=== PATIENT | female | born 1960 ===

== ENCOUNTER 2016-12-25 11:40 | Inpatient (IN) | payer SELFPAY ==
[2016-12-25 11:41] VITALS: BMI 31.1
[2016-12-25] MEDS ORDERED: Sodium Chloride 0.9% 1,000 ML IV STA (13:58)
--- NOTE | 2016-12-25 14:29 | ED PDOC ---
Hyperglycemia/Hypoglycemia Time Seen by Provider: 12/25/16 13:43 Chief Complaint (Nursing): Abdominal Pain Chief Complaint (Provider): Hyperglycemia History Per: Patient History/Exam Limitations: no limitations Onset/Duration Of Symptoms: Days (x2) Current Symptoms Are (Timing): Still Present Severity: Moderate Current Diabetic Medications: Oral Medication Associated Infectious Symptoms: Nausea, Vomiting (non-bloody). denies: Other ( no abdominal pain, chest pain, shortness of breath, headache or vision changes) : The patient does not have any of the infectious symptoms listed except for those marked. Treatment Prior To Provider Evaluation: None Additional Complaint(s): Betty Ramirez is a 56 year old female, with a past medical history inclusive of HTN and type II diabetes, who presents to the ED on 12/25/16 for the evaluation of moderate hyperglycemia that she has experienced x2 days. Patient reports that her blood glucose levels have been consistently within the 300's and that she has also experienced some nausea and episodes of non-bloody vomiting. Denies headache, vision changes, chest pain, shortness of breath or abdominal pain. Symptoms have persisted despite compliance with her medications , prompting ED visit. PMD: [facility] Past Medical History Reviewed: Historical Data, Nursing Documentation, Vital Signs Vital Signs: Last Vital Signs Temp 97.9 F 12/25/16 11:48 Pulse 66 12/25/16 11:48 Resp 17 12/25/16 11:48 BP 137/84 12/25/16 11:48 Pulse Ox 100 12/25/16 11:48 - Medical History PMH: Anemia, Diabetes (type II), Gastritis, GERD, Hepatitis (C with liver cirrhosis), Hiatal Hernia, HTN, Pneumonia Denies: Anxiety, Bipolar Disorder, Depression, HIV, Paranoia, Post Traumatic Stress Disorder, Chronic Kidney Disease, Schizophrenia - Surgical History Surgical History: Appendectomy, Hernia Repair Other surgeries: colonoscopy, tubal ligation - Family History Family History: States: Unknown Family Hx - Social History Ex-Smoker (has not smoked in the last 12 months): Yes Alcohol: None Drugs: Denies - Immunization History Hx Influenza Vaccination: No Hx Pneumococcal Vaccination: No - Home Medications Home Medications: Ambulatory Orders Medication Instructions Recorded Lansoprazole [Prevacid] 15 mg PO DAILY 07/16/16 Ferrous Sulfate [Feosol] 325 mg PO DAILY 12/05/16 Insulin Detemir [Levemir] 15 unit SC HS 12/05/16 Propranolol [Inderal] 10 mg PO Q8H 12/05/16 Insulin Lispro [Humalog (Insulin 9 unit SQ ACTID #10 cartridge 12/08/16 Lispro)] - Allergies Allergies/Adverse Reactions: Allergies Allergy/AdvReac Type Severity Reaction Status Date / Time No Known Allergies Allergy Verified 12/25/16 11:48 Review of Systems ROS Statement: Except As Marked, All Systems Reviewed And Found Negative Constitutional: Positive for: Other (hyperglycemia (300's)) Eyes: Negative for: Vision Change Cardiovascular: Negative for: Chest Pain Respiratory: Negative for: Shortness of Breath Gastrointestinal: Positive for: Nausea, Vomiting (non-bloody). Negative for: Abdominal Pain Neurological: Negative for: Headache Physical Exam - Reviewed Nursing Documentation Reviewed: Yes Vital Signs Reviewed: Yes - Physical Exam Appears: Positive for: Non-toxic, No Acute Distress Head Exam: Positive for: ATRAUMATIC, NORMOCEPHALIC Skin: Positive for: Warm, Dry Eye Exam: Positive for: Normal appearance, EOMI, PERRL ENT: Positive for: Normal ENT Inspection. Negative for: Pharyngeal Erythema, Tonsillar Exudate, Tonsillar Swelling Cardiovascular/Chest: Positive for: Regular Rate, Rhythm. Negative for: Edema, Murmur Respiratory: Positive for: Normal Breath Sounds. Negative for: Respiratory Distress Gastrointestinal/Abdominal: Positive for: Normal Exam, Soft. Negative for: Tenderness Back: Negative for: L CVA Tenderness, R CVA Tenderness Extremity: Positive for: Normal ROM. 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 Negative for: Motor/Sensory Deficits, Facial Droop - ECG ECG: Positive for: Interpreted By Me, Viewed By Me ECG Rhythm: Positive for: Normal QRS, Normal ST Segment, Sinus Rhythm O2 Sat by Pulse Oximetry: 100 (RA) Pulse Ox Interpretation: Normal - Progress ED Course And Treament: 1633: Stable. Dr. Pacheco to take over care. Fu with labs. Medical Decision Making Medical Decision Makin:43 Initial Impression: hyperglycemia Initial Plan: * EKG * Labs * Troponin I * Udip * IV NS 1000ml at 1000mls/hr * Zofran 4mg IV * Reevaluation Scribe Attestation: Documented by Aneta Rivera, acting as a scribe for Felix Blood MD. Provider Scribe Attestation: All medical record entries made by the Scribe were at my direction and personally dictated by me. I have reviewed the chart and agree that the record accurately reflects my personal performance of the history, physical exam, medical decision making, and the department course for this patient. I have also personally directed, reviewed, and agree with the discharge instructions and disposition. Disposition - Clinical Impression Clinical Impression: Acute hyperglycemia - Disposition Disposition: Transfer of Care Disposition Time: 16:48 Condition: STABLE Patient Signed Over To: Brien Pacheco
[2016-12-25 16:49] LABS: BASO # 0.1 K/uL (0.0-0.2); BASO % 1.1 % (0.0-2.0); EOS # 0.1 K/uL (0.0-0.7); EOS % 2.1 % (0.0-4.0); HEMATOCRIT 28.3 % (34.0-47.0); LYMPH # 1.9 K/uL (1.0-4.3); LYMPH % 31.8 % (20.0-40.0); MEAN CELL VOLUME 90.4 fl (81.0-99.0); MEAN CORPUSCULAR HEMOGLOBIN 30.3 pg (27.0-31.0); MEAN CORPUSCULAR HGB CONC 33.5 g/dL (33.0-37.0); MEAN PLATELET VOLUME 9.7 fl (7.2-11.7); MONO # 0.4 K/uL (0.0-0.8); MONO % 7.4 % (0.0-10.0); NEUT # 3.5 K/uL (1.8-7.0); NEUT % 57.6 % (50.0-75.0); RED CELL DISTRIBUTION WIDTH 16.6 % (11.5-14.5)
[2016-12-25 17:08] LABS: ALB/GLOB RATIO 0.7 (1.0-2.1); ALKALINE PHOSPHATASE 168 U/L (38-126); ALT/SGPT 45 U/L (9-52); AST/SGOT 51 U/L (14-36); BILIRUBIN,TOTAL 2.1 mg/dl (0.2-1.3); BLOOD UREA NITROGEN 59 mg/dl (7-17); CALCIUM 9.6 mg/dL (8.4-10.2); CARBON DIOXIDE 21 mmol/L (22-30); CHLORIDE 100 mmol/L (98-107); GFR AFRICAN-AMERICAN 25; GLUCOSE,RANDOM 230 mg/dL (65-105); POTASSIUM 5.1 MMOL/L (3.6-5.0); SODIUM 135 mmol/l (132-148); TOTAL PROTEIN 7.8 G/DL (6.3-8.2)
--- NOTE | 2016-12-25 18:11 | ED PDOC ---
- Laboratory Results Result Diagrams: 12/25/16 16:40 12/25/16 16:40 - ECG O2 Sat by Pulse Oximetry: 100 (RA) Disposition - Clinical Impression Clinical Impression: Acute hyperglycemia, [id number] renal failure - POA Present On Arrival: None - Disposition Disposition: Admitted as In-Patient Disposition Time: 18:11 Condition: FAIR
[2016-12-25] MEDS ORDERED: Dextrose 50% SYRINGE Inj (50 ml) IV PRN (20:01)
[2016-12-25] MEDS ORDERED: Glucagon Recombinant 1 mg Inj IM PRN (20:01)
--- NOTE | 2016-12-25 20:16 | CP.PCM.HP ---
History of Present Illness - History of Present Illness History of Present Illness: 56 yo F w/ PMHx of IDDDMII, HTN, Liver Cirrhosis, Anemia, CKD presented to ED today due to BS noted to be 400s. Patient had episode of vomiting last night, x1 , non-bloody, non-bilious. Mild nausea reported this AM. Patient usually does not check her BS, though bought machine last night and checked it this AM. Patient states she feels well otherwise. Denies chest pain, abdominal pain, headache, chills, fever, numbness, tingling, back pain, recent illness, or changes in urinary/bowel habits. Diet has been as usual. Taking medication as prescribed though was prescribed another medications that she states was too expensive though she is unsure what it was for. PMHx: DM 2 on Insulin, HTN, Liver Cirrhosis, Anemia, CKD PSHx: Abdominal Hernia Repair ALL: NKDA, NO known food allergies Medications: Glimepiride 4 mg PO 1x/day, Spironolactone 100 mg PO 1x/day, Furosemide 40 mg PO 1x/day, Propranolol 10 mg PO Q8H, Levemir 15 units SQ QHS, Social Hx: Lives with [id number], NO tobacco, NO alcohol, NO illicit drugs Family Hx: Mom ( at 72 of unspecified pulmonary disease), Dad ( at 88 of heart disease), 3 sons (1 with HTN) ED Course: Vitals stable, unremarkable Labs: notable for BUN/Cr: 59/2.4, elevated Alk phos/AST. POC 376, Serum Glu 230 EKG unremarkable Zofran 4mg x1, IV bolus 1L Present on Admission - Present on Admission Any Indicators Present on Admission: Yes History of Uncontrolled Diabetes: Yes Past Patient History - Tetanus Immunizations Tetanus Immunization: Unknown - Past Medical History & Family History Past Medical History?: Yes - Past Social History Alcohol: None Drugs: Denies - CARDIAC Hx Hypertension: Yes - PULMONARY Hx Pneumonia: Yes - NEUROLOGICAL Hx Neurological Disorder: No - HEENT Hx HEENT Problems: No - RENAL Hx Chronic Kidney Disease: No - ENDOCRINE/METABOLIC Hx Diabetes Mellitus Type 2: Yes - HEMATOLOGICAL/ONCOLOGICAL Hx Anemia: Yes Hx Human Immunodeficiency Virus (HIV): No - INTEGUMENTARY Hx Dermatological Problems: No - MUSCULOSKELETAL/RHEUMATOLOGICAL Hx Musculoskeletal Disorders: Yes Hx Falls: No - GASTROINTESTINAL Hx Gastritis: Yes - GENITOURINARY/GYNECOLOGICAL Hx Genitourinary Disorders: No - PSYCHIATRIC Hx Anxiety: No Hx Bipolar Disorder: No Hx Depression: No Hx Paranoia: No Hx Post Traumatic Stress Disorder: No Hx Schizophrenia: No - SURGICAL HISTORY Hx Appendectomy: Yes - ANESTHESIA Hx Anesthesia: Yes Hx Anesthesia Reactions: No Hx Malignant Hyperthermia: No Meds Allergies/Adverse Reactions: Allergies Allergy/AdvReac Type Severity Reaction Status Date / Time No Known Allergies Allergy Verified 12/25/16 11:48 Physical Exam - Constitutional Appears: Well, Non-toxic, No Acute Distress - Head Exam Head Exam: ATRAUMATIC, NORMAL INSPECTION, NORMOCEPHALIC - Eye Exam Eye Exam: EOMI, Normal appearance - ENT Exam ENT Exam: Normal Exam - Neck Exam Neck exam: Positive for: Normal Inspection - Respiratory Exam Respiratory Exam: Clear to Auscultation Bilateral, NORMAL BREATHING PATTERN. absent: Decreased Breath Sounds, Rales, Rhonchi, Wheezes - Cardiovascular Exam Cardiovascular Exam: REGULAR RHYTHM, RRR, +S1, +S2 - GI/Abdominal Exam GI & Abdominal Exam: Normal Bowel Sounds, Soft. absent: Tenderness - Extremities Exam Extremities exam: Positive for: normal inspection. Negative for: calf tenderness, pedal edema - Back Exam Back exam: NORMAL INSPECTION - Neurological Exam Neurological exam: Alert, Oriented x3 - Psychiatric Exam Psychiatric exam: Normal Affect, Normal Mood - Skin Skin Exam: Dry, Intact, Normal Color, Warm Results - Vital Signs Recent Vital Signs: Last Vital Signs Temp 97.9 F 12/25/16 11:48 Pulse 66 12/25/16 11:48 Resp 17 12/25/16 11:48 BP 137/84 12/25/16 11:48 Pulse Ox 100 12/25/16 18:11 - Labs Result Diagrams: 12/25/16 16:40 12/25/16 16:40 Assessment & Plan (1) Acute hyperglycemia Status: Acute (2) Acute on chronic renal failure Status: Acute (3) Chronic hepatitis C with cirrhosis Status: Chronic (4) HTN (hypertension) Status: Chronic (5) DVT prophylaxis Status: Acute - Assessment and Plan (Free Text) Assessment: 56 yo F w/ PMHx of IDDDMII, HTN, Liver Cirrhosis, Anemia, CKD with hyperglycemia and acute on chronic kidney failure. Plan: (1) Acute hyperglycemia -Blood sugar 230 on Serum -Previous review of chart noted Levemir 20 u Sc HS (while admitted though discharge summary stated return to 15U HS), Humalog 9 u sc ACTID -Patient currently taking Levemir 15U HS and no Humalog -Will monitor BS and increase to previous dosing if indicated. -Hypoglycemia protocol -Insulin sliding scale (2) Acute on chronic renal failure Stage III -Likely multifactorial between medication/dehydration -Does not follow up with Nephrology as outpatient -Will hydrate patient at this time and hold lasix -Follow up labs in AM and adjust accordingly (3) Chronic hepatitis C with cirrhosis -Being managed by Dr Izquierdo as outpatient, Stable from cirrhotic perspective w/ o abdominal pain and no gross ascites. -GI consulted earlier this month appreciated: c/w Propranolol 10mg Q8H, continue to hold diuretics with renal insufficiency , continue protonix. consider transfusion '(at time with anemia)' -c/w propranolol -Patient states taking spironolactone, though previous admission states not to continue, will hold at this time (4) HTN (hypertension) -Controlled at this time -no diuretics or lisinopril for now until follow up with GI -c/w propranolol 10 mg Q8h -Monitor BP (5) DVT prophylaxis -SCDs (CrCl 32 at this time, can consider Lovenox in subsequent days)
[2016-12-25] MEDS: Sodium Chloride 0.9% 1,000 ML IV SCH (20:59)
[2016-12-25] MEDS ORDERED: INSULIN DETEMIR 15 UNIT SC SCH (22:00)
[2016-12-25] MEDS ORDERED: Insulin Detemir 100 Units/ml Inj SC SCH (22:00)
[2016-12-25] MEDS: Insulin Regular 100 units/ml SC SCH (22:11)
--- NOTE | 2016-12-26 07:13 | CARD ---
APPROVED REPORT EKG Measurement Heart [id number] <Conclusion> Normal sinus rhythm Normal ECG
[2016-12-26 07:52] LABS: ALB/GLOB RATIO 0.7 (1.0-2.1); BILIRUBIN,TOTAL 1.8 mg/dl (0.2-1.3); CALCIUM 9.1 mg/dL (8.4-10.2); POTASSIUM 5.3 MMOL/L (3.6-5.0); TOTAL PROTEIN 7.7 G/DL (6.3-8.2)
[2016-12-26 08:46] LABS: HEMATOCRIT 28.8 % (34.0-47.0); MEAN CELL VOLUME 90.4 fl (81.0-99.0); MEAN CORPUSCULAR HEMOGLOBIN 30.5 pg (27.0-31.0); MEAN CORPUSCULAR HGB CONC 33.7 g/dL (33.0-37.0); RED CELL DISTRIBUTION WIDTH 16.9 % (11.5-14.5); WHITE BLOOD COUNT 7.1 K/uL (4.8-10.8)
[2016-12-26] MEDS ORDERED: GlipiZIDE 10 mg SR Tab PO SCH (09:00)
[2016-12-26] MEDS ORDERED: Patient's Own Med (Glimepiride [Amaryl] 4 MG) PO SCH (09:00)
[2016-12-26] MEDS ORDERED: Enoxaparin 30 mg Syringe SC SCH (09:00)
--- NOTE | 2016-12-26 11:00 | CP.PCM.PN ---
Subjective - Date & Time of Evaluation Date of Evaluation: 12/26/16 Time of Evaluation: 07:30 - Subjective Subjective: 56 YO F seen resting comfortably in a isolated room in the ER becuase of previous diagnosis of MRSA. She claims she is feeling well, denies any V/D. She states the nausea has resolved. She explained that she was not following the insulin regimen at home, because she could not afford the medication. Objective - Vital Signs/Intake and Output Vital Signs (last 24 hours): Temp Pulse Resp BP Pulse Ox 98.1 F 65 19 93/64 L 99 12/26/16 00:19 12/26/16 09:40 12/26/16 09:40 12/26/16 09:40 12/26/16 09:40 - Medications Medications: Current Medications Dextrose (Dextrose 50% Inj) 0 ml IV STAT PRN; Protocol PRN Reason: Hyglycemia Protocol Dextrose (Glutose 15) 0 gm PO ONCE PRN; Protocol PRN Reason: Hypoglycemia Protocol Furosemide (Lasix) 40 mg PO DAILY [facility] Glipizide (Glucotrol Xl) 10 mg PO DAILY [facility] Last Admin: 12/26/16 10:12 Dose: 10 mg Glucagon (Glucagen Diagnostic Kit) 0 mg IM STAT PRN; Protocol PRN Reason: Hypoglycemia Protocol Home Med (Glimepiride [Amaryl]) 4 mg PO DAILY [facility] Home Med (Insulin Detemir [Levemir]) 15 unit SC HS [facility] Sodium Chloride (Sodium Chloride 0.9%) 1,000 mls @ 120 mls/hr IV .Q8H20M [facility] Last Admin: 12/25/16 20:59 Dose: 120 mls/hr Insulin Detemir (Levemir) 15 units SC HS [facility] Last Admin: 12/25/16 22:12 Dose: 15 units Insulin Human Regular (Humulin R) 0 units SC ACHS [facility] PRN Reason: Protocol Last Admin: 12/25/16 22:11 Dose: 4 units Ondansetron HCl (Zofran Inj) 4 mg IVP Q6 PRN PRN Reason: Nausea/Vomiting Propranolol HCl (Inderal) 10 mg PO Q8H [facility] Last Admin: 12/26/16 04:58 Dose: Not Given Spironolactone (Aldactone) 100 mg PO DAILY [facility] - Labs Labs: 12/26/16 06:00 12/26/16 07:16 - Constitutional Appears: No Acute Distress - Head Exam Head Exam: NORMAL INSPECTION - Eye Exam Eye Exam: Normal appearance - Respiratory Exam Respiratory Exam: Clear to Ausculation Bilateral, NORMAL BREATHING PATTERN. absent: Rhonchi, Wheezes - Cardiovascular Exam Cardiovascular Exam: REGULAR RHYTHM, +S1, +S2 - GI/Abdominal Exam GI & Abdominal Exam: Soft, Normal Bowel Sounds. absent: Tenderness - Extremities Exam Extremities Exam: absent: Calf Tenderness - Neurological Exam Neurological Exam: Alert, Awake, CN II-XII Intact, Oriented x3 Assessment and Plan - Assessment and Plan (Free Text) Assessment: 56 yo F w/ PMHx of IDDDMII, HTN, Liver Cirrhosis, Anemia, CKD with hyperglycemia and acute on chronic kidney failure. Plan: (1) Insulin dependent Type 2 DM -Blood sugar @ 11:30 was 328 -Will monitor BS and increase to previous dosing if indicated. -Hypoglycemia protocol -NPH 25 units ACHS -Insulin sliding scale (2) Acute on chronic renal failure Stage III - BUN/Creatinine: 61/2.6 -Likely multifactorial between medication/dehydration -Does not follow up with Nephrology as outpatient -Will hydrate patient at this time and hold lasix -Follow up labs in AM and adjust accordingly (3) Chronic hepatitis C with cirrhosis -Being managed by Dr Izquierdo as outpatient, Stable from cirrhotic perspective w/ o abdominal pain and no gross ascites. -GI consulted earlier this month appreciated: c/w Propranolol 10mg Q8H, continue to hold diuretics with renal insufficiency , continue protonix. consider transfusion '(at time with anemia)' -c/w propranolol - Hold spironolactone (4) HTN (hypertension) -Controlled at this time -c/w propranolol 10 mg Q8h -Monitor BP (5) DVT prophylaxis -SCDs (CrCl 32 at this time, can consider Lovenox in subsequent days)
[2016-12-26] MEDS: Insulin Regular 100 units/ml SC SCH ×3 (11:46→22:04)
[2016-12-26] MEDS: Sodium Chloride 0.9% 1,000 ML IV SCH ×2 (16:30→22:14)
[2016-12-26 19:42] LABS: ALB/GLOB RATIO 0.7 (1.0-2.1); BILIRUBIN,TOTAL 1.6 mg/dl (0.2-1.3); CALCIUM 9.1 mg/dL (8.4-10.2); TOTAL PROTEIN 7.8 G/DL (6.3-8.2)
[2016-12-26 19:46] LABS: POTASSIUM 5.6 MMOL/L (3.6-5.0)
[2016-12-26] MEDS ORDERED: Sod Polystyrene Sulf 15 gm/60 ml Oral Susp PO ONE (21:37)
[2016-12-26] MEDS: Insulin NPH Human 100 Units/ml Inj SC SCH (22:09)
[2016-12-27] MEDS: Sodium Chloride 0.9% 1,000 ML IV SCH ×3 (03:35→22:20)
[2016-12-27] MEDS: Insulin Regular 100 units/ml SC SCH ×4 (06:42→22:15)
[2016-12-27 07:10] LABS: ALB/GLOB RATIO 0.7 (1.0-2.1); BILIRUBIN,TOTAL 1.7 mg/dl (0.2-1.3); CALCIUM 8.8 mg/dL (8.4-10.2); POTASSIUM 4.8 MMOL/L (3.6-5.0); TOTAL PROTEIN 8.3 G/DL (6.3-8.2)
--- NOTE | 2016-12-27 08:12 | CP.PCM.PN ---
<Bryanna Parrish - Last Filed: 12/27/16 13:26> Subjective - Date & Time of Evaluation Date of Evaluation: 12/27/16 Time of Evaluation: 07:20 - Subjective Subjective: Patient was seen at bedside she states she is feeling much better. Denies any Nausea, vomiting, Diarrhea, dizziness. Has been tolerating PO intake slept well overnight. Objective - Vital Signs/Intake and Output Vital Signs (last 24 hours): Temp Pulse Resp BP Pulse Ox 98.6 F 74 20 116/68 100 12/26/16 22:03 12/27/16 04:48 12/26/16 22:03 12/27/16 04:48 12/26/16 22:03 - Medications Medications: Current Medications Dextrose (Dextrose 50% Inj) 0 ml IV STAT PRN; Protocol PRN Reason: Hyglycemia Protocol Dextrose (Glutose 15) 0 gm PO ONCE PRN; Protocol PRN Reason: Hypoglycemia Protocol Furosemide (Lasix) 40 mg PO DAILY [facility] Glucagon (Glucagen Diagnostic Kit) 0 mg IM STAT PRN; Protocol PRN Reason: Hypoglycemia Protocol Sodium Chloride (Sodium Chloride 0.9%) 1,000 mls @ 100 mls/hr IV .Q10H [facility] Last Admin: 12/26/16 22:14 Dose: 100 mls/hr Insulin Human NPH (Humulin N) 25 units SC [facility] Last Admin: 12/26/16 22:09 Dose: 25 u Insulin Human Regular (Humulin R) 0 units SC ACHS [facility] PRN Reason: Protocol Last Admin: 12/27/16 06:42 Dose: 4 units Ondansetron HCl (Zofran Inj) 4 mg IVP Q6 PRN PRN Reason: Nausea/Vomiting Propranolol HCl (Inderal) 10 mg PO Q8H [facility] Last Admin: 12/27/16 04:48 Dose: 10 mg - Labs Labs: 12/26/16 06:00 12/27/16 05:30 - Constitutional Appears: No Acute Distress - Head Exam Head Exam: ATRAUMATIC, NORMAL INSPECTION, NORMOCEPHALIC - Eye Exam Eye Exam: Normal appearance - Respiratory Exam Respiratory Exam: Clear to Ausculation Bilateral, NORMAL BREATHING PATTERN - Cardiovascular Exam Cardiovascular Exam: REGULAR RHYTHM, +S1, +S2 - GI/Abdominal Exam GI & Abdominal Exam: Soft, Normal Bowel Sounds. absent: Tenderness - Extremities Exam Extremities Exam: absent: Pedal Edema - Neurological Exam Neurological Exam: Alert, Awake, Normal Gait, Oriented x3 Assessment and Plan - Assessment and Plan (Free Text) Assessment: Assessment: 56 yo F w/ PMHx of IDDDMII, HTN, Liver Cirrhosis, Anemia, CKD with hyperglycemia and acute on chronic kidney failure. Plan: (1) Insulin dependent Type 2 DM -Blood sugar @ 8:00 was 271 - PT required 15 addition units in last 24 hours -NPH dose is being increased from NPH 25 units ACHS to 30 units -Will monitor BS -Hypoglycemia protocol -Insulin sliding scale (2) Acute on chronic renal failure Stage IV - BUN/Creatinine: 56/2.6 GFR:20 -Likely multifactorial between medication/dehydration -Does not follow up with Nephrology as outpatient -Will hydrate patient at this time and hold lasix - Currently on normal saline at 100mls/hr - nephrology consulted (3) Chronic hepatitis C with cirrhosis -Being managed by Dr Izquierdo as outpatient, Stable from cirrhotic perspective w/ o abdominal pain and no gross ascites. -GI consulted earlier this month appreciated: c/w Propranolol 10mg Q8H, continue to hold diuretics with renal insufficiency , continue protonix. consider transfusion '(at time with anemia)' -c/w propranolol - Hold spironolactone (4) HTN (hypertension) -Controlled at this time -c/w propranolol 10 mg Q8h -Monitor BP (5) DVT prophylaxis - (Hold) Lovenox for now untill creatinine clearance improves - Creatinine clearance currently 31 - SCD <Dyana Ibarra - Last Filed: 12/27/16 14:02> Subjective - Date & Time of Evaluation Date of Evaluation: 12/27/16 Objective - Vital Signs/Intake and Output Vital Signs (last 24 hours): Temp Pulse Resp BP Pulse Ox 98.5 F 62 20 99/65 L 100 12/27/16 08:16 12/27/16 11:48 12/27/16 08:16 12/27/16 11:48 12/27/16 08:16 - Medications Medications: Current Medications Dextrose (Dextrose 50% Inj) 0 ml IV STAT PRN; Protocol PRN Reason: Hyglycemia Protocol Dextrose (Glutose 15) 0 gm PO ONCE PRN; Protocol PRN Reason: Hypoglycemia Protocol Furosemide (Lasix) 40 mg PO DAILY [facility] Glucagon (Glucagen Diagnostic Kit) 0 mg IM STAT PRN; Protocol PRN Reason: Hypoglycemia Protocol Sodium Chloride (Sodium Chloride 0.9%) 1,000 mls @ 100 mls/hr IV .Q10H [facility] Last Admin: 12/26/16 22:14 Dose: 100 mls/hr Insulin Human NPH (Humulin N) 30 units SC [facility] Insulin Human Regular (Humulin R) 0 units SC ACHS [facility] PRN Reason: Protocol Last Admin: 12/27/16 11:43 Dose: 4 units Ondansetron HCl (Zofran Inj) 4 mg IVP Q6 PRN PRN Reason: Nausea/Vomiting Propranolol HCl (Inderal) 10 mg PO Q8H [facility] Last Admin: 12/27/16 11:47 Dose: Not Given - Labs Labs: 12/26/16 06:00 12/27/16 05:30 - Skin Additional comments: Attestation Attending note Patient seen and examined. Case discussed with resident. Awaiting computer networking instructor follow up today. Agree with plan.
[2016-12-27] MEDS ORDERED: Insulin NPH Human 100 Units/ml Inj SC SCH (09:00)
[2016-12-27] MEDS: Insulin NPH Human 100 Units/ml Inj SC SCH ×2 (09:06→22:15)
[2016-12-27] MEDS ORDERED: Enoxaparin 30 mg Syringe SC SCH (09:30)
--- NOTE | 2016-12-27 13:31 | CP.PCM.CON ---
History of Present Illness - History of Present Illness History of Present Illness: 56 yo F w/ w/ pmh of CKD iii/iv , dm - poorly controlled, htn, anemia that presented to ER w/ high blood sugars. She states that she takes her insulin at home she not sure why her levels became so elevated but it sounds like in general her sugars are poorly controlled. Its not clear if she has retinopathy or not. She deneis any current n/v. She also has hepc - was admitted for gib previously. Her sugars are now improving this hospitalization. SHe was not clear what meds she takes at home but states she denies nsaid use. ros: a full detailed ROS is negative except as in my hpi PMHx: CKD III/IV, DM on insulin,HTN, hep c Cirrhosis, Anemia PSHx: Abdominal Hernia Repair ALL: NKDA Social Hx: denies active smoke, eoth ivdu fmahx: denies ckd/esrd Past Patient History - Tetanus Immunizations Tetanus Immunization: Unknown - Past Medical History & Family History Past Medical History?: Yes - Past Social History Smoking Status: Never Smoked - CARDIAC Hx Hypertension: Yes - PULMONARY Hx Pneumonia: Yes - NEUROLOGICAL Hx Neurological Disorder: No - HEENT Hx HEENT Problems: No - RENAL Hx Chronic Kidney Disease: Yes Hx Dialysis: No - ENDOCRINE/METABOLIC Hx Diabetes Mellitus Type 2: Yes - HEMATOLOGICAL/ONCOLOGICAL Hx Anemia: Yes Hx Cirrhosis: Yes Hx Human Immunodeficiency Virus (HIV): No - INTEGUMENTARY Hx Dermatological Problems: No - MUSCULOSKELETAL/RHEUMATOLOGICAL Hx Musculoskeletal Disorders: Yes Hx Falls: No - GASTROINTESTINAL Hx Gastritis: Yes Other/Comment: Abdominal hernia repair 03/2016 - GENITOURINARY/GYNECOLOGICAL Hx Genitourinary Disorders: No - PSYCHIATRIC Hx Anxiety: No Hx Bipolar Disorder: No Hx Depression: No Hx Paranoia: No Hx Post Traumatic Stress Disorder: No Hx Schizophrenia: No - SURGICAL HISTORY Hx Appendectomy: Yes - ANESTHESIA Hx Anesthesia: Yes Hx Anesthesia Reactions: No Hx Malignant Hyperthermia: No Meds Allergies/Adverse Reactions: Allergies Allergy/AdvReac Type Severity Reaction Status Date / Time No Known Allergies Allergy Verified 12/25/16 11:48 - Medications Medications: Current Medications Dextrose (Dextrose 50% Inj) 0 ml IV STAT PRN; Protocol PRN Reason: Hyglycemia Protocol Dextrose (Glutose 15) 0 gm PO ONCE PRN; Protocol PRN Reason: Hypoglycemia Protocol Furosemide (Lasix) 40 mg PO DAILY [facility] Glucagon (Glucagen Diagnostic Kit) 0 mg IM STAT PRN; Protocol PRN Reason: Hypoglycemia Protocol Sodium Chloride (Sodium Chloride 0.9%) 1,000 mls @ 100 mls/hr IV .Q10H [facility] Last Admin: 12/26/16 22:14 Dose: 100 mls/hr Insulin Human NPH (Humulin N) 30 units SC [facility] Insulin Human Regular (Humulin R) 0 units SC ACHS [facility] PRN Reason: Protocol Last Admin: 12/27/16 11:43 Dose: 4 units Ondansetron HCl (Zofran Inj) 4 mg IVP Q6 PRN PRN Reason: Nausea/Vomiting Propranolol HCl (Inderal) 10 mg PO Q8H [facility] Last Admin: 12/27/16 11:47 Dose: Not Given Physical Exam - Constitutional Appears: Non-toxic - Head Exam Head Exam: ATRAUMATIC - Eye Exam Eye Exam: Normal appearance - ENT Exam ENT Exam: Normal Exam - Neck Exam Neck exam: Positive for: Normal Inspection - Respiratory Exam Respiratory Exam: NORMAL BREATHING PATTERN - Cardiovascular Exam Cardiovascular Exam: +S1, +S2 - GI/Abdominal Exam GI & Abdominal Exam: Normal Bowel Sounds - Extremities Exam Additional comments: trace edema - Neurological Exam Neurological exam: Alert, Oriented x3 - Psychiatric Exam Psychiatric exam: Normal Affect - Skin Skin Exam: Normal Color Results - Vital Signs Recent Vital Signs: Last Vital Signs Temp 98.5 F 12/27/16 08:16 Pulse 62 12/27/16 11:48 Resp 20 12/27/16 08:16 BP 99/65 L 12/27/16 11:48 Pulse Ox 100 12/27/16 08:16 - Labs Result Diagrams: 12/26/16 06:00 12/27/16 05:30 Labs: Laboratory Results - last 24 hr 12/26/16 12/26/16 12/26/16 06:00 17:47 19:00 Sodium 138 Potassium 5.6 H Chloride 104 Carbon Dioxide 21 L Anion Gap 19 BUN 59 H Creatinine 2.7 H Est GFR ( Amer) 22 Est GFR (Non-Af Amer) 18 POC Glucose (mg/dL) 204 H Random Glucose 258 H Hemoglobin A1c 11.6 H Calcium 9.1 Total Bilirubin 1.6 H AST 83 H D ALT 49 Alkaline Phosphatase 166 H Total Protein 7.8 Albumin 3.2 L Globulin 4.6 H Albumin/Globulin Ratio 0.7 L 12/26/16 12/27/16 12/27/16 21:52 03:02 05:30 Sodium 142 Potassium 4.8 Chloride 107 Carbon Dioxide 21 L Anion Gap 19 BUN 56 H Creatinine 2.5 H Est GFR ( Amer) 24 Est GFR (Non-Af Amer) 20 POC Glucose (mg/dL) 316 H 368 H Random Glucose 247 H Hemoglobin A1c Calcium 8.8 Total Bilirubin 1.7 H AST 71 H ALT 49 Alkaline Phosphatase 188 H Total Protein 8.3 H Albumin 3.3 L Globulin 4.9 H Albumin/Globulin Ratio 0.7 L 12/27/16 12/27/16 06:34 10:58 Sodium Potassium Chloride Carbon Dioxide Anion Gap BUN Creatinine Est GFR ( Amer) Est GFR (Non-Af Amer) POC Glucose (mg/dL) 271 H 253 H Random Glucose Hemoglobin A1c Calcium Total Bilirubin AST ALT Alkaline Phosphatase Total Protein Albumin Globulin Albumin/Globulin Ratio Assessment & Plan - Assessment and Plan (Free Text) Assessment: ARF/ CKD IV / Hep C/ Anemia / dm plan: Etiology of CKD not clear - suspect underlying element of diabetic nephropathy given long duration and poorly controlled however at least by dipstick on prior ua she had neg protein. Recc recheck UA and Urine Protein and Urine Cr. Also suggest Renal us. Its also possible she may have type II hrs give her relatively low bp's and perhaps chronic hypoperfusion. Re: anemia - check iron profile and ferritin, would like to iron replete before considering ROLY therapy. check ipth to screen for secondary hyperparathyroid DM will defer to primary team. THank you for this interesting consult
[2016-12-27] MEDS: Pantoprazole 20 mg EC Tab PO SCH (15:25)
[2016-12-27] MEDS ORDERED: Alum-Mag Hydrox-Simethicone Susp (30 mL) PO ONE (18:28)
[2016-12-28] MEDS: Insulin Regular 100 units/ml SC SCH ×4 (06:48→22:31)
[2016-12-28] MEDS: Insulin NPH Human 100 Units/ml Inj SC SCH ×2 (10:26→23:48)
[2016-12-28] MEDS: Pantoprazole 20 mg EC Tab PO SCH (10:27)
--- NOTE | 2016-12-28 11:55 | CP.PCM.PN ---
<Art Gutierrez - Last Filed: 12/28/16 12:57> Subjective - Date & Time of Evaluation Date of Evaluation: 12/28/16 Time of Evaluation: 08:00 - Subjective Subjective: Patient was seen at bedside she states she is feeling much better. Denies any Nausea, vomiting, Diarrhea, dizziness. Has been tolerating PO intake slept well overnight. Objective - Vital Signs/Intake and Output Vital Signs (last 24 hours): Temp Pulse Resp BP Pulse Ox 97.7 F 74 20 120/70 94 L 12/28/16 08:37 12/28/16 08:37 12/28/16 08:37 12/28/16 08:37 12/28/16 08:37 - Medications Medications: Current Medications Dextrose (Dextrose 50% Inj) 0 ml IV STAT PRN; Protocol PRN Reason: Hyglycemia Protocol Dextrose (Glutose 15) 0 gm PO ONCE PRN; Protocol PRN Reason: Hypoglycemia Protocol Furosemide (Lasix) 40 mg PO DAILY [facility] Glucagon (Glucagen Diagnostic Kit) 0 mg IM STAT PRN; Protocol PRN Reason: Hypoglycemia Protocol Sodium Chloride (Sodium Chloride 0.9%) 1,000 mls @ 100 mls/hr IV .Q10H [facility] Last Admin: 12/27/16 22:20 Dose: 100 mls/hr Insulin Human NPH (Humulin N) 30 units SC [facility] Last Admin: 12/28/16 10:26 Dose: 30 u Insulin Human Regular (Humulin R) 0 units SC ACHS [facility] PRN Reason: Protocol Last Admin: 12/28/16 06:48 Dose: Not Given Ondansetron HCl (Zofran Inj) 4 mg IVP Q6 PRN PRN Reason: Nausea/Vomiting Pantoprazole Sodium (Protonix Ec Tab) 20 mg PO DAILY [facility] Last Admin: 12/28/16 10:27 Dose: 20 mg Propranolol HCl (Inderal) 10 mg PO Q8H [facility] Last Admin: 12/28/16 04:48 Dose: 10 mg - Labs Labs: 12/26/16 06:00 12/27/16 05:30 - Head Exam Additional comments: ATRAUMATIC, NORMAL INSPECTION, NORMOCEPHALIC - Eye Exam Eye Exam: Normal appearance - Respiratory Exam Respiratory Exam: Clear to Ausculation Bilateral, NORMAL BREATHING PATTERN - Cardiovascular Exam Cardiovascular Exam: REGULAR RHYTHM, +S1, +S2 - GI/Abdominal Exam GI & Abdominal Exam: Soft, Normal Bowel Sounds. absent: Tenderness - Extremities Exam Extremities Exam: Pedal Edema - Neurological Exam Neurological Exam: Alert, Awake, Normal Gait, Oriented x3 Assessment and Plan - Assessment and Plan (Free Text) Assessment: 56 yo F w/ PMHx of IDDDM II, HTN, Liver Cirrhosis, Anemia, CKD with hyperglycemia and acute on chronic kidney failure. Plan: (1) IDDM -uncontrolled - Accucheck ACHS -NPH 30 units s/c BID -Will monitor BS -Hypoglycemia protocol -Insulin sliding scale (2) Acute on chronic renal failure Stage IV - stable -BUN/Creatinine: 56/2.5 GFR:20 -Does not follow up with Nephrology as outpatient -Will hydrate patient at this time and hold lasix - Currently on normal saline at 100mls/hr - nephrology consulted Dr Segovia . -Renal US reveals atrophic Rt kidney & cortical echogenecity - f/u urine Cr, PTH, - f/u Renal Scan (3) Chronic hepatitis C with cirrhosis -Being managed by Dr Izquierdo as outpatient, Stable from cirrhotic perspective w/ o abdominal pain and no gross ascites. -GI consulted earlier this month appreciated: -c/w propranolol - Hold spironolactone (4) HTN (hypertension) -Controlled at this time -c/w propranolol 10 mg Q8h -Monitor BP (5) DVT prophylaxis - SCD for now <Dyana Ibarra - Last Filed: 12/29/16 08:57> Objective - Vital Signs/Intake and Output Vital Signs (last 24 hours): Temp Pulse Resp BP Pulse Ox 98.8 F 62 18 117/78 100 12/29/16 07:59 12/29/16 07:59 12/29/16 07:59 12/29/16 07:59 12/29/16 07:59 - Medications Medications: Current Medications Dextrose (Dextrose 50% Inj) 0 ml IV STAT PRN; Protocol PRN Reason: Hyglycemia Protocol Last Admin: 12/29/16 05:17 Dose: 50 ml Dextrose (Glutose 15) 0 gm PO ONCE PRN; Protocol PRN Reason: Hypoglycemia Protocol Furosemide (Lasix) 40 mg PO DAILY [facility] Glucagon (Glucagen Diagnostic Kit) 0 mg IM STAT PRN; Protocol PRN Reason: Hypoglycemia Protocol Sodium Chloride (Sodium Chloride 0.9%) 1,000 mls @ 100 mls/hr IV .Q10H [facility] Last Admin: 12/28/16 23:53 Dose: 100 mls/hr Insulin Human NPH (Humulin N) 30 units SC [facility]HS [facility] Last Admin: 12/28/16 23:48 Dose: 30 u Insulin Human Regular (Humulin R) 0 units SC ACHS [facility] PRN Reason: Protocol Last Admin: 12/28/16 22:31 Dose: Not Given Ondansetron HCl (Zofran Inj) 4 mg IVP Q6 PRN PRN Reason: Nausea/Vomiting Pantoprazole Sodium (Protonix Ec Tab) 20 mg PO DAILY [facility] Last Admin: 12/28/16 10:27 Dose: 20 mg Propranolol HCl (Inderal) 10 mg PO Q8H [facility] Last Admin: 12/29/16 04:24 Dose: 10 mg - Labs Labs: 12/29/16 06:00 12/29/16 06:00 - Skin Additional comments: ATTESTATION NOTE ATTENDING NOTE PATIENT SEEN AND EXAMINED. CASE DISCUSSED WITH RESIDENT. AGREE WITH PLAN.
--- NOTE | 2016-12-28 12:10 | US ---
PROCEDURE: Ultrasound of the Kidneys HISTORY: CKD COMPARISON: CT from 05/01/2016. MRI from 09/11/2016. TECHNIQUE: Sonogram of the kidneys. FINDINGS: RIGHT KIDNEY: Measures: 6.1 x 2.3 x 3.3 cm. Small in size. No hydronephrosis. LEFT KIDNEY: Measures: 10.1 x 4.7 x 4.8 cm. Increased cortical echogenicity. No stone, solid mass lesion or hydronephrosis visualized. OTHER FINDINGS: Multiple gallstones in a collapsed appearing gallbladder. This was seen in the prior MRI from 09/11/2016. IMPRESSION: Atrophic right kidney. Increased cortical echogenicity of the left kidney. Correlation with renal parenchymal disease recommended. Multiple gallstones in a collapsed appearing gallbladder. This is partially imaged. Dedicated ultrasound can be obtained if clinically indicated.
--- NOTE | 2016-12-28 12:39 | CP.PCM.PN ---
Subjective - Date & Time of Evaluation Date of Evaluation: 12/28/16 Time of Evaluation: 11:45 - Subjective Subjective: No new complaints Appears comfortable Objective - Vital Signs/Intake and Output Vital Signs (last 24 hours): Temp Pulse Resp BP Pulse Ox 97.7 F 74 20 120/70 94 L 12/28/16 08:37 12/28/16 08:37 12/28/16 08:37 12/28/16 08:37 12/28/16 08:37 - Medications Medications: Current Medications Dextrose (Dextrose 50% Inj) 0 ml IV STAT PRN; Protocol PRN Reason: Hyglycemia Protocol Dextrose (Glutose 15) 0 gm PO ONCE PRN; Protocol PRN Reason: Hypoglycemia Protocol Furosemide (Lasix) 40 mg PO DAILY [facility] Glucagon (Glucagen Diagnostic Kit) 0 mg IM STAT PRN; Protocol PRN Reason: Hypoglycemia Protocol Sodium Chloride (Sodium Chloride 0.9%) 1,000 mls @ 100 mls/hr IV .Q10H [facility] Last Admin: 12/27/16 22:20 Dose: 100 mls/hr Insulin Human NPH (Humulin N) 30 units SC [facility] Last Admin: 12/28/16 10:26 Dose: 30 u Insulin Human Regular (Humulin R) 0 units SC ACHS [facility] PRN Reason: Protocol Last Admin: 12/28/16 06:48 Dose: Not Given Ondansetron HCl (Zofran Inj) 4 mg IVP Q6 PRN PRN Reason: Nausea/Vomiting Pantoprazole Sodium (Protonix Ec Tab) 20 mg PO DAILY [facility] Last Admin: 12/28/16 10:27 Dose: 20 mg Propranolol HCl (Inderal) 10 mg PO Q8H [facility] Last Admin: 12/28/16 04:48 Dose: 10 mg - Labs Labs: 12/26/16 06:00 12/27/16 05:30 - Respiratory Exam Additional comments: Lungs clear - Cardiovascular Exam Cardiovascular Exam: REGULAR RHYTHM - Extremities Exam Additional comments: No edema Assessment and Plan - Assessment and Plan (Free Text) Assessment: CKD renal functin is stable Renal US reveals atrophic Rt kidney & cortical echogenecity Abdominal pain [id number] Plan: Renal scan to assess function of kidneys BP controlled Monitor renal function
[2016-12-28 17:57] VITALS: O2SAT 100
[2016-12-28] MEDS ORDERED: Alum-Mag Hydrox-Simethicone Susp (30 mL) PO ONE (22:20)
[2016-12-28] MEDS: Sodium Chloride 0.9% 1,000 ML IV SCH (23:53)
[2016-12-29] MEDS ORDERED: Alum-Mag Hydrox-Simethicone Susp (30 mL) PO ONE (05:02)
[2016-12-29 08:04] LABS: HEMATOCRIT 30.4 % (34.0-47.0); MEAN CELL VOLUME 92.2 fl (81.0-99.0); MEAN CORPUSCULAR HEMOGLOBIN 30.7 pg (27.0-31.0); MEAN CORPUSCULAR HGB CONC 33.3 g/dL (33.0-37.0); RED CELL DISTRIBUTION WIDTH 17.2 % (11.5-14.5); WHITE BLOOD COUNT 5.5 K/uL (4.8-10.8)
[2016-12-29 08:15] LABS: ALB/GLOB RATIO 0.7 (1.0-2.1); BILIRUBIN,TOTAL 1.7 mg/dl (0.2-1.3); CALCIUM 9.2 mg/dL (8.4-10.2); POTASSIUM 4.6 MMOL/L (3.6-5.0); TOTAL PROTEIN 7.9 G/DL (6.3-8.2)
--- NOTE | 2016-12-29 08:55 | CP.PCM.PN ---
<DeanaandaArt - Last Filed: 12/29/16 11:00> Subjective - Date & Time of Evaluation Date of Evaluation: 12/29/16 Time of Evaluation: 08:51 - Subjective Subjective: [facility] had one episode of low blood sugar around 4: 00 am felling weak, diaphoretic and Blood sugar was 47 mg/dl. patient drank orange juice and crackles and conditions improved but she felt epigastric pain, she took mallox and pain resolved.This morning reported felling better, Vj=192 mg/dl , she denied badominal pain ,chest pain , palpitations, urinary or sleeping problems. Objective - Vital Signs/Intake and Output Vital Signs (last 24 hours): Temp Pulse Resp BP Pulse Ox 98.8 F 62 18 117/78 100 12/29/16 07:59 12/29/16 07:59 12/29/16 07:59 12/29/16 07:59 12/29/16 07:59 - Medications Medications: Current Medications Dextrose (Dextrose 50% Inj) 0 ml IV STAT PRN; Protocol PRN Reason: Hyglycemia Protocol Last Admin: 12/29/16 05:17 Dose: 50 ml Dextrose (Glutose 15) 0 gm PO ONCE PRN; Protocol PRN Reason: Hypoglycemia Protocol Furosemide (Lasix) 40 mg PO DAILY [facility] Glucagon (Glucagen Diagnostic Kit) 0 mg IM STAT PRN; Protocol PRN Reason: Hypoglycemia Protocol Sodium Chloride (Sodium Chloride 0.9%) 1,000 mls @ 100 mls/hr IV .Q10H [facility] Last Admin: 12/28/16 23:53 Dose: 100 mls/hr Insulin Human NPH (Humulin N) 30 units SC [facility] Last Admin: 12/28/16 23:48 Dose: 30 u Insulin Human Regular (Humulin R) 0 units SC ACHS [facility] PRN Reason: Protocol Last Admin: 12/28/16 22:31 Dose: Not Given Ondansetron HCl (Zofran Inj) 4 mg IVP Q6 PRN PRN Reason: Nausea/Vomiting Pantoprazole Sodium (Protonix Ec Tab) 20 mg PO DAILY [facility] Last Admin: 12/28/16 10:27 Dose: 20 mg Propranolol HCl (Inderal) 10 mg PO Q8H [facility] Last Admin: 12/29/16 04:24 Dose: 10 mg - Labs Labs: 12/29/16 06:00 12/29/16 06:00 - Constitutional Appears: No Acute Distress - Head Exam Head Exam: NORMAL INSPECTION - Eye Exam Eye Exam: Normal appearance - ENT Exam ENT Exam: Mucous Membranes Moist - Neck Exam Neck Exam: Full ROM - Respiratory Exam Respiratory Exam: Clear to Ausculation Bilateral - Cardiovascular Exam Cardiovascular Exam: REGULAR RHYTHM, RRR, +S1, +S2 - GI/Abdominal Exam GI & Abdominal Exam: Soft, Normal Bowel Sounds. absent: Tenderness - Extremities Exam Extremities Exam: Full ROM, Normal Capillary Refill - Neurological Exam Neurological Exam: Alert, Oriented x3 - Psychiatric Exam Psychiatric exam: Normal Affect, Normal Mood - Skin Skin Exam: Normal Color Assessment and Plan - Assessment and Plan (Free Text) Assessment: 56 yo F w/ PMHx of IDDDM II, HTN, Liver Cirrhosis, Anemia, CKD with hyperglycemia and acute on chronic kidney failure. Plan: (1) IDDM -uncontrolled - Accucheck ACHS - decreased NPH 30 to 20 units s/c BID -Will monitor BS -Hypoglycemia protocols -Insulin sliding scale (2) Acute on chronic renal failure Stage IV -improving -BUN/Creatinine: 40/1.7 -Does not follow up with Nephrology as outpatient -Will hydrate patient at this time and hold lasix - Currently on normal saline at 100mls/hr - nephrology consulted Dr Segovia . -Renal US reveals atrophic Rt kidney & cortical echogenecity -urine Cr=61 -Urine NA =85 -FEna 1.6 % intrisic -PTH pending -f/u Renal Scan (3) Chronic hepatitis C with cirrhosis -Being managed by Dr Izquierdo as outpatient, Stable from cirrhotic perspective w/ o abdominal pain and no gross ascites. -GI consulted earlier this month appreciated: -c/w propranolol - Hold spironolactone (4) HTN (hypertension) -Controlled at this time -c/w propranolol 10 mg Q8h -Monitor BP (5) DVT prophylaxis - SCD for now <Dyana Ibarra - Last Filed: 12/30/16 08:23> Objective - Vital Signs/Intake and Output Vital Signs (last 24 hours): Temp Pulse Resp BP Pulse Ox 98.2 F 58 L 16 120/71 100 12/30/16 08:15 12/30/16 08:15 12/30/16 08:15 12/30/16 08:15 12/30/16 08:15 - Medications Medications: Current Medications Dextrose (Dextrose 50% Inj) 0 ml IV STAT PRN; Protocol PRN Reason: Hyglycemia Protocol Last Admin: 12/29/16 05:17 Dose: 50 ml Dextrose (Glutose 15) 0 gm PO ONCE PRN; Protocol PRN Reason: Hypoglycemia Protocol Furosemide (Lasix) 40 mg PO DAILY [facility] Glucagon (Glucagen Diagnostic Kit) 0 mg IM STAT PRN; Protocol PRN Reason: Hypoglycemia Protocol Sodium Chloride (Sodium Chloride 0.9%) 1,000 mls @ 100 mls/hr IV .Q10H [facility] Last Admin: 12/30/16 06:37 Dose: Not Given Insulin Human NPH (Humulin N) 20 units SC [facility] Last Admin: 12/29/16 21:27 Dose: 20 units Insulin Human Regular (Humulin R) 0 units SC ACHS [facility] PRN Reason: Protocol Last Admin: 12/30/16 06:37 Dose: 2 units Ondansetron HCl (Zofran Inj) 4 mg IVP Q6 PRN PRN Reason: Nausea/Vomiting Pantoprazole Sodium (Protonix Ec Tab) 20 mg PO DAILY [facility] Last Admin: 12/29/16 09:23 Dose: 20 mg Propranolol HCl (Inderal) 10 mg PO Q8H [facility] Last Admin: 12/30/16 03:12 Dose: Not Given - Labs Labs: 12/29/16 06:00 12/30/16 06:58 - Skin Additional comments: Attestation statement Attending note Patient seen and examined. Case discussed with resident. Episode of hypoglycemia last night. Insulin adjusted. For renal scan as per Log Brander. Agree with plan.
[2016-12-29] MEDS: Insulin NPH Human 100 Units/ml Inj SC SCH ×2 (09:17→21:27)
[2016-12-29] MEDS: Insulin Regular 100 units/ml SC SCH ×5 (09:22→21:26)
[2016-12-29] MEDS: Pantoprazole 20 mg EC Tab PO SCH (09:23)
[2016-12-29] MEDS: Sodium Chloride 0.9% 1,000 ML IV SCH ×3 (11:41→21:31)
--- NOTE | 2016-12-29 16:02 | CP.PCM.PN ---
Subjective - Date & Time of Evaluation Date of Evaluation: 12/29/16 Time of Evaluation: 04:00 - Subjective Subjective: No compl/ Objective - Vital Signs/Intake and Output Vital Signs (last 24 hours): Temp Pulse Resp BP Pulse Ox 98.8 F 75 18 134/80 100 12/29/16 07:59 12/29/16 12:52 12/29/16 07:59 12/29/16 12:52 12/29/16 07:59 - Medications Medications: Current Medications Dextrose (Dextrose 50% Inj) 0 ml IV STAT PRN; Protocol PRN Reason: Hyglycemia Protocol Last Admin: 12/29/16 05:17 Dose: 50 ml Dextrose (Glutose 15) 0 gm PO ONCE PRN; Protocol PRN Reason: Hypoglycemia Protocol Furosemide (Lasix) 40 mg PO DAILY [facility] Glucagon (Glucagen Diagnostic Kit) 0 mg IM STAT PRN; Protocol PRN Reason: Hypoglycemia Protocol Sodium Chloride (Sodium Chloride 0.9%) 1,000 mls @ 100 mls/hr IV .Q10H [facility] Last Admin: 12/29/16 11:41 Dose: Not Given Insulin Human NPH (Humulin N) 20 units SC [facility] Insulin Human Regular (Humulin R) 0 units SC ACHS [facility] PRN Reason: Protocol Last Admin: 12/29/16 12:50 Dose: 4 units Ondansetron HCl (Zofran Inj) 4 mg IVP Q6 PRN PRN Reason: Nausea/Vomiting Pantoprazole Sodium (Protonix Ec Tab) 20 mg PO DAILY [facility] Last Admin: 12/29/16 09:23 Dose: 20 mg Propranolol HCl (Inderal) 10 mg PO Q8H [facility] [place] Last Admin: 12/29/16 12:52 Dose: 10 mg - Labs Labs: 12/29/16 06:00 12/29/16 06:00 - Respiratory Exam Additional comments: Lungs clear - Cardiovascular Exam Cardiovascular Exam: REGULAR RHYTHM - Extremities Exam Additional comments: No edema Assessment and Plan - Assessment and Plan (Free Text) Assessment: Acute of CRF. Creat is improving Atropjic Rt kidney Uncontrolled DM Plan: Renal scan is pending Monitor renal function
[2016-12-30] MEDS: Sodium Chloride 0.9% 1,000 ML IV SCH ×2 (06:37→12:00)
[2016-12-30] MEDS: Insulin Regular 100 units/ml SC SCH ×4 (06:37→21:34)
[2016-12-30 07:30] LABS: CALCIUM 8.9 mg/dL (8.4-10.2)
--- NOTE | 2016-12-30 07:40 | CP.PCM.PN ---
Subjective - Date & Time of Evaluation Date of Evaluation: 12/30/16 Time of Evaluation: 07:37 - Subjective Subjective: The patient is a 56 y/o woman w/ PMHx of IDDDMII, HTN, Liver Cirrhosis, Anemia, CKD presented to ED on 12/25/2016 due to BS noted to be 400s. The patient is found to have acute on chronic kidney disease. The patient was seen this morning. There are no acute events overnight. The patient is laying comfortably in bed with no complaints. The patient denies headaches, dizziness, chest pain, dyspnea, abdominal pain, nausea, vomiting, diarrhea, dysuria, and fevers. The patient is ambulating and tolerating PO. The patient is to have a renal scan today. Objective - Vital Signs/Intake and Output Vital Signs (last 24 hours): Temp Pulse Resp BP Pulse Ox 98.2 F 66 18 106/54 L 100 12/29/16 23:08 12/30/16 03:12 12/29/16 23:08 12/30/16 03:12 12/29/16 23:08 - Medications Medications: Current Medications Dextrose (Dextrose 50% Inj) 0 ml IV STAT PRN; Protocol PRN Reason: Hyglycemia Protocol Last Admin: 12/29/16 05:17 Dose: 50 ml Dextrose (Glutose 15) 0 gm PO ONCE PRN; Protocol PRN Reason: Hypoglycemia Protocol Furosemide (Lasix) 40 mg PO DAILY [facility] Glucagon (Glucagen Diagnostic Kit) 0 mg IM STAT PRN; Protocol PRN Reason: Hypoglycemia Protocol Sodium Chloride (Sodium Chloride 0.9%) 1,000 mls @ 100 mls/hr IV .Q10H [facility] Last Admin: 12/30/16 06:37 Dose: Not Given Insulin Human NPH (Humulin N) 20 units SC AMHS [facility] Last Admin: 12/29/16 21:27 Dose: 20 units Insulin Human Regular (Humulin R) 0 units SC ACHS [facility] PRN Reason: Protocol Last Admin: 12/30/16 06:37 Dose: 2 units Ondansetron HCl (Zofran Inj) 4 mg IVP Q6 PRN PRN Reason: Nausea/Vomiting Pantoprazole Sodium (Protonix Ec Tab) 20 mg PO DAILY [facility] Last Admin: 12/29/16 09:23 Dose: 20 mg Propranolol HCl (Inderal) 10 mg PO Q8H [facility] Last Admin: 12/30/16 03:12 Dose: Not Given - Labs Labs: 12/29/16 06:00 12/30/16 06:58 - Constitutional Appears: No Acute Distress - Head Exam Head Exam: ATRAUMATIC, NORMOCEPHALIC - Eye Exam Eye Exam: EOMI Pupil Exam: PERRL - ENT Exam ENT Exam: Mucous Membranes Moist - Neck Exam Neck Exam: Full ROM. absent: Tenderness - Respiratory Exam Respiratory Exam: Clear to Ausculation Bilateral, NORMAL BREATHING PATTERN. absent: Accessory Muscle Use, Decreased Breath Sounds, Rales, Rhonchi, Wheezes, Respiratory Distress, Stridor - Cardiovascular Exam Cardiovascular Exam: REGULAR RHYTHM. absent: Tachycardia - GI/Abdominal Exam GI & Abdominal Exam: Soft, Normal Bowel Sounds. absent: Distended, Guarding, Rigid, Tenderness, Mass - Extremities Exam Extremities Exam: Normal Inspection. absent: Calf Tenderness, Pedal Edema - Neurological Exam Neurological Exam: Alert, Awake, Oriented x3 - Psychiatric Exam Psychiatric exam: Normal Affect, Normal Mood - Skin Skin Exam: Dry, Intact, Normal Color, Warm Assessment and Plan - Assessment and Plan (Free Text) Assessment: The patient is a 56 y/o woman w/ PMHx of IDDDM II, HTN, Liver Cirrhosis, Anemia , CKD with hyperglycemia and acute on chronic kidney failure Plan: (1) IDDM - uncontrolled - Accucheck ACHS - decreased NPH 30 to 20 units s/c BID - Will monitor BS - Hypoglycemia protocols - Insulin sliding scale (2) Acute on chronic renal failure Stage IV - improving - BUN/Creatinine: 40/1.7 - Does not follow up with Nephrology as outpatient - Will hydrate patient at this time and hold lasix - Currently on normal saline at 100mls/hr - nephrology consulted Dr Segovia . - Renal US reveals atrophic Rt kidney & cortical echogenecity - urine Cr=61 - Urine NA =85 - FEna 1.6 % intrisic - PTH pending - f/u Renal Scan (3) Epigastric pain - lipase level 661 - repeat lipase 574 - patient denies epigastric pain today (4) Chronic hepatitis C with cirrhosis - Being managed by Dr Izuqierdo as outpatient, Stable from cirrhotic perspective w/ o abdominal pain and no gross ascites. - GI consulted earlier this month appreciated: - c/w propranolol - Hold spironolactone (5) HTN (hypertension) - Controlled at this time - c/w propranolol 10 mg Q8h - Monitor BP (6) DVT prophylaxis - SCD for now
[2016-12-30] MEDS: Insulin NPH Human 100 Units/ml Inj SC SCH ×2 (09:15→21:35)
[2016-12-30] MEDS: Pantoprazole 20 mg EC Tab PO SCH (09:16)
--- NOTE | 2016-12-30 15:51 | NM ---
PROCEDURE: Renal scan, flow study HISTORY: atrophic Rt kidney, CKD COMPARISON: 12/28/2016 renal ultrasound. Summary of findings on the comparison examination: Atrophic right kidney. Increased cortical echogenicity of left kidney. TECHNIQUE: 11.3 mCi technetium 99 M Mag 3 administered intravenously. FINDINGS: Right Kidney: Flow component: Unremarkable flow to the right kidney Time to peak: 4.2 minutes Peak to T1/2 Peak: 15 minutes Left Kidney: Flow component: Unremarkable flow to the left kidney Time to peak: 3.2 minutes Peak to T1/2 Peak: 12 minutes Split Renal Function: Right kidney 30.7 % Left kidney 69.3 % IMPRESSION: Atrophic right kidney, diminished renal function right kidney as described above.
--- NOTE | 2016-12-30 17:20 | CP.PCM.PN ---
Subjective - Date & Time of Evaluation Date of Evaluation: 12/30/16 Time of Evaluation: 04:35 - Subjective Subjective: No acute distress No complaints reported Objective - Vital Signs/Intake and Output Vital Signs (last 24 hours): Temp Pulse Resp BP Pulse Ox 98.3 F 58 L 18 111/70 100 12/30/16 16:53 12/30/16 16:53 12/30/16 16:53 12/30/16 16:53 12/30/16 16:53 - Medications Medications: Current Medications Dextrose (Dextrose 50% Inj) 0 ml IV STAT PRN; Protocol PRN Reason: Hyglycemia Protocol Last Admin: 12/29/16 05:17 Dose: 50 ml Dextrose (Glutose 15) 0 gm PO ONCE PRN; Protocol PRN Reason: Hypoglycemia Protocol Furosemide (Lasix) 40 mg PO DAILY [facility] Glucagon (Glucagen Diagnostic Kit) 0 mg IM STAT PRN; Protocol PRN Reason: Hypoglycemia Protocol Sodium Chloride (Sodium Chloride 0.9%) 1,000 mls @ 75 mls/hr IV .[id number] [facility] Last Admin: 12/30/16 12:00 Dose: 75 mls/hr Insulin Human NPH (Humulin N) 20 units SC AMHS [facility] Last Admin: 12/30/16 09:15 Dose: 20 units Insulin Human Regular (Humulin R) 0 units SC ACHS [facility] PRN Reason: Protocol Last Admin: 12/30/16 12:23 Dose: 2 units Ondansetron HCl (Zofran Inj) 4 mg IVP Q6 PRN PRN Reason: Nausea/Vomiting Pantoprazole Sodium (Protonix Ec Tab) 20 mg PO DAILY [facility] Last Admin: 12/30/16 09:16 Dose: 20 mg Propranolol HCl (Inderal) 10 mg PO Q8H [facility] Last Admin: 12/30/16 12:25 Dose: 10 mg - Labs Labs: 12/29/16 06:00 12/30/16 06:58 - Respiratory Exam Additional comments: Lungs clear - Cardiovascular Exam Cardiovascular Exam: REGULAR RHYTHM - Extremities Exam Additional comments: No edema Assessment and Plan - Assessment and Plan (Free Text) Assessment: Acute on CRF. Creatinine is stable Atrophic Rt kidney with diminished function DM HTN Plan: Urine microalbumin Avoid potentially nephrotoxic meds
[2016-12-30 20:35] VITALS: TEMP 98.2
[2016-12-31] MEDS: Sodium Chloride 0.9% 1,000 ML IV SCH (01:00)
[2016-12-31] MEDS: Insulin Regular 100 units/ml SC SCH (07:05)
[2016-12-31] MEDS: Pantoprazole 20 mg EC Tab PO SCH (08:15)
[2016-12-31] MEDS: Insulin NPH Human 100 Units/ml Inj SC SCH (08:16)
[2016-12-31 08:24] VITALS: BP 111/75; PULSE 105; RESP 20
--- NOTE | 2016-12-31 08:25 | CP.PCM.DIS ---
Provider - Provider Date of Admission: 12/25/16 18:08 Attending physician: Michelle Torres MD Consults: Nephrology: Dr. Segovia and Dr. Gómez Time Spent in preparation of Discharge (in minutes): 30 Diagnosis - Discharge Diagnosis (1) Acute on chronic renal failure Status: Acute (2) Acute hyperglycemia Status: Acute Hospital Course - Lab Results Lab Results: Micro Results 12/27/16 08:00 Naris MRSA Culture (Admit) - Final MRSA NOT DETECTED Most Recent Lab Values WBC 5.5 K/uL (4.8-10.8) 12/29/16 06:00 RBC 3.30 Mil/uL (3.80-5.20) L 12/29/16 06:00 Hgb 10.1 g/dL (12.0-16.0) L 12/29/16 06:00 Hct 30.4 % (34.0-47.0) L 12/29/16 06:00 MCV 92.2 fl (81.0-99.0) 12/29/16 06:00 MCH 30.7 pg (27.0-31.0) 12/29/16 06:00 MCHC 33.3 g/dL (33.0-37.0) 12/29/16 06:00 RDW 17.2 % (11.5-14.5) H 12/29/16 06:00 Plt Count 133 K/uL (130-400) 12/29/16 06:00 MPV 9.7 fl (7.2-11.7) 12/25/16 16:40 Neut % (Auto) 57.6 % (50.0-75.0) 12/25/16 16:40 Lymph % (Auto) 31.8 % (20.0-40.0) 12/25/16 16:40 Mills % (Auto) 7.4 % (0.0-10.0) 12/25/16 16:40 Eos % (Auto) 2.1 % (0.0-4.0) 12/25/16 16:40 Baso % (Auto) 1.1 % (0.0-2.0) 12/25/16 16:40 Neut # 3.5 K/uL (1.8-7.0) 12/25/16 16:40 Lymph # 1.9 K/uL (1.0-4.3) 12/25/16 16:40 Mills # 0.4 K/uL (0.0-0.8) 12/25/16 16:40 Eos # 0.1 K/uL (0.0-0.7) 12/25/16 16:40 Baso # 0.1 K/uL (0.0-0.2) 12/25/16 16:40 Sodium 145 mmol/l (132-148) 12/30/16 06:58 Potassium 5.0 MMOL/L (3.6-5.0) 12/30/16 06:58 Chloride 114 mmol/L (98-107) H 12/30/16 06:58 Carbon Dioxide 19 mmol/L (22-30) L 12/30/16 06:58 Anion Gap 17 (10-20) 12/30/16 06:58 BUN 40 mg/dl (7-17) H 12/30/16 06:58 Creatinine 1.7 mg/dL (0.7-1.2) H 12/30/16 06:58 Est GFR ( Amer) 37 12/30/16 06:58 Est GFR (Non-Af Amer) 31 12/30/16 06:58 POC Glucose (mg/dL) 212 mg/dL (65-110) H 12/31/16 06:51 Random Glucose 143 mg/dL (65-105) H 12/30/16 06:58 Hemoglobin A1c 11.6 % (4.2-6.5) H 12/26/16 06:00 Calcium 8.9 mg/dL (8.4-10.2) 12/30/16 06:58 Total Bilirubin 1.7 mg/dl (0.2-1.3) H 12/29/16 06:00 AST 75 U/L (14-36) H 12/29/16 06:00 ALT 51 U/L (9-52) 12/29/16 06:00 Alkaline Phosphatase 172 U/L (38-126) H 12/29/16 06:00 Troponin I < 0.0120 ng/mL (0.00-0.120) 12/25/16 16:40 Total Protein 7.9 G/DL (6.3-8.2) 12/29/16 06:00 Albumin 3.2 g/dL (3.5-5.0) L 12/29/16 06:00 Globulin 4.7 gm/dL (2.2-3.9) H 12/29/16 06:00 Albumin/Globulin Ratio 0.7 (1.0-2.1) L 12/29/16 06:00 Lipase 575 U/L (23-300) H 12/30/16 09:37 PTH Intact Whole Molec 177 pg/mL (14-64) H 12/27/16 21:43 Ur Random Creatinine 61.0 mg/dL 12/28/16 10:00 - Hospital Course Hospital Course: The patient is a 56 y/o woman w/ PMHx of IDDDM II, HTN, Liver Cirrhosis, Anemia , CKD with hyperglycemia and acute on chronic kidney failure. The patient's blood glucose has been controlled with NPH initially at 30 units now decreased to 20 units, and sliding scale. The patient was seen by nephrology for acute on chronic kidney disease with Cr at 2.7 but currently down to 1.7. The patient had a renal scan that showed atrophic right kidney with reduced right kidney function of 30% compared to left kidney of 69%. The patient had a complete of epigastric pain and lipase was ordered which was elevated at 616. Repeat showed decrease to 575 and patient no longer complained of epigastric pain. The patient's BP is controlled with home medications. The patient's Hep C is monitored outpatient by Dr. Izquierdo. The patient is ambulating, voiding, afebrile, and tolerating PO. The patient has been seen, examined, and deemed medically fit with no contraindication for discharge home. The patient is to follow up on 01/[address] Izquierdo, [facility] on 01/[address] Carpenter, and [facility] on 01/[address] Sumner. Nephrology recommends follow up with them in 2-3 weeks. Patient is to avoid nephrotoxic medications and control blood sugars. The patient will be restarted on home medications propanolol 10 mg Q8h, glimepiride 4 mg PO daily , novolin 70/30. Patient given script for repeat blood work as outpatient. - Date & Time of H&P Date of H&P: 12/25/16 Time of H&P: 20:16 Discharge Exam - Head Exam Head Exam: ATRAUMATIC, NORMOCEPHALIC - Eye Exam Eye Exam: EOMI Pupil Exam: PERRL - ENT Exam ENT Exam: Mucous Membranes Moist - Respiratory Exam Respiratory Exam: Clear to PA & Lateral, NORMAL BREATHING PATTERN. absent: Accessory Muscle Use, Chest Wall Tenderness, Decreased Breath Sounds, Prolonged Expiratory Phase, Rales, Rhonchi, Wheezes, Respiratory Distress, Stridor - Cardiovascular Exam Cardiovascular Exam: REGULAR RHYTHM. absent: Tachycardia - GI/Abdominal Exam GI & Abdominal Exam: Normal Bowel Sounds, Soft. absent: Distended, Mass, Tenderness - Extremities Exam Extremities exam: full ROM, pedal pulses present - Neurological Exam Neurological exam: Alert, Normal Gait, Oriented x3 - Skin Skin Exam: Dry, Intact, Warm Discharge Plan - Follow Up Plan Condition: FAIR Disposition: HOME/ ROUTINE Instructions: Chronic Kidney Disease (GEN), How To Wash Your Hands (GEN)
== END 2016-12-31 14:56 | disposition home or self-care (01) | DRG 316 ==
LOC: H.ER 11:40 → H.ERHOLD 18:08 → H.MEDSURG1 12-26 16:30
PROVIDERS: ADMIT Family Medicine Geriatric Medicine; ATTEND Family Medicine Geriatric Medicine
DX: N17.9 Acute kidney failure, unspecified (principal); E11.21 Type 2 diabetes mellitus with diabetic nephropathy; K74.69 Other cirrhosis of liver; E11.22 Type 2 diabetes mellitus with diabetic chronic kidney disease; E11.649 Type 2 diabetes mellitus with hypoglycemia without coma; B18.2 Chronic viral hepatitis C; E86.0 Dehydration; E11.65 Type 2 diabetes mellitus with hyperglycemia; I12.9 Hypertensive chronic kidney disease with stage 1 through stage 4 chronic kidney disease, or unspecified chronic kidney disease; N18.4 Chronic kidney disease, stage 4 (severe); D63.1 Anemia in chronic kidney disease; K21.9 Gastro-esophageal reflux disease without esophagitis; K29.70 Gastritis, unspecified, without bleeding; Z79.4 Long term (current) use of insulin; Z87.891 Personal history of nicotine dependence; Z87.01 Personal history of pneumonia (recurrent); Z86.14 Personal history of Methicillin resistant Staphylococcus aureus infection

== ENCOUNTER 2017-02-25 09:19 | Day surgery (SDC) | payer SELFPAY ==
[2017-02-25] MEDS ORDERED: Lactated Ringer's 500 ML IV ONE (10:29)
[2017-02-25 10:50] VITALS: O2SAT 100
[2017-02-25] MEDS ORDERED: Propofol 10 mg/ml Inj (20 ML) ONE (10:54)
[2017-02-25 11:40] VITALS: TEMP 96.9
[2017-02-25 12:07] VITALS: BP 110/70; PULSE 86; RESP 15
== END 2017-02-25 12:19 | disposition home or self-care (01) ==
LOC: H.ENDO 09:19
PROVIDERS: ATTEND Internal Medicine Gastroenterology
DX: Z12.11 Encounter for screening for malignant neoplasm of colon (principal); E78.5 Hyperlipidemia, unspecified; E11.9 Type 2 diabetes mellitus without complications; I10 Essential (primary) hypertension; K74.69 Other cirrhosis of liver; B19.20 Unspecified viral hepatitis C without hepatic coma; K21.9 Gastro-esophageal reflux disease without esophagitis; K74.60 Unspecified cirrhosis of liver; K31.89 Other diseases of stomach and duodenum; K76.6 Portal hypertension; K25.4 Chronic or unspecified gastric ulcer with hemorrhage

== ENCOUNTER 2017-06-24 10:12 | Emergency (ER) | payer SELFPAY ==
[2017-06-24 10:35] VITALS: BMI 29.9
[2017-06-24] MEDS ORDERED: Sodium Chloride 0.9% 1,000 ML IV STA (11:07)
--- NOTE | 2017-06-24 11:44 | ED PDOC ---
HPI: General Adult Time Seen by Provider: 06/24/17 10:39 Chief Complaint (Nursing): Dizziness/Lightheaded Chief Complaint (Provider): high blood sugar History Per: Patient History/Exam Limitations: no limitations Onset/Duration Of Symptoms: Mins (prior to arrival) Current Symptoms Are (Timing): Still Present Additional Complaint(s): Betty Ramirez is a 57 year old female with previous medical history of hypertension, diabetes, anemia and liver cirrhosis, who presents to the emergency department, referred by hydrator operator, for an evaluation of high blood sugar upon re-evaluation status post endoscopy procedure today. Denied any further medical complaints, besides hunger from not eating. Dr. Melissa Izquierdo recommend patient to go to ED for further work-up. PMD: none provided Past Medical History Reviewed: Historical Data, Nursing Documentation, Vital Signs Vital Signs: Last Vital Signs Temp 98 F 06/24/17 10:34 Pulse 76 06/24/17 10:34 Resp 20 06/24/17 10:34 BP 138/77 06/24/17 10:34 Pulse Ox 98 06/24/17 12:57 - Medical History PMH: Anemia, Diabetes (type II), Gastritis, GERD, Hepatitis (C with liver cirrhosis), Hiatal Hernia, HTN, Pneumonia Denies: Anxiety, Bipolar Disorder, Depression, HIV, Paranoia, Post Traumatic Stress Disorder, Chronic Kidney Disease, Schizophrenia - Surgical History Surgical History: Appendectomy, Hernia Repair - Family History Family History: States: Unknown Family Hx - Social History Current smoker - smoking cessation education provided: No Ex-Smoker (has not smoked in the last 12 months): No Alcohol: None Drugs: Denies - Immunization History Hx Influenza Vaccination: No Hx Pneumococcal Vaccination: No - Home Medications Home Medications: Ambulatory Orders Medication Instructions Recorded Insulin Human (NPH)/Regular 18 units SC BRKDIN #1 vial 12/31/16 [Novolin 70/30 (70/30 units/ml) 10 ml] Propranolol [Inderal] 10 mg PO Q8H #60 tab 12/31/16 Spironolactone [Aldactone] 100 mg PO DAILY 02/25/17 Furosemide [Lasix] 40 mg PO DAILY 06/24/17 Omeprazole Magnesium [Prilosec Otc] 20 mg PO DAILY 06/24/17 - Allergies Allergies/Adverse Reactions: Allergies Allergy/AdvReac Type Severity Reaction Status Date / Time No Known Allergies Allergy Verified 06/24/17 10:36 Review of Systems ROS Statement: Except As Marked, All Systems Reviewed And Found Negative Gastrointestinal: Positive for: Other (hungry) Physical Exam - Reviewed Nursing Documentation Reviewed: Yes Vital Signs Reviewed: Yes - Physical Exam Appears: Positive for: Well, Non-toxic, No Acute Distress Head Exam: Positive for: ATRAUMATIC, NORMAL INSPECTION, NORMOCEPHALIC Skin: Positive for: Normal Color Eye Exam: Positive for: Normal appearance, EOMI, PERRL. Negative for: Nystagmus ENT: Positive for: Normal ENT Inspection Neck: Positive for: Normal, Painless ROM, Supple. Negative for: Decreased ROM Cardiovascular/Chest: Positive for: Regular Rate, Rhythm. Negative for: Chest Non Tender Respiratory: Positive for: Normal Breath Sounds, Accessory Muscle Use. Negative for: Decreased Breath Sounds, Crackles, Rales, Rhonchi, Wheezing, Respiratory Distress Gastrointestinal/Abdominal: Positive for: Normal Exam, Bowel Sounds, Soft. Negative for: Tenderness Back: Positive for: Normal Inspection. Negative for: L CVA Tenderness, R CVA Tenderness Extremity: Positive for: Normal ROM. Negative for: Tenderness, Pedal Edema, Deformity Neurologic/Psych: Positive for: Alert, Oriented - Laboratory Results Result Diagrams: 06/24/17 11:25 06/24/17 11:25 - ECG O2 Sat by Pulse Oximetry: 98 (RA) Pulse Ox Interpretation: Normal Medical Decision Making Medical Decision Making: Initial Impression: Hyperglycemia R/O diabetic ketoacidosis; hyperosmolar state Initial Plan: * CMP * Urine dipstick * CBC * NS 1,000ml IV per 1,000mls/hr Scribe Attestation: Documented by Kia Garg, acting as a scribe for Terrence Diaz MD. Provider Scribe Attestation: All medical record entries made by the Scribe were at my direction and personally dictated by me. I have reviewed the chart and agree that the record accurately reflects my personal performance of the history, physical exam, medical decision making, and the department course for this patient. I have also personally directed, reviewed, and agree with the discharge instructions and disposition. Disposition - Clinical Impression Clinical Impression: Hyperglycemia, CRF (chronic renal failure) - Patient ED Disposition Is Patient to be Admitted: No Doctor Will See Patient In The: Office Counseled Patient/Family Regarding: Studies Performed, Diagnosis, Need For Followup - Disposition Referrals: [facility] [Outside] Disposition: Routine/Home Disposition Time: 15:07 Condition: GOOD Additional Instructions: Follow up with your PCP in 2 days. Follow up your air intelligence specialist within 1 week. Return for worsening. Instructions: Diabetic Hyperglycemia (ED), Chronic Kidney Disease (ED) Forms: [employer] ([place])
[2017-06-24 12:24] LABS: BASO % 0.8 % (0.0-2.0); EOS # 0.1 K/uL (0.0-0.7); EOS % 2.1 % (0.0-4.0); HEMATOCRIT 23.7 % (34.0-47.0); LYMPH # 0.7 K/uL (1.0-4.3); LYMPH % 21.2 % (20.0-40.0); MEAN CELL VOLUME 88.8 fl (81.0-99.0); MEAN CORPUSCULAR HEMOGLOBIN 29.8 pg (27.0-31.0); MEAN CORPUSCULAR HGB CONC 33.5 g/dL (33.0-37.0); MEAN PLATELET VOLUME 9.2 fl (7.2-11.7); MONO # 0.3 K/uL (0.0-0.8); MONO % 8.9 % (0.0-10.0); NEUT # 2.1 K/uL (1.8-7.0); NRBC % 0.1 % (0.0-0.0); RED CELL DISTRIBUTION WIDTH 15.5 % (11.5-14.5); WHITE BLOOD COUNT 3.2 K/uL (4.8-10.8)
[2017-06-24 13:07] LABS: BILIRUBIN,TOTAL 1.4 mg/dl (0.2-1.3); CALCIUM 9.4 mg/dL (8.4-10.2); POTASSIUM 4.5 MMOL/L (3.6-5.0); TOTAL PROTEIN 7.4 G/DL (6.3-8.2)
[2017-06-24] MEDS ORDERED: Insulin Regular 100 units/ml IV STA (13:13)
[2017-06-24] MEDS ORDERED: Insulin Regular 100 units/ml ONE (13:33)
[2017-06-24 13:48] LABS: ABG ALLEN TEST YES; ARTERIAL BLOOD GAS HCO3 20.9 mmol/L (21-28); ARTERIAL BLOOD GAS O2 CAPACITY 9.7 mL/dL (16-24); ARTERIAL BLOOD GAS O2 CONTENT 9.8 ML/dL (15-23); ARTERIAL BLOOD GAS PH 7.45 (7.35-7.45); ARTERIAL BLOOD GAS PO2 146 mm/Hg (80-100); ARTERIAL BLOOD HGB O2 SAT 96.4 % (95.0-98.0); METHEMOGLOBIN 1.5 % (0.0-3.0)
[2017-06-24 15:28] VITALS: BP 140/84; PULSE 71; RESP 18; TEMP 97.8; O2SAT 100
== END 2017-06-24 15:24 | disposition home or self-care (01) ==
LOC: H.ER 10:12
DX: E11.65 Type 2 diabetes mellitus with hyperglycemia (principal); I12.9 Hypertensive chronic kidney disease with stage 1 through stage 4 chronic kidney disease, or unspecified chronic kidney disease; D64.9 Anemia, unspecified; K21.9 Gastro-esophageal reflux disease without esophagitis; K74.60 Unspecified cirrhosis of liver; Z79.4 Long term (current) use of insulin
CPT/HCPCS: 80053; 81025; 82803; 82948; 85025; 96361; 96374; 99285; J7040

== ENCOUNTER 2017-09-04 12:32 | Inpatient (IN) | payer SELFPAY ==
[2017-09-04 12:34] VITALS: BMI 29.9
--- NOTE | 2017-09-04 13:04 | ED PDOC ---
Hyperglycemia/Hypoglycemia Time Seen by Provider: 09/04/17 13:02 Chief Complaint (Nursing): High Blood Sugar Chief Complaint (Provider): High Blood Sugar, Retaining Fluid History Per: Family History/Exam Limitations: no limitations Onset/Duration Of Symptoms: Days Current Symptoms Are (Timing): Still Present Current Diabetic Medications: Insulin : The patient does not have any of the infectious symptoms listed except for those marked. Treatment Prior To Provider Evaluation: Accucheck (484) Additional Complaint(s): Betty is a 57 year old female with a past medical history of diabetes, liver failure, hypercholesterolemia, and ascites, who was referred to ED by PMD for retaining fluid in her abdomen, and hyperglycemia. Patient was at a follow up appointment today with PMD. Blood sugar was 484. Family states taking her medications at home as prescribed. Family also notes patient has been itching throughout her body. No one else at home with itching or rash. Denies any chest pain, shortness of breath, dizziness, numbness, tingling, leg pain or swelling. Patient also complains of abdominal pain, which has been ongoing. Of note patient had a hernia repair recently and ulcer. PMD: Dr. Lit Pinedo MD GI: Dr. Izquierdo Past Medical History Reviewed: Historical Data, Nursing Documentation, Vital Signs Vital Signs: Last Vital Signs Temp 97.6 F 09/04/17 12:37 Pulse 67 09/04/17 12:37 Resp 16 09/04/17 12:37 BP 147/108 H 09/04/17 12:37 Pulse Ox 100 09/04/17 12:37 - Medical History PMH: Anemia, Diabetes (type II), Gastritis, GERD, Hepatitis (C with liver cirrhosis), Hiatal Hernia, HTN, Pneumonia Denies: Anxiety, Bipolar Disorder, Depression, HIV, Paranoia, Post Traumatic Stress Disorder, Chronic Kidney Disease, Schizophrenia Other PMH: Liver failure, Ascites, Kidney disease - Surgical History Surgical History: Appendectomy, Hernia Repair - Family History Family History: States: Unknown Family Hx - Immunization History Hx Influenza Vaccination: No Hx Pneumococcal Vaccination: No - Home Medications Home Medications: Ambulatory Orders Medication Instructions Recorded Insulin Human (NPH)/Regular 18 units SC BRKDIN #1 vial 12/31/16 [Novolin 70/30 (70/30 units/ml) 10 ml] Propranolol [Inderal] 10 mg PO Q8H #60 tab 12/31/16 Spironolactone [Aldactone] 100 mg PO DAILY 02/25/17 Furosemide [Lasix] 40 mg PO DAILY 06/24/17 Lansoprazole [Prevacid 24Hr] 15 mg PO DAILY 09/04/17 - Allergies Allergies/Adverse Reactions: Allergies Allergy/AdvReac Type Severity Reaction Status Date / Time No Known Allergies Allergy Verified 06/24/17 10:36 Review of Systems ROS Statement: Except As Marked, All Systems Reviewed And Found Negative Constitutional: Negative for: Fever Cardiovascular: Negative for: Chest Pain Respiratory: Negative for: Shortness of Breath Gastrointestinal: Positive for: Abdominal Pain, Other (Retaining fluid). Negative for: Nausea, Vomiting, Diarrhea Musculoskeletal: Negative for: Leg Pain (and edema) Neurological: Negative for: Weakness, Numbness (and tingling), Dizziness Physical Exam - Reviewed Nursing Documentation Reviewed: Yes Vital Signs Reviewed: Yes - Physical Exam Appears: Positive for: Non-toxic, No Acute Distress Head Exam: Positive for: ATRAUMATIC, NORMOCEPHALIC Skin: Positive for: Normal Color, Warm, Dry. Negative for: Rash Eye Exam: Positive for: EOMI, Normal appearance, PERRL Neck: Positive for: Normal, Painless ROM, Supple Cardiovascular/Chest: Positive for: Regular Rate, Rhythm. Negative for: Murmur Respiratory: Positive for: Normal Breath Sounds. Negative for: Respiratory Distress Gastrointestinal/Abdominal: Positive for: Soft, Asicites (Ascites). Negative for: Tenderness, Distended Back: Positive for: Normal Inspection. Negative for: Vertebral Tenderness Extremity: Positive for: Normal ROM, Capillary Refill (<2 sec). Negative for: Tenderness, Pedal Edema, Deformity Neurologic/Psych: Positive for: Alert, Oriented - Laboratory Results Result Diagrams: 09/04/17 13:30 09/04/17 13:30 Interpretation Of Abn Labs: 5.9 k; bun/cr elevated but improved from old; elevated blood sugar - ECG ECG: Positive for: Interpreted By Me, Viewed By Me ECG Rhythm: Positive for: Normal QRS, Normal ST Segment, Sinus Rhythm O2 Sat by Pulse Oximetry: 100 (RA) Pulse Ox Interpretation: Normal - Radiology X-Ray: Interpreted by Me, Viewed By Me X-Ray Interpretation: No Acute Disease - Progress ED Course And Treament: 1415: Stable. Spoke with [facility] resident. Will admit tele obs. No pain. Comfortable. AAOx3. Medical Decision Making Medical Decision Making: Time: 13:09 Initial Plan: * VBG * CMP * Lipase * Troponin I * CBC w/ differential * PTT * Prothrombin time * Urine dip * EKG * Chest X-Ray * NS IV 500 ml at 250 mls/hr * Reevaluation Scribe Attestation: Documented by Cathie Gomez, acting as a scribe for Felix Blood MD Provider Scribe Attestation: All medical record entries made by the Scribe were at my direction and personally dictated by me. I have reviewed the chart and agree that the record accurately reflects my personal performance of the history, physical exam, medical decision making, and the department course for this patient. I have also personally directed, reviewed, and agree with the discharge instructions and disposition. Disposition - Clinical Impression Clinical Impression: Hyperglycemia, Hyperkalemia - Patient ED Disposition Is Patient to be Admitted: Yes Counseled Patient/Family Regarding: Studies Performed, Diagnosis - Disposition Disposition Time: 14:17 Condition: FAIR - Pt Status Changed To: Hospital Disposition Of: Observation - POA Present On Arrival: Poor Glycemic Control
[2017-09-04] MEDS ORDERED: Sodium Chloride 0.9% 500 ML IV STA (13:10)
[2017-09-04 13:41] LABS: BASO % 0.8 % (0.0-2.0); EOS # 0.2 K/uL (0.0-0.7); EOS % 3.5 % (0.0-4.0); LYMPH # 0.7 K/uL (1.0-4.3); MEAN CELL VOLUME 91.3 fl (81.0-99.0); MEAN CORPUSCULAR HEMOGLOBIN 29.3 pg (27.0-31.0); MEAN CORPUSCULAR HGB CONC 32.1 g/dL (33.0-37.0); MEAN PLATELET VOLUME 9.2 fl (7.2-11.7); MONO # 0.3 K/uL (0.0-0.8); MONO % 5.8 % (0.0-10.0); NEUT # 4.1 K/uL (1.8-7.0); NEUT % 76.9 % (50.0-75.0); NRBC % 0.3 % (0.0-0.0); RED CELL DISTRIBUTION WIDTH 17.8 % (11.5-14.5); WHITE BLOOD COUNT 5.3 K/uL (4.8-10.8)
[2017-09-04 13:49] LABS: VENOUS BLOOD GAS PCO2 42 mmHg (40-60); VENOUS BLOOD PH 7.24 (7.32-7.43)
[2017-09-04 14:04] LABS: ALB/GLOB RATIO 0.7 (1.0-2.1); ALKALINE PHOSPHATASE 246 U/L (38-126); ALT/SGPT 53 U/L (9-52); AST/SGOT 34 U/L (14-36); BILIRUBIN,TOTAL 2.2 mg/dl (0.2-1.3); BLOOD UREA NITROGEN 35 mg/dl (7-17); CARBON DIOXIDE 16 mmol/L (22-30); CHLORIDE 110 mmol/L (98-107); GFR AFRICAN-AMERICAN 47; GLUCOSE,RANDOM 483 mg/dL (65-105); LIPASE 446 U/L (23-300); POTASSIUM 5.9 MMOL/L (3.6-5.0); SODIUM 135 mmol/l (132-148); TOTAL PROTEIN 7.8 G/DL (6.3-8.2)
[2017-09-04] MEDS ORDERED: Insulin Regular 100 units/ml IV STA (14:11)
[2017-09-04] MEDS ORDERED: Albuterol-Ipratrop 3 mg / 0.5 (3 ml) UD IH STA (14:12)
[2017-09-04] MEDS ORDERED: Sod Polystyrene Sulf 15 gm/60 ml Susp PO STA (14:12)
--- NOTE | 2017-09-04 14:18 | RAD ---
HISTORY: dyspnea COMPARISON: 06/29/2016 FINDINGS: LUNGS: No active pulmonary disease. PLEURA: Abnormal contour right hemidiaphragm may reflect a diaphragmatic hernia or eventration. This is unchanged compared to multiple prior examinations. CARDIOVASCULAR: Normal. OSSEOUS STRUCTURES: No significant abnormalities. VISUALIZED UPPER ABDOMEN: Normal. OTHER FINDINGS: None. IMPRESSION: No active disease.
[2017-09-04] MEDS ORDERED: Sodium Chloride 0.9% 1,000 ML IV SCH (14:30)
[2017-09-04 15:35] LABS: RBC URINE 1 /hpf (0-3); URINE BILIRUBIN NEGATIVE (NEGATIVE); URINE BLOOD NEGATIVE (NEGATIVE); URINE COLOR YELLOW (YELLOW); URINE GLUCOSE (UA) >=500 mg/dL (Normal); URINE KETONE NEGATIVE (NEGATIVE); URINE LEUKOCYTE ESTERASE NEG Leu/uL (Negative); URINE PROTEIN NEGATIVE (NEGATIVE); URINE UROBILINOGEN 0.2-1.0 mg/dL (0.2-1.0); WBC URINE < 1 /hpf (0-5)
[2017-09-04] MEDS ORDERED: Albuterol-Ipratrop 3 mg / 0.5 (3 ml) UD ONE (15:35)
[2017-09-04] MEDS ORDERED: Sod Polystyrene Sulf 15 gm/60 ml Susp ONE (15:35)
[2017-09-04] MEDS ORDERED: Insulin Regular 100 units/ml ONE ×2 (15:37→16:05)
--- NOTE | 2017-09-04 15:48 | CP.PCM.HP ---
History of Present Illness - History of Present Illness History of Present Illness: CC: Hyperglycemia HPI: Pt is a 57 y/o female with a PMHx significant for Hepatic Liver Cirrhosis, Hepatitis C, CKD, HTN, DMII, and Anemia sent from her clinic visit by her PMD for hyperglycemia of 484 and increased abdominal swelling. Pt denies nausea, vomiting, confusion, weakness, CP, SOB or lethargy. She reports having a hernia for the past few months that occasionally causes her mild pain, but currently denies any abdominal pain. Pt initially stated that she had been adherent with her diabetes medication but on further questioning stated she had not been taking it consistently and did not take any this morning. She also states she has not been able to monitor her blood glucose levels for the past few months because she ran out of lancets. She also reports having nasal congestions and a mild cough 4 days ago without a fever that has resolved since then. Denies any recent infections/illness. She also denies any abdominal swelling or discomfort and states that her abdominal swelling is at baseline. Reports itching that has been chronic. PMD: Dr. Pinedo PMHX: HTN, Diabetes Mellitus II, GERD, Hepatitis C, Hernia, Liver Cirrhosis Past Surgical Hx: Appendectomy, Tubal Ligation, Ventral Hernia Repair (2016), 2 therapeutic paracentesis in 2016, Blood transfusion in 2016, Gatric ulcer (12/13) Recent Hospitalizations: Hyperglycemia 2016 Medications: Ferrous Sulfate 325mg once daily Proponolol 10mg PO q8 Spironolactone 100mg PO daily Novolin (70/30) 18 units BID Allergies: NKDA Family Hx: Brother- dialysis, CAD Social Hx: Denies smoking, alcohol, or IVDU ED Course: NS IV Bolus at 250cc/hr 5units of Insulin IV EKG NSR Cxray: + diaphragmatic hernia c/w last Cxray Troponin negative x1 UA- glucosoria >500, ketones negative CBC CMP Present on Admission - Present on Admission Any Indicators Present on Admission: No History of DVT/PE: No History of Uncontrolled Diabetes: Yes Urinary Catheter: No Decubitus Ulcer Present: No Review of Systems - Constitutional Constitutional: absent: Chills, Fever, Weakness - EENT Eyes: absent: Blurred Vision - Cardiovascular Cardiovascular: absent: Chest Pain, Diaphoresis, Dyspnea, Edema, Lightheadedness , Palpitations, Syncope - Respiratory Respiratory: absent: Cough, Dyspnea, Wheezing, Chest Congestion - Gastrointestinal Gastrointestinal: absent: Abdominal Pain, Change in Bowel Habits, Coffee Ground Emesis, Constipation, Hematemesis, Hematochezia, Melena - Genitourinary Genitourinary: absent: Difficulty Urinating, Dysuria, Urinary Incontinence, Urinary Frequency, Freq UTI, Bladder Distension - Integumentary Additional comments: Itching, Dry Skin - Neurological Neurological: absent: Confusion, Syncope - Psychiatric Psychiatric: absent: Anxiety - Hematologic/Lymphatic Hematologic: absent: Easy Bruising Past Patient History - Tetanus Immunizations Tetanus Immunization: Unknown - Past Medical History & Family History Past Medical History?: Yes - Past Social History Smoking Status: Never Smoked Alcohol: None Drugs: Denies Home Situation {Lives}: With Family - CARDIAC Hx Hypertension: Yes - PULMONARY Hx Pneumonia: Yes - NEUROLOGICAL Hx Neurological Disorder: No - HEENT Hx HEENT Problems: No - RENAL Hx Chronic Kidney Disease: No - ENDOCRINE/METABOLIC Hx Endocrine Disorders: Yes Hx Diabetes Mellitus Type 2: Yes - HEMATOLOGICAL/ONCOLOGICAL Hx Anemia: Yes Hx Human Immunodeficiency Virus (HIV): No - INTEGUMENTARY Hx Dermatological Problems: No - MUSCULOSKELETAL/RHEUMATOLOGICAL Hx Musculoskeletal Disorders: No - GASTROINTESTINAL Hx Gastritis: Yes - GENITOURINARY/GYNECOLOGICAL Hx Genitourinary Disorders: No - PSYCHIATRIC Hx Anxiety: No Hx Bipolar Disorder: No Hx Depression: No Hx Post Traumatic Stress Disorder: No Hx Schizophrenia: No Hx Substance Use: No - SURGICAL HISTORY Hx Appendectomy: Yes - ANESTHESIA Hx Anesthesia: Yes Hx Anesthesia Reactions: No Hx Malignant Hyperthermia: No Meds Allergies/Adverse Reactions: Allergies Allergy/AdvReac Type Severity Reaction Status Date / Time No Known Allergies Allergy Verified 06/24/17 10:36 Physical Exam - Constitutional Appears: Well, Non-toxic, No Acute Distress - Head Exam Head Exam: ATRAUMATIC, NORMAL INSPECTION - Eye Exam Eye Exam: Scleral icterus - ENT Exam ENT Exam: Mucous Membranes Moist - Respiratory Exam Respiratory Exam: Clear to Auscultation Bilateral. absent: Rales, Wheezes - Cardiovascular Exam Cardiovascular Exam: REGULAR RHYTHM, +S1, +S2. absent: Systolic Murmur - GI/Abdominal Exam GI & Abdominal Exam: Distended, Hernia (Reproduciple, non tender, no erythema ) . absent: Firm, Guarding Additional comments: Obese abdomen, fluid wave presents - Neurological Exam Neurological exam: Alert, Oriented x3 - Skin Skin Exam: Normal Color Additional comments: Stria over abdomen, dry skin, mild jaundice Results - Vital Signs Recent Vital Signs: Last Vital Signs Temp 97.6 F 09/04/17 12:37 Pulse 67 09/04/17 12:37 Resp 16 09/04/17 12:37 BP 147/108 H 09/04/17 12:37 Pulse Ox 100 09/04/17 14:17 - Labs Result Diagrams: 09/05/17 04:30 09/05/17 05:00 Labs: Laboratory Results - last 24 hr 09/04/17 09/04/17 09/04/17 13:30 13:30 13:30 WBC 5.3 D RBC 2.74 L Hgb 8.0 L Hct 25.0 L MCV 91.3 D MCH 29.3 MCHC 32.1 L RDW 17.8 H Plt Count 109 L MPV 9.2 Neut % (Auto) 76.9 H Lymph % (Auto) 13.0 L [place] % (Auto) 5.8 Eos % (Auto) 3.5 Baso % (Auto) 0.8 Neut # 4.1 Lymph # 0.7 L [place] # 0.3 Eos # 0.2 Baso # 0.0 PT 13.6 H INR 1.2 APTT 31.0 pO2 VBG pH VBG pCO2 VBG HCO3 VBG Total CO2 VBG O2 Sat (Calc) VBG Base Excess VBG Potassium Glucose Lactate FiO2 Crit Value Called To Crit Value Called By Crit Value Read Back Blood Gas Notified Time Sodium 135 Potassium 5.9 H Chloride 110 H Carbon Dioxide 16 L Anion Gap 15 BUN 35 H Creatinine 1.4 H Est GFR ( Amer) 47 Est GFR (Non-Af Amer) 39 Random Glucose 483 H* Calcium 9.0 Total Bilirubin 2.2 H AST 34 ALT 53 H D Alkaline Phosphatase 246 H D Troponin I < 0.0120 Total Protein 7.8 Albumin 3.3 L Globulin 4.5 H Albumin/Globulin Ratio 0.7 L Lipase 446 H Venous Blood Potassium Urine Color Urine Clarity Urine pH Ur Specific [place] Urine Protein Urine Glucose (UA) Urine Ketones Urine Blood Urine Nitrate Urine Bilirubin Urine Urobilinogen Ur Leukocyte Esterase Urine RBC (Auto) Urine Microscopic WBC Ur Squamous Epith Cells 09/04/17 09/04/17 13:40 15:25 WBC RBC Hgb Hct MCV MCH MCHC RDW Plt Count MPV Neut % (Auto) Lymph % (Auto) [place] % (Auto) Eos % (Auto) Baso % (Auto) Neut # Lymph # [place] # Eos # Baso # PT INR APTT pO2 11 L VBG pH 7.24 L VBG pCO2 42 VBG HCO3 15.5 VBG Total CO2 19.3 L VBG O2 Sat (Calc) 23.0 L VBG Base Excess -9.0 L VBG Potassium 5.9 H Glucose 511 H* Lactate 1.8 FiO2 21.0 Crit Value Called To Javier navarro Crit Value Called By 23 Crit Value Read Back Y Blood Gas Notified Time 1346 Sodium 129.0 L Potassium Chloride 108.0 H Carbon Dioxide Anion Gap BUN Creatinine Est GFR ( Amer) Est GFR (Non-Af Amer) Random Glucose Calcium Total Bilirubin AST ALT Alkaline Phosphatase Troponin I Total Protein Albumin Globulin Albumin/Globulin Ratio Lipase Venous Blood Potassium 5.9 H Urine Color Yellow Urine Clarity Clear Urine pH 6.0 Ur Specific [place] 1.014 Urine Protein Negative Urine Glucose (UA) >=500 Urine Ketones Negative Urine Blood Negative Urine Nitrate Negative Urine Bilirubin Negative Urine Urobilinogen 0.2-1.0 Ur Leukocyte Esterase Neg Urine RBC (Auto) 1 Urine Microscopic WBC < 1 Ur Squamous Epith Cells < 1 Assessment & Plan - Assessment and Plan (Free Text) Assessment: Pt is a 57 y/o female with a PMHx significant for Hepatic Liver Cirrhosis, Hepatitis C, CKD, HTN, DMII, and Anemia sent from the clinic by her PMD for hyperglycemia and worsening ascites. #DKA 2/2 DM in the setting of medication non-adherence -Glucose 511 -Urinalysis + glucose, negative ketones -VBG, pH: 7.24, Anion Gap 15 -CBC nrml, EKG NSR, Troponin neg x1 -IV hydration NS @250cc/hr. Will change to D51/2NS when glucose is <200 -Insulin 5 units IV q4 -C/W home insulin regimen: Lispro 18units BID -Accucheck q4 #Hyperkalemia, K 5.9 -Likely secondary to CKD and Hyperglycemia -Asymptomatic -will treat hyperglycemia and f/u BMP #Anemia -Chronic anemia, baseline 8-9 -Asymptomatic- no palpatations, lightheadedness -Hx of transfusion in 2015 -C/W Ferrous Sulfate 325mg PO #CKD -Euvolemic -Cr 1.4 (at baseline) -avoid all nephrotoxic meds #Ascites -Mild swelling, pt states it is at baseline, no indication for paracentesis at this time, no concern for SBP -C/w Spironolactone 100mg PO daily and Lasix 40mg PO daily #Cirrhosis -AST 34, ALT 53, ALP 246 -INR 13.6 -Seen by Dr. Izquierdo OP, poor follow up -MELDS 9 -C/W Proponolol for Varices ppx #HTN -Normotensive -C/w home meds #GERD -C/W Pantaprazole 20mg daily #DVT ppx -Heparin SQ
[2017-09-04] MEDS ORDERED: Insulin Regular 100 units/ml SC ONE (16:00)
[2017-09-04] MEDS: Insulin Lispro Mix 75/25 100 units/ml (HumaLog) 10ml SC SCH (17:26)
[2017-09-04 19:17] LABS: CALCIUM 9.6 mg/dL (8.4-10.2)
[2017-09-04] MEDS: Sodium Chloride 0.9% 1,000 ML IV SCH (20:19)
[2017-09-05] MEDS: Sodium Chloride 0.9% 1,000 ML IV SCH ×2 (04:37→08:42)
[2017-09-05 05:21] LABS: BASO % 0.4 % (0.0-2.0); EOS # 0.2 K/uL (0.0-0.7); EOS % 4.9 % (0.0-4.0); HEMATOCRIT 20.5 % (34.0-47.0); LYMPH # 0.9 K/uL (1.0-4.3); LYMPH % 22.9 % (20.0-40.0); MEAN CELL VOLUME 89.4 fl (81.0-99.0); MEAN CORPUSCULAR HEMOGLOBIN 28.3 pg (27.0-31.0); MEAN CORPUSCULAR HGB CONC 31.7 g/dL (33.0-37.0); MEAN PLATELET VOLUME 8.9 fl (7.2-11.7); MONO # 0.3 K/uL (0.0-0.8); MONO % 8.5 % (0.0-10.0); NEUT # 2.6 K/uL (1.8-7.0); NEUT % 63.3 % (50.0-75.0); NRBC % 0.1 % (0.0-0.0); RED CELL DISTRIBUTION WIDTH 17.2 % (11.5-14.5)
[2017-09-05 06:27] LABS: POTASSIUM 5.4 MMOL/L (3.6-5.0)
[2017-09-05 06:28] LABS: ALB/GLOB RATIO 0.6 (1.0-2.1); CALCIUM 8.3 mg/dL (8.4-10.2); TOTAL PROTEIN 6.4 G/DL (6.3-8.2)
[2017-09-05] MEDS: Insulin Lispro Mix 75/25 100 units/ml (HumaLog) 10ml SC SCH ×2 (08:41→17:14)
[2017-09-05] MEDS: Pantoprazole 20 mg EC Tab PO SCH (08:42)
--- NOTE | 2017-09-05 08:53 | CARD ---
APPROVED REPORT EKG Measurement Heart [id number] <Conclusion> Normal sinus rhythm Normal ECG
[2017-09-05] MEDS ORDERED: Calamine/Zinc Oxide LOTION TOP PRN (09:30)
[2017-09-05] MEDS ORDERED: Sod Polystyrene Sulf 15 gm/60 ml Susp PO ONE (09:34)
[2017-09-05 09:37] LABS: IRON < 10 ug/dL (37-170)
[2017-09-05 09:37] LABS: VENOUS BLOOD GAS BASE EXCESS -5.7 mmol/L (0.0-2.0); VENOUS BLOOD GAS PCO2 34 mmHg (40-60); VENOUS BLOOD PH 7.36 (7.32-7.43)
[2017-09-05] MEDS: Insulin Regular 100 units/ml SC SCH ×3 (11:25→22:38)
--- NOTE | 2017-09-05 11:27 | CP.PCM.CON ---
History of Present Illness - History of Present Illness History of Present Illness: 57 year old female with HTN, DM, hep c cirrhosis, presenting to the hospital from her PMDs office for elevated blood sugar, found to be pancytopenic with a hgb of 6.5. The patient denies abnormal bleeding and bruising. She has been more fatigued progressively and notes to dyspnea with stairs. She is currently receiving PRBC transfusion and reports to feeling better. Past medical history: HTN, DM, Hep C, liver cirrhosis, pancytopenia Past surgical history: Appendectomy, ventral hernia repair Family history: Denies hematologic and oncologic problems Social history: Denies tobacco, alcohol, and illicit drug use. Allergies: NKA Review of systems: All remaining review of systems including HEENT, cardiovascular, respiratory, gastrointestinal, genitourinary, musculoskeletal, dermatologic, neurologic, and psychiatric are negative unless mentioned in the HPI. Past Patient History - Tetanus Immunizations Tetanus Immunization: Unknown - Past Medical History & Family History Past Medical History?: Yes - Past Social History Smoking Status: Never Smoked Alcohol: None Drugs: Denies Home Situation {Lives}: With Family - CARDIAC Hx Hypertension: Yes - PULMONARY Hx Pneumonia: Yes - NEUROLOGICAL Hx Neurological Disorder: No - HEENT Hx HEENT Problems: No - RENAL Hx Chronic Kidney Disease: No - ENDOCRINE/METABOLIC Hx Endocrine Disorders: Yes Hx Diabetes Mellitus Type 2: Yes - HEMATOLOGICAL/ONCOLOGICAL Hx Anemia: Yes Hx Human Immunodeficiency Virus (HIV): No - INTEGUMENTARY Hx Dermatological Problems: No - MUSCULOSKELETAL/RHEUMATOLOGICAL Hx Musculoskeletal Disorders: No - GASTROINTESTINAL Hx Gastritis: Yes - GENITOURINARY/GYNECOLOGICAL Hx Genitourinary Disorders: No - PSYCHIATRIC Hx Anxiety: No Hx Bipolar Disorder: No Hx Depression: No Hx Post Traumatic Stress Disorder: No Hx Schizophrenia: No Hx Substance Use: No - SURGICAL HISTORY Hx Appendectomy: Yes - ANESTHESIA Hx Anesthesia: Yes Hx Anesthesia Reactions: No Hx Malignant Hyperthermia: No Meds Allergies/Adverse Reactions: Allergies Allergy/AdvReac Type Severity Reaction Status Date / Time No Known Allergies Allergy Verified 06/24/17 10:36 - Medications Medications: Current Medications Calamine (Calamine Lotion) 1 applic TOP BID PRN PRN Reason: Itching / Pruritus Furosemide (Lasix) 40 mg PO DAILY JOCELIN Last Admin: 09/05/17 08:42 Dose: 40 mg Insulin Human Regular (Humulin R) 0 units SC ACHS JOCELIN PRN Reason: Protocol Last Admin: 09/05/17 11:25 Dose: 4 unit Insulin Lispro Protam/Lispro Human (Humalog Mix 75/25) 18 units SC BRKDIN [facility] Last Admin: 09/05/17 08:41 Dose: 18 units Pantoprazole Sodium (Protonix Ec Tab) 20 mg PO DAILY [facility] Last Admin: 09/05/17 08:42 Dose: 20 mg Propranolol HCl (Inderal) 10 mg PO Q8H [facility] Last Admin: 09/05/17 08:41 Dose: 10 mg Physical Exam - Head Exam Head Exam: ATRAUMATIC - Eye Exam Eye Exam: Normal appearance - ENT Exam ENT Exam: Mucous Membranes Dry - Respiratory Exam Respiratory Exam: NORMAL BREATHING PATTERN - Cardiovascular Exam Cardiovascular Exam: +S1, +S2 - GI/Abdominal Exam GI & Abdominal Exam: Normal Bowel Sounds - Extremities Exam Extremities exam: Positive for: normal inspection - Neurological Exam Neurological exam: Oriented x3 - Psychiatric Exam Psychiatric exam: Normal Affect, Normal Mood - Skin Skin Exam: Warm Results - Vital Signs Recent Vital Signs: Last Vital Signs Temp 98.1 F 09/05/17 08:00 Pulse 64 09/05/17 08:41 Resp 18 09/05/17 08:00 BP 114/64 09/05/17 08:42 Pulse Ox 100 09/05/17 08:00 - Labs Result Diagrams: 09/05/17 04:30 09/05/17 05:00 Labs: Laboratory Results - last 24 hr 09/04/17 09/04/17 09/04/17 12:51 13:30 13:30 WBC 5.3 D RBC 2.74 L Hgb 8.0 L Hct 25.0 L MCV 91.3 D MCH 29.3 MCHC 32.1 L RDW 17.8 H Plt Count 109 L MPV 9.2 Neut % (Auto) 76.9 H Lymph % (Auto) 13.0 L [place] % (Auto) 5.8 Eos % (Auto) 3.5 Baso % (Auto) 0.8 Neut # 4.1 Lymph # 0.7 L [place] # 0.3 Eos # 0.2 Baso # 0.0 PT INR APTT pO2 VBG pH VBG pCO2 VBG HCO3 VBG Total CO2 VBG O2 Sat (Calc) VBG Base Excess VBG Potassium Glucose Lactate FiO2 Blood Gas Comments Crit Value Called To Crit Value Called By Crit Value Read Back Blood Gas Notified Time Sodium 135 Potassium 5.9 H Chloride 110 H Carbon Dioxide 16 L Anion Gap 15 BUN 35 H Creatinine 1.4 H Est GFR ( Amer) 47 Est GFR (Non-Af Amer) 39 POC Glucose (mg/dL) 484 H* Random Glucose 483 H* Serum Osmolality Calcium 9.0 Iron TIBC % Saturation Ferritin Total Bilirubin 2.2 H AST 34 ALT 53 H D Alkaline Phosphatase 246 H D Troponin I < 0.0120 Total Protein 7.8 Albumin 3.3 L Globulin 4.5 H Albumin/Globulin Ratio 0.7 L Lipase 446 H Vitamin B12 Venous Blood Potassium Urine Color Urine Clarity Urine pH Ur Specific [place] Urine Protein Urine Glucose (UA) Urine Ketones Urine Blood Urine Nitrate Urine Bilirubin Urine Urobilinogen Ur Leukocyte Esterase Urine RBC (Auto) Urine Microscopic WBC Ur Squamous Epith Cells Blood Type Antibody Screen Crossmatch BBK History Checked 09/04/17 09/04/17 09/04/17 13:30 13:40 15:13 WBC RBC Hgb Hct MCV MCH MCHC RDW Plt Count MPV Neut % (Auto) Lymph % (Auto) [place] % (Auto) Eos % (Auto) Baso % (Auto) Neut # Lymph # [place] # Eos # Baso # PT 13.6 H INR 1.2 APTT 31.0 pO2 11 L VBG pH 7.24 L VBG pCO2 42 VBG HCO3 15.5 VBG Total CO2 19.3 L VBG O2 Sat (Calc) 23.0 L VBG Base Excess -9.0 L VBG Potassium 5.9 H Glucose 511 H* Lactate 1.8 FiO2 21.0 Blood Gas Comments Crit Value Called To Javier navarro Crit Value Called By 23 Crit Value Read Back Y Blood Gas Notified Time 1346 Sodium 129.0 L Potassium Chloride 108.0 H Carbon Dioxide Anion Gap BUN Creatinine Est GFR ( Amer) Est GFR (Non-Af Amer) POC Glucose (mg/dL) 457 H* Random Glucose Serum Osmolality Calcium Iron TIBC % Saturation Ferritin Total Bilirubin AST ALT Alkaline Phosphatase Troponin I Total Protein Albumin Globulin Albumin/Globulin Ratio Lipase Vitamin B12 Venous Blood Potassium 5.9 H Urine Color Urine Clarity Urine pH Ur Specific [place] Urine Protein Urine Glucose (UA) Urine Ketones Urine Blood Urine Nitrate Urine Bilirubin Urine Urobilinogen Ur Leukocyte Esterase Urine RBC (Auto) Urine Microscopic WBC Ur Squamous Epith Cells Blood Type Antibody Screen Crossmatch BBK History Checked 09/04/17 09/04/17 09/04/17 15:25 16:21 16:56 WBC RBC Hgb Hct MCV MCH MCHC RDW Plt Count MPV Neut % (Auto) Lymph % (Auto) [place] % (Auto) Eos % (Auto) Baso % (Auto) Neut # Lymph # [place] # Eos # Baso # PT INR APTT pO2 VBG pH VBG pCO2 VBG HCO3 VBG Total CO2 VBG O2 Sat (Calc) VBG Base Excess VBG Potassium Glucose Lactate FiO2 Blood Gas Comments Crit Value Called To Crit Value Called By Crit Value Read Back Blood Gas Notified Time Sodium Potassium Chloride Carbon Dioxide Anion Gap BUN Creatinine Est GFR ( Amer) Est GFR (Non-Af Amer) POC Glucose (mg/dL) 389 H 394 H Random Glucose Serum Osmolality Calcium Iron TIBC % Saturation Ferritin Total Bilirubin AST ALT Alkaline Phosphatase Troponin I Total Protein Albumin Globulin Albumin/Globulin Ratio Lipase Vitamin B12 Venous Blood Potassium Urine Color Yellow Urine Clarity Clear Urine pH 6.0 Ur Specific [place] 1.014 Urine Protein Negative Urine Glucose (UA) >=500 Urine Ketones Negative Urine Blood Negative Urine Nitrate Negative Urine Bilirubin Negative Urine Urobilinogen 0.2-1.0 Ur Leukocyte Esterase Neg Urine RBC (Auto) 1 Urine Microscopic WBC < 1 Ur Squamous Epith Cells < 1 Blood Type Antibody Screen Crossmatch BBK History Checked 09/04/17 09/04/17 09/04/17 18:43 18:43 21:12 WBC RBC Hgb Hct MCV MCH MCHC RDW Plt Count MPV Neut % (Auto) Lymph % (Auto) [place] % (Auto) Eos % (Auto) Baso % (Auto) Neut # Lymph # [place] # Eos # Baso # PT INR APTT pO2 VBG pH VBG pCO2 VBG HCO3 VBG Total CO2 VBG O2 Sat (Calc) VBG Base Excess VBG Potassium Glucose Lactate FiO2 Blood Gas Comments Crit Value Called To Crit Value Called By Crit Value Read Back Blood Gas Notified Time Sodium 141 Potassium 5.0 Chloride 112 H Carbon Dioxide 18 L Anion Gap 16 BUN 35 H Creatinine 1.5 H Est GFR ( Amer) 43 Est GFR (Non-Af Amer) 36 POC Glucose (mg/dL) 266 H Random Glucose 301 H Serum Osmolality 317 H Calcium 9.6 Iron TIBC % Saturation Ferritin Total Bilirubin AST ALT Alkaline Phosphatase Troponin I Total Protein Albumin Globulin Albumin/Globulin Ratio Lipase Vitamin B12 Venous Blood Potassium Urine Color Urine Clarity Urine pH Ur Specific [place] Urine Protein Urine Glucose (UA) Urine Ketones Urine Blood Urine Nitrate Urine Bilirubin Urine Urobilinogen Ur Leukocyte Esterase Urine RBC (Auto) Urine Microscopic WBC Ur Squamous Epith Cells Blood Type Antibody Screen Crossmatch BBK History Checked 09/05/17 09/05/17 09/05/17 02:33 04:30 05:00 WBC 4.0 L RBC 2.30 L Hgb 6.5 L* Hct 20.5 L MCV 89.4 MCH 28.3 MCHC 31.7 L RDW 17.2 H Plt Count 88 L D MPV 8.9 Neut % (Auto) 63.3 Lymph % (Auto) 22.9 [place] % (Auto) 8.5 Eos % (Auto) 4.9 H Baso % (Auto) 0.4 Neut # 2.6 Lymph # 0.9 L [place] # 0.3 Eos # 0.2 Baso # 0.0 PT INR APTT pO2 VBG pH VBG pCO2 VBG HCO3 VBG Total CO2 VBG O2 Sat (Calc) VBG Base Excess VBG Potassium Glucose Lactate FiO2 Blood Gas Comments Crit Value Called To Crit Value Called By Crit Value Read Back Blood Gas Notified Time Sodium 141 Potassium 5.4 H Chloride 116 H Carbon Dioxide 19 L Anion Gap 11 BUN 34 H Creatinine 1.5 H Est GFR ( Amer) 43 Est GFR (Non-Af Amer) 36 POC Glucose (mg/dL) 286 H Random Glucose 268 H Serum Osmolality Calcium 8.3 L Iron TIBC % Saturation Ferritin 9.2 L Total Bilirubin 1.0 AST 37 H ALT 45 Alkaline Phosphatase 187 H D Troponin I Total Protein 6.4 Albumin 2.4 L D Globulin 4.0 H Albumin/Globulin Ratio 0.6 L Lipase Vitamin B12 904 Venous Blood Potassium Urine Color Urine Clarity Urine pH Ur Specific [place] Urine Protein Urine Glucose (UA) Urine Ketones Urine Blood Urine Nitrate Urine Bilirubin Urine Urobilinogen Ur Leukocyte Esterase Urine RBC (Auto) Urine Microscopic WBC Ur Squamous Epith Cells Blood Type Antibody Screen Crossmatch BBK History Checked 09/05/17 09/05/17 09/05/17 05:36 06:50 08:35 WBC RBC Hgb Hct MCV MCH MCHC RDW Plt Count MPV Neut % (Auto) Lymph % (Auto) [place] % (Auto) Eos % (Auto) Baso % (Auto) Neut # Lymph # [place] # Eos # Baso # PT INR APTT pO2 VBG pH VBG pCO2 VBG HCO3 VBG Total CO2 VBG O2 Sat (Calc) VBG Base Excess VBG Potassium Glucose Lactate FiO2 Blood Gas Comments Crit Value Called To Crit Value Called By Crit Value Read Back Blood Gas Notified Time Sodium Potassium Chloride Carbon Dioxide Anion Gap BUN Creatinine Est GFR ( Amer) Est GFR (Non-Af Amer) POC Glucose (mg/dL) 345 H Random Glucose Serum Osmolality Calcium Iron < 10 L TIBC 349 % Saturation 3 L Ferritin Total Bilirubin AST ALT Alkaline Phosphatase Troponin I Total Protein Albumin Globulin Albumin/Globulin Ratio Lipase Vitamin B12 Venous Blood Potassium Urine Color Urine Clarity Urine pH Ur Specific [place] Urine Protein Urine Glucose (UA) Urine Ketones Urine Blood Urine Nitrate Urine Bilirubin Urine Urobilinogen Ur Leukocyte Esterase Urine RBC (Auto) Urine Microscopic WBC Ur Squamous Epith Cells Blood Type B POSITIVE Antibody Screen Negative Crossmatch See Detail BBK History Checked Patient has bt 09/05/17 09:33 WBC RBC Hgb Hct MCV MCH MCHC RDW Plt Count MPV Neut % (Auto) Lymph % (Auto) [place] % (Auto) Eos % (Auto) Baso % (Auto) Neut # Lymph # [place] # Eos # Baso # PT INR APTT pO2 34 VBG pH 7.36 VBG pCO2 34 L VBG HCO3 20.2 VBG Total CO2 VBG O2 Sat (Calc) 74.1 H VBG Base Excess -5.7 L VBG Potassium Glucose Lactate FiO2 Blood Gas Comments 15 Crit Value Called To Staci espinoza Crit Value Called By Crit Value Read Back Y Blood Gas Notified Time 935 Sodium Potassium Chloride Carbon Dioxide Anion Gap BUN Creatinine Est GFR ( Amer) Est GFR (Non-Af Amer) POC Glucose (mg/dL) Random Glucose Serum Osmolality Calcium Iron TIBC % Saturation Ferritin Total Bilirubin AST ALT Alkaline Phosphatase Troponin I Total Protein Albumin Globulin Albumin/Globulin Ratio Lipase Vitamin B12 Venous Blood Potassium Urine Color Urine Clarity Urine pH Ur Specific [place] Urine Protein Urine Glucose (UA) Urine Ketones Urine Blood Urine Nitrate Urine Bilirubin Urine Urobilinogen Ur Leukocyte Esterase Urine RBC (Auto) Urine Microscopic WBC Ur Squamous Epith Cells Blood Type Antibody Screen Crossmatch BBK History Checked Assessment & Plan (1) Pancytopenia Assessment and Plan: multifactorial iron deficiency (low ferritin); agree with transfusion support, will start IV iron liver cirrhosis with splenic sequestration, thrombopoietin dysregulation hepatitis C Thank you for this interesting consult. Status: Acute
--- NOTE | 2017-09-05 14:25 | CP.PCM.PN ---
Subjective - Date & Time of Evaluation Date of Evaluation: 09/05/17 Time of Evaluation: 08:00 - Subjective Subjective: No acute events overnight. Patient seen and evaluated at the bedside. No complaints. Denies CP, SOB, n/v, abdominal pain/discomfort, regular BM. Objective - Vital Signs/Intake and Output Vital Signs (last 24 hours): Temp Pulse Resp BP Pulse Ox 97.8 F 62 20 138/72 100 09/05/17 13:32 09/05/17 13:32 09/05/17 13:32 09/05/17 13:32 09/05/17 13:32 - Medications Medications: Current Medications Calamine (Calamine Lotion) 1 applic TOP BID PRN PRN Reason: Itching / Pruritus Furosemide (Lasix) 40 mg PO DAILY [facility] Last Admin: 09/05/17 08:42 Dose: 40 mg Iron Sucrose 200 mg/ Sodium (Chloride) 110 mls @ 110 mls/hr IVPB DAILY [facility] Stop: 09/10/17 11:31 Insulin Human Regular (Humulin R) 0 units SC ACHS [facility] PRN Reason: Protocol Last Admin: 09/05/17 11:25 Dose: 4 unit Insulin Lispro Protam/Lispro Human (Humalog Mix 75/25) 20 units SC BRKDIN [facility] Pantoprazole Sodium (Protonix Ec Tab) 20 mg PO DAILY [facility] Last Admin: 09/05/17 08:42 Dose: 20 mg Propranolol HCl (Inderal) 10 mg PO Q8H [facility] Last Admin: 09/05/17 08:41 Dose: 10 mg Spironolactone (Aldactone) 50 mg PO DAILY [facility] - Labs Labs: 09/05/17 04:30 09/05/17 05:00 PT 13.6 Seconds (9.8-13.1) H 09/04/17 13:30 INR 1.2 (0.9-1.2) 09/04/17 13:30 APTT 31.0 Seconds (25.6-37.1) 09/04/17 13:30 - Constitutional Appears: Well, Non-toxic - Head Exam Head Exam: ATRAUMATIC, NORMAL INSPECTION - ENT Exam ENT Exam: Mucous Membranes Moist - Respiratory Exam Respiratory Exam: Clear to Ausculation Bilateral. absent: Rales, Wheezes - Cardiovascular Exam Cardiovascular Exam: REGULAR RHYTHM, +S1, +S2. absent: Murmur - GI/Abdominal Exam GI & Abdominal Exam: Distended, Soft, Normal Bowel Sounds. absent: Guarding, Rigid, Tenderness Additional comments: Obese abdomen, fluid shift, ascites - Extremities Exam Extremities Exam: Normal Inspection. absent: Calf Tenderness, Pedal Edema - Neurological Exam Neurological Exam: Alert, Awake, Oriented x3 - Psychiatric Exam Psychiatric exam: Normal Affect Assessment and Plan - Assessment and Plan (Free Text) Assessment: Assessment: Pt is a 57 y/o female with a PMHx significant for Hepatic Liver Cirrhosis, Hepatitis C, CKD, HTN, DMII, and Anemia sent from the clinic by her PMD for hyperglycemia and worsening ascites, no presenting with Pancytopenia. #Pancytopenia -WBC 4.0 today. Hg 6.5 (8 on admission), Platelets 88 -Transfused 2 units of PRBC this morning. -Ferritin 9.2 -Hematology/Oncology consult appreciated- Pancytopenia likely multifactorial. Anemia likely 2/2 to Liver Cirrhosis with Splenic Sequestration. IV Iron Sucrose started 200mg -C/w Ferrous Sulfate 325mg PO -F/U CBC at 5pm today. F/U Folate, B12, Reticulocyte count -Anticoagulant ppx therapy D/C'd #Hyperglycemia -Uncomplicated DKA, now resolved, Acid/Base status normalized: latest VBG pH- 7.36, HCO3 20.2, Anion Gap 11 -Still hyperglycemic in 300's. Lispro adjusted to 20units BID -Urinalysis + glucose, negative ketones -EKG NSR, Troponin neg x1 -IV fluids D/C'd as patient is tolerating PO -Hg A1C 11.7 -C/W home insulin regimen -Accucheck q4 -F/U VBG 5pm #Hyperkalemia, K 5.4 -Improving -Likely secondary to CKD and low insulin -Will treat hyperglycemia and f/u BMP -Kayexelate given x3 since admission -Potassium sparing diuretic dosage reduced -F/U VBG Liver Cirrhosis, complicated with Ascitis -AST 34, ALT 53, ALP 246, INR 13.6, Albumin 2.4. Child B Classification -Mild to moderate ascites, pt states it is at baseline, no indication for paracentesis at this time, no concern for SBP -Abdominal CT ordered to evaluate ascites. Will consider GI consult pending results. -C/w Spironolactone 50mg PO daily and Lasix 40mg PO daily -C/W Proponolol for Varices ppx -F/U AFP for HCC screening #Generalized Pruritis -Pt has moderate excoriation lesions -Likely 2/2 to liver disease -Calamine lotion ordered -Seen by wound care nurse #CKD -Euvolemic -Cr 1.5 (at baseline) -avoid all nephrotoxic meds #HTN -Normotensive -C/w home meds #GERD -C/W Pantaprazole 20mg daily #DVT ppx -SCD's Stable Full Code
[2017-09-05] MEDS ORDERED: Insulin Regular 100 units/ml SC ONE (16:00)
[2017-09-05] MEDS ORDERED: Insulin Lispro (humaLOG) 100 Units/ml Inj SC ONE (17:39)
[2017-09-05 21:06] LABS: BASO % 0.2 % (0.0-2.0); EOS # 0.1 K/uL (0.0-0.7); EOS % 1.4 % (0.0-4.0); LYMPH # 0.4 K/uL (1.0-4.3); LYMPH % 7.1 % (20.0-40.0); MEAN CELL VOLUME 90.1 fl (81.0-99.0); MEAN CORPUSCULAR HEMOGLOBIN 29.3 pg (27.0-31.0); MEAN CORPUSCULAR HGB CONC 32.5 g/dL (33.0-37.0); MEAN PLATELET VOLUME 8.8 fl (7.2-11.7); MONO # 0.5 K/uL (0.0-0.8); MONO % 8.2 % (0.0-10.0); NEUT # 5.3 K/uL (1.8-7.0); NEUT % 83.1 % (50.0-75.0); PLATELET COUNT 93 K/uL (130-400); RED CELL DISTRIBUTION WIDTH 16.9 % (11.5-14.5); WHITE BLOOD COUNT 6.3 K/uL (4.8-10.8)
[2017-09-05 21:15] LABS: POTASSIUM 4.4 MMOL/L (3.6-5.0)
[2017-09-05 21:53] LABS: ALB/GLOB RATIO 0.7 (1.0-2.1); BILIRUBIN,TOTAL 6.3 mg/dl (0.2-1.3); CALCIUM 8.4 mg/dL (8.4-10.2); EOSINOPHIL 1 % (0-7); NEUTROPHIL 60 % (42-75); TOTAL CELLS COUNTED 100; TOTAL PROTEIN 7.1 G/DL (6.3-8.2)
[2017-09-06] MEDS ORDERED: Insulin Regular 100 units/ml SC ONE (02:27)
[2017-09-06] MEDS: Insulin Regular 100 units/ml SC SCH ×4 (06:57→21:27)
[2017-09-06 07:38] LABS: HEMATOCRIT 24.5 % (34.0-47.0); MEAN CELL VOLUME 89.8 fl (81.0-99.0); MEAN CORPUSCULAR HEMOGLOBIN 29.7 pg (27.0-31.0); RED CELL DISTRIBUTION WIDTH 17.5 % (11.5-14.5); WHITE BLOOD COUNT 5.7 K/uL (4.8-10.8)
[2017-09-06 07:53] LABS: BILIRUBIN,TOTAL 3.6 mg/dl (0.2-1.3); CALCIUM 8.2 mg/dL (8.4-10.2); POTASSIUM 3.9 MMOL/L (3.6-5.0); TOTAL PROTEIN 6.4 G/DL (6.3-8.2)
[2017-09-06 07:55] LABS: ALB/GLOB RATIO 0.6 (1.0-2.1)
[2017-09-06] MEDS: Sodium Chloride 0.9% 1,000 ML IV SCH ×2 (08:17→08:19)
[2017-09-06] MEDS: Insulin Lispro Mix 75/25 100 units/ml (HumaLog) 10ml SC SCH ×2 (08:24→09:36)
[2017-09-06] MEDS: Pantoprazole 20 mg EC Tab PO SCH (09:35)
--- NOTE | 2017-09-06 11:15 | CP.PCM.PN ---
Subjective - Date & Time of Evaluation Date of Evaluation: 09/06/17 Time of Evaluation: 09:13 - Subjective Subjective: Patient seen and examined at bedside. No acute events overnight. Patient received IV iron and 2 pRBCs for anemia. No complaints. Denies CP, SOB, n/v, abdominal pain/discomfort, regular BM. Tolerating PO well. For abd u/s today. sugars have been uncontrolled, on coverage protocol. Objective - Vital Signs/Intake and Output Vital Signs (last 24 hours): Temp Pulse Resp BP Pulse Ox 97.8 F 82 20 105/70 99 09/06/17 08:22 09/06/17 09:34 09/06/17 08:22 09/06/17 09:35 09/06/17 08:22 - Medications Medications: Current Medications Calamine (Calamine Lotion) 1 applic TOP BID PRN PRN Reason: Itching / Pruritus Furosemide (Lasix) 40 mg PO DAILY [facility] Last Admin: 09/06/17 09:35 Dose: 40 mg Iron Sucrose 200 mg/ Sodium (Chloride) 110 mls @ 110 mls/hr IVPB DAILY [facility] Stop: 09/10/17 11:31 Last Admin: 09/05/17 15:44 Dose: 110 mls/hr Insulin Human Regular (Humulin R) 0 units SC ACHS [facility] PRN Reason: Protocol Last Admin: 09/06/17 06:57 Dose: 4 unit Insulin Lispro Protam/Lispro Human (Humalog Mix 75/25) 20 units SC BRKDIN [facility] Last Admin: 09/06/17 09:36 Dose: 20 units Pantoprazole Sodium (Protonix Ec Tab) 20 mg PO DAILY [facility] Last Admin: 09/06/17 09:35 Dose: 20 mg Propranolol HCl (Inderal) 10 mg PO Q8H [facility] Last Admin: 09/06/17 09:34 Dose: 10 mg Sennosides (Senokot Tab) 8.6 mg PO BID [facility] Last Admin: 09/06/17 09:34 Dose: 8.6 mg Spironolactone (Aldactone) 50 mg PO DAILY [facility] Last Admin: 09/06/17 09:35 Dose: 50 mg - Labs Labs: 09/06/17 05:30 09/06/17 05:30 PT 13.6 Seconds (9.8-13.1) H 09/04/17 13:30 INR 1.2 (0.9-1.2) 09/04/17 13:30 APTT 31.0 Seconds (25.6-37.1) 09/04/17 13:30 - Constitutional Appears: Well, Non-toxic, No Acute Distress - Head Exam Head Exam: ATRAUMATIC, NORMAL INSPECTION, NORMOCEPHALIC - Eye Exam Eye Exam: Normal appearance - Neck Exam Neck Exam: Normal Inspection - Respiratory Exam Respiratory Exam: Clear to Ausculation Bilateral, NORMAL BREATHING PATTERN - Cardiovascular Exam Cardiovascular Exam: REGULAR RHYTHM, +S1, +S2. absent: Murmur - GI/Abdominal Exam GI & Abdominal Exam: Soft, Normal Bowel Sounds. absent: Tenderness Additional comments: ascites - Extremities Exam Extremities Exam: Normal Inspection - Neurological Exam Neurological Exam: Alert, Awake - Psychiatric Exam Psychiatric exam: Normal Affect, Normal Mood - Skin Skin Exam: Dry, Normal Color, Rash (excoriations widespread), Warm Assessment and Plan - Assessment and Plan (Free Text) Assessment: 57 y/o female with a PMHx significant for Hepatic Liver Cirrhosis, Hepatitis C, CKD, HTN, DMII, and Anemia sent from the clinic by her PMD for hyperglycemia and worsening ascites, now presenting with Pancytopenia. 1) Pancytopenia -Transfused 2 units of PRBC due to hgb 6.5, hgb 8.1 now -Ferritin 9.2 -Hematology/Oncology consult appreciated- Pancytopenia likely multifactorial. Anemia likely 2/2 to Liver Cirrhosis with Splenic Sequestration. IV Iron Sucrose started 200mg -retic count elevated at 3.4 -b12, folate normal -GI consult requested -FOBT pending -follow up labs in am 2) Hyperglycemia -Uncomplicated DKA, now resolved, Acid/Base status normalized: latest VBG pH- 7.36, HCO3 20.2, Anion Gap 11 -Still hyperglycemic in 300's. -Urinalysis + glucose, negative ketones -EKG NSR, Troponin neg x1 -IV fluids restarted due to hyperglycemia -will increase 75/25 to 22U BID -Hgb A1C 11.7 -Accucheck q4 3) Hyperkalemia, K 3.9 -Improved -Will treat hyperglycemia and f/u BMP -Kayexelate given x3 since admission -Potassium sparing diuretic dosage reduced -F/U labs in AM 4) Liver Cirrhosis, complicated with Ascites -AST 34, ALT 53, ALP 246, INR 13.6, Albumin 2.4. Child B Classification -Mild to moderate ascites, pt states it is at baseline, no indication for paracentesis at this time, no concern for SBP -Abdominal US ordered to evaluate ascites. Will consider GI consult pending results. -C/w Spironolactone 50mg PO daily and Lasix 40mg PO daily -C/W Proponolol for Varices ppx -GI consult requested -F/U AFP for HCC screening 5) Generalized Pruritis, hyperbilirubinemia -Pt has moderate excoriation lesions -Bili 3.6, continue to monitor -Calamine lotion at this time -Seen by wound care nurse -GI consult requested 6)CKD -Cr 1.5 (at baseline) -avoid all nephrotoxic meds 7)HTN -Normotensive -C/w home meds 8)GERD -C/W Pantaprazole 20mg daily 9)DVT ppx -scds due to thrombocytopenia Status Full Code
[2017-09-06] MEDS ORDERED: Enoxaparin 40 mg Syringe SC SCH (11:30)
[2017-09-06 12:01] LABS: RBC URINE 2 /hpf (0-3); URINE BILIRUBIN NEGATIVE (NEGATIVE); URINE BLOOD NEGATIVE (NEGATIVE); URINE COLOR YELLOW (YELLOW); URINE GLUCOSE (UA) >=500 mg/dL (Normal); URINE KETONE NEGATIVE (NEGATIVE); URINE LEUKOCYTE ESTERASE NEG Leu/uL (Negative); URINE PROTEIN NEGATIVE (NEGATIVE); URINE UROBILINOGEN 0.2-1.0 mg/dL (0.2-1.0); WBC URINE < 1 /hpf (0-5)
--- NOTE | 2017-09-06 13:47 | US ---
PROCEDURE: HISTORY: Ascites COMPARISON: TECHNIQUE: FINDINGS: Trace ascites noted in the right upper quadrant. No evidence of ascites elsewhere in the abdominal cavity. IMPRESSION: As above.
[2017-09-06] MEDS ORDERED: Insulin Lispro Mix 75/25 100 units/ml (HumaLog) 10ml SC SCH (17:00)
[2017-09-07] MEDS: Insulin Regular 100 units/ml SC SCH ×4 (06:36→22:07)
[2017-09-07] MEDS ORDERED: Insulin Lispro Mix 75/25 100 units/ml (HumaLog) 10ml SC SCH ×2 (07:33→09:45)
[2017-09-07 08:03] LABS: HEMATOCRIT 27.9 % (34.0-47.0); MEAN CELL VOLUME 89.4 fl (81.0-99.0); MEAN CORPUSCULAR HEMOGLOBIN 29.6 pg (27.0-31.0); MEAN CORPUSCULAR HGB CONC 33.1 g/dL (33.0-37.0); RED CELL DISTRIBUTION WIDTH 17.4 % (11.5-14.5); WHITE BLOOD COUNT 5.1 K/uL (4.8-10.8)
[2017-09-07 08:05] LABS: ALB/GLOB RATIO 0.7 (1.0-2.1); CALCIUM 8.6 mg/dL (8.4-10.2); POTASSIUM 4.1 MMOL/L (3.6-5.0); TOTAL PROTEIN 7.1 G/DL (6.3-8.2)
--- NOTE | 2017-09-07 09:42 | CP.PCM.PN ---
Subjective - Date & Time of Evaluation Date of Evaluation: 09/07/17 Time of Evaluation: 08:20 - Subjective Subjective: Patient seen and examined at the bedside. No complaints. Denies CP, SOB, abdominal pain, dysuria, n/v/d, lightheadedness. Objective - Vital Signs/Intake and Output Vital Signs (last 24 hours): Temp Pulse Resp BP Pulse Ox 98.4 F 80 18 98/63 L 95 09/07/17 08:20 09/07/17 08:20 09/07/17 08:20 09/07/17 08:20 09/07/17 08:20 - Medications Medications: Current Medications Calamine (Calamine Lotion) 1 applic TOP BID PRN PRN Reason: Itching / Pruritus Last Admin: 09/06/17 16:38 Dose: 1 applic Furosemide (Lasix) 40 mg PO DAILY [facility] Last Admin: 09/06/17 09:35 Dose: 40 mg Iron Sucrose 200 mg/ Sodium (Chloride) 110 mls @ 110 mls/hr IVPB DAILY [facility] Stop: 09/10/17 11:31 Last Admin: 09/06/17 12:35 Dose: 110 mls/hr Insulin Human Regular (Humulin R) 0 units SC ACHS [facility] PRN Reason: Protocol Last Admin: 09/07/17 06:36 Dose: 3 unit Insulin Lispro Protam/Lispro Human (Humalog Mix 75/25) 23 units SC BRKDIN [facility] Pantoprazole Sodium (Protonix Ec Tab) 20 mg PO DAILY [facility] Last Admin: 09/06/17 09:35 Dose: 20 mg Propranolol HCl (Inderal) 10 mg PO Q8H [facility] Last Admin: 09/07/17 00:12 Dose: 10 mg Sennosides (Senokot Tab) 8.6 mg PO BID [facility] Last Admin: 09/06/17 16:43 Dose: 8.6 mg Spironolactone (Aldactone) 50 mg PO DAILY [facility] Last Admin: 09/06/17 09:35 Dose: 50 mg - Labs Labs: 09/07/17 06:30 09/07/17 06:30 PT 13.6 Seconds (9.8-13.1) H 09/04/17 13:30 INR 1.2 (0.9-1.2) 09/04/17 13:30 APTT 31.0 Seconds (25.6-37.1) 09/04/17 13:30 - Constitutional Appears: Well, Non-toxic, No Acute Distress - ENT Exam ENT Exam: Mucous Membranes Moist - Respiratory Exam Respiratory Exam: Clear to Ausculation Bilateral. absent: Rales, Wheezes - Cardiovascular Exam Cardiovascular Exam: REGULAR RHYTHM, +S1, +S2. absent: Murmur - GI/Abdominal Exam GI & Abdominal Exam: Soft, Normal Bowel Sounds. absent: Tenderness Additional comments: mild ascitis; fluid shift; obese abdomen - Extremities Exam Extremities Exam: absent: Pedal Edema - Neurological Exam Neurological Exam: Alert, Awake, Oriented x3 - Psychiatric Exam Psychiatric exam: Normal Mood - Skin Skin Exam: Dry Assessment and Plan - Assessment and Plan (Free Text) Assessment: 57 y/o female with a PMHx significant for Hepatic Liver Cirrhosis, Hepatitis C, CKD, HTN, DMII, and Anemia sent from the clinic by her PMD for hyperglycemia and worsening ascites, now presenting with Pancytopenia. Possible D/C today if pt blood sugars are controlled. 1) Anemia -Transfused 2 units of PRBC due to hgb 6.5, hgb 9.2 now -Ferritin 9.2 -Hematology/Oncology consult appreciated- Anemia likely 2/2 to Liver Cirrhosis with Splenic Sequestration. -C/W IV Iron Sucrose started 200mg; Will continue with PO Iron on D/C for total 5 days -retic count elevated at 3.4 -b12, folate normal -FOBT pending 2) Hyperglycemia -Uncomplicated DKA, now resolved, Acid/Base status normalized: latest VBG pH- 7.36, HCO3 20.2, Anion Gap 11 -Still hyperglycemic in high 200's overnight received 3 units for coverage. 400 this morning. -will increase 75/25 Lispro to 50units BID. -Urinalysis + glucose, negative ketones -Hgb A1C 11.7 -Accucheck q4 3) Asymptomatic UTI -Pt's UCx came back positive today for Gram Negative Rods >100; Will give pt RX for Bactrim DS for 3 days on D/C and f/u sensitivities -Urinalysis nrml 4) Liver Cirrhosis, complicated with Ascites -AST 34, ALT 53, ALP 246, INR 13.6, Albumin 2.4. Child B Classification -Mild to moderate ascites, pt states it is at baseline, no indication for paracentesis at this time, no concern for SBP -Abdominal US ordered to evaluate ascites. Will consider GI consult pending results. -C/w Spironolactone 50mg daily while In Patient; on D/C patient will resume 50mg BID (100mg total) and reassess potassium levels. RX given. -Lasix 40mg PO daily -C/W Proponolol for Varices ppx -GI consult requested- recommended for pt to have Abdominal MRI for surveillance. Will likely do this as an outpatient. -F/U AFP for HCC screening 3) Hyperkalemia, K 4.1 -Resolved -Pt advised and given script to check potassium in 1 week; resume Spironolactone at home dose 5) Generalized Pruritis, hyperbilirubinemia -Pt has moderate excoriation lesions. Itching has improved as per patient today. -Bili 3.6, continue to monitor -C/w Calamine lotion -Seen by wound care nurse 6)CKD -Cr 1.7 (at baseline) -avoid all nephrotoxic meds 7)HTN -Normotensive -C/w home meds 8)GERD -C/W Pantaprazole 20mg daily 9)DVT ppx -scds due to thrombocytopenia Status Full Code
[2017-09-07] MEDS: Pantoprazole 20 mg EC Tab PO SCH (09:52)
[2017-09-07 15:53] VITALS: O2SAT 100
--- NOTE | 2017-09-07 16:36 | CP.PCM.PN ---
Subjective - Date & Time of Evaluation Date of Evaluation: 09/06/17 Time of Evaluation: 16:00 - Subjective Subjective: Feeling better s/p PRBC transfusion Objective - Vital Signs/Intake and Output Vital Signs (last 24 hours): Temp Pulse Resp BP Pulse Ox 98.8 F 64 16 116/70 100 09/07/17 15:53 09/07/17 15:53 09/07/17 15:53 09/07/17 15:53 09/07/17 15:53 - Medications Medications: Current Medications Calamine (Calamine Lotion) 1 applic TOP BID PRN PRN Reason: Itching / Pruritus Last Admin: 09/06/17 16:38 Dose: 1 applic Furosemide (Lasix) 40 mg PO DAILY [facility] Last Admin: 09/07/17 09:52 Dose: Not Given Iron Sucrose 200 mg/ Sodium (Chloride) 110 mls @ 110 mls/hr IVPB DAILY [facility] Stop: 09/10/17 11:31 Last Admin: 09/07/17 10:00 Dose: 110 mls/hr Insulin Human Regular (Humulin R) 0 units SC ACHS [facility] PRN Reason: Protocol Last Admin: 09/07/17 12:29 Dose: 6 unit Insulin Lispro Protam/Lispro Human (Humalog Mix 75/25) 25 units SC BRKDIN [facility] Pantoprazole Sodium (Protonix Ec Tab) 20 mg PO DAILY [facility] Last Admin: 09/07/17 09:52 Dose: 20 mg Propranolol HCl (Inderal) 10 mg PO Q8H [facility] Last Admin: 09/07/17 08:00 Dose: Not Given Sennosides (Senokot Tab) 8.6 mg PO BID [facility] Last Admin: 09/07/17 09:53 Dose: 8.6 mg Spironolactone (Aldactone) 50 mg PO DAILY [facility] Last Admin: 09/07/17 09:51 Dose: Not Given - Labs Labs: 09/07/17 06:30 09/07/17 06:30 PT 13.6 Seconds (9.8-13.1) H 09/04/17 13:30 INR 1.2 (0.9-1.2) 09/04/17 13:30 APTT 31.0 Seconds (25.6-37.1) 09/04/17 13:30 - Head Exam Head Exam: ATRAUMATIC - Eye Exam Eye Exam: Normal appearance - ENT Exam ENT Exam: Mucous Membranes Dry - Respiratory Exam Respiratory Exam: NORMAL BREATHING PATTERN - Cardiovascular Exam Cardiovascular Exam: +S1, +S2 - GI/Abdominal Exam GI & Abdominal Exam: Normal Bowel Sounds Assessment and Plan (1) Pancytopenia Assessment & Plan: liver disease, splenic sequestration iron deficiency s/p PRBC transfusion on IV iron Status: Acute
[2017-09-07] MEDS: Insulin Lispro Mix 75/25 100 units/ml (HumaLog) 10ml SC SCH (17:12)
[2017-09-07 23:48] VITALS: RESP 18
[2017-09-08] MEDS: Insulin Lispro Mix 75/25 100 units/ml (HumaLog) 10ml SC SCH (10:06)
[2017-09-08] MEDS: Pantoprazole 20 mg EC Tab PO SCH (10:07)
[2017-09-08] MEDS: Insulin Regular 100 units/ml SC SCH (11:52)
[2017-09-08 12:19] VITALS: BP 107/67; PULSE 65; TEMP 98.5
--- NOTE | 2017-09-08 14:26 | CP.PCM.DIS ---
Provider - Provider Date of Admission: 09/05/17 14:04 Attending physician: Michelle Torres MD Time Spent in preparation of Discharge (in minutes): 30 Hospital Course - Lab Results Lab Results: Micro Results 09/06/17 11:33 Urine,Clean Catch Urine Culture - Final Klebsiella Pneumoniae Ssp Pneu Most Recent Lab Values WBC 5.1 K/uL (4.8-10.8) 09/07/17 06:30 RBC 3.12 Mil/uL (3.80-5.20) L 09/07/17 06:30 Hgb 9.2 g/dL (12.0-16.0) L 09/07/17 06:30 Hct 27.9 % (34.0-47.0) L 09/07/17 06:30 MCV 89.4 fl (81.0-99.0) 09/07/17 06:30 MCH 29.6 pg (27.0-31.0) 09/07/17 06:30 MCHC 33.1 g/dL (33.0-37.0) 09/07/17 06:30 RDW 17.4 % (11.5-14.5) H 09/07/17 06:30 Plt Count 102 K/uL (130-400) L 09/07/17 06:30 MPV 8.8 fl (7.2-11.7) 09/05/17 20:55 Neut % (Auto) 83.1 % (50.0-75.0) H 09/05/17 20:55 Lymph % (Auto) 7.1 % (20.0-40.0) L 09/05/17 20:55 Heard % (Auto) 8.2 % (0.0-10.0) 09/05/17 20:55 Eos % (Auto) 1.4 % (0.0-4.0) 09/05/17 20:55 Baso % (Auto) 0.2 % (0.0-2.0) 09/05/17 20:55 Neut # 5.3 K/uL (1.8-7.0) 09/05/17 20:55 Lymph # 0.4 K/uL (1.0-4.3) L 09/05/17 20:55 Heard # 0.5 K/uL (0.0-0.8) 09/05/17 20:55 Eos # 0.1 K/uL (0.0-0.7) 09/05/17 20:55 Baso # 0.0 K/uL (0.0-0.2) 09/05/17 20:55 Neutrophils % (Manual) 60 % (42-75) 09/05/17 20:55 Lymphocytes % (Manual) 34 % (20-50) 09/05/17 20:55 Monocytes % (Manual) 5 % (0-10) 09/05/17 20:55 Eosinophils % (Manual) 1 % (0-7) 09/05/17 20:55 Platelet Estimate Slightly decreased (NORMAL) L 09/05/17 20:55 Anisocytosis (manual) Moderate 09/05/17 20:55 Macrocytosis (manual) Slight 09/05/17 20:55 Ovalocytes Slight 09/05/17 20:55 Retic Count 3.2 % (0.5-1.5) H D 09/05/17 20:55 PT 13.6 Seconds (9.8-13.1) H 09/04/17 13:30 INR 1.2 (0.9-1.2) 09/04/17 13:30 APTT 31.0 Seconds (25.6-37.1) 09/04/17 13:30 pO2 34 mm/Hg (30-55) 09/05/17 09:33 VBG pH 7.36 (7.32-7.43) 09/05/17 09:33 VBG pCO2 34 mmHg (40-60) L 09/05/17 09:33 VBG HCO3 20.2 mmol/L 09/05/17 09:33 VBG Total CO2 19.3 mmol/L (22-28) L 09/04/17 13:40 VBG O2 Sat (Calc) 74.1 % (40-65) H 09/05/17 09:33 VBG Base Excess -5.7 mmol/L (0.0-2.0) L 09/05/17 09:33 VBG Potassium 5.9 mmol/L (3.6-5.2) H 09/04/17 13:40 Sodium 129.0 mmol/L (132-148) L 09/04/17 13:40 Chloride 108.0 mmol/L (98-107) H 09/04/17 13:40 Glucose 511 mg/dL (65-105) H* 09/04/17 13:40 Lactate 1.8 mmol/L (0.7-2.1) 09/04/17 13:40 FiO2 21.0 % 09/04/17 13:40 Blood Gas Comments 15 09/05/17 09:33 Crit Value Called To Staci espinoza 09/05/17 09:33 Crit Value Called By 23 09/04/17 13:40 Crit Value Read Back Y 09/05/17 09:33 Blood Gas Notified Time 935 09/05/17 09:33 Sodium 137 mmol/l (132-148) 09/07/17 06:30 Potassium 4.1 MMOL/L (3.6-5.0) 09/07/17 06:30 Chloride 108 mmol/L (98-107) H 09/07/17 06:30 Carbon Dioxide 19 mmol/L (22-30) L 09/07/17 06:30 Anion Gap 14 (10-20) 09/07/17 06:30 BUN 36 mg/dl (7-17) H 09/07/17 06:30 Creatinine 1.7 mg/dl (0.7-1.2) H 09/07/17 06:30 Est GFR ( Amer) 37 09/07/17 06:30 Est GFR (Non-Af Amer) 31 09/07/17 06:30 POC Glucose (mg/dL) 363 mg/dL (65-110) H 09/08/17 11:13 Random Glucose 298 mg/dL (65-105) H 09/07/17 06:30 Hemoglobin A1c 11.7 % (4.2-6.5) H 09/05/17 04:30 Serum Osmolality 317 mosm/kg (272-300) H 09/04/17 18:43 Calcium 8.6 mg/dL (8.4-10.2) 09/07/17 06:30 Iron < 10 ug/dL (37-170) L 09/05/17 08:35 TIBC 349 ug/dL (250-450) 09/05/17 08:35 % Saturation 3 % (20-55) L 09/05/17 08:35 Ferritin 9.2 ng/Ml (11.1-264.0) L 09/05/17 05:00 Total Bilirubin 2.0 mg/dl (0.2-1.3) H 09/07/17 06:30 AST 92 U/L (14-36) H D 09/07/17 06:30 ALT 65 U/L (9-52) H D 09/07/17 06:30 Alkaline Phosphatase 190 U/L (38-126) H 09/07/17 06:30 Troponin I < 0.0120 ng/mL (0.00-0.120) 09/04/17 13:30 Total Protein 7.1 G/DL (6.3-8.2) 09/07/17 06:30 Total Protein (PEP) 6.0 g/dL (6.1-8.1) L 09/05/17 11:07 Albumin 2.9 g/dL (3.5-5.0) L D 09/07/17 06:30 Globulin 4.2 gm/dL (2.2-3.9) H 09/07/17 06:30 Albumin/Globulin Ratio 0.7 (1.0-2.1) L 09/07/17 06:30 Lipase 446 U/L (23-300) H 09/04/17 13:30 Alpha Fetoprotein 5.1 IU/mL (0.0-7.22) 09/05/17 20:55 Vitamin B12 904 pg/mL (239-931) 09/05/17 05:00 Folate 10.0 ng/mL 09/05/17 05:00 Venous Blood Potassium 5.9 mmol/L (3.6-5.2) H 09/04/17 13:40 Urine Color Yellow (YELLOW) 09/06/17 11:33 Urine Clarity Clear (Clear) 09/06/17 11:33 Urine pH 6.0 (5.0-8.0) 09/06/17 11:33 Ur Specific [place] 1.014 (1.003-1.030) 09/06/17 11:33 Urine Protein Negative mg/dL (NEGATIVE) 09/06/17 11:33 Urine Glucose (UA) >=500 mg/dL (Normal) 09/06/17 11:33 Urine Ketones Negative mg/dL (NEGATIVE) 09/06/17 11:33 Urine Blood Negative (NEGATIVE) 09/06/17 11:33 Urine Nitrate Negative (NEGATIVE) 09/06/17 11:33 Urine Bilirubin Negative (NEGATIVE) 09/06/17 11:33 Urine Urobilinogen 0.2-1.0 mg/dL (0.2-1.0) 09/06/17 11:33 Ur Leukocyte Esterase Neg Nell/uL (Negative) 09/06/17 11:33 Urine RBC (Auto) 2 /hpf (0-3) 09/06/17 11:33 Urine Microscopic WBC < 1 /hpf (0-5) 09/06/17 11:33 Ur Squamous Epith Cells < 1 /hpf (0-5) 09/06/17 11:33 Stool Occult Blood Negative (NEGATIVE) 09/06/17 19:30 HIV 1&2 Ag/Ab, 4th Gen Nonreactive (Nonreactive) 09/05/17 11:07 Blood Type B POSITIVE 09/05/17 06:50 Antibody Screen Negative 09/05/17 06:50 Crossmatch See Detail 09/05/17 06:50 BBK History Checked Patient has bt 09/05/17 06:50 - Hospital Course Hospital Course: Admission Date: 09/06 Discharge Diagnosis: Hyperglycemia Hospital Course: 57 y/o female with a PMHx significant for Hepatic Liver Cirrhosis, Hepatitis C, CKD, HTN, DMII, and Anemia sent from the clinic to [facility] for management of hyperglycemia and found to be in mild DKA, Anemic, and Hyperkalemic. Patient was treated with IV fluids and Insulin and was transfused 1 unit of PRBC. Her acid base status resolved and her hyperglycemia slowly improved after we increased her SQ insulin dosages. Pt was also noted to have an asymptomatic UTI , UCx were positive for Klebsiella. Pt was stable for D/c on day 3 of hospital admission and was discharged on Iron, ABx, and increased Insulin dosage. Discharge medications: Insulin Lispro Protam/Lispro Human (Humalog Mix 75/25) 25 units SC BRKDIN [facility] Lansoprazole 15mg PO daily Propranolol HCl (Inderal) 10 mg PO Q8H [facility] Ferrous Sulfate 325mg BID Ciprofloxin 250 mg PO BID Condition upon Discharge: Fair Activity: Ambulating without assistance Discharge Instructions: 09/18/2017 @ 11:[address] Hunt for follow up. Take medications as prescribed. Obtain Urine Culture and BMP prior to follow up appointment. Continue to check blood sugars at home four times a day. Return to ED if new/worsening symptoms Discharge Exam - Head Exam Head Exam: ATRAUMATIC - ENT Exam ENT Exam: Mucous Membranes Moist - Respiratory Exam Respiratory Exam: Clear to PA & Lateral, NORMAL BREATHING PATTERN. absent: Rales, Wheezes, Stridor - Cardiovascular Exam Cardiovascular Exam: REGULAR RHYTHM, +S1, +S2. absent: Systolic Murmur - GI/Abdominal Exam GI & Abdominal Exam: Distended, Normal Bowel Sounds. absent: Firm, Guarding Additional comments: Moderate Ascitis, fluid shift, obese abdomen - Neurological Exam Neurological exam: Alert, Oriented x3 Discharge Plan - Discharge Medications Prescriptions: Ciprofloxacin [Cipro] 250 mg PO BID 5 Days #10 tab Ferrous Sulfate 325 mg PO BID 30 Days #30 tablet Insulin Human (NPH)/Regular [Novolin 70/30 (70/30 units/ml) 10 ml] 25 units SC BID 30 Days #1 vial - Follow Up Plan Condition: FAIR Disposition: HOME/ ROUTINE Additional Instructions: 09/18/2017 @ 11:[address] Hunt for follow up. Take medications as prescribed. Obtain Urine Culture and BMP prior to follow up appointment. Continue to check blood sugars at home four times a day. Return to ED if new/worsening symptoms
[2017-09-08 18:50] LABS: BETA 1 GLOBULIN 0.5 g/dL (0.4-0.6); BETA 2 GLOBULIN 0.4 g/dL (0.2-0.5); GAMMA GLOBULIN 1.9 g/dL (0.8-1.7)
--- NOTE | 2017-09-09 23:39 | CON ---
DATE: 09/07/2017 REFERRING PHYSICIAN: Michelle Torres MD REASON FOR CONSULTATION: Anemia. HISTORY OF PRESENT ILLNESS: This is a pleasant 57-year-old female with a history of cirrhosis, hep C, CKD, hypertension, anemia, shortness of breath, hyperglycemia and anasarca. GI was called for anemia. Patient has no evidence of bleeding, no hematemesis or hematochezia, no melena, no black stools. Currently lying in bed comfortably, in no apparent distress. PAST MEDICAL HISTORY: As above. PAST SURGICAL HISTORY: Appendectomy, tubal ligation, rectal hernia repair. MEDICATIONS: Include iron, propanolol, and Novolin. ALLERGIES: NONE. REVIEW OF SYSTEMS: All other systems have been reviewed and negative apart from the HPI. PHYSICAL EXAMINATION: VITAL SIGNS: During the hospital are grossly unremarkable. GENERAL: Middle-aged female lying in bed comfortably, in no apparent distress. HEENT: Head normocephalic, atraumatic. Eyes: Pupils are equally reactive to light bilaterally. No conjunctival pallor or icterus. NECK: Supple. Normal range of motion. No lymphadenopathy appreciated. LUNGS: Coarse breath sounds bilaterally. HEART: S1, S2, regular rate and rhythm. No murmurs appreciated. ABDOMEN: Soft, nontender. Bowel sounds present. No rebound, no guarding. RECTAL: Deferred. EXTREMITIES: Pulses present bilaterally. SKIN: Warm, dry and intact. NEUROLOGIC: A and O x3. LABORATORY DATA: Reviewed. WBC is 5.3, hemoglobin 8.1, hematocrit 34.5, platelet count 183. ASSESSMENT AND PLAN: This is a 57-year-old female with a history of cirrhosis and anemia, transfuse as needed, iron supplementation. Patient has an outside Hepatology where she will follow up with. From a gastrointestinal standpoint, can be discharged home safely. Thank you for the consult. Mannie Holcomb MD/ PhD cc: Michelle Torres MD
== END 2017-09-08 15:03 | disposition home or self-care (01) | DRG 294 ==
LOC: H.ER 12:32 → H.ERHOLD 14:17 → H.TEL 16:35 → OBSVTOIN 09-05 14:04
PROVIDERS: ADMIT Family Medicine Geriatric Medicine; ATTEND Family Medicine Geriatric Medicine
PROC: 30233N1 Transfusion of Nonautologous Red Blood Cells into Peripheral Vein, Percutaneous Approach (ICD-10-PCS; principal; 2017-09-05)
DX: E11.10 Type 2 diabetes mellitus with ketoacidosis without coma (principal); D61.818 Other pancytopenia; R18.8 Other ascites; E87.5 Hyperkalemia; K74.60 Unspecified cirrhosis of liver; N18.9 Chronic kidney disease, unspecified; N39.0 Urinary tract infection, site not specified; B19.20 Unspecified viral hepatitis C without hepatic coma; B96.1 Klebsiella pneumoniae [K. pneumoniae] as the cause of diseases classified elsewhere; E11.22 Type 2 diabetes mellitus with diabetic chronic kidney disease; I12.9 Hypertensive chronic kidney disease with stage 1 through stage 4 chronic kidney disease, or unspecified chronic kidney disease; Z91.14 Patient's other noncompliance with medication regimen; L29.9 Pruritus, unspecified; K21.9 Gastro-esophageal reflux disease without esophagitis; E61.1 Iron deficiency; E78.00 Pure hypercholesterolemia, unspecified; K29.70 Gastritis, unspecified, without bleeding; E80.6 Other disorders of bilirubin metabolism

== ENCOUNTER 2017-11-25 10:25 | Day surgery (SDC) | payer SELFPAY ==
[2017-11-25] MEDS ORDERED: Lactated Ringer's 1,000 ML IV ONE ×2 (11:47)
[2017-11-25 12:21] VITALS: TEMP 97; O2SAT 100
[2017-11-25] MEDS ORDERED: Propofol 10 mg/ml Inj (20 ML) ONE (14:52)
[2017-11-25] MEDS ORDERED: Lidocaine PF 2% (5 ml) Inj (For Cardiac Arrhy) IV ONE (14:53)
[2017-11-25 16:01] VITALS: BP 138/76; PULSE 52; RESP 15
== END 2017-11-25 16:18 | disposition home or self-care (01) ==
LOC: H.ENDO 10:25
PROVIDERS: ATTEND Internal Medicine Gastroenterology
DX: Z12.11 Encounter for screening for malignant neoplasm of colon (principal); K74.69 Other cirrhosis of liver; K31.7 Polyp of stomach and duodenum
CPT/HCPCS: 43251; 82948; 88305; J2001; J2704; J7120

== ENCOUNTER 2018-06-23 14:23 | Observation (INO) | payer OTHER ==
[~2018-06-23 14:23] MED LIST: Insulin Regular 100 units/ml ONE
[2018-06-23 15:50] LABS: BASO % 0.2 % (0.0-2.0); EOS # 0.1 K/uL (0.0-0.7); EOS % 2.9 % (0.0-4.0); HEMOGLOBIN 10.3 g/dL (12.0-16.0); LYMPH # 0.5 K/uL (1.0-4.3); LYMPH % 17.1 % (20.0-40.0); MEAN CELL VOLUME 96.5 fl (81.0-99.0); MEAN CORPUSCULAR HEMOGLOBIN 32.1 pg (27.0-31.0); MEAN CORPUSCULAR HGB CONC 33.2 g/dL (33.0-37.0); MEAN PLATELET VOLUME 9.3 fl (7.2-11.7); MONO # 0.2 K/uL (0.0-0.8); MONO % 8.8 % (0.0-10.0); NRBC % 0.1 % (0.0-0.0); RBC 3.22 Mil/uL (3.80-5.20); WHITE BLOOD COUNT 2.8 K/uL (4.8-10.8)
--- NOTE | 2018-06-23 16:35 | ED PDOC ---
HPI: General Adult Time Seen by Provider: 06/23/18 14:30 Chief Complaint (Provider): AMS History Per: Patient, Family History/Exam Limitations: clinical condition Onset/Duration Of Symptoms: Days (4), Gradual Current Symptoms Are (Timing): Intermittent Episodes Recently: Treated By A Physician Additional Complaint(s): 58yo female hx cirrhosis, hep C, ascites, presents w family states for last several days she's had difficulty speaking with generalized weakness and d ifficulty ambulating. Denies falls, fever, vomiting or melena. Minimal abdominal pain. NIHSS Stroke Scale - Date/Time Evaluation Performed Date Performed: 06/23/18 Time Performed: 14:30 When Was NIHSS Performed: Baseline - How Severe is the Stroke Level of Consciousness: 0=Alert LOC to Questions: 1=One correct LOC to commands: 1=Obeys one correctly Best Gaze: 0=Normal Visual: 0=No visual loss Facial: 0=Normal Motor Arm - Left: 0=No drift Motor Arm - Right: 0=No drift Motor Leg - Left: 0=No drift Motor Leg - Right: 0=No drift Limb Ataxia: 0=Absent Sensory: 0=Normal Best Language: 0=No aphasia Dysarthia: 0=Normal articulation Extinction & Inattention (Neglect): 0=Normal, no object Score: 2 Severity Of Stroke: 1-4 = Minor Stroke Past Medical History Reviewed: Historical Data, Nursing Documentation, Vital Signs Vital Signs: Last Vital Signs Temp 98.9 F 06/23/18 16:37 Pulse 90 06/23/18 16:37 Resp 19 06/23/18 16:37 BP 195/112 H 06/23/18 16:37 Pulse Ox 98 06/23/18 16:37 - Medical History PMH: Anemia, Diabetes (type II), Gastritis, GERD, Hepatitis (C with liver cirrhosis), Hiatal Hernia, HTN, Hypercholesterolemia, Pneumonia Denies: Anxiety, Bipolar Disorder, Depression, Paranoia, Post Traumatic Str ess Disorder, Chronic Kidney Disease, Schizophrenia - Surgical History Surgical History: Appendectomy, Hernia Repair - Family History Family History: States: Unknown Family Hx - Immunization History Hx Influenza Vaccination: No Hx Pneumococcal Vaccination: No - Home Medications Home Medications: Ambulatory Orders Medication Instructions Recorded Propranolol [Inderal] 10 mg PO Q8H #60 tab 12/31/16 Insulin Human (NPH)/Regular 25 units SC BID 30 Days #1 vial 09/07/17 [Novolin 70/30 (70/30 units/ml) 10 ml] Furosemide [Lasix] 40 mg PO DAILY 06/23/18 Spironolactone [Aldactone] 100 mg PO DAILY 06/23/18 - Allergies Allergies/Adverse Reactions: Allergies Allergy/AdvReac Type Severity Reaction Status Date / Time No Known Allergies Allergy Verified 11/25/17 11:45 Review of Systems Review Of Systems: ROS cannot be obtained secondary to pt's inabilty to answer questions. (confusion) Constitutional: Negative for: Fever Cardiovascular: Negative for: Chest Pain Respiratory: Negative for: Shortness of Breath Gastrointestinal: Negative for: Abdominal Pain Genitourinary Female: Negative for: Dysuria Physical Exam - Reviewed Nursing Documentation Reviewed: Yes Vital Signs Reviewed: Yes - Physical Exam Appears: Positive for: Non-toxic (speech slow but fluent w mild dysarthria) Head Exam: Positive for: ATRAUMATIC, NORMAL INSPECTION, NORMOCEPHALIC Skin: Positive for: Normal Color, Warm, DRY Eye Exam: Positive for: EOMI, Normal appearance, PERRL ENT: Positive for: Normal ENT Inspection Neck: Positive for: Normal, Painless ROM Cardiovascular/Chest: Positive for: Regular Rate, Rhythm Respiratory: Positive for: CNT, Normal Breath Sounds Gastrointestinal/Abdominal: Positive for: Soft, Distended, Asicites. Negative for: Tenderness Back: Positive for: Normal Inspection Extremity: Positive for: Normal ROM Neurologic/Psych: Positive for: Alert, Mood/Affect (flat), Gait (unable to test). Negative for: Oriented, Facial Droop - Laboratory Results Result Diagrams: 06/23/18 14:30 - ECG ECG: Positive for: Interpreted By Al ECG Rhythm: Positive for: Sinus Rhythm, Nonspecific Changes Rate: 76 O2 Sat by Pulse Oximetry: 98 Pulse Ox Interpretation: Normal - Radiology X-Ray: Read By Radiologist X-Ray Interpretation: No Acute Disease Medical Decision Making Medical Decision Making: initial ordered placed on [employer] downtime forms workup for AMS with reported speech difficulties reported meds reviewed, - propranolol and furosemide, insulin only per family CT brain performed labs reviewed ammonia 70 pancytopenia chem-gluc 350 K+ 5.5 [employer] Operator 1.4 BUN 37 Alk Phos 177 insulin initiated for hyperglycemia admit obs Dr Willams covering clinic given clinical presentation and history of speech difficulties. Hold ASA given thrombocytopenia Not TPA candidate given symptoms ongoing >3 days. Awaiting UA time admission Accession No. : Patient Name / ID : ELVIS SEVERINO / [id number] Exam Date : 06/23/2018 14:43:51 ( Approved ) Study Comment : Sex / Age : F / 58Y Creator : Heath Corey MD Dictator : Heath Corey MD Web Worker : Commission Broker : Heath Corey MD Approver2 : Report Date : 06/23/2018 15:18:23 My Comment : Date of service: 06/23/2018 PROCEDURE: CHEST RADIOGRAPH, 1 VIEW HISTORY: Weakness COMPARISON: None available. FINDINGS: LUNGS: Clear. PLEURA: No pneumothorax or pleural fluid seen. CARDIOVASCULAR: Cardiomediastinal silhouette prominent OSSEOUS STRUCTURES: Degenerative changes. VISUALIZED UPPER ABDOMEN: Normal. OTHER FINDINGS: None. IMPRESSION: No active disease. Accession No. : [id number] Patient Name / ID : ELVIS SEVERINO / [id number] Exam Date : 06/23/2018 14:35:37 ( Approved ) Study Comment : Sex / Age : F / 1Y Creator : Marialuisa Castillo MD Dictator : Marialuisa Castillo MD Web Worker : Commission Broker : Marialuisa Castillo MD Approver2 : Report Date : 06/23/2018 15:07:57 My Comment : Date of service: 06/23/2018 PROCEDURE: CT HEAD WITHOUT CONTRAST. HISTORY: COMPARISON: None available. TECHNIQUE: Axial computed tomography images were obtained through the head/brain without intravenous contrast. Radiation dose: Total exam DLP = 883.62 mGy-cm. This CT exam was performed using one or more of the following dose reduction techniques: Automated exposure control, adjustment of the mA and/or kV according to patient size, and/or use of iterative reconstruction technique. FINDINGS: HEMORRHAGE: No intracranial hemorrhage. BRAIN: Berger-white matter differentiation is preserved. There is no mass, mass effect or abnormal extra-axial fluid collection. There is no territorial infarction. The midline sagittal structures are normal. VENTRICLES: There is mild age-related global parenchymal volume loss and proportionate enlargement of the ventricles and cortical sulci. CALVARIUM: The skull base and calvarium are normal. PARANASAL SINUSES: Predominantly clear. MASTOID AIR CELLS: Unre predominantly clear. OTHER FINDINGS: None. IMPRESSION: No acute intracranial abnormality. Disposition - Clinical Impression Clinical Impression: Cirrhosis of liver with ascites, Altered mental status, Hyperglycemia, Hyperkalemia - Patient ED Disposition Is Patient to be Admitted: Yes Counseled Patient/Family Regarding: Studies Performed, Diagnosis, Need For Followup (d/w family) - Disposition Disposition Time: 16:50 - Pt Status Changed To: Hospital Disposition Of: Observation - POA Present On Arrival: Poor Glycemic Control
[2018-06-23 17:16] LABS: BLOOD UREA NITROGEN 37 mg/dl (7-17); GFR NON-AFRICAN AMERICAN 38
[2018-06-23 17:18] LABS: ALBUMIN 2.9 g/dL (3.5-5.0); CALCIUM 8.6 mg/dL (8.4-10.2)
[2018-06-23 17:20] LABS: ALB/GLOB RATIO 0.7 (1.0-2.1); ALT/SGPT 46 U/L (9-52); AST/SGOT 60 U/L (14-36)
[2018-06-23] MEDS ORDERED: Sod Polystyrene Sulf 15 gm/60 ml Susp PO ONE (17:54)
--- NOTE | 2018-06-23 18:09 | CP.PCM.HP ---
<Jay Julien - Last Filed: 06/23/18 17:55> History of Present Illness - History of Present Illness History of Present Illness: CC: Altered Mental Status and weakness HPI: 58 y/o woman w/ pmh of Hepatic Liver Cirrhosis, Hepatitis C, CKD, HTN, IDDMII, and Anemia presents to ED w/ AMS and weakness. Patient's son is accompanying patient and provides additional history. As per son, patient woke up this morning confused and having difficulty ambulating. Patient reports adherence to medication. Patient took regular medication today. Patient denies headaches, chest pain, SOB, abdominal pain, nausea, vomiting, diarrhea, dysuria, or fever. Patient's son reports improvement in patient's mentation. 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) Fam: Brother on dialysis, CAD SOC: Denies smoking, alcohol, or illegal drug use ROS: 12 points assessed and negative unless otherwise reported in HPI Present on Admission - Present on Admission Any Indicators Present on Admission: Yes History of DVT/PE: No History of Uncontrolled Diabetes: Yes Urinary Catheter: No Decubitus Ulcer Present: No Review of Systems - Review of Systems All systems: reviewed and no additional remarkable complaints except - Constitutional Constitutional: absent: Chills, Fever - EENT Eyes: absent: Change in Vision - Cardiovascular Cardiovascular: absent: Chest Pain - Respiratory Respiratory: absent: Dyspnea - Gastrointestinal Gastrointestinal: absent: Abdominal Pain, Diarrhea, Nausea, Vomiting - Genitourinary Genitourinary: absent: Dysuria - Musculoskeletal Musculoskeletal: absent: Joint Swelling, Numbness, Tingling - Integumentary Integumentary: absent: Rash - Neurological Neurological: As Per HPI, Confusion, Weakness Past Patient History - Tetanus Immunizations Tetanus Immunization: Unknown - Past Medical History & Family History Past Medical History?: Yes - Past Social History Smoking Status: Former Smoker - CARDIAC Hx Hypercholesterolemia: Yes Hx Hypertension: Yes - PULMONARY Hx Pneumonia: Yes - NEUROLOGICAL Hx Neurological Disorder: No - HEENT Hx HEENT Problems: No - RENAL Hx Chronic Kidney Disease: No - ENDOCRINE/METABOLIC Hx Endocrine Disorders: Yes Hx Diabetes Mellitus Type 2: Yes - HEMATOLOGICAL/ONCOLOGICAL Hx Anemia: Yes - INTEGUMENTARY Hx Dermatological Problems: No - MUSCULOSKELETAL/RHEUMATOLOGICAL Hx Musculoskeletal Disorders: No - GASTROINTESTINAL Hx Gastritis: Yes - GENITOURINARY/GYNECOLOGICAL Hx Genitourinary Disorders: No - PSYCHIATRIC Hx Anxiety: No Hx Bipolar Disorder: No Hx Depression: No Hx Paranoia: No Hx Post Traumatic Stress Disorder: No Hx Schizophrenia: No - SURGICAL HISTORY Hx Appendectomy: Yes - ANESTHESIA Hx Anesthesia: Yes Hx Anesthesia Reactions: No Hx Malignant Hyperthermia: No Meds Allergies/Adverse Reactions: Allergies Allergy/AdvReac Type Severity Reaction Status Date / Time No Known Allergies Allergy Verified 11/25/17 11:45 Physical Exam - Constitutional Appears: Non-toxic, No Acute Distress - Head Exam Head Exam: ATRAUMATIC, NORMAL INSPECTION, NORMOCEPHALIC - Eye Exam Eye Exam: Normal appearance - ENT Exam ENT Exam: Mucous Membranes Moist - Neck Exam Neck exam: Positive for: Full Rom. Negative for: Tenderness - Respiratory Exam Respiratory Exam: Clear to Auscultation Bilateral. absent: Accessory Muscle Use, Decreased Breath Sounds, Rales, Rhonchi, Wheezes, Respiratory Distress - GI/Abdominal Exam GI & Abdominal Exam: Distended, Hernia, Normal Bowel Sounds, Soft, Tenderness. absent: Rebound - Extremities Exam Extremities exam: Positive for: pedal edema (bilateral non-pitting edema). Negative for: calf tenderness - Neurological Exam Neurological exam: Alert, Oriented x3 - Skin Skin Exam: Dry, Intact, Normal Color, Warm Additional comments: Stria over abdomen, dry skin, no jaundice Results - Vital Signs Recent Vital Signs: Last Vital Signs Temp 81 F L 06/23/18 16:44 Pulse 76 06/23/18 16:51 Resp 19 06/23/18 16:44 BP 160/90 H 06/23/18 16:44 Pulse Ox 98 06/23/18 16:51 - Labs Result Diagrams: 06/23/18 14:30 06/23/18 14:30 Labs: Laboratory Results - last 24 hr 06/23/18 06/23/18 06/23/18 14:30 14:30 14:30 WBC 2.8 L RBC 3.22 L Hgb 10.3 L Hct 31.1 L MCV 96.5 MCH 32.1 H MCHC 33.2 RDW 15.0 H Plt Count 77 L MPV 9.3 Neut % (Auto) 71.0 Lymph % (Auto) 17.1 L Clark % (Auto) 8.8 Eos % (Auto) 2.9 Baso % (Auto) 0.2 Neut # (Auto) 2.0 Lymph # (Auto) 0.5 L Clark # (Auto) 0.2 Eos # (Auto) 0.1 Baso # (Auto) 0.0 Sodium 140 Potassium 5.5 H Chloride 116 H Carbon Dioxide 23 Anion Gap 7 L BUN 37 H Creatinine 1.4 H Est GFR ( Amer) 47 Est GFR (Non-Af Amer) 38 Random Glucose 350 H Calcium 8.6 Total Bilirubin 1.7 H AST 60 H ALT 46 Alkaline Phosphatase 177 H Ammonia 70 H D Total Protein 7.1 Albumin 2.9 L Globulin 4.2 H Albumin/Globulin Ratio 0.7 L Alcohol, Quantitative < 10 Assessment & Plan (1) Altered mental status Status: Acute (2) Cirrhosis Status: Chronic (3) Hx of chronic kidney disease Status: Chronic (4) Uncontrolled type 2 diabetes mellitus with hyperglycemia Status: Chronic (5) HTN (hypertension) Status: Chronic (6) Anemia Status: Chronic - Assessment and Plan (Free Text) Assessment: 58 y/o woman w/ pmh of Hepatic Liver Cirrhosis, Hepatitis C, CKD, HTN, IDDMII, and Anemia presents to ED w/ AMS and weakness. Plan: AMS - most likely due to hepatic encephalopathy - vitals signs stable - CBC: 2.8>10.3/31.1<77 - CMP: 140/5.5, 116/23, 37/1.4, glucose 350, AST 60, ALT 46, alk phos 177 - Ammonia: 70 - alcohol: <10 - kayexalate 30 mg PO once - lactulose 20 gm PO TID - f/u CBC, BMP - admit to Tele - monitor for acute changes Cirrhosis - chronic - has referral for [facility] - MELD score 15 - c/w aldactone 100 mg PO daily, lasix 40 mg PO daily CKD stage III - GFR 41 - stable IDDM2 - uncontrolled - insulin correction scale - hypoglycemic protocol - monitor for acute changes HTN - BP elevated - c/w lasix, propranolol Anemia - stable - monitor for acute changes Prophylactic measures - DVT: SCDs, low platelets 77 <Krishan Willams D - Last Filed: 06/23/18 18:36> Results - Vital Signs Recent Vital Signs: Last Vital Signs Temp 81 F L 06/23/18 16:44 Pulse 76 06/23/18 16:51 Resp 19 06/23/18 16:44 BP 160/90 H 06/23/18 16:44 Pulse Ox 98 06/23/18 16:51 - Labs Result Diagrams: 06/23/18 14:30 06/23/18 14:30 Labs: Laboratory Results - last 24 hr 06/23/18 06/23/18 06/23/18 14:30 14:30 14:30 WBC 2.8 L RBC 3.22 L Hgb 10.3 L Hct 31.1 L MCV 96.5 MCH 32.1 H MCHC 33.2 RDW 15.0 H Plt Count 77 L MPV 9.3 Neut % (Auto) 71.0 Lymph % (Auto) 17.1 L Clark % (Auto) 8.8 Eos % (Auto) 2.9 Baso % (Auto) 0.2 Neut # (Auto) 2.0 Lymph # (Auto) 0.5 L Clark # (Auto) 0.2 Eos # (Auto) 0.1 Baso # (Auto) 0.0 Sodium 140 Potassium 5.5 H Chloride 116 H Carbon Dioxide 23 Anion Gap 7 L BUN 37 H Creatinine 1.4 H Est GFR ( Amer) 47 Est GFR (Non-Af Amer) 38 Random Glucose 350 H Calcium 8.6 Total Bilirubin 1.7 H AST 60 H ALT 46 Alkaline Phosphatase 177 H Ammonia 70 H D Total Protein 7.1 Albumin 2.9 L Globulin 4.2 H Albumin/Globulin Ratio 0.7 L Alcohol, Quantitative < 10 Attending/Attestation - Attestation I have personally seen and examined this patient.: Yes I have fully participated in the care of the patient.: Yes I have reviewed all pertinent clinical information: Yes
[2018-06-23] MEDS ORDERED: Dextrose 50% SYRINGE Inj (50 ml) IV PRN (18:18)
[2018-06-23] MEDS ORDERED: Glucagon Recombinant 1 mg Inj IM PRN (18:18)
[2018-06-23] MEDS ORDERED: Sod Polystyrene Sulf 15 gm/60 ml Susp ONE (18:43)
[2018-06-24 05:52] LABS: BASO % 0.6 % (0.0-2.0); EOS # 0.1 K/uL (0.0-0.7); EOS % 3.2 % (0.0-4.0); HEMOGLOBIN 9.1 g/dL (12.0-16.0); LYMPH # 0.7 K/uL (1.0-4.3); LYMPH % 24.3 % (20.0-40.0); MEAN CELL VOLUME 95.6 fl (81.0-99.0); MEAN CORPUSCULAR HEMOGLOBIN 32.7 pg (27.0-31.0); MEAN CORPUSCULAR HGB CONC 34.2 g/dL (33.0-37.0); MEAN PLATELET VOLUME 9.8 fl (7.2-11.7); MONO # 0.3 K/uL (0.0-0.8); MONO % 10.4 % (0.0-10.0); NEUT # 1.8 K/uL (1.8-7.0); NEUT % 61.5 % (50.0-75.0); RBC 2.78 Mil/uL (3.80-5.20); RED CELL DISTRIBUTION WIDTH 14.7 % (11.5-14.5); WHITE BLOOD COUNT 2.9 K/uL (4.8-10.8)
[2018-06-24 05:54] LABS: CALCIUM 8.4 mg/dL (8.4-10.2)
[2018-06-24] MEDS: Insulin Lispro (humaLOG) 100 Units/ml Inj SC SCH ×3 (05:56→11:54)
[2018-06-24] MEDS ORDERED: Influenza Vaccine (5 YR UP)/PF 60 MCG/0.5 ML SYR IM ONE (06:30)
[2018-06-24 08:20] VITALS: PULSE 69; O2SAT 100
[2018-06-24] MEDS ORDERED: Pantoprazole 20 mg EC Tab PO SCH (09:00)
--- NOTE | 2018-06-24 09:42 | RAD ---
Date of service: 06/23/2018 PROCEDURE: CHEST RADIOGRAPH, 1 VIEW HISTORY: Weakness COMPARISON: None available. FINDINGS: LUNGS: Clear. PLEURA: No pneumothorax or pleural fluid seen. CARDIOVASCULAR: Cardiomediastinal silhouette prominent OSSEOUS STRUCTURES: Degenerative changes. VISUALIZED UPPER ABDOMEN: Normal. OTHER FINDINGS: None. IMPRESSION: No active disease.
--- NOTE | 2018-06-24 09:42 | CT ---
Date of service: 06/23/2018 PROCEDURE: CT HEAD WITHOUT CONTRAST. HISTORY: COMPARISON: None available. TECHNIQUE: Axial computed tomography images were obtained through the head/brain without intravenous contrast. Radiation dose: Total exam DLP = 883.62 mGy-cm. This CT exam was performed using one or more of the following dose reduction techniques: Automated exposure control, adjustment of the mA and/or kV according to patient size, and/or use of iterative reconstruction technique. FINDINGS: HEMORRHAGE: No intracranial hemorrhage. BRAIN: Berger-white matter differentiation is preserved. There is no mass, mass effect or abnormal extra-axial fluid collection. There is no territorial infarction. The midline sagittal structures are normal. VENTRICLES: There is mild age-related global parenchymal volume loss and proportionate enlargement of the ventricles and cortical sulci. CALVARIUM: The skull base and calvarium are normal. PARANASAL SINUSES: Predominantly clear. MASTOID AIR CELLS: Unre predominantly clear. OTHER FINDINGS: None. IMPRESSION: No acute intracranial abnormality.
[2018-06-24 10:08] LABS: VENOUS BLOOD GAS BASE EXCESS -2.5 mmol/L (0.0-2.0); VENOUS BLOOD GAS PCO2 33 mmHg (40-60); VENOUS BLOOD GAS PO2 51 mm/Hg (30-55); VENOUS BLOOD PH 7.42 (7.32-7.43)
[2018-06-24 12:11] VITALS: BP 156/90; RESP 15; TEMP 98.3
--- NOTE | 2018-06-24 13:55 | CP.PCM.DIS ---
Addendum entered and electronically signed by Tasha Singleton MD 06/24/18 18:13: Patient was seen and examined . All chart and clinical data reviewed . Care resumed . Case was discussed with resident . Agree with assessment and discharge plan. Patient admitted with Metabolic encephalopathy secondary to elevated ammonia levels . Treated with lactulose At present hemodynamically stable, afebrile, AAOx3 All test results explained to patient and her son. All questions answered . Patient to be discharged home on PO lactulose Original Note: Provider - Provider Date of Admission: 06/23/18 16:42 Attending physician: Krishan Willams MD Primary care physician: [facility] Time Spent in preparation of Discharge (in minutes): 30 Diagnosis - Discharge Diagnosis (1) Altered mental status Status: Acute (2) CKD (chronic kidney disease) stage 3, GFR 30-59 ml/min Status: Acute (3) Chronic hepatitis C with cirrhosis Status: Chronic (4) Anemia Status: Chronic (5) DM type 2 (diabetes mellitus, type 2) Status: Acute (6) HTN (hypertension) Status: Chronic Hospital Course - Lab Results Lab Results: Most Recent Lab Values WBC 2.9 K/uL (4.8-10.8) L 06/24/18 04:20 RBC 2.78 Mil/uL (3.80-5.20) L 06/24/18 04:20 Hgb 9.1 g/dL (12.0-16.0) L 06/24/18 04:20 Hct 26.6 % (34.0-47.0) L 06/24/18 04:20 MCV 95.6 fl (81.0-99.0) 06/24/18 04:20 MCH 32.7 pg (27.0-31.0) H 06/24/18 04:20 MCHC 34.2 g/dL (33.0-37.0) 06/24/18 04:20 RDW 14.7 % (11.5-14.5) H 06/24/18 04:20 Plt Count 71 K/uL (130-400) L 06/24/18 04:20 MPV 9.8 fl (7.2-11.7) 06/24/18 04:20 Neut % (Auto) 61.5 % (50.0-75.0) 06/24/18 04:20 Lymph % (Auto) 24.3 % (20.0-40.0) 06/24/18 04:20 [place] % (Auto) 10.4 % (0.0-10.0) H 06/24/18 04:20 Eos % (Auto) 3.2 % (0.0-4.0) 06/24/18 04:20 Baso % (Auto) 0.6 % (0.0-2.0) 06/24/18 04:20 Neut # (Auto) 1.8 K/uL (1.8-7.0) 06/24/18 04:20 Lymph # (Auto) 0.7 K/uL (1.0-4.3) L 06/24/18 04:20 [place] # (Auto) 0.3 K/uL (0.0-0.8) 06/24/18 04:20 Eos # (Auto) 0.1 K/uL (0.0-0.7) 06/24/18 04:20 Baso # (Auto) 0.0 K/uL (0.0-0.2) 06/24/18 04:20 pO2 51 mm/Hg (30-55) 06/23/18 14:00 ABG Carboxyhemoglobin 2.6 % (0.5-1.5) H 06/23/18 14:00 POC ABG HHb (Measured) 7.8 % (0.0-5.0) H 06/23/18 14:00 ABG Methemoglobin 2.0 % (0.0-3.0) 06/23/18 14:00 VBG pH 7.42 (7.32-7.43) 06/23/18 14:00 VBG pCO2 33 mmHg (40-60) L 06/23/18 14:00 VBG HCO3 22.8 mmol/L 06/23/18 14:00 VBG O2 Sat (Calc) 91.8 % (40-65) H 06/23/18 14:00 VBG Base Excess -2.5 mmol/L (0.0-2.0) L 06/23/18 14:00 VBG Hgb O2 Saturation 87.6 % (95.0-98.0) L 06/23/18 14:00 Hemoglobin 10.3 g/dL (11.7-17.4) L 06/23/18 14:00 Sodium 143 mmol/l (132-148) 06/24/18 04:20 Potassium 4.7 MMOL/L (3.6-5.0) 06/24/18 04:20 Chloride 116 mmol/L (98-107) H 06/24/18 04:20 Carbon Dioxide 22 mmol/L (22-30) 06/24/18 04:20 Anion Gap 10 (10-20) 06/24/18 04:20 BUN 33 mg/dl (7-17) H 06/24/18 04:20 Creatinine 1.3 mg/dl (0.7-1.2) H 06/24/18 04:20 Est GFR ( Amer) 51 06/24/18 04:20 Est GFR (Non-Af Amer) 42 06/24/18 04:20 POC Glucose (mg/dL) 303 mg/dL (65-110) H 06/24/18 11:44 Random Glucose 195 mg/dL (65-105) H 06/24/18 04:20 Calcium 8.4 mg/dL (8.4-10.2) 06/24/18 04:20 Total Bilirubin 1.7 mg/dl (0.2-1.3) H 06/23/18 14:30 AST 60 U/L (14-36) H 06/23/18 14:30 ALT 46 U/L (9-52) 06/23/18 14:30 Alkaline Phosphatase 177 U/L (38-126) H 06/23/18 14:30 Ammonia 55 umo/L (11-51) H 06/24/18 07:30 Total Protein 7.1 G/DL (6.3-8.2) 06/23/18 14:30 Albumin 2.9 g/dL (3.5-5.0) L 06/23/18 14:30 Globulin 4.2 gm/dL (2.2-3.9) H 06/23/18 14:30 Albumin/Globulin Ratio 0.7 (1.0-2.1) L 06/23/18 14:30 Alcohol, Quantitative < 10 mg/dl (0-10) 06/23/18 14:30 - Hospital Course Hospital Course: 58 y/o woman w/ pmh of Hepatic Liver Cirrhosis, Hepatitis C, CKD, HTN, IDDMII, and Anemia presents to ED w/ AMS and weakness. Patient's son is accompanying patient and provides additional history. As per son, patient woke up this morning confused and having difficulty ambulating. Patient reports adherence to medication. Patient took regular medication today. Patient denies headaches, chest pain, SOB, abdominal pain, nausea, vomiting, diarrhea, dysuria, or fever. Patient's son reports improvement in patient's mentation. PMD: RIC Allergies: NKDA PMH: Hepatic Liver Cirrhosis, Hepatitis C, CKD, HTN, IDDMII, and Anemia Meds: lasix 40 mg PO daily, Proponolol 10mg PO Q8h, Spironolactone 100mg PO daily, Novolin (70/30) 25 units SC BID PSH: Appendectomy, Tubal Ligation, Ventral Hernia Repair (2015), 2 therapeutic paracentesis in 2016, Blood transfusion in 2016, Gatric ulcer (12/13) Fam: Brother on dialysis, CAD SOC: Denies smoking, alcohol, or illegal drug use ED Course: vitals: 98.9 F, 81 beats/min, 160/90 mm Hg, rep 19, O2 98% room air - CBC: 2.8>10.3/31.1<77 - CMP: 140/5.5, 116/23, 37/1.4, glucose 350, AST 60, ALT 46, alk phos 177 - Ammonia: 70 ; alcohol: <10 - ECG: Sinus Rhythm, Nonspecific Changes; Rate: 76 - Chest X-Ray Interpretation: No Acute Disease - CT head without contrast: no acute intracranial abnormality. - Medications given: kayexalate 30 mg PO once Floor course: Patient was admitted to telemetry given AMS and speech difficulties. Aspirin was held due to thrombocytopenia. AMS was resolved by the time patient came to the floor. Vitally and clinically patient showed improvement after receiving lactulose 20Gm TID. Repeat Ammonia level 06/24 demonstrated ammonia trended down from 70 to 55 with treatment. Patients mental status improved significantly. She was no longer altered and was alert and oriented x3. Patient discharge with direction to continue lactulose treatment. Patient will follow up with her GI specialist in [facility]. Discharge Exam - Head Exam Head Exam: ATRAUMATIC, NORMAL INSPECTION, NORMOCEPHALIC - ENT Exam ENT Exam: Mucous Membranes Moist - Neck Exam Neck exam: Normal Inspection - Respiratory Exam Respiratory Exam: Clear to PA & Lateral, NORMAL BREATHING PATTERN. absent: Decreased Breath Sounds, Rales, Rhonchi, Wheezes, Stridor - Cardiovascular Exam Cardiovascular Exam: REGULAR RHYTHM, RRR, +S1, +S2. absent: Diastolic murmur, Gallop, JVD, Rubs, +S4, Systolic Murmur - GI/Abdominal Exam GI & Abdominal Exam: Distended, Normal Bowel Sounds. absent: Firm, Guarding, Rebound, Rigid, Soft, Tenderness - Extremities Exam Extremities exam: pedal pulses present (+2 dorsalis pedis pulses present bilaterally. ) - Neurological Exam Neurological exam: Alert, Oriented x3 Additional comments: strength 5/5 bilateral extremities. - Psychiatric Exam Psychiatric exam: Normal Affect - Skin Skin Exam: Dry, Intact, Normal Color, Warm Discharge Plan - Discharge Medications Prescriptions: Lactulose [Enulose] 20 gm PO TID #200 ml Lactulose [Enulose] 20 gm PO TID #200 ml - Follow Up Plan Condition: GOOD Disposition: HOME/ ROUTINE Patient education suggested?: Yes Instructions: Altered Mental Status (DC), Hepatic Encephalopathy (DC) Additional Instructions: follow up with dr borden on 07/03/18 at 10:20am Referrals: [facility] [Outside]
[2018-06-24] MEDS ORDERED: Insulin Lispro Mix 75/25 100 units/ml (HumaLog) 10ml SC SCH (16:30)
== END 2018-06-24 13:35 | disposition home or self-care (01) ==
LOC: H.ER 14:23 → H.ERHOLD 16:42 → H.TEL 20:52
DX: G93.41 Metabolic encephalopathy (principal); E72.20 Disorder of urea cycle metabolism, unspecified; K74.60 Unspecified cirrhosis of liver; B18.2 Chronic viral hepatitis C; E11.65 Type 2 diabetes mellitus with hyperglycemia; Z79.4 Long term (current) use of insulin; K29.70 Gastritis, unspecified, without bleeding; K21.9 Gastro-esophageal reflux disease without esophagitis; I12.9 Hypertensive chronic kidney disease with stage 1 through stage 4 chronic kidney disease, or unspecified chronic kidney disease; E11.22 Type 2 diabetes mellitus with diabetic chronic kidney disease; N18.3 Chronic kidney disease, stage 3 (moderate); Z87.891 Personal history of nicotine dependence; E87.5 Hyperkalemia; D69.6 Thrombocytopenia, unspecified; E78.00 Pure hypercholesterolemia, unspecified; R18.8 Other ascites
CPT/HCPCS: 36415; 70450; 71045; 80048; 80053; 80320; 82140; 82803; 82948; 85025; 99285; G0378

== ENCOUNTER 2018-09-02 16:07 | Inpatient (IN) | payer MEDICAID, OTHER ==
[2018-09-02] MEDS ORDERED: Iohexol 240 (50 ml) PO ONE (18:10)
[2018-09-02] MEDS ORDERED: Morphine 4 MG/ML VIAL IVP STA (18:11)
[2018-09-02] MEDS ORDERED: Iohexol 240 (50 ml) ONE (18:27)
[2018-09-02 18:35] LABS: BASO % 0.8 % (0.0-2.0); EOS % 1.3 % (0.0-4.0); HEMOGLOBIN 8.9 g/dL (12.0-16.0); LYMPH # 0.4 K/uL (1.0-4.3); LYMPH % 12.1 % (20.0-40.0); MEAN CELL VOLUME 98.5 fl (81.0-99.0); MEAN CORPUSCULAR HEMOGLOBIN 32.4 pg (27.0-31.0); MEAN CORPUSCULAR HGB CONC 32.9 g/dL (33.0-37.0); MEAN PLATELET VOLUME 9.2 fl (7.2-11.7); MONO # 0.2 K/uL (0.0-0.8); MONO % 6.3 % (0.0-10.0); NEUT # 2.8 K/uL (1.8-7.0); NEUT % 79.5 % (50.0-75.0); RBC 2.75 Mil/uL (3.80-5.20); RED CELL DISTRIBUTION WIDTH 15.5 % (11.5-14.5); WHITE BLOOD COUNT 3.6 K/uL (4.8-10.8)
[2018-09-02 19:15] LABS: SQUAMOUS EPITHIAL < 1 /hpf (0-5); URINE BACTERIA RARE (<OCC); URINE BILIRUBIN NEGATIVE (NEGATIVE); URINE BLOOD SMALL (NEGATIVE); URINE CLARITY CLEAR (Clear); URINE COLOR STRAW (YELLOW); URINE GLUCOSE (UA) >=500 mg/dL (NEGATIVE); URINE LEUKOCYTE ESTERASE NEG Leu/uL (Negative); URINE PROTEIN NEGATIVE (NEGATIVE); URINE UROBILINOGEN 0.2-1.0 mg/dL (0.2-1.0)
[2018-09-02 19:26] LABS: ALB/GLOB RATIO 0.7 (1.0-2.1); ALBUMIN 2.8 g/dL (3.5-5.0); CALCIUM 8.3 mg/dL (8.4-10.2)
[2018-09-02] MEDS ORDERED: Sodium Chloride 0.9% 1,000 ML IV STA (19:34)
[2018-09-02] MEDS ORDERED: Insulin Regular 100 units/ml IV STA (19:38)
[2018-09-02] MEDS ORDERED: Insulin Regular 100 units/ml SC STA (19:38)
--- NOTE | 2018-09-02 20:00 | ED PDOC ---
HPI: Abdomen Time Seen by Provider: 09/02/18 17:18 Chief Complaint (Nursing): Abdominal Pain Chief Complaint (Provider): Diffuse abdominal pain History Per: Patient History/Exam Limitations: no limitations Onset/Duration Of Symptoms: Days Outside of [place] travel?: No Current Symptoms Are (Timing): Still Present Additional Complaint(s): 58 yo female with history of HTN, DM and cirrhoisis due to hepatitis C from blood transfusion presents for evaluation of abdominal pain. Pt denies N/V/D. Pt and her son state she is retaining fluid. PT reports diffuse pain. Past Medical History Reviewed: Historical Data, Nursing Documentation, Vital Signs Vital Signs: Last Vital Signs Temp 98.1 F 09/02/18 16:25 Pulse 78 09/02/18 16:25 Resp 16 09/02/18 16:25 BP 152/77 H 09/02/18 16:25 Pulse Ox 100 09/02/18 16:25 - Medical History PMH: Anemia, Diabetes (type II), Gastritis, GERD, Hepatitis (C with liver cirrhosis), Hiatal Hernia, HTN, Hypercholesterolemia, Pneumonia Denies: Anxiety, Bipolar Disorder, Depression, HIV, Paranoia, Post Traumatic Stress Disorder, Chronic Kidney Disease, Schizophrenia - Surgical History Surgical History: Appendectomy, Hernia Repair - Family History Family History: States: Unknown Family Hx - Immunization History Hx Influenza Vaccination: No Hx Pneumococcal Vaccination: No - Home Medications Home Medications: Ambulatory Orders Medication Instructions Recorded Propranolol [Inderal] 10 mg PO Q8H #60 tab 12/31/16 Insulin Human (NPH)/Regular 25 units SC BID 30 Days #1 vial 09/07/17 [Novolin 70/30 (70/30 units/ml) 10 ml] Furosemide [Lasix] 40 mg PO DAILY 06/23/18 Spironolactone [Aldactone] 100 mg PO DAILY 06/23/18 Lactulose [Enulose] 20 gm PO TID #200 ml 06/24/18 Lactulose [Enulose] 20 gm PO TID #200 ml 06/24/18 - Allergies Allergies/Adverse Reactions: Allergies Allergy/AdvReac Type Severity Reaction Status Date / Time No Known Allergies Allergy Verified 11/25/17 11:45 Review of Systems ROS Statement: Except As Marked, All Systems Reviewed And Found Negative Constitutional: Negative for: Fever, Chills Cardiovascular: Negative for: Chest Pain, Palpitations Gastrointestinal: Positive for: Abdominal Pain. Negative for: Nausea, Vomiting, Diarrhea, Constipation Genitourinary Female: Negative for: Dysuria, Frequency, Vaginal Discharge Physical Exam - Reviewed Nursing Documentation Reviewed: Yes Vital Signs Reviewed: Yes - Physical Exam Appears: Positive for: Well, Non-toxic, No Acute Distress Head Exam: Positive for: ATRAUMATIC, NORMAL INSPECTION, NORMOCEPHALIC Skin: Positive for: Normal Color, Warm, DRY Eye Exam: Positive for: Normal appearance ENT: Positive for: Normal ENT Inspection Neck: Positive for: Normal, Painless ROM Cardiovascular/Chest: Positive for: Regular Rate, Rhythm Respiratory: Positive for: Normal Breath Sounds. Negative for: Accessory Muscle Use, Respiratory Distress Gastrointestinal/Abdominal: Positive for: Normal Exam, Soft, Mass (Central mass ). Negative for: Tenderness Back: Positive for: Normal Inspection Extremity: Positive for: Normal ROM Neurologic/Psych: Positive for: Alert, Oriented - Laboratory Results Result Diagrams: 09/02/18 18:28 09/02/18 18:28 - ECG O2 Sat by Pulse Oximetry: 100 Pulse Ox Interpretation: Normal Medical Decision Making Medical Decision Making: Glucose 453 - Insulin IV and SC ordered. Endorsed pending CT abdomen. Disposition - Clinical Impression Clinical Impression: Abdominal pain in female - Patient ED Disposition Is Patient to be Admitted: Transfer of Care - Disposition Disposition: Transfer of Care Disposition Time: 20:03 Condition: GOOD
[2018-09-02] MEDS ORDERED: Insulin Regular 100 units/ml ONE (20:07)
[2018-09-02] MEDS ORDERED: Iohexol 240 (50 ml) PO STA (20:24)
--- NOTE | 2018-09-02 20:25 | ED PDOC ---
- Laboratory Results Result Diagrams: 09/04/18 05:50 09/04/18 05:50 - ECG O2 Sat by Pulse Oximetry: 100 - Progress ED Course And Treament: d/w Dr. Johns hospitalist for admission. Medical Decision Making Medical Decision Makin:28 CT Abd COMMENTS: The liver is shrunken and markedly lobulated consistent with advanced cirrhosis. There is no intra or extrahepatic biliary ductal dilatation. The spleen is enlarged measuring 16 cm in length. Several calcified gallstones are present. The pancreas is of normal contour and attenuation characteristics. There is no evidence of adrenal mass. The right kidney is severely atrophic. The left kidney is mildly atrophic. Both kidneys are otherwise unremarkable. There is no evidence for appendicitis. There is no bowel wall thickening. No evidence for small or large bowel obstruction. There is no evidence of abdominal lymphadenopathy. There is no evidence of intrinsic or extrinsic bladder mass. There is no pelvic lymphadenopathy. Diffuse abdominal and pelvic ascites present. There is diffuse mesenteric infiltration and anasarca is noted. There is a large umbilical hernia present containing fluid. There is a second ventral abdominal hernia present also containing fluid above the umbilical hernia. Small hiatal hernia is seen. Recanalized periumbilical vein is seen. The uterus and ovaries are atrophic. Images of the lung bases show no evidence of pleural or parenchymal mass. There are no pleural effusions. The bony structures are free of lytic or blastic lesions. IMPRESSION: 1. Advanced liver cirrhosis. Recanalized periumbilical vein. 2. Splenomegaly. 3. Several calcified gallstones. 4. The right kidney is severely atrophic. 5. Diffuse abdominal and pelvic ascites. 6. Diffuse mesenteric infiltration and anasarca. 7. Large umbilical hernia present containing fluid. There is a second ventral abdominal hernia present also containing fluid above the umbilical hernia. Disposition - Clinical Impression Clinical Impression: Acute hyperglycemia, Cirrhosis of liver with ascites - POA Present On Arrival: Poor Glycemic Control - Disposition Disposition: Admitted as In-Patient Disposition Time: 21:00 Condition: GOOD
--- NOTE | 2018-09-03 00:41 | CP.PCM.HP ---
History of Present Illness - History of Present Illness History of Present Illness: CC: Abdominal pain HPI: 58 year old female with PMHx of Hepatic Liver Cirrhosis, Hepatitis C, CKD, HTN, IDDMII, and Anemia presents to [facility] ED accompanied by her son with complaints of abdominal pain and abdominal fullness since yesterday. Patient reports diffuse abdominal pain, rates 10/10 at times. Reports she had several loose BM yesterday. Denies any nausea, vomiting, dysuria, bloody stool, fever, chills. CT A/P showed diffuse abdominal and pelvic ascites. Diffuse mesenteric infiltration and anasarca. Of note, patient has an appointment at [facility] with spindle plumber in 10/2018. Last visit with Dr. Izquierdo was in 12/2017. PMD: [facility] ( last visit in 02/2018) PMHx: Hepatic Liver Cirrhosis, Hepatitis C, CKD, HTN, IDDMII, and Anemia Meds: lasix 40 mg PO daily, Proponolol 10mg PO Q8h, Spironolactone 100mg PO daily, Novolin (70/30) 25 units SC BID PSH: Appendectomy, Tubal Ligation, Ventral Hernia Repair (2016), 2 therapeutic paracentesis in 2016, Blood transfusion in 2016, Familyhx: Brother--dialysis, CAD Socialhx: Denies smoking, alcohol or illicit drug uses Allergies: NKDA Present on Admission - Present on Admission Any Indicators Present on Admission: Yes History of Uncontrolled Diabetes: Yes Review of Systems - Review of Systems Review of Systems: All 12 systems reviewed and negative except as mentioned in HPI Past Patient History - Tetanus Immunizations Tetanus Immunization: Unknown - Past Medical History & Family History Past Medical History?: Yes - Past Social History Smoking Status: Never Smoked - CARDIAC Hx Hypercholesterolemia: Yes Hx Hypertension: Yes - PULMONARY Hx Pneumonia: Yes - NEUROLOGICAL Hx Neurological Disorder: No - HEENT Hx HEENT Problems: No - RENAL Hx Chronic Kidney Disease: No - ENDOCRINE/METABOLIC Hx Endocrine Disorders: Yes Hx Diabetes Mellitus Type 2: Yes - HEMATOLOGICAL/ONCOLOGICAL Hx Anemia: Yes Hx Human Immunodeficiency Virus (HIV): No - INTEGUMENTARY Hx Dermatological Problems: No - MUSCULOSKELETAL/RHEUMATOLOGICAL Hx Musculoskeletal Disorders: No Hx Falls: No - GASTROINTESTINAL Hx Gastritis: Yes - GENITOURINARY/GYNECOLOGICAL Hx Genitourinary Disorders: No - PSYCHIATRIC Hx Anxiety: No Hx Bipolar Disorder: No Hx Depression: No Hx Paranoia: No Hx Post Traumatic Stress Disorder: No Hx Schizophrenia: No - SURGICAL HISTORY Hx Appendectomy: Yes - ANESTHESIA Hx Anesthesia: Yes Hx Anesthesia Reactions: No Hx Malignant Hyperthermia: No Meds Allergies/Adverse Reactions: Allergies Allergy/AdvReac Type Severity Reaction Status Date / Time No Known Allergies Allergy Verified 11/25/17 11:45 Physical Exam - Constitutional Appears: Non-toxic, No Acute Distress - Head Exam Head Exam: ATRAUMATIC, NORMOCEPHALIC - Eye Exam Eye Exam: EOMI, Normal appearance, PERRL. absent: Scleral icterus - ENT Exam ENT Exam: Mucous Membranes Moist, Normal Oropharynx - Neck Exam Neck exam: Positive for: Full Rom, Normal Inspection - Respiratory Exam Respiratory Exam: Clear to Auscultation Bilateral, NORMAL BREATHING PATTERN. absent: Rhonchi, Wheezes - Cardiovascular Exam Cardiovascular Exam: REGULAR RHYTHM, RRR, +S1, +S2 - GI/Abdominal Exam GI & Abdominal Exam: Distended, Hernia, Normal Bowel Sounds, Soft. absent: Guarding, Rebound, Rigid - Extremities Exam Extremities exam: Positive for: pedal edema (b/l non-pitting edema 1+). Ne gative for: calf tenderness - Neurological Exam Neurological exam: Alert, Oriented x3 - Psychiatric Exam Psychiatric exam: Normal Affect, Normal Mood - Skin Skin Exam: Normal Color, Warm Results - Vital Signs Recent Vital Signs: Last Vital Signs Temp 98.1 F 09/02/18 16:25 Pulse 78 09/02/18 16:25 Resp 16 09/02/18 16:25 BP 152/77 H 09/02/18 16:25 Pulse Ox 100 09/02/18 23:10 - Labs Result Diagrams: 09/02/18 18:28 09/02/18 18:28 Labs: Laboratory Results - last 24 hr 09/02/18 09/02/18 09/02/18 17:59 18:28 18:28 WBC 3.6 L RBC 2.75 L Hgb 8.9 L Hct 27.1 L MCV 98.5 D MCH 32.4 H MCHC 32.9 L RDW 15.5 H Plt Count 75 L MPV 9.2 Neut % (Auto) 79.5 H Lymph % (Auto) 12.1 L [place] % (Auto) 6.3 Eos % (Auto) 1.3 Baso % (Auto) 0.8 Neut # (Auto) 2.8 Lymph # (Auto) 0.4 L [place] # (Auto) 0.2 Eos # (Auto) 0.0 Baso # (Auto) 0.0 Sodium 138 Potassium 5.0 Chloride 111 H Carbon Dioxide 18 L Anion Gap 14 BUN 26 H Creatinine 1.3 H Est GFR ( Amer) 51 Est GFR (Non-Af Amer) 42 POC Glucose (mg/dL) 376 H Random Glucose 453 H* D Calcium 8.3 L Total Bilirubin 2.5 H AST 64 H ALT 57 H D Alkaline Phosphatase 208 H Total Protein 6.8 Albumin 2.8 L Globulin 4.0 H Albumin/Globulin Ratio 0.7 L Lipase 237 Urine Color Urine Clarity Urine pH Ur Specific [place] Urine Protein Urine Glucose (UA) Urine Ketones Urine Blood Urine Nitrate Urine Bilirubin Urine Urobilinogen Ur Leukocyte Esterase Urine RBC (Auto) Ur Squamous Epith Cells Urine Bacteria 09/02/18 18:41 WBC RBC Hgb Hct MCV MCH MCHC RDW Plt Count MPV Neut % (Auto) Lymph % (Auto) [place] % (Auto) Eos % (Auto) Baso % (Auto) Neut # (Auto) Lymph # (Auto) [place] # (Auto) Eos # (Auto) Baso # (Auto) Sodium Potassium Chloride Carbon Dioxide Anion Gap BUN Creatinine Est GFR ( Amer) Est GFR (Non-Af Amer) POC Glucose (mg/dL) Random Glucose Calcium Total Bilirubin AST ALT Alkaline Phosphatase Total Protein Albumin Globulin Albumin/Globulin Ratio Lipase Urine Color Straw Urine Clarity Clear Urine pH 6.0 Ur Specific [place] 1.006 Urine Protein Negative Urine Glucose (UA) >=500 Urine Ketones Negative Urine Blood Small Urine Nitrate Negative Urine Bilirubin Negative Urine Urobilinogen 0.2-1.0 Ur Leukocyte Esterase Neg Urine RBC (Auto) 1 Ur Squamous Epith Cells < 1 Urine Bacteria Rare - Imaging and Cardiology CT scan - abdomen Additional comment: CT Abd COMMENTS: The liver is shrunken and markedly lobulated consistent with advanced cirrhosis. There is no intra or extrahepatic biliary ductal dilatation. The spleen is enlarged measuring 16 cm in length. Several calcified gallstones are present. The pancreas is of normal contour and attenuation characteristics. There is no evidence of adrenal mass. The right kidney is severely atrophic. The left kidney is mildly atrophic. Both kidneys are otherwise unremarkable. There is no evidence for appendicitis. There is no bowel wall thickening. No evidence for small or large bowel obstruction. There is no evidence of abdominal lymphadenopathy. There is no evidence of intrinsic or extrinsic bladder mass. There is no pelvic lymphadenopathy. Diffuse abdominal and pelvic ascites present. There is diffuse mesenteric infiltration and anasarca is noted. There is a large umbilical hernia present containing fluid. There is a second ventral abdominal hernia present also containing fluid above the umbilical hernia. Small hiatal hernia is seen. Recanalized periumbilical vein is seen. The uterus and ovaries are atrophic. Images of the lung bases show no evidence of pleural or parenchymal mass. There are no pleural effusions. The bony structures are free of lytic or blastic lesions. IMPRESSION: 1. Advanced liver cirrhosis. Recanalized periumbilical vein. 2. Splenomegaly. 3. Several calcified gallstones. 4. The right kidney is severely atrophic. 5. Diffuse abdominal and pelvic ascites. 6. Diffuse mesenteric infiltration and anasarca. 7. Large umbilical hernia present containing fluid. There is a second ventral abdominal hernia present also containing fluid above the umbilical hernia. Assessment & Plan - Assessment and Plan (Free Text) Assessment: 58 year old female with PMHx of Hepatic Liver Cirrhosis, Hepatitis C, CKD, HTN, IDDMII, and Anemia presents to [facility] ED accompanied by her son with complaints of abdominal pain and abdominal fullness since yesterday. CT A/P showed diffuse abdominal and pelvic ascites. Diffuse mesenteric infiltration and anasarca. Patient is admitted for abdominal pain and ascites. Plan: Abdominal pain with ascites -Afebrile, stable vitals -WBC 3.6 -CT A/P shows diffuse abdominal and pelvic ascites. Diffuse mesenteric i nfiltration and anasarca. -IR consult for paracentesis -NPO except meds -f/u AM labs IDDM2 with hyperglycemia -Uncontrolled, BS 453 in ER -s/p 16 units of insulin in ER -UA is negative for ketone -Resume home meds - Insulin correction scale - Hypoglycemic protocol - Monitor for acute changes Cirrhosis - chronic - has appointment at [facility] in 10/2017 - MELD score 15 - c/w aldactone 100 mg PO daily, lasix 40 mg PO daily CKD stage III - GFR 42 - stable HTN - BP elevated - c/w lasix, propranolol Anemia -H&H 8.9/27.1 -stable -monitor for acute changes Prophylactic measures - DVT: SCDs, low platelets 75 Code Status -Full code Patient seen, examined and plan d/w with Dr. Andreas Gracia, pgy-2
[2018-09-03] MEDS ORDERED: Dextrose 50% SYRINGE Inj (50 ml) IV PRN (01:27)
[2018-09-03] MEDS ORDERED: Glucagon Recombinant 1 mg Inj IM PRN (01:27)
[2018-09-03] MEDS ORDERED: Influenza Vaccine (5 YR UP)/PF 60 MCG/0.5 ML SYR IM ONE (06:00)
[2018-09-03] MEDS ORDERED: Pneumococcal 23-Valent Vaccine IM ONE (06:00)
[2018-09-03 06:13] LABS: INR 1.4
[2018-09-03 06:14] LABS: BASO % 0.3 % (0.0-2.0); EOS # 0.1 K/uL (0.0-0.7); HEMOGLOBIN 7.7 g/dL (12.0-16.0); LYMPH # 0.8 K/uL (1.0-4.3); LYMPH % 25.1 % (20.0-40.0); MEAN CELL VOLUME 98.1 fl (81.0-99.0); MEAN CORPUSCULAR HEMOGLOBIN 33.2 pg (27.0-31.0); MEAN CORPUSCULAR HGB CONC 33.8 g/dL (33.0-37.0); MONO # 0.3 K/uL (0.0-0.8); MONO % 9.6 % (0.0-10.0); NEUT # 2.1 K/uL (1.8-7.0); NRBC % 0.2 % (0.0-0.0); RBC 2.33 Mil/uL (3.80-5.20); WHITE BLOOD COUNT 3.4 K/uL (4.8-10.8)
[2018-09-03 06:16] LABS: PARTIAL THROMBOPLASTIN TIME 35.5 Seconds (25.6-37.1)
[2018-09-03 06:46] LABS: ALB/GLOB RATIO 0.6 (1.0-2.1); ALBUMIN 2.2 g/dL (3.5-5.0); CALCIUM 7.9 mg/dL (8.4-10.2)
[2018-09-03] MEDS ORDERED: LANSOPRAZOLE 15 MG PO SCH (09:00)
[2018-09-03] MEDS ORDERED: Insulin NPH Human 100 Units/ml Inj SC ONE (09:00)
[2018-09-03] MEDS: Pantoprazole 20 mg EC Tab PO SCH (10:06)
[2018-09-03] MEDS: Insulin Regular 100 units/ml SC SCH ×5 (10:10→23:11)
--- NOTE | 2018-09-03 10:57 | CT ---
Date of service: 09/02/2018 PROCEDURE: CT Abdomen and Pelvis with contrast HISTORY: abdominal mass COMPARISON: 05/01/2016. CT abdomen and pelvis. 12/13/2017 abdominal ultrasound TECHNIQUE: Oral contrast only. Radiation dose: Total exam DLP = 778.84 mGy-cm. This CT exam was performed using one or more of the following dose reduction techniques: Automated exposure control, adjustment of the mA and/or kV according to patient size, and/or use of iterative reconstruction technique. FINDINGS: LOWER THORAX: No active pulmonary disease. No pleural effusion noted. LIVER: Cirrhotic appearing liver, similar findings identified previously. GALLBLADDER AND BILE DUCTS: Cholelithiasis without CT evidence of acute cholecystitis. PANCREAS: Unremarkable. No gross lesion or ductal dilatation. SPLEEN: Splenomegaly. Orthogonal measurements on sagittal images 10.6 x 17.6 cm. On the prior CT scan 9.2 x 15.8 cm. ADRENALS: Unremarkable. No mass. KIDNEYS AND URETERS: Right kidney: Atrophic. Left kidney: Unremarkable. No hydronephrosis. No solid mass. VASCULATURE: Unremarkable. No aortic aneurysm. No atherosclerotic calcification or mural plaque present. BOWEL: Manifestations of gastritis and enteritis without mechanical obstruction. APPENDIX: Normal appendix. PERITONEUM: Intra-abdominal ascites, fluid in the pelvis and in the periumbilical hernia. The overall volume is diminished compared to the prior study. No free air. LYMPH NODES: Unremarkable. No enlarged lymph nodes. BLADDER: Unremarkable. REPRODUCTIVE: Unremarkable. BONES: No acute fracture. OTHER FINDINGS: Venous varicosities consistent with portal hypertension. IMPRESSION: 1. Evidence of cirrhosis and hypertension described in greater detail above. This includes a cirrhotic liver and splenomegaly. 2. Moderate volume ascites less than that seen previously. 3. Evidence of gastroenteritis without mechanical obstruction. 4. Cholelithiasis without CT evidence of acute cholecystitis. 5. Stable atrophic right kidney. Concordant results (preliminary interpretation) provided by [employer] Procedure Completed: 20:57. Preliminary Report: Dictated and Authenticated: 22:28. Final Interpretation: 10:53. September 03, 2018
--- NOTE | 2018-09-03 12:59 | CP.PCM.PN ---
Subjective - Date & Time of Evaluation Date of Evaluation: 09/03/18 Time of Evaluation: 12:57 - Subjective Subjective: 58 yo female with PMHx of Hepatic Liver Cirrhosis, Hepatitis C, CKD, HTN, IDDMII, and Anemia seen at bedside accompanied by her son with complaints of abdominal pain and abdominal fullness x2 days. Patient reports diffuse abdominal pain, states its getting better. Reports she had several loose BM two days ago. Denies any nausea, vomiting, dysuria, bloody stool, fever, chills. CT A/P showed diffuse abdominal and pelvic ascites. Objective - Vital Signs/Intake and Output Vital Signs (last 24 hours): Temp Pulse Resp BP Pulse Ox 98.2 F 62 20 144/82 100 09/03/18 08:32 09/03/18 10:06 09/03/18 08:32 09/03/18 10:07 09/03/18 08:32 - Medications Medications: Current Medications Dextrose (Dextrose 50% Inj) 0 ml IV STAT PRN; Protocol PRN Reason: Hypoglycemia Protocol Dextrose (Glutose 15) 0 gm PO ONCE PRN; Protocol PRN Reason: Hypoglycemia Protocol Furosemide (Lasix) 40 mg PO DAILY [facility] Last Admin: 09/03/18 10:07 Dose: 40 mg Glucagon (Glucagen Diagnostic Kit) 0 mg IM STAT PRN; Protocol PRN Reason: Hypoglycemia Protocol Insulin Human NPH (Humulin N) 25 units SC BID [facility] Insulin Human Regular (Humulin R) 0 units SC ACHS [facility]; Protocol Last Admin: 09/03/18 10:10 Dose: Not Given Pantoprazole Sodium (Protonix Ec Tab) 20 mg PO DAILY [facility] Last Admin: 09/03/18 10:06 Dose: 20 mg Propranolol HCl (Inderal) 10 mg PO Q8 [facility] Last Admin: 09/03/18 10:06 Dose: 10 mg Spironolactone (Aldactone) 100 mg PO DAILY [facility] Last Admin: 09/03/18 10:08 Dose: 100 mg - Labs Labs: 09/03/18 05:30 09/03/18 05:30 PT 16.0 Seconds (9.8-13.1) H 09/03/18 05:30 INR 1.4 09/03/18 05:30 APTT 35.5 Seconds (25.6-37.1) 09/03/18 05:30 - Constitutional Appears: Non-toxic, No Acute Distress - Head Exam Head Exam: ATRAUMATIC, NORMOCEPHALIC - Eye Exam Eye Exam: EOMI, Normal appearance, PERRL. absent: Scleral icterus - ENT Exam ENT Exam: Mucous Membranes Moist, Normal Oropharynx - Neck Exam Neck Exam: Full ROM, Normal Inspection - Respiratory Exam Respiratory Exam: Clear to Ausculation Bilateral, NORMAL BREATHING PATTERN. absent: Rhonchi, Wheezes - Cardiovascular Exam Cardiovascular Exam: REGULAR RHYTHM, +S1, +S2 - GI/Abdominal Exam GI & Abdominal Exam: Distended, Hernia, Normal Bowel Sounds - Extremities Exam Extremities Exam: Pedal Edema. absent: Calf Tenderness - Neurological Exam Neurological Exam: Alert, Oriented x3 Assessment and Plan - Assessment and Plan (Free Text) Assessment: 58 year old female with PMHx of Hepatic Liver Cirrhosis, Hepatitis C, CKD, HTN, IDDMII, and Anemia presents to [facility] ED accompanied by her son with complaints of abdominal pain and abdominal fullness since yesterday. CT A/P showed diffuse abdominal and pelvic ascites. Diffuse mesenteric infiltration and anasarca. P atient is admitted for abdominal pain and ascites. Pt will be going for paracentesis today(09/03) Plan: Abdominal pain with ascites -Afebrile, stable vitals -WBC 3.4 -CT A/P shows diffuse abdominal and pelvic ascites. Diffuse mesenteric infiltration and anasarca. -IR- Paracentesis today 09/03; Cell count, LDH, culture ordered. IDDM2 with hyperglycemia -Uncontrolled, BS 453 in ER, 163 today -UA is negative for ketone -Resume home meds - Insulin correction scale - Hypoglycemic protocol - Monitor for acute changes Cirrhosis - chronic - has appointment at [facility] in 10/2017 - MELD score 15 - c/w aldactone 100 mg PO daily, lasix 40 mg PO daily - S/p 1 gm of IV ceftriaxone CKD stage III - GFR 42 - stable HTN - BP elevated - c/w lasix, propranolol Anemia -H&H 8.9(09/02) 7.7/22.9 (09/03) -stable -monitor for acute changes Prophylactic measures - DVT: SCDs, low platelets 69 Code Status -Full code Patient seen, examined and plan d/w with Dr. Paz
[2018-09-03] MEDS: Insulin NPH Human 100 Units/ml Inj SC SCH (17:47)
[2018-09-04 06:17] LABS: BASO % 0.4 % (0.0-2.0); EOS # 0.1 K/uL (0.0-0.7); EOS % 3.2 % (0.0-4.0); HEMOGLOBIN 8.2 g/dL (12.0-16.0); LYMPH # 0.9 K/uL (1.0-4.3); LYMPH % 24.4 % (20.0-40.0); MEAN CELL VOLUME 95.7 fl (81.0-99.0); MEAN CORPUSCULAR HEMOGLOBIN 32.3 pg (27.0-31.0); MEAN CORPUSCULAR HGB CONC 33.8 g/dL (33.0-37.0); MEAN PLATELET VOLUME 8.9 fl (7.2-11.7); MONO # 0.4 K/uL (0.0-0.8); MONO % 10.7 % (0.0-10.0); NEUT # 2.1 K/uL (1.8-7.0); NEUT % 61.3 % (50.0-75.0); NRBC % 0.1 % (0.0-0.0); RBC 2.55 Mil/uL (3.80-5.20); RED CELL DISTRIBUTION WIDTH 14.9 % (11.5-14.5); WHITE BLOOD COUNT 3.5 K/uL (4.8-10.8)
--- NOTE | 2018-09-04 06:46 | CP.PCM.PN ---
Subjective - Date & Time of Evaluation Date of Evaluation: 09/04/18 Time of Evaluation: 06:42 - Subjective Subjective: 58 yo female with PMHx of Hepatic Liver Cirrhosis, Hepatitis C, CKD, HTN, IDDMII, and Anemia seen at bedside accompanied by her son with complaints of abdominal pain and abdominal fullness x3 days. Patient reports diffuse abdominal pain, states its getting better. Reports she had several loose BM three days ago. Denies any nausea, vomiting, dysuria, bloody stool, fever, chills. CT A/P showed diffuse abdominal and pelvic ascites. Objective - Vital Signs/Intake and Output Vital Signs (last 24 hours): Temp Pulse Resp BP Pulse Ox 98.3 F 66 18 152/79 H 100 09/04/18 00:15 09/04/18 00:24 09/04/18 00:15 09/04/18 00:24 09/04/18 00:15 - Medications Medications: Current Medications Dextrose (Dextrose 50% Inj) 0 ml IV STAT PRN; Protocol PRN Reason: Hypoglycemia Protocol Dextrose (Glutose 15) 0 gm PO ONCE PRN; Protocol PRN Reason: Hypoglycemia Protocol Furosemide (Lasix) 40 mg PO DAILY [facility] Last Admin: 09/03/18 10:07 Dose: 40 mg Glucagon (Glucagen Diagnostic Kit) 0 mg IM STAT PRN; Protocol PRN Reason: Hypoglycemia Protocol Insulin Human NPH (Humulin N) 25 units SC BID [facility] Last Admin: 09/03/18 17:47 Dose: Not Given Insulin Human Regular (Humulin R) 0 units SC ACHS [facility]; Protocol Last Admin: 09/03/18 23:11 Dose: Not Given Pantoprazole Sodium (Protonix Ec Tab) 20 mg PO DAILY [facility] Last Admin: 09/03/18 10:06 Dose: 20 mg Propranolol HCl (Inderal) 10 mg PO Q8 [facility] Last Admin: 09/04/18 00:24 Dose: 10 mg Spironolactone (Aldactone) 100 mg PO DAILY [facility] Last Admin: 09/03/18 10:08 Dose: 100 mg - Labs Labs: 09/04/18 05:50 09/03/18 05:30 PT 16.0 Seconds (9.8-13.1) H 09/03/18 05:30 INR 1.4 09/03/18 05:30 APTT 35.5 Seconds (25.6-37.1) 09/03/18 05:30 - Constitutional Appears: Non-toxic, No Acute Distress - Head Exam Head Exam: ATRAUMATIC, NORMOCEPHALIC - Eye Exam Eye Exam: EOMI, Normal appearance, PERRL. absent: Scleral icterus - ENT Exam ENT Exam: Mucous Membranes Moist - Neck Exam Neck Exam: Full ROM, Normal Inspection - Cardiovascular Exam Cardiovascular Exam: REGULAR RHYTHM, +S1, +S2 - GI/Abdominal Exam GI & Abdominal Exam: Distended, Hernia, Normal Bowel Sounds - Neurological Exam Neurological Exam: Alert, Oriented x3 Assessment and Plan - Assessment and Plan (Free Text) Assessment: 58 year old female with PMHx of Hepatic Liver Cirrhosis, Hepatitis C, CKD, HTN, IDDMII, and Anemia presents to [facility] ED accompanied by her son with complaints of abdominal pain and abdominal fullness since yesterday. CT A/P showed diffuse abdominal and pelvic ascites. Diffuse mesenteric infiltration and anasarca. Patient is admitted for abdominal pain and ascites. Pt will be going for paracentesis today(09/03) Plan: Abdominal pain with ascites -Afebrile, stable vitals -WBC 3.5 -CT A/P shows diffuse abdominal and pelvic ascites. Diffuse mesenteric infiltration and anasarca. -IR- Paracentesis today 09/04; Cell count, LDH, culture ordered. IDDM2 with hyperglycemia -Uncontrolled, BS 453 in ER, 163 today -UA is negative for ketone -Resume home meds - Insulin correction scale - Hypoglycemic protocol - Monitor for acute changes Cirrhosis - chronic - has appointment at [facility] in 10/2017 - MELD score 15 - c/w aldactone 100 mg PO daily, lasix 40 mg PO daily - S/p 1 gm of IV ceftriaxone CKD stage III - GFR 42 - stable HTN - BP elevated - c/w lasix(40 mg BID), propranolol. Upon discharge patient will continue with lasix 40 mg QD Anemia -H&H 8.2 -stable -monitor for acute changes Prophylactic measures - DVT: SCDs, low platelets 71 Code Status -Full code
[2018-09-04 07:20] LABS: ALB/GLOB RATIO 0.6 (1.0-2.1); ALBUMIN 2.3 g/dL (3.5-5.0); CALCIUM 7.8 mg/dL (8.4-10.2)
[2018-09-04] MEDS: Pantoprazole 20 mg EC Tab PO SCH (08:23)
[2018-09-04] MEDS: Insulin Regular 100 units/ml SC SCH ×3 (08:25→16:43)
[2018-09-04 10:01] VITALS: BMI 32.3
[2018-09-04] MEDS: Insulin NPH Human 100 Units/ml Inj SC SCH ×2 (10:57→16:32)
[2018-09-04] MEDS ORDERED: Lidocaine 1% Inj (20ml) ONE (11:48)
--- NOTE | 2018-09-04 12:09 | PCM.SURG1 ---
Surgeon's Initial Post Op Note - Surgeon's Notes Surgeon: Matt Hernandez MD Social Service Worker: NONE Type of Anesthesia: Local Pre-Operative Diagnosis: Ascites, cirrhosis Operative Findings: US showed small amount of ascites Post-Operative Diagnosis: Ascites, cirrhosis Operation Performed: US guided paracentesis Specimen/Specimens Removed: 1.4 liters of straw colored fluid Estimated Blood Loss: EBL {In ML}: 0 Blood Products Given: N/A Drains Used: No Drains Post-Op Condition: Fair Date of Surgery/Procedure: 09/04/18 Time of Surgery/Procedure: 12:05
[2018-09-04 12:14] LABS: BODY FLUID TYPE PERITONEAL/ASCITES
--- NOTE | 2018-09-04 12:15 | US ---
Date of Procedure: 09/04/2018 PROCEDURE: Ultrasound-guided paracentesis, CPT 95207 Medications: 7 cc 1% Lidocaine HISTORY: Ascites, cirrhosis TECHNIQUE: Following informed consent , the patient was placed supine on the stretcher and the site was marked. A limited abdominal ultrasound was performed that showed a small amount of intra-abdominal fluid. Procedural time out was called and the Pt's abdomen was marked and prepped and draped in the usual sterile fashion. Ultrasound-guided large volume paracentesis performed. A total of 1.4 Liters of straw colored fluid was removed without complication. Fluid specimen was sent for culture, sensitivity, cytology and chemistries. IMPRESSION: Ultrasound-guided paracentesis.
[2018-09-04 13:21] LABS: BF GROSS APPEARANCE CLOUDY (CLEAR)
[2018-09-04 13:36] LABS: TOTAL PROTEIN,BODY FLUID < 2.0 g/dL (NONE ESTABLISHED)
[2018-09-04 15:29] LABS: BODY FLUID MONO/MACROPHAGE 23 % (0-0); BODY FLUID TOTAL COUNT 100 (0-0)
[2018-09-04 16:55] VITALS: BP 129/87; PULSE 65; RESP 16; TEMP 98.2; O2SAT 100
== END 2018-09-04 19:09 | disposition home or self-care (01) ==
LOC: H.ER 16:07 → H.ERHOLD 23:35 → H.MEDSURG1 09-03 01:55
PROVIDERS: ADMIT Internal Medicine; ATTEND Internal Medicine
PROC: 0W9G3ZZ Drainage of Peritoneal Cavity, Percutaneous Approach (ICD-10-PCS; principal; 2018-09-03)
DX: K74.69 Other cirrhosis of liver (principal); R18.8 Other ascites; B18.2 Chronic viral hepatitis C; E11.65 Type 2 diabetes mellitus with hyperglycemia; I12.9 Hypertensive chronic kidney disease with stage 1 through stage 4 chronic kidney disease, or unspecified chronic kidney disease; N18.3 Chronic kidney disease, stage 3 (moderate); E11.22 Type 2 diabetes mellitus with diabetic chronic kidney disease; K43.9 Ventral hernia without obstruction or gangrene; K42.9 Umbilical hernia without obstruction or gangrene; R16.1 Splenomegaly, not elsewhere classified; D64.9 Anemia, unspecified; K21.9 Gastro-esophageal reflux disease without esophagitis; E78.00 Pure hypercholesterolemia, unspecified; Z79.4 Long term (current) use of insulin; Z87.01 Personal history of pneumonia (recurrent)

== ENCOUNTER 2018-11-12 19:35 | Observation (INO) | payer MEDICAID, SELFPAY ==
[2018-11-12 19:36] VITALS: BMI 32.3
[2018-11-13 00:38] LABS: BASO % 0.8 % (0.0-2.0); EOS # 0.1 K/uL (0.0-0.7); EOS % 2.5 % (0.0-4.0); HEMOGLOBIN 8.9 g/dL (12.0-16.0); LYMPH % 17.2 % (20.0-40.0); MEAN CELL VOLUME 98.2 fl (81.0-99.0); MEAN CORPUSCULAR HEMOGLOBIN 32.6 pg (27.0-31.0); MEAN CORPUSCULAR HGB CONC 33.2 g/dL (33.0-37.0); MONO # 0.5 K/uL (0.0-0.8); MONO % 9.7 % (0.0-10.0); NEUT # 3.9 K/uL (1.8-7.0); NEUT % 69.8 % (50.0-75.0); NRBC % 0.1 % (0.0-0.0); RBC 2.72 Mil/uL (3.80-5.20); RED CELL DISTRIBUTION WIDTH 15.6 % (11.5-14.5); WHITE BLOOD COUNT 5.6 K/uL (4.8-10.8)
--- NOTE | 2018-11-13 00:41 | ED PDOC ---
HPI: Abdomen Time Seen by Provider: 11/12/18 23:52 Chief Complaint (Nursing): Abdominal Pain Chief Complaint (Provider): Abdominal Pain History Per: Patient History/Exam Limitations: no limitations Onset/Duration Of Symptoms: Days (x 2) Current Symptoms Are (Timing): Still Present Location Of Pain/Discomfort: Diffuse Quality Of Discomfort: "Pain" Associated Symptoms: Other (distension) Additional Complaint(s): 58 year old female with a history of liver cirrhosis secondary to hepatitis C presents to the ED with worsening abdominal pain and distension for two days. Patient also reports shortness of breath with mild exertion. Her last paracentesis was in May. Denies fever, diarrhea and vomiting. PMD: Dr. Aurea Masters Past Medical History Reviewed: Historical Data, Nursing Documentation, Vital Signs Vital Signs: Last Vital Signs Temp 98.5 F 11/12/18 20:37 Pulse 66 11/12/18 20:37 Resp 18 11/12/18 20:37 BP 168/79 H 11/12/18 20:37 Pulse Ox 100 11/12/18 20:37 - Medical History PMH: Anemia, Diabetes (type II), Gastritis, GERD, Hepatitis (C with liver cirrhosis), Hiatal Hernia, HTN, Hypercholesterolemia, Pneumonia Denies: Anxiety, Bipolar Disorder, Depression, HIV, Paranoia, Post Traumatic Stress Disorder, Chronic Kidney Disease, Schizophrenia - Surgical History Surgical History: Appendectomy, Hernia Repair - Family History Family History: States: Unknown Family Hx - Immunization History Hx Influenza Vaccination: No Hx Pneumococcal Vaccination: No - Home Medications Home Medications: Ambulatory Orders Medication Instructions Recorded RX: Lansoprazole [Prevacid] 15 mg PO DAILY 09/03/18 RX: Propranolol [Inderal] 10 mg PO Q8 09/03/18 RX: Spironolactone [Aldactone] 100 mg PO DAILY 09/03/18 RX: Furosemide [Lasix] 40 mg PO DAILY #30 tab 09/04/18 RX: Lactulose 20 gm PO DAILY 30 Days #2 solution 09/04/18 RX: Spironolactone [Aldactone] 100 mg PO DAILY #30 tab 09/04/18 - Allergies Allergies/Adverse Reactions: Allergies Allergy/AdvReac Type Severity Reaction Status Date / Time No Known Allergies Allergy Verified 11/25/17 11:45 Review of Systems ROS Statement: Except As Marked, All Systems Reviewed And Found Negative Gastrointestinal: Positive for: Abdominal Pain, Other (abdominal distension) Physical Exam - Reviewed Nursing Documentation Reviewed: Yes Vital Signs Reviewed: Yes - Physical Exam Appears: Positive for: Non-toxic, No Acute Distress Head Exam: Positive for: ATRAUMATIC, NORMAL INSPECTION, NORMOCEPHALIC Skin: Positive for: Normal Color, Warm, Dry Eye Exam: Positive for: EOMI, Normal appearance, PERRL Neck: Positive for: Normal, Painless ROM, Supple Cardiovascular/Chest: Positive for: Regular Rate, Rhythm. Negative for: Murmur Respiratory: Positive for: Normal Breath Sounds. Negative for: Wheezing, Respiratory Distress Gastrointestinal/Abdominal: Positive for: Distended (extremely), Asicites (positive fluid wave) Back: Positive for: Normal Inspection. Negative for: L CVA Tenderness, R CVA Tenderness Extremity: Positive for: Normal ROM (x 4). Negative for: Deformity Neurologic/Psych: Positive for: Alert, Oriented (x 3). Negative for: Motor /Sensory Deficits - Laboratory Results Result Diagrams: 11/13/18 00:25 11/13/18 00:25 - ECG O2 Sat by Pulse Oximetry: 100 (RA) Pulse Ox Interpretation: Normal Medical Decision Making Medical Decision Makin:14 Impression: 58 year old female with worsening ascites in setting of liver cirrhosis Initial Plan: --EKG --Alcohol serum --Ammonia --CMP --CBC --CXR --Lipase --Urine dip --UA 00:41 Patient will be admitted for worsening ascites, liver cirrhosis and paracentesis. Case referred to Dr. Johns. Scribe Attestation: Documented by Kesha Blackmon acting as a scribe for Brandyn Garcia MD Provider Scribe Attestation: All medical record entries made by the Scribe were at my direction and personally dictated by me. I have reviewed the chart and agree that the record accurately reflects my personal performance of the history, physical exam, medical decision making, and the department course for this patient. I have also personally directed, reviewed, and agree with the discharge instructions and disposition. Disposition - Clinical Impression Clinical Impression: Ascites - Patient ED Disposition Is Patient to be Admitted: Yes Discussed With : Irena Johns - Disposition Disposition Time: 00:41 Condition: FAIR - Pt Status Changed To: Hospital Disposition Of: Inpatient - Admit Certification Admit to Inpatient:: After my assessment, the patient will require hospitalization for at least two midnights. This is because of the severity of symptoms shown, intensity of services needed, and/or the medical risk in this patient being treated as an outpatient.
[2018-11-13 00:51] LABS: ALB/GLOB RATIO 0.7 (1.0-2.1); BLOOD UREA NITROGEN 28 mg/dl (7-17); CALCIUM 8.5 mg/dL (8.4-10.2); GFR NON-AFRICAN AMERICAN 36; LIPASE 281 U/L (23-300)
[2018-11-13 00:53] LABS: ALT/SGPT 36 U/L (9-52); AST/SGOT 67 U/L (14-36)
--- NOTE | 2018-11-13 02:11 | CP.PCM.HP ---
History of Present Illness - History of Present Illness History of Present Illness: 58 yo F with history of hepatic cirrhosis due to Hep C, CKD, HTN, IDDMII, and anemia, hernia admitted due to increased and worsening ascites. Pt presented to ED with complaint of abdominal pain and abdominal fullness since 2 days ago; reports it has made it more difficult to climb stairs and walk. States that she mostly has discomfort rather than pain, but that pain does come on at times. PMD: [facility] Past Med Hx: Hepatic Liver Cirrhosis, Hepatitis C, CKD, HTN, IDDMII, and Anemia Past Surg Hx: Appendectomy, Tubal Ligation, Ventral Hernia Repair (2016), therapeutic paracentesis Fam hx: Brother- dialysis, CAD Soc hx: Denies smoking, alcohol or illicit drug uses Allergies: NKDA Meds: Lasix 40 mg PO daily, Proponolol 10mg PO Q8h, Spironolactone 100mg PO daily, Novolin (70/30) 25 units SC BID ED course Vitals: afebrile, HR 66, O2 sat 100 on RA, RR 18, BP elevated at triage 168/79 but normotensive after w/o meds CBC no elevated WBC; chronic anemia Hgb 8.9, Plt count 137 CMP: CKD w/ Cr 1.5 and GFR 36, mildly elevated AST, elevated alk phos, elevated blood sugar 232 Ammonia 56 Alcohol <10 Abd u/s taken Present on Admission - Present on Admission Any Indicators Present on Admission: Yes History of Uncontrolled Diabetes: Yes Review of Systems - Cardiovascular Cardiovascular: absent: Chest Pain - Respiratory Respiratory: Dyspnea on Exertion. absent: Cough Additional comments: no dyspnea at rest - Gastrointestinal Gastrointestinal: Abdominal Pain, Bloating. absent: Diarrhea, Loose Stools, Nausea, Vomiting Additional comments: bloating, swelling, fullness - Genitourinary Genitourinary: absent: Dysuria Past Patient History - Tetanus Immunizations Tetanus Immunization: Unknown - Past Medical History & Family History Past Medical History?: Yes - Past Social History Smoking Status: Never Smoked Alcohol: None Drugs: Denies - CARDIAC Hx Hypercholesterolemia: Yes Hx Hypertension: Yes - PULMONARY Hx Pneumonia: Yes - NEUROLOGICAL Hx Neurological Disorder: No - HEENT Hx HEENT Problems: No - RENAL Hx Chronic Kidney Disease: No - ENDOCRINE/METABOLIC Hx Endocrine Disorders: Yes Hx Diabetes Mellitus Type 2: Yes - HEMATOLOGICAL/ONCOLOGICAL Hx Anemia: Yes Hx Human Immunodeficiency Virus (HIV): No - INTEGUMENTARY Hx Dermatological Problems: No - MUSCULOSKELETAL/RHEUMATOLOGICAL Hx Falls: No - GASTROINTESTINAL Hx Gastritis: Yes - GENITOURINARY/GYNECOLOGICAL Hx Genitourinary Disorders: No - PSYCHIATRIC Hx Anxiety: No Hx Bipolar Disorder: No Hx Depression: No Hx Paranoia: No Hx Post Traumatic Stress Disorder: No Hx Schizophrenia: No - SURGICAL HISTORY Hx Appendectomy: Yes - ANESTHESIA Hx Anesthesia: Yes Hx Anesthesia Reactions: No Hx Malignant Hyperthermia: No Meds Allergies/Adverse Reactions: Allergies Allergy/AdvReac Type Severity Reaction Status Date / Time No Known Allergies Allergy Verified 11/25/17 11:45 Physical Exam - Constitutional Appears: No Acute Distress - Head Exam Head Exam: NORMAL INSPECTION - Eye Exam Eye Exam: Normal appearance - ENT Exam ENT Exam: Mucous Membranes Moist - Respiratory Exam Respiratory Exam: Clear to Auscultation Bilateral, NORMAL BREATHING PATTERN. absent: Wheezes, Respiratory Distress - Cardiovascular Exam Cardiovascular Exam: REGULAR RHYTHM, +S1, +S2 - GI/Abdominal Exam GI & Abdominal Exam: Distended, Hernia (reducible), Normal Bowel Sounds, Soft. absent: Rigid Additional comments: + shifting dullness to percussion ventral defect, reducible - Extremities Exam Extremities exam: Positive for: normal inspection. Negative for: calf tenderness, pedal edema - Back Exam Back exam: NORMAL INSPECTION - Neurological Exam Neurological exam: Alert, Oriented x3 - Skin Skin Exam: Dry, Warm Results - Vital Signs Recent Vital Signs: Last Vital Signs Temp 98.5 F 11/12/18 20:37 Pulse 66 11/12/18 20:37 Resp 18 11/12/18 20:37 BP 168/79 H 11/12/18 20:37 Pulse Ox 100 11/13/18 01:37 - Labs Result Diagrams: 11/13/18 00:25 11/13/18 00:25 Labs: Laboratory Results - last 24 hr 11/13/18 11/13/18 11/13/18 00:25 00:25 00:25 WBC 5.6 RBC 2.72 L Hgb 8.9 L Hct 26.7 L MCV 98.2 MCH 32.6 H MCHC 33.2 RDW 15.6 H Plt Count 137 MPV 9.0 Neut % (Auto) 69.8 Lymph % (Auto) 17.2 L [place] % (Auto) 9.7 Eos % (Auto) 2.5 Baso % (Auto) 0.8 Neut # (Auto) 3.9 Lymph # (Auto) 1.0 [place] # (Auto) 0.5 Eos # (Auto) 0.1 Baso # (Auto) 0.0 Sodium 138 Potassium 4.2 Chloride 111 H Carbon Dioxide 18 L Anion Gap 13 BUN 28 H Creatinine 1.5 H Est GFR ( Amer) 43 Est GFR (Non-Af Amer) 36 Random Glucose 232 H Calcium 8.5 Total Bilirubin 3.2 H AST 67 H ALT 36 Alkaline Phosphatase 187 H Ammonia 56 H Total Protein 7.3 Albumin 3.0 L D Globulin 4.3 H Albumin/Globulin Ratio 0.7 L Lipase 281 Alcohol, Quantitative < 10 Assessment & Plan - Assessment and Plan (Free Text) Assessment: 58 yo F with history of hepatic cirrhosis due to Hep C, CKD, HTN, IDDMII, and anemia, hernia admitted due to increased and worsening ascites. Pt presented to ED with complaint of abdominal pain and abdominal fullness since 2 days ago Plan: Abdominal ascites - Afebrile, stable, no evidence of SBP - F/u official US report - IR consult for paracentesis in am - NPO - CMP, Mg, Phos, coags - Pain scale PRN, in setting of liver disease and CKD, with morphine 0.5mg, 1 mg, 2 mg Q4 hrs IDDM2 - Insulin coverage scale with hypoglycemia protocol - Accucheks Q6hrs Cirrhosis, likely secondary to Hep C - Chronic - Resume home meds aldactone 100 mg PO daily, lasix 40 mg PO daily, lactulose 20 gm daily CKD stage IIIB - GFR 36, Cr 1.5 - Stable HTN - Controlled - Resume lasix, propranolol Anemia - Chronic, stable, H/H 8.9/26.7, PLT 137 - Monitor for acute changes on CBC Ventral hernia - Stable, reducible - Follow up outpt DVT prophylaxis - SCD for now Pt seen/discussed w/ Dr. Johns.
[2018-11-13] MEDS ORDERED: Glucagon Recombinant 1 mg Inj IM PRN (02:23)
[2018-11-13] MEDS ORDERED: Dextrose 50% SYRINGE Inj (50 ml) IV PRN (02:23)
[2018-11-13] MEDS ORDERED: Morphine 4 MG/ML VIAL IVP PRN ×2 (04:53)
[2018-11-13] MEDS: Insulin Lispro (humaLOG) 100 Units/ml Inj SC SCH ×3 (05:18→16:15)
[2018-11-13] MEDS: Morphine 4 MG/ML VIAL IVP PRN ×2 (05:20→15:52)
[2018-11-13 06:37] LABS: BASO % 0.5 % (0.0-2.0); EOS # 0.1 K/uL (0.0-0.7); EOS % 2.1 % (0.0-4.0); HEMOGLOBIN 8.1 g/dL (12.0-16.0); LYMPH # 0.8 K/uL (1.0-4.3); LYMPH % 14.4 % (20.0-40.0); MEAN CELL VOLUME 96.8 fl (81.0-99.0); MEAN CORPUSCULAR HEMOGLOBIN 32.8 pg (27.0-31.0); MEAN CORPUSCULAR HGB CONC 33.9 g/dL (33.0-37.0); MEAN PLATELET VOLUME 8.1 fl (7.2-11.7); MONO # 0.6 K/uL (0.0-0.8); MONO % 9.9 % (0.0-10.0); NEUT # 4.2 K/uL (1.8-7.0); NEUT % 73.1 % (50.0-75.0); NRBC % 0.1 % (0.0-0.0); RBC 2.46 Mil/uL (3.80-5.20); RED CELL DISTRIBUTION WIDTH 15.2 % (11.5-14.5); WHITE BLOOD COUNT 5.7 K/uL (4.8-10.8)
[2018-11-13 06:45] LABS: ALB/GLOB RATIO 0.7 (1.0-2.1); ALBUMIN 2.6 g/dL (3.5-5.0); CALCIUM 8.3 mg/dL (8.4-10.2)
[2018-11-13 06:48] LABS: INR 1.3; PROTHROMBIN TIME 15.2 Seconds (9.8-13.1)
[2018-11-13 06:51] LABS: PARTIAL THROMBOPLASTIN TIME 38.4 Seconds (25.6-37.1)
[2018-11-13] MEDS ORDERED: Potassium Chloride 20 mEq 100 ML IVPB ONE (08:00)
[2018-11-13] MEDS ORDERED: cefTRIAXone 2 GM in Sodium Chloride 0.9% 100 ML IVPB ONE (08:03)
[2018-11-13] MEDS ORDERED: Albumin Human 25% (12.5 gm/50 ml) IV ONE (08:06)
[2018-11-13] MEDS ORDERED: Pneumococcal 23-Valent Vaccine IM ONE (08:10)
[2018-11-13] MEDS: Pantoprazole 20 mg EC Tab PO SCH ×2 (09:38→16:14)
--- NOTE | 2018-11-13 10:36 | US ---
Date of service: 11/13/2018 HISTORY: ascites COMPARISON: None. TECHNIQUE: Sonographic evaluation of the abdomen. FINDINGS: LIVER: Measures markedly nodular contour. Heterogeneous echogenicity. Consistent with hepatic cirrhosis. No mass. No biliary dilatation. Hepatopetal portal venous flow. Cm. GALLBLADDER: Cholelithiasis. No mural thickening. Pericholecystic fluid cannot be discerned because of generalized ascites. COMMON BILE DUCT: Measures 5 mm. No stones. No dilatation. PANCREAS: Unremarkable as visualized. No mass. No ductal dilatation. RIGHT KIDNEY: Measures 8.0cm. Increased cortical echogenicity. No mass, calculus or hydronephrosis. LEFT KIDNEY: Measures 11.3cm. Normal echogenicity. No calculus, mass, or hydronephrosis. SPLEEN: Normal in size and contour. No mass. AORTA: No aneurysmal dilatation. IVC: Unremarkable. OTHER FINDINGS: Generalized ascites. IMPRESSION: Atrophic right kidney. Hepatic cirrhosis. Cholelithiasis without evidence of cholecystitis. Generalized ascites. The preliminary findings for this examination were reported by [facility] Radiology at 3:46 a.m. on 11/13/2018. There is concurrence of this report with the preliminary findings.
--- NOTE | 2018-11-13 12:22 | CARD ---
APPROVED REPORT Date of service: 11/13/2018 EKG Measurement Heart [id number] <Conclusion> Normal sinus rhythm Normal ECG
--- NOTE | 2018-11-13 12:59 | RAD ---
Date of service: 11/13/2018 HISTORY: Admission COMPARISON: 06/23/2018 FINDINGS: LUNGS: No active pulmonary disease. PLEURA: No significant pleural effusion identified, no pneumothorax apparent. CARDIOVASCULAR: No atherosclerotic calcification present Normal. OSSEOUS STRUCTURES: No significant abnormalities. VISUALIZED UPPER ABDOMEN: Normal. OTHER FINDINGS: Facial eventration of the right hemidiaphragm and incidental finding. IMPRESSION: No active disease. No significant interval change compared to the prior examination(s).
--- NOTE | 2018-11-13 13:13 | PCM.SURG1 ---
Surgeon's Initial Post Op Note - Surgeon's Notes Surgeon: Matt Hernandez MD Rug Cleaning Supervisor: NONE Type of Anesthesia: Local Pre-Operative Diagnosis: Ascites Operative Findings: US showed a small amount of ascites Post-Operative Diagnosis: Ascites Operation Performed: US guided paracentesis Specimen/Specimens Removed: 900 cc of straw colored fluid Estimated Blood Loss: EBL {In ML}: 0 Blood Products Given: N/A Drains Used: No Drains Post-Op Condition: Fair Date of Surgery/Procedure: 11/13/18 Time of Surgery/Procedure: 13:10
[2018-11-13 14:07] LABS: BODY FLUID TYPE PERITONEAL/ASCITES
[2018-11-13 14:23] LABS: TOTAL PROTEIN,BODY FLUID < 2.0 g/dL (NONE ESTABLISHED)
--- NOTE | 2018-11-13 14:31 | CP.PCM.DIS ---
<Alice Juarez - Last Filed: 11/13/18 15:25> Provider - Provider Date of Admission: 11/13/18 00:25 Attending physician: Irena Johns MD Time Spent in preparation of Discharge (in minutes): 45 Hospital Course - Lab Results Lab Results: Most Recent Lab Values WBC 5.7 K/uL (4.8-10.8) 11/13/18 06:00 RBC 2.46 Mil/uL (3.80-5.20) L 11/13/18 06:00 Hgb 8.1 g/dL (12.0-16.0) L 11/13/18 06:00 Hct 23.8 % (34.0-47.0) L 11/13/18 06:00 MCV 96.8 fl (81.0-99.0) 11/13/18 06:00 MCH 32.8 pg (27.0-31.0) H 11/13/18 06:00 MCHC 33.9 g/dL (33.0-37.0) 11/13/18 06:00 RDW 15.2 % (11.5-14.5) H 11/13/18 06:00 Plt Count 105 K/uL (130-400) L D 11/13/18 06:00 MPV 8.1 fl (7.2-11.7) 11/13/18 06:00 Neut % (Auto) 73.1 % (50.0-75.0) 11/13/18 06:00 Lymph % (Auto) 14.4 % (20.0-40.0) L 11/13/18 06:00 Bates % (Auto) 9.9 % (0.0-10.0) 11/13/18 06:00 Eos % (Auto) 2.1 % (0.0-4.0) 11/13/18 06:00 Baso % (Auto) 0.5 % (0.0-2.0) 11/13/18 06:00 Neut # (Auto) 4.2 K/uL (1.8-7.0) 11/13/18 06:00 Lymph # (Auto) 0.8 K/uL (1.0-4.3) L 11/13/18 06:00 Bates # (Auto) 0.6 K/uL (0.0-0.8) 11/13/18 06:00 Eos # (Auto) 0.1 K/uL (0.0-0.7) 11/13/18 06:00 Baso # (Auto) 0.0 K/uL (0.0-0.2) 11/13/18 06:00 PT 15.2 Seconds (9.8-13.1) H 11/13/18 06:00 INR 1.3 11/13/18 06:00 APTT 38.4 Seconds (25.6-37.1) H 11/13/18 06:00 Sodium 140 mmol/l (132-148) 11/13/18 06:00 Potassium 3.4 MMOL/L (3.6-5.0) L 11/13/18 06:00 Chloride 113 mmol/L (98-107) H 11/13/18 06:00 Carbon Dioxide 16 mmol/L (22-30) L 11/13/18 06:00 Anion Gap 14 (10-20) 11/13/18 06:00 BUN 27 mg/dl (7-17) H 11/13/18 06:00 Creatinine 1.5 mg/dl (0.7-1.2) H 11/13/18 06:00 Est GFR ( Amer) 43 11/13/18 06:00 Est GFR (Non-Af Amer) 36 11/13/18 06:00 POC Glucose (mg/dL) 73 mg/dL (65-110) 11/13/18 11:13 Random Glucose 75 mg/dL (65-105) 11/13/18 06:00 Calcium 8.3 mg/dL (8.4-10.2) L 11/13/18 06:00 Phosphorus 2.8 mg/dl (2.5-4.5) 11/13/18 06:00 Magnesium 1.9 MG/DL (1.6-2.3) 11/13/18 06:00 Total Bilirubin 3.0 mg/dl (0.2-1.3) H 11/13/18 06:00 AST 55 U/L (14-36) H 11/13/18 06:00 ALT 33 U/L (9-52) 11/13/18 06:00 Alkaline Phosphatase 174 U/L (38-126) H 11/13/18 06:00 Ammonia 56 umo/L (11-51) H 11/13/18 00:25 Total Protein 6.7 G/DL (6.3-8.2) 11/13/18 06:00 Albumin 2.6 g/dL (3.5-5.0) L 11/13/18 06:00 Globulin 4.0 gm/dL (2.2-3.9) H 11/13/18 06:00 Albumin/Globulin Ratio 0.7 (1.0-2.1) L 11/13/18 06:00 Lipase 285 U/L (23-300) 11/13/18 09:50 Fluid Source Peritoneal/ascites 11/13/18 14:00 Fluid Total Protein < 2.0 g/dL (NONE ESTABLISHED) 11/13/18 14:00 Alcohol, Quantitative < 10 mg/dl (0-10) 11/13/18 00:25 - Hospital Course Hospital Course: 58 yo F with history of 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 Pt presented to ED with complaints of abdominal pain and abdominal fullness since 2 days ago. Pt was afebrile with stable vitals in ED & throughout hospital course. She received morphine 2mg for pain which she stated helped, and rocephin 2gm for sbp prophylaxis. Pt underwent paracentesis this afternoon.900cc of straw colored fluid was removed. Patient discharged home. Patient will follow up with Dr. Cortez [facility] 11/20/2018 1. Abdominal ascites with hx hf Hep C/cirrrhosis (acute on chronic) -C/w spironolactone 100mg PO QD, furosemide 40mg PO QD, lactulose 20mg PO QD & propanolol 10mg PO Q8 2. IDDM2 - C/w novolin 70/30, 100 unit/ml suspension 25 units subQ BID 3. CKD stage III (chronic, Stable) -Patient received referral with [facility] with nephrology 4. HTN( chronic, stable) - Controlled - C/w lasix, propranolol 5. Anemia (chronic, stable) 6. Ventral hernia( Stable, reducible) - Follow up as outpatient Discharge Exam - Head Exam Head Exam: ATRAUMATIC, NORMAL INSPECTION, NORMOCEPHALIC - Eye Exam Eye Exam: EOMI - ENT Exam ENT Exam: Mucous Membranes Moist - Neck Exam Neck exam: Full Rom - Respiratory Exam Respiratory Exam: Clear to PA & Lateral, NORMAL BREATHING PATTERN - Cardiovascular Exam Cardiovascular Exam: REGULAR RHYTHM, +S1, +S2 - GI/Abdominal Exam GI & Abdominal Exam: Distended, Firm. absent: Guarding, Rebound, Rigid - Extremities Exam Extremities exam: normal inspection - Neurological Exam Neurological exam: Alert, Oriented x3 - Psychiatric Exam Psychiatric exam: Normal Affect, Normal Mood - Skin Skin Exam: Dry Discharge Plan - Follow Up Plan Condition: FAIR Disposition: HOME/ ROUTINE Instructions: Abdominal Paracentesis, Fluid in the Belly (Ascites) (DC) Referrals: [facility] [Provider Group] <Bharati Sumner - Last Filed: 11/14/18 16:36> Provider - Provider Date of Admission: 11/13/18 00:25 Attending physician: Irena Johns MD Hospital Course - Lab Results Lab Results: Micro Results 11/13/18 18:01 Abdominal Fluid Gram Stain - Final 11/13/18 18:01 Abdominal Fluid Body Fluid Culture - Preliminary NO GROWTH AFTER 24 HOURS Most Recent Lab Values WBC 5.7 K/uL (4.8-10.8) 11/13/18 06:00 RBC 2.46 Mil/uL (3.80-5.20) L 11/13/18 06:00 Hgb 8.1 g/dL (12.0-16.0) L 11/13/18 06:00 Hct 23.8 % (34.0-47.0) L 11/13/18 06:00 MCV 96.8 fl (81.0-99.0) 11/13/18 06:00 MCH 32.8 pg (27.0-31.0) H 11/13/18 06:00 MCHC 33.9 g/dL (33.0-37.0) 11/13/18 06:00 RDW 15.2 % (11.5-14.5) H 11/13/18 06:00 Plt Count 105 K/uL (130-400) L D 11/13/18 06:00 MPV 8.1 fl (7.2-11.7) 11/13/18 06:00 Neut % (Auto) 73.1 % (50.0-75.0) 11/13/18 06:00 Lymph % (Auto) 14.4 % (20.0-40.0) L 11/13/18 06:00 Bates % (Auto) 9.9 % (0.0-10.0) 11/13/18 06:00 Eos % (Auto) 2.1 % (0.0-4.0) 11/13/18 06:00 Baso % (Auto) 0.5 % (0.0-2.0) 11/13/18 06:00 Neut # (Auto) 4.2 K/uL (1.8-7.0) 11/13/18 06:00 Lymph # (Auto) 0.8 K/uL (1.0-4.3) L 11/13/18 06:00 Bates # (Auto) 0.6 K/uL (0.0-0.8) 11/13/18 06:00 Eos # (Auto) 0.1 K/uL (0.0-0.7) 11/13/18 06:00 Baso # (Auto) 0.0 K/uL (0.0-0.2) 11/13/18 06:00 PT 15.2 Seconds (9.8-13.1) H 11/13/18 06:00 INR 1.3 11/13/18 06:00 APTT 38.4 Seconds (25.6-37.1) H 11/13/18 06:00 Sodium 140 mmol/l (132-148) 11/13/18 06:00 Potassium 3.4 MMOL/L (3.6-5.0) L 11/13/18 06:00 Chloride 113 mmol/L (98-107) H 11/13/18 06:00 Carbon Dioxide 16 mmol/L (22-30) L 11/13/18 06:00 Anion Gap 14 (10-20) 11/13/18 06:00 BUN 27 mg/dl (7-17) H 11/13/18 06:00 Creatinine 1.5 mg/dl (0.7-1.2) H 11/13/18 06:00 Est GFR ( Amer) 43 11/13/18 06:00 Est GFR (Non-Af Amer) 36 11/13/18 06:00 POC Glucose (mg/dL) 140 mg/dL (65-110) H 11/13/18 16:13 Random Glucose 75 mg/dL (65-105) 11/13/18 06:00 Calcium 8.3 mg/dL (8.4-10.2) L 11/13/18 06:00 Phosphorus 2.8 mg/dl (2.5-4.5) 11/13/18 06:00 Magnesium 1.9 MG/DL (1.6-2.3) 11/13/18 06:00 Total Bilirubin 3.0 mg/dl (0.2-1.3) H 11/13/18 06:00 AST 55 U/L (14-36) H 11/13/18 06:00 ALT 33 U/L (9-52) 11/13/18 06:00 Alkaline Phosphatase 174 U/L (38-126) H 11/13/18 06:00 Ammonia 56 umo/L (11-51) H 11/13/18 00:25 Total Protein 6.7 G/DL (6.3-8.2) 11/13/18 06:00 Albumin 2.6 g/dL (3.5-5.0) L 11/13/18 06:00 Globulin 4.0 gm/dL (2.2-3.9) H 11/13/18 06:00 Albumin/Globulin Ratio 0.7 (1.0-2.1) L 11/13/18 06:00 Lipase 285 U/L (23-300) 11/13/18 09:50 Fluid Source Peritoneal/ascites 11/13/18 14:00 Fluid Appearance Clear (CLEAR) 11/13/18 14:00 Fluid WBC 221.0 /mm3 (0.0-300.0) 11/13/18 14:00 Fluid RBC 437.0 /mm3 (0.0-0.0) H 11/13/18 14:00 Fluid Tot Cell Count 100 (0-0) H 11/13/18 14:00 Fluid Neutrophils 62.0 % (0-0) H 11/13/18 14:00 Fluid Lymphocytes 13.0 % (0-0) H 11/13/18 14:00 Fld Monocyte/Macrophag 25 % (0-0) H 11/13/18 14:00 Fluid Total Protein < 2.0 g/dL (NONE ESTABLISHED) 11/13/18 14:00 Fluid Comment Lt yellow 11/13/18 14:00 Alcohol, Quantitative < 10 mg/dl (0-10) 11/13/18 00:25 Attending/Attestation - Attestation I have personally seen and examined this patient.: Yes I have fully participated in the care of the patient.: Yes I have reviewed all pertinent clinical information, including history, physical exam and plan: Yes Notes (Text): 11/14/18 16:36 agree with findings and plan as above.
[2018-11-13 15:00] LABS: BF GROSS APPEARANCE CLEAR (CLEAR)
--- NOTE | 2018-11-13 15:11 | US ---
Date of Procedure: 11/13/2018 PROCEDURE: Ultrasound-guided paracentesis, CPT 93000 Medications: 7 cc 1% Lidocaine HISTORY: Ascites, abdominal pain TECHNIQUE: Following informed consent , the patient was placed supine on the stretcher and the site was marked. A limited abdominal ultrasound was performed that showed a small amount of intra-abdominal fluid. Procedural time out was called and the Pt's abdomen was marked and prepped and draped in the usual sterile fashion. Ultrasound-guided large volume paracentesis performed. A total of 810 cc of straw colored fluid was removed without complication. IMPRESSION: Ultrasound-guided paracentesis.
[2018-11-13 15:21] LABS: BODY FLUID MONO/MACROPHAGE 25 % (0-0); BODY FLUID TOTAL COUNT 100 (0-0)
[2018-11-13 16:13] VITALS: BP 112/81; PULSE 63
[2018-11-13 16:32] VITALS: RESP 20; TEMP 98.3; O2SAT 100
== END 2018-11-13 18:09 | disposition home or self-care (01) ==
LOC: H.ER 19:35 → INTOOBSV 11-13 00:25 → H.ERHOLD 11-13 00:25 → H.MEDSURG1 11-13 04:40
PROVIDERS: ADMIT Internal Medicine; ATTEND Internal Medicine
DX: R18.8 Other ascites (principal); K74.60 Unspecified cirrhosis of liver; B18.2 Chronic viral hepatitis C; N18.3 Chronic kidney disease, stage 3 (moderate); E11.22 Type 2 diabetes mellitus with diabetic chronic kidney disease; I12.9 Hypertensive chronic kidney disease with stage 1 through stage 4 chronic kidney disease, or unspecified chronic kidney disease; D64.9 Anemia, unspecified; K43.9 Ventral hernia without obstruction or gangrene; K21.9 Gastro-esophageal reflux disease without esophagitis; K29.70 Gastritis, unspecified, without bleeding; E78.00 Pure hypercholesterolemia, unspecified; Z79.4 Long term (current) use of insulin; Z87.01 Personal history of pneumonia (recurrent)
CPT/HCPCS: 36415; 49083; 71045; 76700; 80053; 80320; 82042; 82140; 82945; 82948; 83690; 83735; 84100; 85025; 85610; 85730; 87070; 87075; 87101; 87205; 88104; 88305; 89051; 93005; 96361; 96365; 96367; 96375; 96376; 99285; C1729; G0378; J0696; J2270; J3480; P9047

== ENCOUNTER 2018-11-14 00:31 | Emergency (ER) | payer SELFPAY ==
[2018-11-14 00:40] VITALS: BMI 31.8
[2018-11-14 00:41] VITALS: O2SAT 100
[2018-11-14] MEDS ORDERED: Iohexol 240 (50 ml) PO STA (02:06)
--- NOTE | 2018-11-14 02:11 | ED PDOC ---
HPI: Abdomen Time Seen by Provider: 11/14/18 00:56 Chief Complaint (Nursing): Abdominal Pain Chief Complaint (Provider): abdominal pain History Per: Patient, Family (son) Additional Complaint(s): 58 F with hx of Hep C w/ liver cirrhosis, DM and HTN who presents with abdominal pain. Patient was just discharged from hospital on 11/13 at about 5pm after being admitted with abdominal pain and having paracentesis. Patient was d/c'ed home with Tramadol and states that she continued to have abdominal pain. She tooka dose of tramadol w/o any improvement. She also had episode of vomiting x 1 since discharge. Has not had BM. Denies fever, chills, diarrhea. States that her pain is from her hernia and has not had increasing abdominal girth since discharge. Past Medical History Reviewed: Historical Data, Nursing Documentation, Vital Signs Vital Signs: Last Vital Signs Temp 98.3 F 11/14/18 00:46 Pulse 80 11/14/18 00:46 Resp 19 11/14/18 00:46 BP 135/81 11/14/18 00:46 Pulse Ox 100 11/14/18 00:46 - Medical History PMH: Anemia, Diabetes (type II), Gastritis, GERD, Hepatitis (C with liver cirrhosis), Hiatal Hernia, HTN, Hypercholesterolemia, Pneumonia Denies: Anxiety, Bipolar Disorder, Depression, HIV, Paranoia, Post Traumatic Stress Disorder, Chronic Kidney Disease, Schizophrenia - Surgical History Surgical History: Appendectomy, Hernia Repair - Family History Family History: States: Unknown Family Hx - Immunization History Hx Influenza Vaccination: No Hx Pneumococcal Vaccination: No - Home Medications Home Medications: Ambulatory Orders Medication Instructions Recorded Lansoprazole [Prevacid] 15 mg PO DAILY 09/03/18 Propranolol [Inderal] 10 mg PO Q8 09/03/18 Spironolactone [Aldactone] 100 mg PO DAILY 09/03/18 Furosemide [Lasix] 40 mg PO DAILY #30 tab 09/04/18 Lactulose 20 gm PO DAILY 30 Days #2 solution 09/04/18 - Allergies Allergies/Adverse Reactions: Allergies Allergy/AdvReac Type Severity Reaction Status Date / Time No Known Allergies Allergy Verified 11/14/18 00:51 Physical Exam - Reviewed Nursing Documentation Reviewed: Yes Vital Signs Reviewed: Yes - Physical Exam Appears: Positive for: Uncomfortable Skin: Positive for: Jaundice Gastrointestinal/Abdominal: Positive for: Tenderness, Hernia (ventral hernia (reducible), umbilical hernia non-reducible), Asicites ( minimal fluid wave). Negative for: Distended, Guarding, Rebound Neurologic/Psych: Positive for: Alert, Oriented - Laboratory Results Result Diagrams: 11/14/18 02:15 11/14/18 02:15 - ECG O2 Sat by Pulse Oximetry: 100 Medical Decision Making Medical Decision Making: Abd/pelvis CT w/ PO and IV contrast R/O strangulated hernia CBC, CMP Toradol 15mg IV x 1 Abd/pelvis CT w/ PO and IV contrast: FINDINGS: Moderate partial small bowel obstruction. Transition zone in the right lower quadrant. Moderate distention of the obstructed small bowel loops. Suspected mild pneumatosis intestinalis a few obstructive/distended small bowel loops in the mid abdomen. No evidence of bowel perforation or pneumatosis intestinalis. Again are noted anterior abdominal wall hernias containing free fluid. Thickening of the fat in the supraumbilical anterior abdominal wall hernia has increased on the current exam suspicious for mild incarceration. Unchanged mesenteric edema and congestion. Unchanged large ascites. Cirrhotic unenhanced liver. Cholelithiasis with distended gallbladder and nondilated extrahepatic biliary system. Moderately enlarged unenhanced spleen. Normal pancreas. Normal bilateral adrenal glands. Atrophic right kidney. There is no right renal mass. There are no right renal calculi. There is no right hydronephrosis. Normal visualized right ureter. Atrophic left kidney. There is no left renal mass. There are no left renal calculi. There is no left hydronephrosis. Normal visualized left ureter. Normal abdominal aorta. Normal inferior vena cava. Normal retroperitoneum. Normal urinary bladder. There is no pelvic mass lesion or lymphadenopathy. Moderate spondylosis. IMPRESSION: Moderate partial small bowel obstruction. Transition zone in the right lower quadrant. Moderate distention of the obstructed small bowel loops. Suspected mild pneumatosis intestinalis a few obstructive/distended small bowel loops in the mid abdomen. No evidence of bowel perforation or pneumatosis intestinalis. Surgical consultation is recommended. Again are noted anterior abdominal wall hernias containing free fluid. Thickening of the fat in the supraumbilical anterior abdominal wall hernia has increased on the current exam suspicious for mild incarceration. Unchanged mesenteric edema and congestion. Unchanged large ascites. Cirrhotic unenhanced liver. Cholelithiasis with distended gallbladder and nondilated extrahepatic biliary system. Surgery consulted. 07:13am: seen by surgery who performed SHARI and patient able to pass flatus and were able to manually reduce umbilical hernia so no surgical intervention indicated. Patient feeling better. STable for d/c home and encouraged to increase PO fluid intake and f/u with primary care. Disposition - Clinical Impression Clinical Impression: Partial small bowel obstruction, Umbilical hernia - Patient ED Disposition Is Patient to be Admitted: Transfer of Care (Dr. Carballo) Counseled Patient/Family Regarding: Studies Performed, Diagnosis, Need For Followup - Disposition Referrals: [facility] [Outside] Disposition: Transfer of Care Disposition Time: 07:13 Condition: STABLE Additional Instructions: Take Ibuprofen or Tramadol for pain as instructed. F/u with your primary care provider for further pain management. Return to ER if you have persistent vomiting or recurrent abdominal pain. Forms: [facility] (Italian)
[2018-11-14 02:30] LABS: BASO % 0.3 % (0.0-2.0); EOS % 0.8 % (0.0-4.0); LYMPH # 0.7 K/uL (1.0-4.3); LYMPH % 12.1 % (20.0-40.0); MEAN CELL VOLUME 98.5 fl (81.0-99.0); MEAN CORPUSCULAR HEMOGLOBIN 32.7 pg (27.0-31.0); MEAN CORPUSCULAR HGB CONC 33.2 g/dL (33.0-37.0); MEAN PLATELET VOLUME 8.3 fl (7.2-11.7); MONO # 0.4 K/uL (0.0-0.8); MONO % 7.5 % (0.0-10.0); NEUT # 4.7 K/uL (1.8-7.0); NEUT % 79.3 % (50.0-75.0); RBC 2.46 Mil/uL (3.80-5.20); RED CELL DISTRIBUTION WIDTH 15.7 % (11.5-14.5)
[2018-11-14 02:34] LABS: INR 1.5; PROTHROMBIN TIME 16.6 Seconds (9.8-13.1)
[2018-11-14 02:48] LABS: ALB/GLOB RATIO 0.7 (1.0-2.1); ALBUMIN 2.9 g/dL (3.5-5.0); CALCIUM 8.5 mg/dL (8.4-10.2)
[2018-11-14 06:47] VITALS: TEMP 98.1
[2018-11-14 07:25] VITALS: PULSE 74; RESP 18
--- NOTE | 2018-11-14 07:30 | CP.PCM.CON ---
History of Present Illness - History of Present Illness History of Present Illness: Surgery Consult Note- Dr. Alberto Reason for Consult: Incarcerated Umbilical hernia, partial small bowel obstruction 58F pmhx significant for HepC, liver cirrhosis, HTN, DM presents to [facility] ED w/ generalized abdominal pain localized around the umbilicus for 2 days. Of note patient was recently admitted and had a paracentesis performed yesterday where they pulled approx 1L of straw colored fluid. Patient abdominal pain moderately improved however continued. In ED CT scan was performed which showed ventral and umbilical hernia, Ascitic fluid, and partial small bowel obstruction with no transition point. While in the ED, both hernias were able to reduce, abd pain improved. Patient passed flatus right before digital rectal exam. Denies: fevers, chills, chest pain, shortness of breath, nausea, vomiting, diarrhea PMH: Hepatic Liver Cirrhosis, Hepatitis C, CKD, HTN, IDDMII, and Anemia PSH: Appendectomy, Tubal Ligation, Ventral Hernia Repair (2016), therapeutic paracentesis ALL: NKDA SocialHx: denies tobacco, etoh, recreational drug use FH: non-contributory Meds: See MAR MELD: 24 Child Valero: Class C Review of Systems - Review of Systems All systems: reviewed and no additional remarkable complaints except - Constitutional Constitutional: As Per HPI Past Patient History - Tetanus Immunizations Tetanus Immunization: Unknown - Past Medical History & Family History Past Medical History?: Yes - Past Social History Smoking Status: Never Smoked - CARDIAC Hx Hypercholesterolemia: Yes Hx Hypertension: Yes - PULMONARY Hx Pneumonia: Yes - NEUROLOGICAL Hx Neurological Disorder: No - HEENT Hx HEENT Problems: No - RENAL Hx Chronic Kidney Disease: No - ENDOCRINE/METABOLIC Hx Endocrine Disorders: Yes Hx Diabetes Mellitus Type 2: Yes - HEMATOLOGICAL/ONCOLOGICAL Hx Anemia: Yes Hx Human Immunodeficiency Virus (HIV): No - INTEGUMENTARY Hx Dermatological Problems: No - MUSCULOSKELETAL/RHEUMATOLOGICAL Hx Falls: No - GASTROINTESTINAL Hx Gastritis: Yes - GENITOURINARY/GYNECOLOGICAL Hx Genitourinary Disorders: No - PSYCHIATRIC Hx Anxiety: No Hx Bipolar Disorder: No Hx Depression: No Hx Paranoia: No Hx Post Traumatic Stress Disorder: No Hx Schizophrenia: No - SURGICAL HISTORY Hx Appendectomy: Yes - ANESTHESIA Hx Anesthesia: Yes Hx Anesthesia Reactions: No Hx Malignant Hyperthermia: No Meds Allergies/Adverse Reactions: Allergies Allergy/AdvReac Type Severity Reaction Status Date / Time No Known Allergies Allergy Verified 11/14/18 00:51 Physical Exam - Constitutional Appears: Non-toxic, No Acute Distress - Head Exam Head Exam: ATRAUMATIC - Eye Exam Eye Exam: EOMI. absent: Scleral icterus - ENT Exam ENT Exam: Mucous Membranes Moist - Respiratory Exam Respiratory Exam: NORMAL BREATHING PATTERN. absent: Accessory Muscle Use, Respiratory Distress - Cardiovascular Exam Cardiovascular Exam: REGULAR RHYTHM. absent: Bradycardia, Tachycardia - GI/Abdominal Exam GI & Abdominal Exam: Distended, Hernia (hernia x2, ventral and umbilical. Both hernias were reduced at bedside. No underlying skin changes), Soft, Tenderness (mild tenderness around umbilicus). absent: Firm, Guarding - Neurological Exam Neurological exam: Alert, Oriented x3 - Psychiatric Exam Psychiatric exam: Normal Affect - Skin Skin Exam: Intact, Warm Results - Vital Signs Recent Vital Signs: Last Vital Signs Temp 98.1 F 11/14/18 06:45 Pulse 74 11/14/18 07:23 Resp 18 11/14/18 07:23 BP 143/76 11/14/18 06:45 Pulse Ox 100 11/14/18 07:23 - Labs Result Diagrams: 11/14/18 02:15 11/14/18 02:15 Labs: Laboratory Results - last 24 hr 11/14/18 11/14/18 11/14/18 02:15 02:15 02:15 WBC 6.0 RBC 2.46 L Hgb 8.0 L Hct 24.2 L MCV 98.5 MCH 32.7 H MCHC 33.2 RDW 15.7 H Plt Count 93 L MPV 8.3 Neut % (Auto) 79.3 H Lymph % (Auto) 12.1 L Phelps % (Auto) 7.5 Eos % (Auto) 0.8 Baso % (Auto) 0.3 Neut # (Auto) 4.7 Lymph # (Auto) 0.7 L Phelps # (Auto) 0.4 Eos # (Auto) 0.0 Baso # (Auto) 0.0 PT 16.6 H INR 1.5 APTT 35.0 Sodium 133 Potassium 4.9 Chloride 108 H Carbon Dioxide 18 L Anion Gap 12 BUN 31 H Creatinine 1.7 H Est GFR ( Amer) 37 Est GFR (Non-Af Amer) 31 Random Glucose 253 H Calcium 8.5 Total Bilirubin 4.8 H AST 50 H ALT 35 Alkaline Phosphatase 192 H Total Protein 6.9 Albumin 2.9 L Globulin 4.1 H Albumin/Globulin Ratio 0.7 L Assessment & Plan - Assessment and Plan (Free Text) Assessment: 58F hx liver cirrohis, hepC, Ventral hernia repair presents to ED w/ Abdominal pain, ventral and umbilical hernia and partial small bowel obstruction. Both hernias reduced at bedside, passed flatus during encounter MELD: 24 Child Valero: Class C Plan: - No acute surgical intervention - continued medical management for cirrhosis - no signs of obstruction at this time - counselled patient on; if hernia cannot be reduced at home and severe pain to return back to the hospital - will [facility] PGY2
[2018-11-14 07:35] VITALS: BP 124/64
--- NOTE | 2018-11-14 08:22 | CT ---
Date of service: 11/14/2018 PROCEDURE: CT Abdomen and Pelvis without intravenous contrast HISTORY: R/o strangulated umbilical hernia COMPARISON: 09/02/2018 TECHNIQUE: Technique. Contrast dose: Radiation dose: Total exam DLP = 822.73 mGy-cm. This CT exam was performed using one or more of the following dose reduction techniques: Automated exposure control, adjustment of the mA and/or kV according to patient size, and/or use of iterative reconstruction technique. FINDINGS: LOWER THORAX: Unremarkable. LIVER: Cirrhotic liver. GALLBLADDER AND BILE DUCTS: Gallstones. PANCREAS: Unremarkable. No gross lesion or ductal dilatation. SPLEEN: Unremarkable. ADRENALS: Unremarkable. No mass. KIDNEYS AND URETERS: Unremarkable. No hydronephrosis. No solid mass. VASCULATURE: Unremarkable. No aortic aneurysm. No aortic atherosclerotic calcification or mural plaque present. BOWEL: Partial small bowel obstruction versus ileus. APPENDIX: Unremarkable. Normal appendix. PERITONEUM: Extensive ascites. Large umbilical hernia containing small bowel loop. Ascitic fluid. LYMPH NODES: Unremarkable. No enlarged lymph nodes. BLADDER: Unremarkable. REPRODUCTIVE: Unremarkable. BONES: No acute fracture. OTHER FINDINGS: Anasarca. IMPRESSION: Ileus versus partial small bowel obstruction. Large umbilical hernia containing ascitic fluid in a loop of bowel. Extensive ascites and anasarca. Cirrhosis.
== END 2018-11-14 07:27 | disposition home or self-care (01) ==
LOC: H.ER 00:31
DX: K56.699 Other intestinal obstruction unspecified as to partial versus complete obstruction (principal); K42.9 Umbilical hernia without obstruction or gangrene; B19.20 Unspecified viral hepatitis C without hepatic coma; D64.9 Anemia, unspecified; E11.22 Type 2 diabetes mellitus with diabetic chronic kidney disease; E78.00 Pure hypercholesterolemia, unspecified; I12.9 Hypertensive chronic kidney disease with stage 1 through stage 4 chronic kidney disease, or unspecified chronic kidney disease; K74.60 Unspecified cirrhosis of liver; Z79.4 Long term (current) use of insulin; K80.20 Calculus of gallbladder without cholecystitis without obstruction
CPT/HCPCS: 74176; 80053; 85025; 85610; 85730; 96374; 99285; J1885; Q9966

== ENCOUNTER 2018-12-07 15:42 | Emergency (ER) | payer MEDICAID, OTHER ==
[2018-12-07 16:30] VITALS: O2SAT 100; BMI 31.6
--- NOTE | 2018-12-07 17:20 | ED PDOC ---
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 Of note, pt has had 2 paracentesis in the last 6 months. She denies abdominal pain, fever/chills, n/v, dysuria, diarrhea. Last BM today, passing gas. She is alert and oriented. Son at bedside. PMD: Dr. Morejon, [facility] <Cody Fernández - Last Filed: 12/07/18 19:10> <Terrence Diaz - Last Filed: 12/08/18 12:30> Time Seen by Provider: 12/07/18 16:45 Chief Complaint (Nursing): Abdominal Pain Supervising Attending Note - Supervising Attending Note The Documented history was done by the: Physician Business Advisor, Attending Physician The documented physical exam was done by the: Physician Business Advisor, Attending Physician The documented procedures were done by the: Physician Business Advisor, Attending Physician - Attestation: I have personally seen and examined this patient.: Yes I have fully participated in the care of the patient.: Yes I have reviewed all pertinent clinical information: Yes <Terrence Diaz - Last Filed: 12/08/18 12:30> Past Medical History Reviewed: Historical Data, Nursing Documentation, Vital Signs Vital Signs: Last Vital Signs Temp 97.5 F L 12/07/18 16:29 Pulse 61 12/07/18 16:29 Resp 16 12/07/18 16:29 BP 153/78 H 12/07/18 16:29 Pulse Ox 100 12/07/18 16:29 - Medical History PMH: Anemia, Diabetes (type II), Gastritis, GERD, Hepatitis (C with liver cirrhosis), Hiatal Hernia, HTN, Hypercholesterolemia, Pneumonia Denies: Anxiety, Bipolar Disorder, Depression, HIV, Paranoia, Post Traumatic Stress Disorder, Chronic Kidney Disease, Schizophrenia - Surgical History Surgical History: Appendectomy, Hernia Repair - Family History Family History: States: Unknown Family Hx - Immunization History Hx Influenza Vaccination: No Hx Pneumococcal Vaccination: No <Cody Fernández - Last Filed: 12/07/18 19:10> Reviewed: Historical Data Vital Signs: Last Vital Signs Temp 97.5 F L 12/07/18 16:29 Pulse 61 12/07/18 16:29 Resp 16 12/07/18 16:29 BP 153/78 H 12/07/18 16:29 Pulse Ox 100 12/07/18 18:37 <Terrence Diaz - Last Filed: 12/08/18 12:30> - Home Medications Home Medications: Ambulatory Orders Medication Instructions Recorded Lansoprazole [Prevacid] 15 mg PO DAILY 09/03/18 Propranolol [Inderal] 10 mg PO Q8 09/03/18 Spironolactone [Aldactone] 100 mg PO DAILY 09/03/18 Furosemide [Lasix] 40 mg PO DAILY #30 tab 09/04/18 Lactulose 20 gm PO DAILY 30 Days #2 solution 09/04/18 - Allergies Allergies/Adverse Reactions: Allergies Allergy/AdvReac Type Severity Reaction Status Date / Time No Known Allergies Allergy Verified 11/14/18 00:51 Review of Systems Constitutional: Negative for: Fever, Chills Cardiovascular: Negative for: Chest Pain, Orthopnea Respiratory: Negative for: Cough, Shortness of Breath, Hemoptysis Gastrointestinal: Negative for: Nausea, Vomiting, Abdominal Pain, Melena, Hematochezia, Hematemesis Genitourinary Female: Negative for: Dysuria Neurological: Negative for: Weakness <Cody Fernández - Last Filed: 12/07/18 19:10> ROS Statement: Except As Marked, All Systems Reviewed And Found Negative <Terrence Diaz - Last Filed: 12/08/18 12:30> Physical Exam - Physical Exam Appears: Positive for: No Acute Distress Skin: Positive for: Jaundice Eye Exam: Positive for: Scleral icterus ENT: Positive for: Normal ENT Inspection Neck: Positive for: Normal Cardiovascular/Chest: Positive for: Regular Rate, Rhythm Respiratory: Positive for: Normal Breath Sounds. Negative for: Accessory Muscle Use, Crackles, Wheezing Gastrointestinal/Abdominal: Positive for: Asicites (Moderate ascites, +fluid shift, mildy tense), Other (Small umbilical bulge noted that is reproducible without any discomfort ). Negative for: Tenderness Extremity: Positive for: Pedal Edema (+1 BL) Neurological/Psych: Positive for: Awake, Alert, Normal Tone, Oriented (X3) <Cody Fernández - Last Filed: 12/07/18 19:10> - Reviewed Nursing Documentation Reviewed: Yes Vital Signs Reviewed: Yes - Physical Exam Head Exam: Positive for: ATRAUMATIC, NORMAL INSPECTION Skin: Positive for: Normal Color, Warm Eye Exam: Positive for: EOMI Gastrointestinal/Abdominal: Positive for: Soft <Terrence Diaz A - Last Filed: 12/08/18 12:30> - Laboratory Results Result Diagrams: 12/07/18 17:38 12/07/18 17:38 - ECG O2 Sat by Pulse Oximetry: 100 <Cody Fernández - Last Filed: 12/07/18 19:10> - Laboratory Results Result Diagrams: 12/07/18 17:38 12/07/18 19:22 Lab Results: PT 14.2 Seconds (9.8-13.1) H 12/07/18 17:38 INR 1.3 12/07/18 17:38 APTT 22.1 Seconds (25.6-37.1) L 12/07/18 17:38 Total Bilirubin 2.1 mg/dl (0.2-1.3) H 12/07/18 17:38 AST 66 U/L (14-36) H D 12/07/18 17:38 ALT 24 U/L (9-52) 12/07/18 17:38 Alkaline Phosphatase 187 U/L (38-126) H 12/07/18 17:38 Total Protein 8.0 G/DL (6.3-8.2) 12/07/18 17:38 Albumin 3.3 g/dL (3.5-5.0) L 12/07/18 17:38 Globulin 4.7 gm/dL (2.2-3.9) H 12/07/18 17:38 Albumin/Globulin Ratio 0.7 (1.0-2.1) L 12/07/18 17:38 <Terrence Diaz A - Last Filed: 12/08/18 12:30> Medical Decision Making Medical Decision Making: Pt is a 58 y/o female with hx of Liver Cirrhosis w/ recurrent ascites presenting with complaints of abdominal distension and fullness that has been gradual and she is requesting to have the fluid removed. Pt likely in need for paracentesis. Explained to pt that the earliest she can have fluid removed is in the AM as IR Department is currently closed. Pt and son both state they prefer to go home and come back in the morning. Pt is alert and oriented and has full capacity. Labs sent, CBC, CMP, PT/INR Labs significant for hyperkalemia, specimen is hemolyzed. Will repeat BMP. <Cody Fernández - Last Filed: 12/07/18 19:10> Disposition Discussed With DrLana: Terrence Diaz (Signed off to Dr. Garcia by Dr. Diaz ) - Disposition Disposition Time: 19:12 <Cody Fernández - Last Filed: 12/07/18 19:10> - Patient ED Disposition Is Patient to be Admitted: Transfer of Care Counseled Patient/Family Regarding: Studies Performed, Diagnosis - Disposition Disposition: Transfer of Care Disposition Time: 19:00 <Terrence Diaz - Last Filed: 12/08/18 12:30> - Clinical Impression Clinical Impression: Ascites, Liver cirrhosis - Disposition Condition: STABLE Instructions: Cirrhosis, Fluid in the Belly (Ascites) (DC) Forms: [facility] (Mosotho) Print Language: K[place]WAHILI
[2018-12-07 17:49] LABS: INR 1.3; PROTHROMBIN TIME 14.2 Seconds (9.8-13.1)
[2018-12-07 17:51] LABS: PARTIAL THROMBOPLASTIN TIME 22.1 Seconds (25.6-37.1)
[2018-12-07 17:52] LABS: BASO % 0.6 % (0.0-2.0); EOS # 0.1 K/uL (0.0-0.7); EOS % 2.9 % (0.0-4.0); HEMOGLOBIN 8.3 g/dL (12.0-16.0); LYMPH # 0.9 K/uL (1.0-4.3); LYMPH % 20.9 % (20.0-40.0); MEAN CELL VOLUME 99.8 fl (81.0-99.0); MEAN CORPUSCULAR HEMOGLOBIN 32.4 pg (27.0-31.0); MEAN CORPUSCULAR HGB CONC 32.5 g/dL (33.0-37.0); MEAN PLATELET VOLUME 9.2 fl (7.2-11.7); MONO # 0.4 K/uL (0.0-0.8); MONO % 9.8 % (0.0-10.0); NEUT % 65.8 % (50.0-75.0); RBC 2.56 Mil/uL (3.80-5.20); RED CELL DISTRIBUTION WIDTH 16.1 % (11.5-14.5); WHITE BLOOD COUNT 4.5 K/uL (4.8-10.8)
--- NOTE | 2018-12-07 18:01 | RAD ---
Date of service: 12/07/2018 HISTORY: ascites COMPARISON: 11/13/2018. FINDINGS: LUNGS: No active pulmonary disease. PLEURA: No significant pleural effusion identified, no pneumothorax apparent. CARDIOVASCULAR: No atherosclerotic calcification present No radiographic findings to suggest acute or significant cardiovascular disease. OSSEOUS STRUCTURES: No significant abnormalities. VISUALIZED UPPER ABDOMEN: Normal. OTHER FINDINGS: None. IMPRESSION: No active disease. No significant interval change compared to the prior examination(s).
[2018-12-07 18:32] LABS: ALB/GLOB RATIO 0.7 (1.0-2.1); ALBUMIN 3.3 g/dL (3.5-5.0)
[2018-12-07] MEDS ORDERED: Insulin Lispro (humaLOG) 100 Units/ml Inj SC STA (18:37)
[2018-12-07] MEDS ORDERED: Albuterol HFA 90 mcg/actuation (8 g) INH STA (18:37)
[2018-12-07] MEDS ORDERED: Dextrose 50% SYRINGE Inj (50 ml) IVP ONE (18:37)
[2018-12-07] MEDS ORDERED: Insulin Regular 100 units/ml IV STA (18:42)
[2018-12-07] MEDS ORDERED: Insulin Regular 100 units/ml ONE (19:01)
[2018-12-07 19:25] VITALS: RESP 18
--- NOTE | 2018-12-07 19:31 | ED PDOC ---
- Laboratory Results Result Diagrams: 12/07/18 17:38 12/07/18 19:22 Lab Results: PT 14.2 Seconds (9.8-13.1) H 12/07/18 17:38 INR 1.3 12/07/18 17:38 APTT 22.1 Seconds (25.6-37.1) L 12/07/18 17:38 Total Bilirubin 2.1 mg/dl (0.2-1.3) H 12/07/18 17:38 AST 66 U/L (14-36) H D 12/07/18 17:38 ALT 24 U/L (9-52) 12/07/18 17:38 Alkaline Phosphatase 187 U/L (38-126) H 12/07/18 17:38 Total Protein 8.0 G/DL (6.3-8.2) 12/07/18 17:38 Albumin 3.3 g/dL (3.5-5.0) L 12/07/18 17:38 Globulin 4.7 gm/dL (2.2-3.9) H 12/07/18 17:38 Albumin/Globulin Ratio 0.7 (1.0-2.1) L 12/07/18 17:38 - ECG O2 Sat by Pulse Oximetry: 100 (RA) Pulse Ox Interpretation: Normal Medical Decision Making Medical Decision Making: Time: 1899 -- Patient endorsed to me by Dr. Diaz, pending repeat Chemistry. Time: 2058 -- Repeat potassium shows very minimal elevation from normal. Patient is stable for discharge and return as directed by Dr. Willams for further treatment. Scribe Attestation: Documented by Andie Mcneal, acting as a scribe Bernice Garcia MD. Provider Scribe Attestation: All medical record entries made by the Scribe were at my direction and personally dictated by me. I have reviewed the chart and agree that the record accurately reflects my personal performance of the history, physical exam, medical decision making, and the department course for this patient. I have also personally directed, reviewed, and agree with the discharge instructions and disposition. Disposition Counseled Patient/Family Regarding: Studies Performed, Diagnosis - Clinical Impression Clinical Impression: Ascites, Liver cirrhosis - POA Present On Arrival: None - Disposition Disposition: Routine/Home Disposition Time: 20:59 Condition: FAIR Instructions: Cirrhosis, Fluid in the Belly (Ascites) (DC) Forms: [facility] (Kazakh) Print Language: CHINESE
[2018-12-07 19:47] LABS: CALCIUM 8.9 mg/dL (8.4-10.2)
[2018-12-07 21:24] VITALS: BP 154/75; PULSE 62; TEMP 97.4
== END 2018-12-07 21:22 | disposition home or self-care (01) ==
LOC: H.ER 15:42
DX: K74.60 Unspecified cirrhosis of liver (principal); R18.8 Other ascites; E11.9 Type 2 diabetes mellitus without complications; I10 Essential (primary) hypertension; K21.9 Gastro-esophageal reflux disease without esophagitis; E78.00 Pure hypercholesterolemia, unspecified

== ENCOUNTER 2018-12-15 10:47 | Inpatient (IN) | payer MEDICAID, SELFPAY ==
[2018-12-15 10:48] VITALS: BMI 31.6
[2018-12-15 12:20] LABS: BASO % 0.2 % (0.0-2.0); EOS # 0.1 K/uL (0.0-0.7); EOS % 0.8 % (0.0-4.0); HEMOGLOBIN 9.5 g/dL (12.0-16.0); LYMPH # 0.8 K/uL (1.0-4.3); LYMPH % 9.6 % (20.0-40.0); MEAN CELL VOLUME 98.1 fl (81.0-99.0); MEAN CORPUSCULAR HEMOGLOBIN 32.4 pg (27.0-31.0); MONO # 0.6 K/uL (0.0-0.8); MONO % 7.2 % (0.0-10.0); NEUT # 6.7 K/uL (1.8-7.0); NEUT % 82.2 % (50.0-75.0); NRBC % 0.1 % (0.0-0.0); PLATELET COUNT 129 K/uL (130-400); RBC 2.93 Mil/uL (3.80-5.20); RED CELL DISTRIBUTION WIDTH 15.3 % (11.5-14.5); WHITE BLOOD COUNT 8.1 K/uL (4.8-10.8)
[2018-12-15 12:24] LABS: INR 1.2; PROTHROMBIN TIME 14.1 Seconds (9.8-13.1)
[2018-12-15 12:26] LABS: PARTIAL THROMBOPLASTIN TIME 32.6 Seconds (25.6-37.1)
[2018-12-15 12:38] LABS: ABG ALLEN TEST YES; ARTERIAL BLOOD GAS HCO3 20.6 mmol/L (21-28); ARTERIAL BLOOD GAS O2 SAT 100.4 % (95-98); ARTERIAL BLOOD GAS PCO2 24 mm/Hg (35-45); ARTERIAL BLOOD GAS PH 7.46 (7.35-7.45); ARTERIAL BLOOD GAS PO2 131 mm/Hg (80-100); ARTERIAL BLOOD GAS TCO2 17.8 mmol/L (22-28)
[2018-12-15 12:39] LABS: ALB/GLOB RATIO 0.7 (1.0-2.1); ALBUMIN 3.3 g/dL (3.5-5.0); CALCIUM 9.5 mg/dL (8.4-10.2)
[2018-12-15] MEDS ORDERED: Insulin Regular 100 units/ml IV STA (12:41)
[2018-12-15] MEDS ORDERED: Albuterol 0.083% Inhal Sol (2.5 mg/3 mL) UD INH ONE (12:42)
[2018-12-15] MEDS ORDERED: Dextrose 50% SYRINGE Inj (50 ml) IVP ONE (12:42)
[2018-12-15] MEDS ORDERED: Sodium Bicarbonate (8.4%) 50 Meq Syringe IVP ONE (12:45)
--- NOTE | 2018-12-15 12:51 | CT ---
Date of service: 12/15/2018 PROCEDURE: CT HEAD WITHOUT CONTRAST. HISTORY: ams COMPARISON: Noncontrast head CT performed 06/23/18 TECHNIQUE: Axial computed tomography images were obtained through the head/brain without intravenous contrast. Radiation dose: Total exam DLP = 1625.42 mGy-cm. This CT exam was performed using one or more of the following dose reduction techniques: Automated exposure control, adjustment of the mA and/or kV according to patient size, and/or use of iterative reconstruction technique. FINDINGS: Examination markedly limited by patient motion. Streak artifact obscures evaluation of the skull base. HEMORRHAGE: No intracranial hemorrhage. BRAIN: Diffuse atrophy with prominence of the ventricles and sulci noted. No mass effect or edema. Intracranial atherosclerosis. Mild scattered periventricular and subcortical white matter hypodensities, which are nonspecific, but often seen with chronic microvascular ischemic disease. Please note that MRI with diffusion imaging is more sensitive in the detection of acute ischemic event. VENTRICLES: No hydrocephalus. CALVARIUM: Unremarkable. PARANASAL SINUSES: Unremarkable as visualized. No significant inflammatory changes. MASTOID AIR CELLS: Unremarkable as visualized. No inflammatory changes. OTHER FINDINGS: None. IMPRESSION: Examination limited by patient motion and streak artifact. Generalized atrophy. Nonspecific white matter changes.
[2018-12-15] MEDS ORDERED: Albuterol 0.083% Inhal Sol (2.5 mg/3 mL) UD ONE (12:56)
[2018-12-15] MEDS ORDERED: Sodium Bicarbonate (8.4%) 50 Meq Syringe ONE (12:57)
[2018-12-15] MEDS ORDERED: Insulin Regular 100 units/ml ONE (12:57)
[2018-12-15] MEDS ORDERED: Dextrose 50% SYRINGE Inj (50 ml) ONE (12:57)
[2018-12-15 12:59] LABS: BASOPHIL 1 % (0-2); EOSINOPHIL 2 % (0-7); LYMPHOCYTE 8 % (20-50); MONOCYTE 8 % (0-10); NEUTROPHIL 81 % (42-75); TOTAL CELLS COUNTED 100
[2018-12-15 13:01] LABS: PLATELET ESTIMATE NORMAL (NORMAL)
[2018-12-15 13:03] LABS: ANISOCYTOSIS SLIGHT; HYPOCHROMIC MODERATE; LARGE PLATELETS PRESENT; OVALOCYTES SLIGHT; TEARDROP CELLS SLIGHT; TOXIC GRANULATION PRESENT
[2018-12-15] MEDS ORDERED: Lactulose 10 gm/15 ml (Rectal Use) PR ONE ×2 (13:30→22:29)
--- NOTE | 2018-12-15 13:43 | RAD ---
HISTORY: gi bleed COMPARISON: Chest x-ray performed 12/07/18 TECHNIQUE: Chest, one view. FINDINGS: LUNGS: Hypoinflation. Central vascular or hilar prominence and interstitial edema or infection. No focal consolidation. Please note that chest x-ray has limited sensitivity for the detection of pulmonary masses. PLEURA: No significant pleural effusion identified. No definite pneumothorax . CARDIOVASCULAR: Cardiomegaly. OSSEOUS STRUCTURES: Degenerative changes. VISUALIZED UPPER ABDOMEN: Unremarkable. OTHER FINDINGS: None. IMPRESSION: Central vascular or hilar prominence and interstitial edema or infection.
--- NOTE | 2018-12-15 14:01 | ED PDOC ---
HPI:Nausea, Vomiting, Diarrhea Time Seen by Provider: 12/15/18 11:00 Chief Complaint (Nursing): GI Problem Chief Complaint (Provider): Vomiting History Per: Family History/Exam Limitations: clinical condition Onset/Duration Of Symptoms: Hrs Current Symptoms Are (Timing): Still Present Additional Complaint(s): 58 year old female with a past medical history of liver cirrhosis from hepatitis c, hernia, HTN and diabetes presents to the ED for evlaution for altered mental status. pt was in normal state last night but sometimes between last night and this morning pt became altered and somnolent. pt without fever. according to family pt vomitted "red stuff" this am. there is no clear time of onset. Patient was discharged from inpatient yesterday after being admitted for pancreatitis and ascites. PMD: Farida Harvey Past Medical History Reviewed: Historical Data, Nursing Documentation, Vital Signs Vital Signs: Last Vital Signs Temp 98.1 F 12/15/18 11:36 Pulse 105 H 12/15/18 13:11 Resp 16 12/15/18 13:11 BP 159/69 H 12/15/18 13:11 Pulse Ox 100 12/15/18 13:11 - Medical History PMH: Anemia, Diabetes (type II), Gastritis, GERD, Hepatitis (C with liver cirrhosis), Hiatal Hernia, HTN, Hypercholesterolemia, Pneumonia Denies: Anxiety, Bipolar Disorder, Depression, HIV, Paranoia, Post Traumatic Stress Disorder, Chronic Kidney Disease, Schizophrenia - Surgical History Surgical History: Appendectomy, Hernia Repair - Family History Family History: States: Unknown Family Hx - Social History Current smoker - smoking cessation education provided: No Alcohol: None Drugs: Denies - Immunization History Hx Influenza Vaccination: No Hx Pneumococcal Vaccination: No - Home Medications Home Medications: Ambulatory Orders Medication Instructions Recorded Propranolol [Inderal] 10 mg PO Q8 09/03/18 Furosemide [Lasix] 40 mg PO DAILY #30 tab 09/04/18 Insulin Human (NPH)/Regular 25 units SC BID 12/14/18 [Novolin 70/30 (70/30 units/ml) 10 ml] Ketorolac Tromethamine [Toradol] 10 mg PO Q6H PRN #20 tab 12/14/18 Spironolactone [Aldactone] 100 mg PO DAILY tab 12/14/18 Ferrous Sulfate [Feosol] 325 mg PO DAILY 12/15/18 - Allergies Allergies/Adverse Reactions: Allergies Allergy/AdvReac Type Severity Reaction Status Date / Time No Known Allergies Allergy Verified 12/10/18 10:10 Review of Systems ROS Statement: Except As Marked, All Systems Reviewed And Found Negative Constitutional: Negative for: Fever, Chills Gastrointestinal: Positive for: Vomiting Physical Exam - Reviewed Nursing Documentation Reviewed: Yes Vital Signs Reviewed: Yes - Physical Exam Appears: Negative for: Well (somnolent, responsive to painful stimuli) Head Exam: Positive for: ATRAUMATIC, NORMAL INSPECTION, NORMOCEPHALIC Skin: Positive for: Normal Color, Warm, Dry Eye Exam: Positive for: Scleral icterus ENT: Positive for: Normal ENT Inspection Neck: Positive for: Normal, Painless ROM, Supple. Negative for: Decreased ROM Cardiovascular/Chest: Positive for: Regular Rate, Rhythm. Negative for: Murmur Respiratory: Positive for: Normal Breath Sounds. Negative for: Decreased Breath Sounds, Respiratory Distress Gastrointestinal/Abdominal: Positive for: Bowel Sounds, Soft, Hernia (chronic). Negative for: Tenderness Back: Positive for: Normal Inspection. Negative for: L CVA Tenderness, R CVA Tenderness Extremity: Positive for: Normal ROM. Negative for: Tenderness, Pedal Edema, Deformity Neurological/Psych: Positive for: Other (minimal response to verbal stimuli but responsive to physical stimuli , unable to perfomr complete neuro exam) - Laboratory Results Result Diagrams: 12/15/18 11:25 12/15/18 11:25 Lab Results: pCO2 24 mm/Hg (35-45) L 12/15/18 12:05 pO2 131 mm/Hg (80-100) H 12/15/18 12:05 HCO3 20.6 mmol/L (21-28) L 12/15/18 12:05 ABG pH 7.46 (7.35-7.45) H 12/15/18 12:05 ABG Total CO2 17.8 mmol/L (22-28) L 12/15/18 12:05 ABG O2 Saturation 100.4 % (95-98) H 12/15/18 12:05 ABG Base Excess -5.5 mmol/L (-2.0-3.0) L 12/15/18 12:05 Uriel Test Yes 12/15/18 12:05 ABG Potassium 6.9 mmol/L (3.6-5.2) H* 12/15/18 12:05 A-a O2 Difference -11.0 mm/Hg 12/15/18 12:05 Sodium 136.0 mmol/L (132-148) 12/15/18 12:05 Chloride 110.0 mmol/L (98-107) H 12/15/18 12:05 Glucose 151 mg/dL (65-105) H 12/15/18 12:05 Lactate 2.0 mmol/L (0.7-2.1) 12/15/18 12:05 FiO2 21.0 % 12/15/18 12:05 Blood Gas Comments Ra 21% 12/15/18 12:05 Crit Value Called To Samm rivas r.n. 12/15/18 12:05 Crit Value Called By Luh 12/15/18 12:05 Crit Value Read Back Y 12/15/18 12:05 Blood Gas Notified Time 1237 12/15/18 12:05 PT 14.1 Seconds (9.8-13.1) H 12/15/18 11:25 INR 1.2 12/15/18 11:25 APTT 32.6 Seconds (25.6-37.1) 12/15/18 11:25 Total Bilirubin 4.1 mg/dl (0.2-1.3) H 12/15/18 11:25 AST 50 U/L (14-36) H 12/15/18 11:25 ALT 35 U/L (9-52) 12/15/18 11:25 Alkaline Phosphatase 197 U/L (38-126) H 12/15/18 11:25 Total Protein 7.9 G/DL (6.3-8.2) 12/15/18 11:25 Albumin 3.3 g/dL (3.5-5.0) L 12/15/18 11:25 Globulin 4.6 gm/dL (2.2-3.9) H 12/15/18 11:25 Albumin/Globulin Ratio 0.7 (1.0-2.1) L 12/15/18 11:25 - ECG O2 Sat by Pulse Oximetry: 100 (RA) Pulse Ox Interpretation: Normal - Critical Care Total Time (In Min): 60 Medical Decision Making Medical Decision Making: Time: 1204 Impression: confusion, will check ammonium level r/o hepatic encephalopathy, rule out electrolyte abnormality, infection Plan: Type and screen BBK ABG shock panel BG Head w/o contrast CT EKG Ammonia stat CMP CBC w/ differential PTT Prothrombin time Chest portable [RAD] Reevalaution 1241: Albuterol 2.5mg Dextrose 50ml IVP Lactulose 200gm Insulin Human Regular 8 units Sodium bicarbonate (8.4%) 50 Meq Peak flow pre/post [place] 1246: Potassium level is 6.6 and mental status is unstable for oral medicine 1248: Date of service: 12/15/2018 PROCEDURE: CT HEAD WITHOUT CONTRAST. HISTORY:ams COMPARISON:Noncontrast head CT performed 06/23/18 TECHNIQUE:Axial computed tomography images were obtained through the head/brain without intravenous contrast. Radiation dose: Total exam DLP = 1625.42 mGy-cm. This CT exam was performed using one or more of the following dose reduction techniques: Automated exposure control, adjustment of the mA and/or kV according to patient size, and/or use of iterative reconstruction technique. FINDINGS: Examination markedly limited by patient motion. Streak artifact obscures evaluation of the skull base. HEMORRHAGE: No intracranial hemorrhage. BRAIN: Diffuse atrophy with prominence of the ventricles and sulci noted. No mass ef fect or edema. Intracranial atherosclerosis. Mild scattered periventricular and subcortical white matter hypodensities, which are nonspecific, but often seen with chronic microvascular ischemic disease. Please note that MRI with diffusion imaging is more sensitive in the detection of acute ischemic event. VENTRICLES: No hydrocephalus. CALVARIUM: Unremarkable. PARANASAL SINUSES: Unremarkable as visualized. No significant inflammatory changes. MASTOID AIR CELLS: Unremarkable as visualized. No inflammatory changes. OTHER FINDINGS: None. IMPRESSION: Examination limited by patient motion and streak artifact. Generalized atrophy. Nonspecific white matter changes. 1251: Ammonia levels are elevated will give lactulose and reviewed labs presents kidney functions are at base line ordered antibitoics for presumed Spontaneous bactertial peritonitis 1339: HISTORY:gi bleed COMPARISON:Chest x-ray performed 12/07/18 TECHNIQUE:Chest, one view. FINDINGS: LUNGS: Hypoinflation. Central vascular or hilar prominence and interstitial edema or infection. No focal consolidation. Please note that chest x-ray has limited sensitivity for the detection of pulmonary masses. PLEURA:No significant pleural effusion identified. No definite pneumothorax . CARDIOVASCULAR:Cardiomegaly. OSSEOUS STRUCTURES:Degenerative changes. VISUALIZED UPPER ABDOMEN:Unremarkable. OTHER FINDINGS:None. IMPRESSION: Central vascular or hilar prominence and interstitial edema or infection. 1400 disucssed all results with patients family at bedside. they are fine with plan. !450: spoke iwcristy nolan hospitalist as well as intensivits Dr Young who is aware of patient. Scribe Attestation: Documented by Feliciano Voss, acting as a scribe forDiane Carranza MD. Provider Scribe Attestation: All medical record entries made by the Scribe were at my direction and personally dictated by me. I have reviewed the chart and agree that the record accurately reflects my personal performance of the history, physical exam, medical decision making, and the department course for this patient. I have also personally directed, reviewed, and agree with the discharge instructions and disposition. Disposition - Clinical Impression Clinical Impression: Hepatic encephalopathy, GI bleed - Patient ED Disposition Is Patient to be Admitted: Yes - Disposition Disposition Time: 14:50 Condition: GUARDED
[2018-12-15] MEDS ORDERED: Vancomycin 1 g Inj ONE (15:53)
--- NOTE | 2018-12-15 15:57 | CP.PCM.HP ---
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 Patient was discharged yesterday after work up for abdominal pain. She received a paracentisis, no ascites was withdrawn, surgery was consulted and recommended patient to follow up outpatient for hernia repair. Patient received morphine for pain and was sent home with a script of toradol 10mg. As per family patient was normal after discharge, but complained of not able to sleep, and all sudden she became confuse and altered mental status. PCP Mary Medication: Sprinoloactone 100mg, propanolol 10mg, furosemide 40mg , novolin 70 /30 PMH: HTN, DM, CKD, hepatic cirrhosis PFH: NOne PSH: 1 abdominal hernia Social: no smoking, ETOH use. ED Course Vitals: 97.9 temp, 157/94Bp, 105Hr 18RR, 99ox CBC : WBC 8.1 ,h/h9.5/28.8, PLT 129 PT/PTT 14.1/32.6 BMP: K 6.6, Ammonia 338, ASt/ALT 50/35, total bili 4.1, BUN/Cr 61/2.6 Arterial blood potassium 6.[address] scan w/o contrast CT: Examination limited by patient motion and streak artifact. Generalized atrophy. Nonspecific white matter changes. EKG: NO peak t wave Chest: Central vascular or hilar prominence and interstitial edema or infection. Patient recieved Vancomycin, Rocephin Albuterol 2.5mg Dextrose 50ml IVP Lactulose 200gm Insulin Human Regular 8 units Sodium bicarbonate (8.4%) 50 Meq Peak flow pre/post TX Patient was intubated and will be admitted to TCU for further treatment. Present on Admission - Present on Admission Any Indicators Present on Admission: No Review of Systems - Review of Systems Systems not reviewed;Unavailable: Altered Mental Status Past Patient History - Infectious Disease Hx of Infectious Diseases: None - Tetanus Immunizations Tetanus Immunization: Unknown - Past Medical History & Family History Past Medical History?: Yes - Past Social History Alcohol: None Drugs: Denies - CARDIAC Hx Hypercholesterolemia: Yes Hx Hypertension: Yes - PULMONARY Hx Pneumonia: Yes - NEUROLOGICAL Hx Neurological Disorder: No - HEENT Hx HEENT Problems: No - RENAL Hx Chronic Kidney Disease: No - ENDOCRINE/METABOLIC Hx Endocrine Disorders: Yes Hx Diabetes Mellitus Type 2: Yes - HEMATOLOGICAL/ONCOLOGICAL Hx Anemia: Yes Hx Human Immunodeficiency Virus (HIV): No - INTEGUMENTARY Hx Dermatological Problems: No - MUSCULOSKELETAL/RHEUMATOLOGICAL Hx Falls: No - GASTROINTESTINAL Hx Gastritis: Yes - GENITOURINARY/GYNECOLOGICAL Hx Genitourinary Disorders: No - PSYCHIATRIC Hx Anxiety: No Hx Bipolar Disorder: No Hx Depression: No Hx Paranoia: No Hx Post Traumatic Stress Disorder: No Hx Schizophrenia: No - SURGICAL HISTORY Hx Appendectomy: Yes - ANESTHESIA Hx Anesthesia: Yes Hx Anesthesia Reactions: No Hx Malignant Hyperthermia: No Meds Allergies/Adverse Reactions: Allergies Allergy/AdvReac Type Severity Reaction Status Date / Time No Known Allergies Allergy Verified 12/10/18 10:10 Physical Exam - Constitutional Appears: Other Additional comments: Comatose - Head Exam Head Exam: ATRAUMATIC, NORMAL INSPECTION, NORMOCEPHALIC - Eye Exam Eye Exam: Scleral icterus - ENT Exam ENT Exam: Mucous Membranes Moist - Respiratory Exam Respiratory Exam: Accessory Muscle Use, Clear to Auscultation Bilateral - Cardiovascular Exam Cardiovascular Exam: REGULAR RHYTHM, +S1, +S2 - GI/Abdominal Exam GI & Abdominal Exam: Normal Bowel Sounds, Soft Additional comments: umbilical and epigastric hernia noted, abdomen soft, BS + - Skin Additional comments: jaundice Results - Vital Signs Recent Vital Signs: Last Vital Signs Temp 98.1 F 12/15/18 11:36 Pulse 105 H 12/15/18 13:11 Resp 16 12/15/18 13:11 BP 159/69 H 12/15/18 13:11 Pulse Ox 100 12/15/18 15:50 - Labs Result Diagrams: 12/15/18 11:25 12/15/18 16:28 Labs: Laboratory Results - last 24 hr 12/15/18 12/15/18 12/15/18 11:05 11:25 11:25 WBC RBC Hgb Hct MCV MCH MCHC RDW Plt Count MPV Neut % (Auto) Lymph % (Auto) [place] % (Auto) Eos % (Auto) Baso % (Auto) Neut # (Auto) Lymph # (Auto) [place] # (Auto) Eos # (Auto) Baso # (Auto) Neutrophils % (Manual) Lymphocytes % (Manual) Monocytes % (Manual) Eosinophils % (Manual) Basophils % (Manual) Toxic Granulation Platelet Estimate Large Platelets Hypochromasia (manual) Anisocytosis (manual) Tear Drop Cells Ovalocytes PT 14.1 H INR 1.2 APTT 32.6 pCO2 pO2 HCO3 ABG pH ABG Total CO2 ABG O2 Saturation ABG Base Excess Uriel Test ABG Potassium A-a O2 Difference Glucose Lactate FiO2 Blood Gas Comments Crit Value Called To Crit Value Called By Crit Value Read Back Blood Gas Notified Time Sodium 139 Potassium 6.6 H* Chloride 106 Carbon Dioxide 18 L Anion Gap 22 H BUN 59 H Creatinine 2.6 H Est GFR ( Amer) 23 Est GFR (Non-Af Amer) 19 POC Glucose (mg/dL) 130 H Random Glucose 135 H Calcium 9.5 Total Bilirubin 4.1 H AST 50 H ALT 35 Alkaline Phosphatase 197 H Ammonia Total Protein 7.9 Albumin 3.3 L Globulin 4.6 H Albumin/Globulin Ratio 0.7 L Arterial Blood Potassium 12/15/18 12/15/18 12/15/18 11:25 11:25 12:05 WBC 8.1 D RBC 2.93 L Hgb 9.5 L Hct 28.8 L MCV 98.1 MCH 32.4 H MCHC 33.0 RDW 15.3 H Plt Count 129 L D MPV 9.0 Neut % (Auto) 82.2 H Lymph % (Auto) 9.6 L [place] % (Auto) 7.2 Eos % (Auto) 0.8 Baso % (Auto) 0.2 Neut # (Auto) 6.7 Lymph # (Auto) 0.8 L [place] # (Auto) 0.6 Eos # (Auto) 0.1 Baso # (Auto) 0.0 Neutrophils % (Manual) 81 H Lymphocytes % (Manual) 8 L Monocytes % (Manual) 8 Eosinophils % (Manual) 2 Basophils % (Manual) 1 Toxic Granulation Present Platelet Estimate Normal Large Platelets Present Hypochromasia (manual) Moderate Anisocytosis (manual) Slight Tear Drop Cells Slight Ovalocytes Slight PT INR APTT pCO2 24 L pO2 131 H HCO3 20.6 L ABG pH 7.46 H ABG Total CO2 17.8 L ABG O2 Saturation 100.4 H ABG Base Excess -5.5 L Uriel Test Yes ABG Potassium 6.9 H* A-a O2 Difference -11.0 Glucose 151 H Lactate 2.0 FiO2 21.0 Blood Gas Comments Ra 21% Crit Value Called To Samm rivas r.n. 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 Admitted to ICU for further evaluation and treatment of Hepatic Encephalopathy. Plan Comatose/AMS due hepatic encephalopathy HX of cirrhosis due to hep C Ammonia level 338 MELD 40 point 71.3% 3 month mortality S/P lactulose 200mg in ER Patient Currently intubated Continue Lactulose 40mg F/U BMp F/U Ammonia Possible infection unknown source Hx of paracentesis Tackycardia, Sudden AMS F/U blood culture F/u Sputum culture F/u Urine culture Start Zosyn HyperKalemia Potassium 6.6 S/P insulin, albuterol EKG no T weak peak STart Calcium gluconate 4.6 once F/U BMP CKD Chronic Bun/Cr 61/2.6 Continue monitoring DM2 Chronic Sliding scale Hypoglycemia protocol HTN Chronic BP 157/94 Hold medication due to condition Monitor for blood pressure DVT prophylaxis SCD no heparin for now CODE FULL <Krishan Willams D - Last Filed: 12/15/18 20:18> Results - Vital Signs Recent Vital Signs: Last Vital Signs Temp 98.1 F 12/15/18 18:38 Pulse 103 H 12/15/18 18:38 Resp 14 12/15/18 18:38 BP 159/67 H 12/15/18 18:38 Pulse Ox 100 12/15/18 18:38 - Labs Result Diagrams: 12/15/18 11:25 12/15/18 16:28 Labs: Laboratory Results - last 24 hr 12/15/18 12/15/18 12/15/18 11:05 11:25 11:25 WBC RBC Hgb Hct MCV MCH MCHC RDW Plt Count MPV Neut % (Auto) Lymph % (Auto) [place] % (Auto) Eos % (Auto) Baso % (Auto) Neut # (Auto) Lymph # (Auto) [place] # (Auto) Eos # (Auto) Baso # (Auto) Neutrophils % (Manual) Lymphocytes % (Manual) Monocytes % (Manual) Eosinophils % (Manual) Basophils % (Manual) Toxic Granulation Platelet Estimate Large Platelets Hypochromasia (manual) Anisocytosis (manual) Tear Drop Cells Ovalocytes PT 14.1 H INR 1.2 APTT 32.6 pCO2 pO2 HCO3 ABG pH ABG Total CO2 ABG O2 Saturation ABG Base Excess Uriel Test ABG Potassium A-a O2 Difference Glucose Lactate FiO2 Blood Gas Comments Crit Value Called To Crit Value Called By Crit Value Read Back Blood Gas Notified Time Sodium 139 Potassium 6.6 H* Chloride 106 Carbon Dioxide 18 L Anion Gap 22 H BUN 59 H Creatinine 2.6 H Est GFR ( Amer) 23 Est GFR (Non-Af Amer) 19 POC Glucose (mg/dL) 130 H Random Glucose 135 H Calcium 9.5 Total Bilirubin 4.1 H AST 50 H ALT 35 Alkaline Phosphatase 197 H Ammonia Total Protein 7.9 Albumin 3.3 L Globulin 4.6 H Albumin/Globulin Ratio 0.7 L Arterial Blood Potassium Salicylates Acetaminophen Blood Type Antibody Screen BBK History Checked 12/15/18 12/15/18 12/15/18 11:25 11:25 12:05 WBC 8.1 D RBC 2.93 L Hgb 9.5 L Hct 28.8 L MCV 98.1 MCH 32.4 H MCHC 33.0 RDW 15.3 H Plt Count 129 L D MPV 9.0 Neut % (Auto) 82.2 H Lymph % (Auto) 9.6 L [place] % (Auto) 7.2 Eos % (Auto) 0.8 Baso % (Auto) 0.2 Neut # (Auto) 6.7 Lymph # (Auto) 0.8 L [place] # (Auto) 0.6 Eos # (Auto) 0.1 Baso # (Auto) 0.0 Neutrophils % (Manual) 81 H Lymphocytes % (Manual) 8 L Monocytes % (Manual) 8 Eosinophils % (Manual) 2 Basophils % (Manual) 1 Toxic Granulation Present Platelet Estimate Normal Large Platelets Present Hypochromasia (manual) Moderate Anisocytosis (manual) Slight Tear Drop Cells Slight Ovalocytes Slight PT INR APTT pCO2 24 L pO2 131 H HCO3 20.6 L ABG pH 7.46 H ABG Total CO2 17.8 L ABG O2 Saturation 100.4 H ABG Base Excess -5.5 L Uriel Test Yes ABG Potassium 6.9 H* A-a O2 Difference -11.0 Glucose 151 H Lactate 2.0 FiO2 21.0 Blood Gas Comments Ra 21% Crit Value Called To Samm rivas r.n. Crit Value Called By Luh Crit Value Read Back Y Blood Gas Notified Time 1237 Sodium 136.0 Potassium Chloride 110.0 H Carbon Dioxide Anion Gap BUN Creatinine Est GFR ( Amer) Est GFR (Non-Af Amer) POC Glucose (mg/dL) Random Glucose Calcium Total Bilirubin AST ALT Alkaline Phosphatase Ammonia 338 H* D Total Protein Albumin Globulin Albumin/Globulin Ratio Arterial Blood Potassium 6.9 H* Salicylates Acetaminophen Blood Type Antibody Screen BBK History Checked 12/15/18 12/15/18 12/15/18 14:23 16:28 16:28 WBC RBC Hgb Hct MCV MCH MCHC RDW Plt Count MPV Neut % (Auto) Lymph % (Auto) [place] % (Auto) Eos % (Auto) Baso % (Auto) Neut # (Auto) Lymph # (Auto) [place] # (Auto) Eos # (Auto) Baso # (Auto) Neutrophils % (Manual) Lymphocytes % (Manual) Monocytes % (Manual) Eosinophils % (Manual) Basophils % (Manual) Toxic Granulation Platelet Estimate Large Platelets Hypochromasia (manual) Anisocytosis (manual) Tear Drop Cells Ovalocytes PT INR APTT pCO2 pO2 HCO3 ABG pH ABG Total CO2 ABG O2 Saturation ABG Base Excess Uriel Test ABG Potassium A-a O2 Difference Glucose Lactate FiO2 Blood Gas Comments Crit Value Called To Crit Value Called By Crit Value Read Back Blood Gas Notified Time Sodium 141 Potassium 6.4 H* Chloride 108 H Carbon Dioxide 16 L Anion Gap 23 H BUN 61 H Creatinine 2.6 H Est GFR ( Amer) 23 Est GFR (Non-Af Amer) 19 POC Glucose (mg/dL) Random Glucose 193 H Calcium 9.5 Total Bilirubin AST ALT Alkaline Phosphatase Ammonia Total Protein Albumin Globulin Albumin/Globulin Ratio Arterial Blood Potassium Salicylates < 1.0 Acetaminophen < 10.0 L Blood Type B POSITIVE Antibody Screen Negative BBK History Checked Patient has bt 12/15/18 16:59 WBC RBC Hgb Hct MCV MCH MCHC RDW Plt Count MPV Neut % (Auto) Lymph % (Auto) [place] % (Auto) Eos % (Auto) Baso % (Auto) Neut # (Auto) Lymph # (Auto) [place] # (Auto) Eos # (Auto) Baso # (Auto) Neutrophils % (Manual) Lymphocytes % (Manual) Monocytes % (Manual) Eosinophils % (Manual) Basophils % (Manual) Toxic Granulation Platelet Estimate Large Platelets Hypochromasia (manual) Anisocytosis (manual) Tear Drop Cells Ovalocytes PT INR APTT pCO2 pO2 HCO3 ABG pH ABG Total CO2 ABG O2 Saturation ABG Base Excess Uriel Test ABG Potassium A-a O2 Difference Glucose Lactate FiO2 Blood Gas Comments Crit Value Called To Crit Value Called By Crit Value Read Back Blood Gas Notified Time Sodium Potassium Chloride Carbon Dioxide Anion Gap BUN Creatinine Est GFR ( Amer) Est GFR (Non-Af Amer) POC Glucose (mg/dL) 191 H Random Glucose Calcium Total Bilirubin AST ALT Alkaline Phosphatase Ammonia Total Protein Albumin Globulin Albumin/Globulin Ratio Arterial Blood Potassium Salicylates Acetaminophen Blood Type Antibody Screen BBK History Checked Attending/Attestation - Attestation I have personally seen and examined this patient.: Yes I have fully participated in the care of the patient.: Yes I have reviewed all pertinent clinical information: Yes Notes (Text): 12/15/18 20:17 Patient seen and examined with resident. Case discussed and agreed with assessment and plan of management.
[2018-12-15] MEDS ORDERED: cefTRIAXone 2 GM in Sodium Chloride 0.9% 100 ML IVPB ONE (16:00)
[2018-12-15] MEDS ORDERED: Etomidate 20 mg/10ml Inj IV ONE ×2 (16:02→16:03)
[2018-12-15] MEDS ORDERED: Midazolam 2 MG/2 ML VIAL ONE (16:16)
[2018-12-15] MEDS ORDERED: Sodium Chloride 3% for Inhalation 4 ML VIAL.NEB IH PRN (16:25)
[2018-12-15] MEDS ORDERED: Midazolam 2 MG/2 ML VIAL IV ONE (16:27)
[2018-12-15] MEDS ORDERED: Dextrose 5%/0.45% NS 1,000 ML IV SCH (16:45)
[2018-12-15 16:49] LABS: ACETAMINOPHEN < 10.0 ug/ml (10.0-30.0); SALICYLATE < 1.0 mg/dl
--- NOTE | 2018-12-15 16:54 | RAD ---
HISTORY: post intubation COMPARISON: Chest x-ray performed earlier the same day at 1246 hr TECHNIQUE: Chest, one view. FINDINGS: Endotracheal tube appears to extend to the right mainstem bronchus, poorly visualized. LUNGS: External artifact limits evaluation of the chest particularly in the right upper lobe. Central vascular/hilar prominence. No focal consolidation. PLEURA: No significant pleural effusion identified. No definite pneumothorax . CARDIOVASCULAR: Borderline cardiomegaly. Atherosclerotic calcifications of the aorta. OSSEOUS STRUCTURES: Degenerative changes. VISUALIZED UPPER ABDOMEN: Elevation of the right hemidiaphragm. OTHER FINDINGS: None. IMPRESSION: Endotracheal tube appears to extend to the right mainstem bronchus, poorly visualized. Recommend repositioning. Additional findings as above. Findings discussed with Dr. Carranza on 12/15/18 at 4:39 p.m.
--- NOTE | 2018-12-15 16:55 | CP.CCUPN ---
CCU Subjective - Physician Review Events Since Last Encounter (Free Text): 12/15/18 18:36 The patient was Seen and examined by me at the bedside during ICU round, Medical records reviewed and Management issues were discussed and formulated with the house staff. Events reviewed 58 Years old Female with PMHx of HTN, DM type 2, CKD, chronic HCV (due to blood transfusion) c/b Hepatic cirrhosis, chronic gastritis, Cholelithiasis and abdominal hernia Patient presented to the emergency room for evaluation of altered mental status; as per family the patient was in her usual state of health until last night then she was weak, dizzy and complain of unable to sleep, but she was coherent. Overnight she became more altered and this morning she was somnolent No nausea, vomiting, fever/chills, fall or trauma. Of note that the patient was in the hospital and discharged yesterday, she was admitted for pancreatitis and ascites and reported to be alert awake oriented x3. In the emergency room patient was very lethargic unresponsive and not following commands Head CT scan was limited due to patient motion and artifact but shows nonspecific white matter changes generalized atrophy, there was no acute intracranial bleed, mass, stroke or acute pathology Patient was hemodynamically stable saturating well blood pressure is 157/94 and heart rate of 105 lab was significant for worsening of her renal function with BUN/creatinine of 61/2.6 elevated potassium to 6.6 and remarkably increase in ammonia level up to 338 Patient received albuterol inhaler, regular insulin 8 units intravenous, 50 mL dextrose IV, 200 g lactulose, and 50 mEq of sodium bicarb Patient also initiated on intravenous antibiotic with IV vancomycin and IV Rocephin Upon my evaluation the patient was comatose totally unresponsive even to painful stimuli, quick discussion with several family members at the bedside and made phone call to one son who is in the [place] and another son who was in [place] discussed with them the critical nature of the patient and the need for stable airway and intubation since she will is on no longer able to be present on her own, patient was urgently intubated by ER physician and currently she is on mechanical ventilation, during intubation she received etomidate and 2 mg of Versed CCU Objective - Vital Signs / Intake & Output Vital Signs (Last 4 hours): Vital Signs Pulse Resp BP Pulse Ox 12/15/18 15:50 100 12/15/18 13:11 105 H 16 159/69 H 100 Intake and Output (Last 8hrs): Intake & Output 12/15/18 12/15/18 12/15/18 06:59 14:59 22:59 Weight 170 lb - Physical Exam Physical Exam Limitations: Positive for: Altered Mental Status, Clinical Condition, Intoxication, Uncooperative Head: Positive for: Atraumatic, Normocephalic. Negative for: Tenderness, Contusion Pupils: Positive for: PERRL, Sluggish. Negative for: Non-Reactive, Pinpoint Extroacular Muscles: Positive for: EOMI. Negative for: Gaze Palsy Conjunctiva: Positive for: Normal, Icteric. Negative for: Injected Ears: Positive for: Normal Mouth: Positive for: Moist Mucous Membranes Pharnyx: Positive for: Normal Neck: Positive for: Normal Range of Motion, Trachea Midline Respiratory/Chest: Positive for: Decreased Breath Sounds, Rhonchi, Tachypneic. Negative for: Clear to Auscultation, Good Air Exchange, Respiratory Distress, Accessory Muscle Use, Wheezes, Rales Cardiovascular: Positive for: Regular Rate and Rhythm, Normal S1, S2, Peripheal Pulses Present. Negative for: Murmurs, Irregular Rhythm Abdomen: Positive for: Tenderness, Distention, Hernias. Negative for: Normal Bowel Sounds Neurological: Negative for: GCS=15, Norm Deep Tendon Reflexes Psychiatric: Positive for: Lethargic. Negative for: Alert, Oriented x 3, Anxious, Agitated - Medications Active Medications: Active Medications Generic Name Dose Route Start Last Admin Trade Name Freq PRN Reason Stop Dose Admin Ceftriaxone Sodium 2 gm/ 100 mls @ 100 mls/hr 12/15/18 16:00 Sodium Chloride IVPB 12/15/18 16:59 ONCE ONE Protocol Vancomycin HCl 1 gm/ Sodium 250 mls @ 166.667 mls/hr 12/15/18 15:30 12/15/18 15:58 Chloride IVPB 12/15/18 16:59 166.667 mls/hr STAT STA Administration Protocol Piperacillin Sod/Tazobactam 100 mls @ 100 mls/hr 12/15/18 16:30 Sod 2.25 gm/ Sodium Chloride IVPB Q12H JOCELIN Protocol Dextrose/Sodium Chloride 1,000 mls @ 80 mls/hr 12/15/18 16:45 Dextrose 5%/0.45% Ns 1000 Ml IV .[id number] JOCELIN Lactulose 40 gm 12/15/18 16:45 Enulose PO Q8H JOCELIN Pantoprazole Sodium 40 mg 12/16/18 09:00 Protonix Inj IVP DAILY JOCELIN - Patient Studies Lab Studies: Lab Studies 12/15/18 12/15/18 12/15/18 Range/Units 16:28 14:23 12:05 WBC (4.8-10.8) K/uL RBC (3.80-5.20) Mil/uL Hgb (12.0-16.0) g/dL Hct (34.0-47.0) % MCV (81.0-99.0) fl MCH (27.0-31.0) pg MCHC (33.0-37.0) g/dL RDW (11.5-14.5) % Plt Count (130-400) K/uL MPV (7.2-11.7) fl Neut % (Auto) (50.0-75.0) % Lymph % (Auto) (20.0-40.0) % [place] % (Auto) (0.0-10.0) % Eos % (Auto) (0.0-4.0) % Baso % (Auto) (0.0-2.0) % Neut # (Auto) (1.8-7.0) K/uL Lymph # (Auto) (1.0-4.3) K/uL [place] # (Auto) (0.0-0.8) K/uL Eos # (Auto) (0.0-0.7) K/uL Baso # (Auto) (0.0-0.2) K/uL Neutrophils % (Manual) (42-75) % Lymphocytes % (Manual) (20-50) % Monocytes % (Manual) (0-10) % Eosinophils % (Manual) (0-7) % Basophils % (Manual) (0-2) % Toxic Granulation Platelet Estimate (NORMAL) Large Platelets Hypochromasia (manual) Anisocytosis (manual) Tear Drop Cells Ovalocytes PT (9.8-13.1) Seconds INR APTT (25.6-37.1) Seconds pCO2 24 L (35-45) mm/Hg pO2 131 H (80-100) mm/Hg HCO3 20.6 L (21-28) mmol/L ABG pH 7.46 H (7.35-7.45) ABG Total CO2 17.8 L (22-28) mmol/L ABG O2 Saturation 100.4 H (95-98) % ABG Base Excess -5.5 L (-2.0-3.0) mmol/L Uriel Test Yes ABG Potassium 6.9 H* (3.6-5.2) mmol/L A-a O2 Difference -11.0 mm/Hg Glucose 151 H (65-105) mg/dL Lactate 2.0 (0.7-2.1) mmol/L FiO2 21.0 % Blood Gas Comments Ra 21% Crit Value Called To Samm rivas r.n. Crit Value Called By Luh Green Value Read Back Y Blood Gas Notified Time 1237 Sodium 136.0 (132-148) mmol/l Potassium (3.6-5.0) MMOL/L Chloride 110.0 H (98-107) mmol/L Carbon Dioxide (22-30) mmol/L Anion Gap (10-20) BUN (7-17) mg/dl Creatinine (0.7-1.2) mg/dl Est GFR ( Amer) Est GFR (Non-Af Amer) POC Glucose (mg/dL) (65-110) mg/dL Random Glucose (65-105) mg/dL Calcium (8.4-10.2) mg/dL Total Bilirubin (0.2-1.3) mg/dl AST (14-36) U/L ALT (9-52) U/L Alkaline Phosphatase (38-126) U/L Ammonia (9-33) umol/L Total Protein (6.3-8.2) G/DL Albumin (3.5-5.0) g/dL Globulin (2.2-3.9) gm/dL Albumin/Globulin Ratio (1.0-2.1) Arterial Blood Potassium 6.9 H* (3.6-5.2) mmol/L Salicylates < 1.0 mg/dl Acetaminophen < 10.0 L (10.0-30.0) ug/ml Blood Type B POSITIVE Antibody Screen Negative BBK History Checked Patient has bt 12/15/18 12/15/18 12/15/18 Range/Units 11:25 11:25 11:25 WBC 8.1 D (4.8-10.8) K/uL RBC 2.93 L (3.80-5.20) Mil/uL Hgb 9.5 L (12.0-16.0) g/dL Hct 28.8 L (34.0-47.0) % MCV 98.1 (81.0-99.0) fl MCH 32.4 H (27.0-31.0) pg MCHC 33.0 (33.0-37.0) g/dL RDW 15.3 H (11.5-14.5) % Plt Count 129 L D (130-400) K/uL MPV 9.0 (7.2-11.7) fl Neut % (Auto) 82.2 H (50.0-75.0) % Lymph % (Auto) 9.6 L (20.0-40.0) % [place] % (Auto) 7.2 (0.0-10.0) % Eos % (Auto) 0.8 (0.0-4.0) % Baso % (Auto) 0.2 (0.0-2.0) % Neut # (Auto) 6.7 (1.8-7.0) K/uL Lymph # (Auto) 0.8 L (1.0-4.3) K/uL [place] # (Auto) 0.6 (0.0-0.8) K/uL Eos # (Auto) 0.1 (0.0-0.7) K/uL Baso # (Auto) 0.0 (0.0-0.2) K/uL Neutrophils % (Manual) 81 H (42-75) % Lymphocytes % (Manual) 8 L (20-50) % Monocytes % (Manual) 8 (0-10) % Eosinophils % (Manual) 2 (0-7) % Basophils % (Manual) 1 (0-2) % Toxic Granulation Present Platelet Estimate Normal (NORMAL) Large Platelets Present Hypochromasia (manual) Moderate Anisocytosis (manual) Slight Tear Drop Cells Slight Ovalocytes Slight PT 14.1 H (9.8-13.1) Seconds INR 1.2 APTT 32.6 (25.6-37.1) Seconds pCO2 (35-45) mm/Hg pO2 (80-100) mm/Hg HCO3 (21-28) mmol/L ABG pH (7.35-7.45) ABG Total CO2 (22-28) mmol/L ABG O2 Saturation (95-98) % ABG Base Excess (-2.0-3.0) mmol/L Uriel Test ABG Potassium (3.6-5.2) mmol/L A-a O2 Difference mm/Hg Glucose (65-105) mg/dL Lactate (0.7-2.1) mmol/L FiO2 % Blood Gas Comments Crit Value Called To Crit Value Called By Crit Value Read Back Blood Gas Notified Time Sodium (132-148) mmol/l Potassium (3.6-5.0) MMOL/L Chloride (98-107) mmol/L Carbon Dioxide (22-30) mmol/L Anion Gap (10-20) BUN (7-17) mg/dl Creatinine (0.7-1.2) mg/dl Est GFR ( Amer) Est GFR (Non-Af Amer) POC Glucose (mg/dL) (65-110) mg/dL Random Glucose (65-105) mg/dL Calcium (8.4-10.2) mg/dL Total Bilirubin (0.2-1.3) mg/dl AST (14-36) U/L ALT (9-52) U/L Alkaline Phosphatase (38-126) U/L Ammonia 338 H* D (9-33) umol/L Total Protein (6.3-8.2) G/DL Albumin (3.5-5.0) g/dL Globulin (2.2-3.9) gm/dL Albumin/Globulin Ratio (1.0-2.1) Arterial Blood Potassium (3.6-5.2) mmol/L Salicylates mg/dl Acetaminophen (10.0-30.0) ug/ml Blood Type Antibody Screen BBK History Checked 12/15/18 12/15/18 Range/Units 11:25 11:05 WBC (4.8-10.8) K/uL RBC (3.80-5.20) Mil/uL Hgb (12.0-16.0) g/dL Hct (34.0-47.0) % MCV (81.0-99.0) fl MCH (27.0-31.0) pg MCHC (33.0-37.0) g/dL RDW (11.5-14.5) % Plt Count (130-400) K/uL MPV (7.2-11.7) fl Neut % (Auto) (50.0-75.0) % Lymph % (Auto) (20.0-40.0) % [place] % (Auto) (0.0-10.0) % Eos % (Auto) (0.0-4.0) % Baso % (Auto) (0.0-2.0) % Neut # (Auto) (1.8-7.0) K/uL Lymph # (Auto) (1.0-4.3) K/uL [place] # (Auto) (0.0-0.8) K/uL Eos # (Auto) (0.0-0.7) K/uL Baso # (Auto) (0.0-0.2) K/uL Neutrophils % (Manual) (42-75) % Lymphocytes % (Manual) (20-50) % Monocytes % (Manual) (0-10) % Eosinophils % (Manual) (0-7) % Basophils % (Manual) (0-2) % Toxic Granulation Platelet Estimate (NORMAL) Large Platelets Hypochromasia (manual) Anisocytosis (manual) Tear Drop Cells Ovalocytes PT (9.8-13.1) Seconds INR APTT (25.6-37.1) Seconds pCO2 (35-45) mm/Hg pO2 (80-100) mm/Hg HCO3 (21-28) mmol/L ABG pH (7.35-7.45) ABG Total CO2 (22-28) mmol/L ABG O2 Saturation (95-98) % ABG Base Excess (-2.0-3.0) mmol/L Uriel Test ABG Potassium (3.6-5.2) mmol/L A-a O2 Difference mm/Hg Glucose (65-105) mg/dL Lactate (0.7-2.1) mmol/L FiO2 % Blood Gas Comments Crit Value Called To Crit Value Called By Crit Value Read Back Blood Gas Notified Time Sodium 139 (132-148) mmol/l Potassium 6.6 H* (3.6-5.0) MMOL/L Chloride 106 (98-107) mmol/L Carbon Dioxide 18 L (22-30) mmol/L Anion Gap 22 H (10-20) BUN 59 H (7-17) mg/dl Creatinine 2.6 H (0.7-1.2) mg/dl Est GFR ( Amer) 23 Est GFR (Non-Af Amer) 19 POC Glucose (mg/dL) 130 H (65-110) mg/dL Random Glucose 135 H (65-105) mg/dL Calcium 9.5 (8.4-10.2) mg/dL Total Bilirubin 4.1 H (0.2-1.3) mg/dl AST 50 H (14-36) U/L ALT 35 (9-52) U/L Alkaline Phosphatase 197 H (38-126) U/L Ammonia (9-33) umol/L Total Protein 7.9 (6.3-8.2) G/DL Albumin 3.3 L (3.5-5.0) g/dL Globulin 4.6 H (2.2-3.9) gm/dL Albumin/Globulin Ratio 0.7 L (1.0-2.1) Arterial Blood Potassium (3.6-5.2) mmol/L Salicylates mg/dl Acetaminophen (10.0-30.0) ug/ml Blood Type Antibody Screen BBK History Checked Laboratory Results - last 24 hr 12/15/18 12/15/18 12/15/18 11:05 11:25 11:25 WBC RBC Hgb Hct MCV MCH MCHC RDW Plt Count MPV Neut % (Auto) Lymph % (Auto) [place] % (Auto) Eos % (Auto) Baso % (Auto) Neut # (Auto) Lymph # (Auto) [place] # (Auto) Eos # (Auto) Baso # (Auto) Neutrophils % (Manual) Lymphocytes % (Manual) Monocytes % (Manual) Eosinophils % (Manual) Basophils % (Manual) Toxic Granulation Platelet Estimate Large Platelets Hypochromasia (manual) Anisocytosis (manual) Tear Drop Cells Ovalocytes PT 14.1 H INR 1.2 APTT 32.6 pCO2 pO2 HCO3 ABG pH ABG Total CO2 ABG O2 Saturation ABG Base Excess Uriel Test ABG Potassium A-a O2 Difference Glucose Lactate FiO2 Blood Gas Comments Crit Value Called To Crit Value Called By Crit Value Read Back Blood Gas Notified Time Sodium 139 Potassium 6.6 H* Chloride 106 Carbon Dioxide 18 L Anion Gap 22 H BUN 59 H Creatinine 2.6 H Est GFR ( Amer) 23 Est GFR (Non-Af Amer) 19 POC Glucose (mg/dL) 130 H Random Glucose 135 H Calcium 9.5 Total Bilirubin 4.1 H AST 50 H ALT 35 Alkaline Phosphatase 197 H Ammonia Total Protein 7.9 Albumin 3.3 L Globulin 4.6 H Albumin/Globulin Ratio 0.7 L Arterial Blood Potassium Salicylates Acetaminophen Blood Type Antibody Screen BBK History Checked 12/15/18 12/15/18 12/15/18 11:25 11:25 12:05 WBC 8.1 D RBC 2.93 L Hgb 9.5 L Hct 28.8 L MCV 98.1 MCH 32.4 H MCHC 33.0 RDW 15.3 H Plt Count 129 L D MPV 9.0 Neut % (Auto) 82.2 H Lymph % (Auto) 9.6 L [place] % (Auto) 7.2 Eos % (Auto) 0.8 Baso % (Auto) 0.2 Neut # (Auto) 6.7 Lymph # (Auto) 0.8 L [place] # (Auto) 0.6 Eos # (Auto) 0.1 Baso # (Auto) 0.0 Neutrophils % (Manual) 81 H Lymphocytes % (Manual) 8 L Monocytes % (Manual) 8 Eosinophils % (Manual) 2 Basophils % (Manual) 1 Toxic Granulation Present Platelet Estimate Normal Large Platelets Present Hypochromasia (manual) Moderate Anisocytosis (manual) Slight Tear Drop Cells Slight Ovalocytes Slight PT INR APTT pCO2 24 L pO2 131 H HCO3 20.6 L ABG pH 7.46 H ABG Total CO2 17.8 L ABG O2 Saturation 100.4 H ABG Base Excess -5.5 L Uriel Test Yes ABG Potassium 6.9 H* A-a O2 Difference -11.0 Glucose 151 H Lactate 2.0 FiO2 21.0 Blood Gas Comments Ra 21% Crit Value Called To Samm rivas r.n. Crit Value Called By Luh Crit Value Read Back Y Blood Gas Notified Time 1237 Sodium 136.0 Potassium Chloride 110.0 H Carbon Dioxide Anion Gap BUN Creatinine Est GFR ( Amer) Est GFR (Non-Af Amer) POC Glucose (mg/dL) Random Glucose Calcium Total Bilirubin AST ALT Alkaline Phosphatase Ammonia 338 H* D Total Protein Albumin Globulin Albumin/Globulin Ratio Arterial Blood Potassium 6.9 H* Salicylates Acetaminophen Blood Type Antibody Screen BBK History Checked 12/15/18 12/15/18 14:23 16:28 WBC RBC Hgb Hct MCV MCH MCHC RDW Plt Count MPV Neut % (Auto) Lymph % (Auto) [place] % (Auto) Eos % (Auto) Baso % (Auto) Neut # (Auto) Lymph # (Auto) [place] # (Auto) Eos # (Auto) Baso # (Auto) Neutrophils % (Manual) Lymphocytes % (Manual) Monocytes % (Manual) Eosinophils % (Manual) Basophils % (Manual) Toxic Granulation Platelet Estimate Large Platelets Hypochromasia (manual) Anisocytosis (manual) Tear Drop Cells Ovalocytes PT INR APTT pCO2 pO2 HCO3 ABG pH ABG Total CO2 ABG O2 Saturation ABG Base Excess Uriel Test ABG Potassium A-a O2 Difference Glucose Lactate FiO2 Blood Gas Comments Crit Value Called To Crit Value Called By Crit Value Read Back Blood Gas Notified Time Sodium Potassium Chloride Carbon Dioxide Anion Gap BUN Creatinine Est GFR ( Amer) Est GFR (Non-Af Amer) POC Glucose (mg/dL) Random Glucose Calcium Total Bilirubin AST ALT Alkaline Phosphatase Ammonia Total Protein Albumin Globulin Albumin/Globulin Ratio Arterial Blood Potassium Salicylates < 1.0 Acetaminophen < 10.0 L Blood Type B POSITIVE Antibody Screen Negative BBK History Checked Patient has bt Radiology Impressions: Radiology Impressions Chest X-Ray 12/15/18 12:05 IMPRESSION: Central vascular or hilar prominence and interstitial edema or infection. Head CT 12/15/18 12:05 IMPRESSION: Examination limited by patient motion and streak artifact. Generalized atrophy. Nonspecific white matter changes. EKG/Cardiology Studies: Cardiology / EKG Studies 12/15/18 EKG [ELECTROCARDIOGRAM] Stat Comment: Mode Of Transportation: Reason For Exam: ekg Fingerstick Blood Sugar Results: 135 Review of Systems - Review of Systems Systems not reviewed;Unavailable: Intubated Critical Care Progress Note - Ventilator Checklist Head of Bed 30 Degrees: Yes Daily Sedation Vacation: Yes Daily Assessment of Readiness to Wean: Yes Daily Spontaneous Breathing Trial: Yes PUD Prophalyxis: Yes DVT Prophylaxis: Yes Oral Care with Chlorhexidine Gluconate {CHG}: Yes - Extremities/Vascular Does the Patient have a Central Venous Catheter?: No Does the Patient need a Central Venous Catheter?: No Does the Patient have a Snell Catheter?: No Does the Patient need a Snell Catheter?: No - Nutrition Nutrition: Nutrition Category Date Time Status NPO Diet [DIET] Diets 12/15/18 Dinner Active Assessment/Plan (1) Hepatic encephalopathy Current Visit: Yes Status: Acute Priority: High Comment: Patient with altered mental status from hepatic encephalopathy with elevated ammonia level of 338, she received lactulose 200 mg in the emergency room, she was urgently intubated for airway protection due to coma. Admit to the intensive care unit for frequent neuro check full vent support with daily sedation vacation to fully assess her mental status Will place NG tube and continue lactulose titrate dose for adequate bowel movement (2) GI bleed Current Visit: Yes Status: Acute Priority: High Comment: one of the family member at the bedside reported that she vomited up a small amount of bright red blood Start the patient on Rocephin for SBP prophylaxis IV Protonix Keep n.p.o. Type and screen 2 units GI consult (3) Sepsis Current Visit: Yes Status: Acute Priority: High Comment: Patient with metabolic acidosis on the blood gas, mildly elevated lactate Unclear at this time reason for deterioration of her mental status and worsening hepatic encephalopathy but sepsis could be one of the contributing factors Blood culture, sputum culture and urine culture sent Patient received IV vancomycin and ceftriaxone in the emergency room, will follow vancomycin level before giving any additional doses and switch Rocephin to IV Zosyn renally adjusted (4) Acute on chronic renal failure Current Visit: No Status: Acute Comment: Worsening of your renal function with hyperkalemia, physical exam is consistent with hypovolemia Gentle IV hydration We will send urine spot light, protein/creatinine, urine and serum osmolality Possible hepatorenal syndrome, will consider albumin/Midodrin/vasopressin (5) Altered mental status Current Visit: No Status: Acute (6) Ascites Current Visit: No Status: Acute (7) Cirrhosis of liver with ascites Current Visit: No Status: Acute (8) Hx of hepatitis C Current Visit: Yes Status: Acute Priority: High Comment: - has been evaluated by GI in 2014 and as outpatient - abdomen US 02/2015: stigmata of cirrhosis including nodular liver w/ perihepatic ascitis - abdomen CT 03/2015: Progressive manifestations of cirrhosis. This includes increase in size of the spleen. The varices primarily in the left upper quadrant have also increase. Severe gastritis without focal abnormality similar findings were seen on the prior studies suggesting a component of chronic gastritis. Cholelithiasis without evidence of acute cholecystitis. - upper endoscopy 02/2015: gastritis and gastric polyps - consider repeat Abd US and GI consult. -endoscopy schedule tomorrow (9) Hyperkalemia Current Visit: Yes Status: Acute Priority: High (10) Chronic hepatitis C with cirrhosis Current Visit: Yes Status: Chronic Priority: High
[2018-12-15 17:00] LABS: CALCIUM 9.5 mg/dL (8.4-10.2)
--- NOTE | 2018-12-15 17:33 | RAD ---
HISTORY: post adjustment COMPARISON: Chest x-ray performed earlier the same day at 1618 hr TECHNIQUE: Chest, one view. FINDINGS: Distal tip of an endotracheal tube terminates approximately 2.4 cm above the marciano. LUNGS: Bilateral hilar prominence. Please note that chest x-ray has limited sensitivity for the detection of pulmonary masses. PLEURA: No significant pleural effusion identified. No definite pneumothorax . CARDIOVASCULAR: Heart size appears top normal. OSSEOUS STRUCTURES: Degenerative changes of the spine. VISUALIZED UPPER ABDOMEN: Unremarkable. OTHER FINDINGS: None. IMPRESSION: Endotracheal tube terminates approximately 2.4 cm above the marciano.
[2018-12-15] MEDS ORDERED: Calcium Gluconate 4.65 mEq/10 ml Inj IV ONE (17:44)
[2018-12-15] MEDS ORDERED: Calcium Gluconate 4.6 MEQ in Sodium Chloride 0.9% 100 ML IV ONE (18:00)
--- NOTE | 2018-12-15 21:18 | CARD ---
APPROVED REPORT Date of service: 12/15/2018 EKG Measurement Heart [id number] <Conclusion> Normal sinus rhythm Normal Electrocardiogram
[2018-12-15] MEDS: Insulin Lispro (humaLOG) 100 Units/ml Inj SC SCH (22:44)
[2018-12-15 23:06] LABS: CALCIUM 9.4 mg/dL (8.4-10.2)
[2018-12-16 04:37] LABS: ABG ALLEN TEST YES; ARTERIAL BLOOD GAS O2 CONTENT 12.2 ML/dL (15-23)
[2018-12-16 05:46] LABS: BASO % 0.4 % (0.0-2.0); EOS % 0.2 % (0.0-4.0); HEMOGLOBIN 8.5 g/dL (12.0-16.0); LYMPH # 0.7 K/uL (1.0-4.3); LYMPH % 7.2 % (20.0-40.0); MEAN CELL VOLUME 97.7 fl (81.0-99.0); MEAN CORPUSCULAR HEMOGLOBIN 32.7 pg (27.0-31.0); MEAN CORPUSCULAR HGB CONC 33.5 g/dL (33.0-37.0); MEAN PLATELET VOLUME 8.8 fl (7.2-11.7); MONO % 9.8 % (0.0-10.0); NEUT # 8.2 K/uL (1.8-7.0); NEUT % 82.4 % (50.0-75.0); RBC 2.6 Mil/uL (3.80-5.20); RED CELL DISTRIBUTION WIDTH 15.1 % (11.5-14.5); WHITE BLOOD COUNT 9.9 K/uL (4.8-10.8)
[2018-12-16 06:02] LABS: ALB/GLOB RATIO 0.7 (1.0-2.1); ALBUMIN 2.9 g/dL (3.5-5.0); CALCIUM 9.4 mg/dL (8.4-10.2)
[2018-12-16] MEDS: Insulin Lispro (humaLOG) 100 Units/ml Inj SC SCH ×4 (06:24→22:36)
--- NOTE | 2018-12-16 06:38 | CP.PCM.PN ---
<Hakeem Keyes - Last Filed: 12/16/18 13:57> Subjective - Date & Time of Evaluation Date of Evaluation: 12/16/18 Time of Evaluation: 08:00 - Subjective Subjective: Pt is seen and examined at bedside today, No acute event overnight. Pt still unresponsive, intubated. During the night Doctor was called due to CO2 of 17, FIO2 was decreased to 40. Otherwise there was no other event. Objective - Vital Signs/Intake and Output Vital Signs (last 24 hours): Temp Pulse Resp BP Pulse Ox 99.6 F 112 H 19 140/68 100 12/16/18 06:00 12/16/18 06:00 12/16/18 06:00 12/16/18 06:00 12/16/18 06:00 Intake and Output: 12/15/18 12/16/18 18:59 06:59 Intake Total 1330 474 Output Total 600 1100 Balance 730 -626 - Medications Medications: Current Medications Piperacillin Sod/Tazobactam (Sod 2.25 gm/ Sodium Chloride) 100 mls @ 100 mls/hr IVPB Q12H [facility]; Protocol Last Admin: 12/16/18 04:59 Dose: 100 mls/hr Dextrose/Sodium Chloride (Dextrose 5%/0.45% Ns 1000 Ml) 1,000 mls @ 80 mls/hr IV .[id number] [facility] Last Admin: 12/15/18 17:13 Dose: 80 mls/hr Insulin Human Lispro (Humalog) 0 units SC Q6H [facility]; Protocol Last Admin: 12/16/18 06:24 Dose: 3 units Lactulose (Enulose) 40 gm PO Q8H [facility] Last Admin: 12/16/18 06:17 Dose: Not Given Pantoprazole Sodium (Protonix Inj) 40 mg IVP DAILY [facility] - Labs Labs: 12/16/18 05:05 12/16/18 05:05 PT 14.1 Seconds (9.8-13.1) H 12/15/18 11:25 INR 1.2 12/15/18 11:25 APTT 32.6 Seconds (25.6-37.1) 12/15/18 11:25 - Constitutional Appears: Other (Comatose ) - Head Exam Head Exam: ATRAUMATIC, NORMAL INSPECTION, NORMOCEPHALIC - Eye Exam Eye Exam: Scleral icterus Pupil Exam: NORMAL ACCOMODATION, PERRL - ENT Exam ENT Exam: Mucous Membranes Moist, Normal Exam - Respiratory Exam Respiratory Exam: Rhonchi Additional comments: intubated - Cardiovascular Exam Cardiovascular Exam: REGULAR RHYTHM, +S1, +S2 - GI/Abdominal Exam GI & Abdominal Exam: Soft, Normal Bowel Sounds - Skin Skin Exam: Dry, Intact, Normal Color, Warm Assessment and Plan - Assessment and Plan (Free Text) Assessment: Assessment: 59 This is a 58 yo female with PMH Of HTN, DM, CKD, abdominal hernia, 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 Admitted to ICU for further evaluation and treatment of Hepatic Encephalopathy. Plan Comatose/AMS due hepatic encephalopathy Patient still comatose No mental status changes HX of cirrhosis due to hep C Ammonia level 338 MELD 40 point 71.3% 3 month mortality S/P lactulose 200mg in ER Patient Currently intubated Change lactulose to 30mg Ammonia 300->245 F/U BMp F/U Ammonia GI Bleed Nurse report coffee ground emesis Continue on Rocephin for SBP prophylaxis Continue IV Protonix NPO Type and screen 2 units GI consulted F/U recommendation Sepsis with unknown source of infection Hx of paracentesis Tackycardia, Sudden AMS Urine culture negative F/U blood culture F/u Sputum culture Continue Zosyn Start Rifaximin HyperKalemia Improving Potassium 6.6->5.5 S/P insulin, albuterol EKG no T weak peak S/p Calcium gluconate 4.6 once F/U BMP acute on chronic renal failure Chronic worsening Bun/Cr 61/2.6 -> 64/2.8 IV hydration Continue monitoring Nephro consulted, need to evaluate for Hepatorenal syndrome DM2 Chronic Sliding scale Hypoglycemia protocol HTN Chronic BP 157/94 Hold medication due to condition Monitor for blood pressure DVT prophylaxis SCD no heparin for now CODE FULL <Sarah Voss - Last Filed: 12/16/18 16:11> Objective - Vital Signs/Intake and Output Vital Signs (last 24 hours): Temp Pulse Resp BP Pulse Ox 98.5 F 104 H 28 H 161/80 H 100 12/16/18 14:00 12/16/18 15:30 12/16/18 14:58 12/16/18 15:30 12/16/18 14:58 Intake and Output: 12/16/18 12/16/18 06:59 18:59 Intake Total 474 210 Output Total 1100 Balance -626 210 - Medications Medications: Current Medications Piperacillin Sod/Tazobactam (Sod 2.25 gm/ Sodium Chloride) 100 mls @ 100 mls/hr IVPB Q12H [facility]; Protocol Last Admin: 12/16/18 15:50 Dose: 100 mls/hr Dexmedetomidine HCl 400 mcg/ (Sodium Chloride) 100 mls @ 4.65 mls/hr IV .[id number] [facility]; Protocol Stop: 12/17/18 12:10 Last Admin: 12/16/18 15:19 Dose: 0.2 mcg/kg/hr, 4.65 mls/hr Sodium Bicarbonate 80 meq/ (Dextrose/Sodium Chloride) 1,080 mls @ 100 mls/hr IV .[id number] [facility] Stop: 12/18/18 15:31 Last Admin: 12/16/18 16:04 Dose: 100 mls/hr Insulin Human Lispro (Humalog) 0 units SC Q6H [facility]; Protocol Last Admin: 12/16/18 11:18 Dose: 3 units Labetalol HCl (Trandate) 20 mg IVP Q3 PRN PRN Reason: Systolic Blood Pressure Last Admin: 12/16/18 14:36 Dose: 20 mg Lactulose (Enulose) 30 gm PO Q6 [facility] Pantoprazole Sodium (Protonix Inj) 40 mg IVP DAILY [facility] Last Admin: 12/16/18 08:25 Dose: 40 mg Rifaximin (Xifaxan) 550 mg NG BID [facility]; Protocol - Labs Labs: 12/16/18 05:05 12/16/18 05:05 PT 14.1 Seconds (9.8-13.1) H 12/15/18 11:25 INR 1.2 12/15/18 11:25 APTT 32.6 Seconds (25.6-37.1) 12/15/18 11:25 Attending/Attestation - Attestation I have personally seen and examined this patient.: Yes I have fully participated in the care of the patient.: Yes I have reviewed all pertinent clinical information, including history, physical exam and plan: Yes Notes (Text): AMS prob due to Hepatic Encephalopathy Mechanical SBO due Loop of Bowel in Ventral Hernia Seizure ODIN on CKD Stage III Seizure Cirrhosis Hyperkalemia Pt is intubated on Vent in ICU - remains unresponsive, Lactic acid elevated -cont IV Zosyn -stat Surgery consult -IVF hydration - Nephrology, GI, and Neurology consult
[2018-12-16] MEDS ORDERED: Sod Polystyrene Sulf 15 gm/60 ml Susp NG ONE (12:00)
--- NOTE | 2018-12-16 13:00 | RAD ---
Date of service: 12/16/2018 PROCEDURE: CHEST RADIOGRAPH, 1 VIEW HISTORY: Intubated COMPARISON: 12/15/2018 FINDINGS: LUNGS: Clear. PLEURA: No pneumothorax or pleural fluid seen. CARDIOVASCULAR: No aortic atherosclerotic calcification present. Normal heart size. ET tube unchanged in position. The distal extent of the nasogastric tube is not well visualized on this examination due to underpenetration. No congestive change. OSSEOUS STRUCTURES: No significant abnormalities. VISUALIZED UPPER ABDOMEN: Normal. OTHER FINDINGS: None. IMPRESSION: No infiltrate. ET tube unchanged in position. Nasogastric tube noted. Positioning cannot be evaluated on this examination
[2018-12-16] MEDS ORDERED: Labetalol 5mg/ml (4ml) IVP PRN (14:09)
--- NOTE | 2018-12-16 14:20 | CT ---
Date of service: 12/15/2018 PROCEDURE: CT Abdomen and Pelvis without intravenous contrast HISTORY: ascites COMPARISON: 12/14/2018 TECHNIQUE: Without contrast.. Contrast dose: 0 Radiation dose: Total exam DLP = 899.22 mGy-cm. This CT exam was performed using one or more of the following dose reduction techniques: Automated exposure control, adjustment of the mA and/or kV according to patient size, and/or use of iterative reconstruction technique. FINDINGS: LOWER THORAX: Subsegmental atelectasis at the posterior medial left lung base. No infiltrate/effusion. LIVER: Nodular contour consistent with hepatic cirrhosis. No discrete mass. No biliary dilatation. GALLBLADDER AND BILE DUCTS: Cholelithiasis. No mural thickening appreciated. PANCREAS: Unremarkable. No gross lesion or ductal dilatation. SPLEEN: Mild splenomegaly. The spleen measures approximately 14.4 cm in greatest dimension. There is no discrete mass identified. ADRENALS: Unremarkable. No mass. KIDNEYS AND URETERS: Atrophic right kidney. No renal mass, calculus or hydronephrosis. VASCULATURE: Unremarkable. No aortic aneurysm. No aortic atherosclerotic calcification or mural plaque present. BOWEL: There is persistent dilatation of multiple small bowel loops which may reflect ileus or mechanical bowel obstruction. The extent of small bowel dilatation is slightly decreased compared to 12/14/2018. Multiple non-opacified small bowel loops are identified in the central upper abdomen and in the left lower quadrant of the abdomen. All contrast seen within small bowel loops on the current examination may represent residual contrast from the prior day. There is no oral contrast seen within the colon. Possibility of mechanical small-bowel obstruction must be considered. There appears to be an infraumbilical ventral hernia of small bowel with collapsed loops distal to this point, consistent with the point of obstruction located at the level of the ventral hernia. APPENDIX: Not identified. No secondary findings. PERITONEUM: Ascites. There is an umbilical hernia containing mesenteric fat and ascites fluid. There is an anterior midline infraumbilical hernia. This contains both ascites fluid and a nondilated loop of small bowel. Small bowel appears collapsed distal to this point and this likely represents a point of obstruction. No pneumoperitoneum. LYMPH NODES: Unremarkable. No enlarged lymph nodes. BLADDER: Unremarkable. REPRODUCTIVE: Unremarkable postmenopausal uterus BONES: No acute fracture. OTHER FINDINGS: None. IMPRESSION: Probable mechanical small-bowel obstruction resulting from an infraumbilical ventral hernia of a loop of small bowel. There is a transition in caliber at this point. There is ascites. There is evidence of patent cirrhosis. Mild splenomegaly. Atrophic right kidney. Cholelithiasis. The preliminary findings for this examination were reported by [facility] Radiology at 7:14 p.m. on 12/15/2018. There is discordance of this report with the preliminary findings. Note of the obstructing ventral hernia containing small bowel was not described in the preliminary report of this examination.
[2018-12-16] MEDS ORDERED: Dexmedetomidine Hydrochloride 400 MCG in Sodium Chloride 0.9% 96 ML IV ONE (14:40)
[2018-12-16] MEDS ORDERED: Perflutren Lipid Microsphere 1.5 ML SUS IV ONE (14:44)
--- NOTE | 2018-12-16 15:22 | CP.CCUPN ---
CCU Subjective - Physician Review Subjective (Free Text): Eyes closed, lethargic, breathing high 20s, but does not appear distressed. No high FEVER spikes last 24hrs. SBPs 160-170s, up to 180s now with tachypnea, but remains non-interactive to verbal commands. HR 100s sinus. Has had BMs from rectal Lactulose. Other vitals and I/O's reviewed. Urine output 1700 ml over last 24H. Fluid balance essentially even last 24H. OGT in place ( was re-positioned). ROS: No other pertinent negs or positives on 10+ system review obtainable due to lethargic status. PMSFH: All other Nursing and physician documentation reviewed to date; no new pertinent info noted relevant to current medical problems. EXAM- HEENT: no icterus, no gaze preference, pupils equal bilat but sluggish, not pinpoint, no nystagmus NECK: no JVD visible, supple, carotids equal upstroke bilat/no bruit CHEST: decreased BS at the bases, no wheezes audible HEART: regular, distant, S1S2, no rubs ABD: soft, + distension, no focal tenderness, no tympany, no guarding, no organomegaly, BS hypoactive. EXT: trace LE edema, no mottling; no calf tenderness or palpable cords, distal pulses intact and symmetrical, no cyanosis, bilat Venodynes on. NEURO: minimally withdraws to deep pain, no abnormal posturing. SKIN: no rashes, warm and dry, healed dark pigmented skin lesions maybe representing previous excoriations. No pustular lesions, nor active oozing of secretions, nor any discharge. LABS: WBC= 9.9 HGB= 8.5 PLTs= 100K Na= 143 K= 5.5 CL= 109 HCO3= 15 BUN/Cr= 64/2.8 BS= 275 Ammonia= 245 from 383 yesterday ABG= 7.55/17/235 Last CXR done on 12/12: (my interp) ETT position OK above marciano, lung acosta appear clear bilat, without gross consolidation. IMPRESSION / MAJOR PROBLEMS NOW: 1. Acute resp Insuff 2 toxic/metabolic encephalopathy. 2. Hepatic encephalopathy 3. Azotemia, r/o Dehydration / ATN, versus HRS / Acute on CKD II, with severe hyperkalemia 4. Accelerated HTN 5. Chronic Disease Anemia 6. Chronic Hep C 7. Uncontrolled DM II PLAN: 1. Stop rectal administration of lactulose given distended abdomen and possible distended bowel. OGT inserted, utilize this route primarily, Rifaximin added. Would also check serum osmolarity, r/o HNKC 2. Labetalol prn. 3. Try to avoid anxiolytics if possible. If she is deemed to be more responsive and agitated on MV support, will use Dexmedetomidine. 4. Not hypotensive, not febrile, no leukocytosis, but would r/o SBP. Underwent paracentesis 1 month MASS SPECTROSCOPIST, but no fluid specimen analysis done. 5. Get flat plate AXR or consider CT AP. Lactate was normal yesterday, but would repeat again with PCT level. CXR is clear, but get sputum Cx, on empiric Rocephin, but did get first doses of Rocephin / Vanco in ER yesterday. Reported to have had pancreatitis and ascites, prior to admission. 6. Check urine Na / urine osmo levels, may need more volume expansion. As of now, there is no criteria that fits HRS ( low serum Na, low urine Na, urine osmo higher than serum osmo, and urine volume has not been low). 7. Need more K diversion/ elimination; add Kayexalate. 8. No MV weans until more awake. Fio2 down to 40%. Could decrease TV to 350- 360 ml to avoid excessive alkalosis, but her tachypnea may be in response to systemic acidosis. 9. No Advance Directives noted, full / aggressive support for now.
--- NOTE | 2018-12-16 15:48 | RAD ---
Date of service: 12/15/2018 PROCEDURE: CHEST RADIOGRAPH, 1 VIEW HISTORY: OG tube placement COMPARISON: 12/15/2018 FINDINGS: LUNGS: Clear. PLEURA: No pneumothorax or pleural fluid seen. CARDIOVASCULAR: No aortic atherosclerotic calcification present. Normal heart size. ET tube unchanged in position from prior examination. Nasogastric tube extends to left upper quadrant of abdomen. OSSEOUS STRUCTURES: No significant abnormalities. VISUALIZED UPPER ABDOMEN: Normal. OTHER FINDINGS: None. IMPRESSION: Nasogastric tube is in appropriate position.
[2018-12-16] MEDS: Sodium Bicarbonate 8.4% 80 MEQ in Dextrose 5%/0.45% NS 1,000 ML IV SCH (16:04)
--- NOTE | 2018-12-16 16:10 | RAD ---
Date of service: 12/16/2018 HISTORY: tachypnea COMPARISON: Comparison chest 12/16/2018 at 0436 hr 3 cm above marciano. The FINDINGS: In situ ETT, tip of which lies approximately 3 cm above marciano. NGT is present tip of which is poorly delineated due to underpenetration although appears to lie the low EG junction. LUNGS: Persistent elevation right hemidiaphragm possibly due to eventration or scalloping. Low lung volumes, crowded bronchovascular markings and bibasilar atelectasis right greater than left.. PLEURA: No significant pleural effusion identified, no pneumothorax apparent. CARDIOVASCULAR: No aortic atherosclerotic calcification present. Cardiomegaly.. No pulmonary vascular congestion. OSSEOUS STRUCTURES: No significant abnormalities. VISUALIZED UPPER ABDOMEN: Normal. OTHER FINDINGS: None. IMPRESSION: ETT as above. In situ NGT the tip of which is poorly delineated on this exam due to underpenetration however the tip appears to lie below EG junction Bibasilar atelectasis as above. Persistent elevation right hemidiaphragm
--- NOTE | 2018-12-16 16:23 | RAD ---
Date of service: 12/15/2018 HISTORY: OGT insertion COMPARISON: Comparison made with prior chest radiograph 12/15/2018 at 1638 hr FINDINGS: In situ ETT, tip of which lies approximately 2.5 cm above marciano. In situ NGT, tip of which lies left upper/mid abdomen in good position LUNGS: Minor bibasilar atelectasis. PLEURA: No significant pleural effusion identified, no pneumothorax apparent. CARDIOVASCULAR: No aortic atherosclerotic calcification present. Heart size enlarged unchanged. No pulmonary vascular congestion. OSSEOUS STRUCTURES: No significant abnormalities. VISUALIZED UPPER ABDOMEN: Normal. OTHER FINDINGS: None. IMPRESSION: ETT and NGT as above. Minor bibasilar atelectasis.
--- NOTE | 2018-12-16 16:23 | CP.PCM.CON ---
History of Present Illness - History of Present Illness History of Present Illness: Neurology consult called by Dr. Samm Hansen, baby sitter. Consult dictated. A/P: 58 yr old woman with multiple medical problems now with several seizures today. Plan; 1. VEEG 2. CT scan head 3. Add depakote 1500 mg IV now 4. Add vimpat 200 mg IV now. 5. Consider succinate paralytic if continues to seize. Please call neurology if any further seizures. DR. Hendricks Past Patient History - Infectious Disease Hx of Infectious Diseases: None - Tetanus Immunizations Tetanus Immunization: Unknown - Past Medical History & Family History Past Medical History?: Yes - Past Social History Smoking Status: Never Smoked - CARDIAC Hx Cardiac Disorders: Yes Hx Hypercholesterolemia: Yes Hx Hypertension: Yes - PULMONARY Hx Respiratory Disorders: Yes Hx Pneumonia: Yes - NEUROLOGICAL Hx Neurological Disorder: No - HEENT Hx HEENT Problems: No - RENAL Hx Chronic Kidney Disease: No - ENDOCRINE/METABOLIC Hx Endocrine Disorders: Yes Hx Diabetes Mellitus Type 2: Yes - HEMATOLOGICAL/ONCOLOGICAL Hx Blood Disorders: Yes Hx Anemia: Yes Hx Human Immunodeficiency Virus (HIV): No - INTEGUMENTARY Hx Dermatological Problems: No - MUSCULOSKELETAL/RHEUMATOLOGICAL Hx Musculoskeletal Disorders: No Hx Falls: No - GASTROINTESTINAL Hx Gastrointestinal Disorders: Yes Hx Gastritis: Yes - GENITOURINARY/GYNECOLOGICAL Hx Genitourinary Disorders: No - PSYCHIATRIC Hx Psychophysiologic Disorder: No Hx Anxiety: No Hx Bipolar Disorder: No Hx Depression: No Hx Paranoia: No Hx Post Traumatic Stress Disorder: No Hx Schizophrenia: No Hx Substance Use: No - SURGICAL HISTORY Hx Surgeries: Yes Hx Appendectomy: Yes - ANESTHESIA Hx Anesthesia: Yes Hx Anesthesia Reactions: No Hx Malignant Hyperthermia: No Meds Allergies/Adverse Reactions: Allergies Allergy/AdvReac Type Severity Reaction Status Date / Time No Known Allergies Allergy Verified 12/10/18 10:10 - Medications Medications: Current Medications Piperacillin Sod/Tazobactam (Sod 2.25 gm/ Sodium Chloride) 100 mls @ 100 mls/hr IVPB Q12H [facility]; Protocol Last Admin: 12/16/18 15:50 Dose: 100 mls/hr Dexmedetomidine HCl 400 mcg/ (Sodium Chloride) 100 mls @ 4.65 mls/hr IV .[id number] [facility]; Protocol Stop: 12/17/18 12:10 Last Titration: 12/16/18 16:08 Dose: 0.3 mcg/kg/hr, 6.98 mls/hr Sodium Bicarbonate 80 meq/ (Dextrose/Sodium Chloride) 1,080 mls @ 100 mls/hr IV .[id number] [facility] Stop: 12/18/18 15:31 Last Admin: 12/16/18 16:04 Dose: 100 mls/hr Insulin Human Lispro (Humalog) 0 units SC Q6H [facility]; Protocol Last Admin: 12/16/18 11:18 Dose: 3 units Labetalol HCl (Trandate) 20 mg IVP Q3 PRN PRN Reason: Systolic Blood Pressure Last Admin: 12/16/18 14:36 Dose: 20 mg Lactulose (Enulose) 30 gm PO Q6 [facility] Pantoprazole Sodium (Protonix Inj) 40 mg IVP DAILY [facility] Last Admin: 12/16/18 08:25 Dose: 40 mg Rifaximin (Xifaxan) 550 mg NG BID [facility]; Protocol Results - Vital Signs Recent Vital Signs: Last Vital Signs Temp 99.7 F H 12/16/18 16:00 Pulse 104 H 12/16/18 16:00 Resp 22 12/16/18 16:00 BP 170/87 H 12/16/18 16:00 Pulse Ox 100 12/16/18 16:00 - Labs Result Diagrams: 12/16/18 17:37 12/16/18 17:37 Labs: Laboratory Results - last 24 hr 12/15/18 12/15/18 12/15/18 16:28 16:28 16:59 WBC RBC Hgb Hct MCV MCH MCHC RDW Plt Count MPV Neut % (Auto) Lymph % (Auto) Elk % (Auto) Eos % (Auto) Baso % (Auto) Neut # (Auto) Lymph # (Auto) Elk # (Auto) Eos # (Auto) Baso # (Auto) pCO2 pO2 HCO3 ABG pH ABG Total CO2 ABG O2 Saturation ABG O2 Content ABG Base Excess ABG Hemoglobin ABG Carboxyhemoglobin POC ABG HHb (Measured) ABG Methemoglobin ABG O2 Capacity Uriel Test A-a O2 Difference Hgb O2 Saturation Vent Mode Mechanical Rate FiO2 Tidal Volume PEEP Crit Value Called To Crit Value Called By Crit Value Read Back Blood Gas Notified Time Sodium 141 Potassium 6.4 H* Chloride 108 H Carbon Dioxide 16 L Anion Gap 23 H BUN 61 H Creatinine 2.6 H Est GFR ( Amer) 23 Est GFR (Non-Af Amer) 19 POC Glucose (mg/dL) 191 H Random Glucose 193 H Lactic Acid Calcium 9.5 Total Bilirubin AST ALT Alkaline Phosphatase Ammonia Total Protein Albumin Globulin Albumin/Globulin Ratio Salicylates < 1.0 Acetaminophen < 10.0 L 12/15/18 12/15/18 12/16/18 21:12 22:30 04:08 WBC RBC Hgb Hct MCV MCH MCHC RDW Plt Count MPV Neut % (Auto) Lymph % (Auto) Elk % (Auto) Eos % (Auto) Baso % (Auto) Neut # (Auto) Lymph # (Auto) Elk # (Auto) Eos # (Auto) Baso # (Auto) pCO2 17 L* pO2 235 H HCO3 20.2 L ABG pH 7.55 H ABG Total CO2 15.4 L ABG O2 Saturation 100.2 H ABG O2 Content 12.2 L ABG Base Excess -6.1 L ABG Hemoglobin 8.4 L ABG Carboxyhemoglobin 0.9 POC ABG HHb (Measured) -0.2 L ABG Methemoglobin 1.0 ABG O2 Capacity 12.2 L Uriel Test Yes A-a O2 Difference 100.0 Hgb O2 Saturation 98.4 H Vent Mode A/c Mechanical Rate 12 FiO2 50.0 Tidal Volume 400 PEEP 5 Crit Value Called To Sandra scott rn Crit Value Called By Marlo Crit Value Read Back Y Blood Gas Notified Time 437 Sodium 142 Potassium 6.0 H Chloride 108 H Carbon Dioxide 14 L Anion Gap 26 H BUN 62 H Creatinine 2.6 H Est GFR ( Amer) 23 Est GFR (Non-Af Amer) 19 POC Glucose (mg/dL) 249 H Random Glucose 245 H Lactic Acid Calcium 9.4 Total Bilirubin AST ALT Alkaline Phosphatase Ammonia Total Protein Albumin Globulin Albumin/Globulin Ratio Salicylates Acetaminophen 12/16/18 12/16/18 12/16/18 05:05 05:05 05:05 WBC 9.9 RBC 2.60 L Hgb 8.5 L Hct 25.4 L MCV 97.7 MCH 32.7 H MCHC 33.5 RDW 15.1 H Plt Count 100 L D MPV 8.8 Neut % (Auto) 82.4 H Lymph % (Auto) 7.2 L Elk % (Auto) 9.8 Eos % (Auto) 0.2 Baso % (Auto) 0.4 Neut # (Auto) 8.2 H Lymph # (Auto) 0.7 L Elk # (Auto) 1.0 H Eos # (Auto) 0.0 Baso # (Auto) 0.0 pCO2 pO2 HCO3 ABG pH ABG Total CO2 ABG O2 Saturation ABG O2 Content ABG Base Excess ABG Hemoglobin ABG Carboxyhemoglobin POC ABG HHb (Measured) ABG Methemoglobin ABG O2 Capacity Uriel Test A-a O2 Difference Hgb O2 Saturation Vent Mode Mechanical Rate FiO2 Tidal Volume PEEP Crit Value Called To Crit Value Called By Crit Value Read Back Blood Gas Notified Time Sodium 143 Potassium 5.5 H Chloride 109 H Carbon Dioxide 15 L Anion Gap 25 H BUN 64 H Creatinine 2.8 H Est GFR ( Amer) 21 Est GFR (Non-Af Amer) 17 POC Glucose (mg/dL) Random Glucose 275 H Lactic Acid Calcium 9.4 Total Bilirubin 4.5 H AST 49 H ALT 26 Alkaline Phosphatase 168 H Ammonia 245 H* D Total Protein 7.2 Albumin 2.9 L Globulin 4.2 H Albumin/Globulin Ratio 0.7 L Salicylates Acetaminophen 12/16/18 12/16/18 05:31 14:02 WBC RBC Hgb Hct MCV MCH MCHC RDW Plt Count MPV Neut % (Auto) Lymph % (Auto) Elk % (Auto) Eos % (Auto) Baso % (Auto) Neut # (Auto) Lymph # (Auto) Elk # (Auto) Eos # (Auto) Baso # (Auto) pCO2 pO2 HCO3 ABG pH ABG Total CO2 ABG O2 Saturation ABG O2 Content ABG Base Excess ABG Hemoglobin ABG Carboxyhemoglobin POC ABG HHb (Measured) ABG Methemoglobin ABG O2 Capacity Uriel Test A-a O2 Difference Hgb O2 Saturation Vent Mode Mechanical Rate FiO2 Tidal Volume PEEP Crit Value Called To Crit Value Called By Crit Value Read Back Blood Gas Notified Time Sodium Potassium Chloride Carbon Dioxide Anion Gap BUN Creatinine Est GFR ( Amer) Est GFR (Non-Af Amer) POC Glucose (mg/dL) 267 H Random Glucose Lactic Acid 6.7 H* Calcium Total Bilirubin AST ALT Alkaline Phosphatase Ammonia Total Protein Albumin Globulin Albumin/Globulin Ratio Salicylates Acetaminophen
--- NOTE | 2018-12-16 17:15 | CP.CCUPN ---
CCU Subjective - Physician Review Subjective (Free Text): Late entry: Discussed with PMD: just witnessed generalized tonic clinic seizure activity lasting for approx. 3-4 minutes before being aborted by emergent dose of Ativan 2 mg. No previous h/o seizure activity reported by family, but now noting unexplained black lesions over anterior tongue shahla represent tongue biting during occult seizure activity at home. Family also now mention one episode of urinary incontinence. STAT Keppra loading ordered, Neuro eval requested. Called by PMD regarding re-interpretation of yesterdays CT AP showing SB ileus or mechanical SBO from an infra-umbilical hernia. General surgery team called to evaluate. This correlates with occult Sepsis given elevated random Lactate level over 6.0 today. ID evals ordered. May consider repeat CT brain and repeat CTAP now. Central Venous access and Arterial Line placement performed after obtaining signed informed consent from patients cullen Siddiqi; in anticipation of any decline in hemodynamics and need for invasive monitoring.
--- NOTE | 2018-12-16 17:17 | PCM.PROC ---
Procedures Attestation:: I certify that I have explained the specified Operation(s) or Procedure(s), risks, benefits and reasonable alternatives to the Patient and/or other person responsible. The opportunity was given to ask questions and all questions answered - Central Line Placement Right Femoral Triple Lumen Catheter Aseptic technique was employed throughout the procedure: Full sterile barriers (mask, hair cover, sterile gown, sterile gloves), Full body sterile drape, Chloraprep Antiseptic: 2 minute prep for Femoral CVP Time Out Performed: Yes Pt. Placed on Pulse Ox Monitor: Yes Central Line Prep: Chlorhexidine-Alcohol Combination Local Anesthesia Used: Lidocaine 1% Amount of Anesthesia Used (mls): 5 Ultrasound Used for Placement: No Central Line Lumen Inserted: triple Central Line Length: 20 cm Post Procedure: Sutured in Place, Good Blood Return, All Ports Aspirated, Flushed, Capped, Sterile Dressing Applied Secured by: Suture Post procedure dressing: Gauze, Clear vapor permeable, Chlorhexidine disc (Biopatch) Post Procedure X-Ray: No Patient Tolerated Procedure: Well Immediate Complications: Arterial Puncture/Cannulation Additional Comments: * Femoral site chosen due to unknown coagulation test results status. No immediate bleeding complications noted.
[2018-12-16 17:20] LABS: ARTERIAL BLOOD GAS HCO3 18.7 mmol/L (21-28); ARTERIAL BLOOD GAS HEMOGLOBIN 8.5 g/dL (11.7-17.4); ARTERIAL BLOOD GAS O2 CAPACITY 12.1 mL/dL (16-24); ARTERIAL BLOOD GAS PCO2 36 mm/Hg (35-45); ARTERIAL BLOOD GAS PO2 199 mm/Hg (80-100); ARTERIAL BLOOD GAS TCO2 18.8 mmol/L (22-28)
--- NOTE | 2018-12-16 17:20 | PCM.PROC ---
Procedures Attestation:: I certify that I have explained the specified Operation(s) or Procedure(s), risks, benefits and reasonable alternatives to the Patient and/or other person responsible. The opportunity was given to ask questions and all questions answered - Arterial Line Right Femoral Aseptic technique was employed throughout the procedure: Hand Hygiene done prior to procedure, Full sterile barriers (mask, hair cover, sterile gown, sterile gloves), Full body sterile drape, Chloraprep Antiseptic: 2 minute prep for Femoral Time Out Performed: Yes Pt. placed on Pulse Ox Monitor: Yes Central Line Prep: Chlorhexidine-Alcohol Combination Local Anesthesia Used: Lidocaine 1% Amount of Anesthesia Used (mls): 5 Ultrasound Used for Placement: No Gauge (Size): 20 gauge (6inch angiocath) Technique Used: Guide Wire Technique Secured by: Securement device Post procedure dressing: Clear vapor permeable, Chlorhexidine disc (Biopatch) Patient Tolerated Procedure: well Immediate Complications: none Additional Comments: Femoral site chosen due to unknown coagulation test results status. No immediate bleeding complications noted.
[2018-12-16] MEDS: Lactulose 10 gm/15 ml Syrup PO SCH ×2 (17:27→23:38)
[2018-12-16 17:42] LABS: HEMOGLOBIN 8.3 g/dL (12.0-16.0); MEAN CORPUSCULAR HEMOGLOBIN 32.3 pg (27.0-31.0); MEAN CORPUSCULAR HGB CONC 32.6 g/dL (33.0-37.0); RBC 2.58 Mil/uL (3.80-5.20); RED CELL DISTRIBUTION WIDTH 15.6 % (11.5-14.5); WHITE BLOOD COUNT 11.2 K/uL (4.8-10.8)
[2018-12-16 17:51] LABS: INR 1.7; PROTHROMBIN TIME 19.3 Seconds (9.8-13.1)
[2018-12-16 17:59] LABS: CALCIUM 9.2 mg/dL (8.4-10.2)
[2018-12-16] MEDS ORDERED: levETIRAcetam 500 MG in Sodium Chloride 0.9% 100 ML IVPB STA (18:14)
[2018-12-16] MEDS ORDERED: Albuterol 0.083% Inhal Sol (2.5 mg/3 mL) UD INH STA (18:15)
[2018-12-16 18:38] LABS: TROPONIN I 0.173 ng/mL (0.00-0.120)
[2018-12-16] MEDS ORDERED: Insulin Regular 100 units/ml IV STA (19:08)
[2018-12-16] MEDS ORDERED: Midazolam 2 MG/2 ML VIAL ONE (20:16)
[2018-12-16] MEDS ORDERED: Midazolam 2 MG/2 ML VIAL IV ONE (20:19)
[2018-12-16] MEDS ORDERED: Lacosamide 200mg/20ml 200 MG in Sodium Chloride 0.9% 100 ML IVPB STA (20:33)
[2018-12-16] MEDS: Midazolam 50 mg/10 ml 50 MG in Dextrose 5% In Water 90 ML IV ONE (20:40)
--- NOTE | 2018-12-16 20:57 | CP.PCM.PN ---
<Luis Mcgee - Last Filed: 12/16/18 20:49> Subjective - Date & Time of Evaluation Date of Evaluation: 12/16/18 Time of Evaluation: 18:10 - Subjective Subjective: General Surgery Consult Note for Dr. Silvestre Reason for consult: Suspected SBO This is a 58F with PMH of Hepatitis C from blood transfusion, HTN, DM, CKD, Liver cirrhosis present with recurrent ventral hernia. Patient reports that she this ventral hernia repaired [address] Silvestre. Patient was in the ED 2 days ago with a ventral hernia that was reduced at bedside she reported at the time that she has been to the ED 3 times in the week for abdominal pain. She has been having abdominal pain intermittently since October when she was diagnosed with ascites. She had a paracentesis at that time. She follows with Hepatology clinic at [facility]. Since reduction of her hernia she did not report any pain however she became confused and lethargic. In the hospital she had onset of seizures and was intubated and admitted to the ICU. PMH: HTN, DM, CKD, Liver cirrhosis PSH: laparoscopic ventral hernia repair with mesh, multiple paracentesis ALL: NKDA Meds: Sprinoloactone 100mg, propanolol 10mg, furosemide 40mg , novolin 70/30 Social: Denies tobacco/EtOH/illicit drug use. Objective - Vital Signs/Intake and Output Vital Signs (last 24 hours): Temp Pulse Resp BP Pulse Ox 99.7 F H 106 H 19 122/57 L 99 12/16/18 16:00 12/16/18 18:00 12/16/18 18:00 12/16/18 18:00 12/16/18 18:00 Intake and Output: 12/16/18 12/17/18 18:59 06:59 Intake Total 514 6 Output Total 600 Balance -86 6 - Medications Medications: Current Medications Piperacillin Sod/Tazobactam (Sod 2.25 gm/ Sodium Chloride) 100 mls @ 100 mls/hr IVPB Q12H [facility]; Protocol Last Admin: 12/16/18 15:50 Dose: 100 mls/hr Dexmedetomidine HCl 400 mcg/ (Sodium Chloride) 100 mls @ 4.65 mls/hr IV .[id number] ONE; Protocol Stop: 12/17/18 12:10 Last Titration: 12/16/18 19:45 Dose: 0.4 mcg/kg/hr, 9.3 mls/hr Sodium Bicarbonate 80 meq/ (Dextrose/Sodium Chloride) 1,080 mls @ 100 mls/hr IV .[id number] [facility] Stop: 12/18/18 15:31 Last Admin: 12/16/18 16:04 Dose: 100 mls/hr Levetiracetam 500 mg/ Sodium (Chloride) 105 mls @ 210 mls/hr IVPB Q12@0600,1800 [facility] Midazolam HCl 50 mg/ Dextrose 100 mls @ 4 mls/hr IV .Q24H ONE; Protocol Stop: 12/17/18 20:10 Lacosamide 200 mg/ Sodium (Chloride) 120 mls @ 120 mls/hr IVPB STAT STA Stop: 12/16/18 21:32 Insulin Human Lispro (Humalog) 0 units SC Q6H [facility]; Protocol Last Admin: 12/16/18 17:53 Dose: 4 units Labetalol HCl (Trandate) 20 mg IVP Q3 PRN PRN Reason: Systolic Blood Pressure Last Admin: 12/16/18 14:36 Dose: 20 mg Lactulose (Enulose) 30 gm PO Q6 [facility] Last Admin: 12/16/18 17:27 Dose: 30 gm Lorazepam (Ativan) 4 mg IVP Q4 PRN PRN Reason: Seizure activity Pantoprazole Sodium (Protonix Inj) 40 mg IVP DAILY [facility] Last Admin: 12/16/18 08:25 Dose: 40 mg Rifaximin (Xifaxan) 550 mg NG BID [facility]; Protocol - Labs Labs: 12/16/18 17:37 12/16/18 17:37 PT 19.3 Seconds (9.8-13.1) H D 12/16/18 17:37 INR 1.7 12/16/18 17:37 APTT 32.6 Seconds (25.6-37.1) 12/15/18 11:25 - Constitutional Appears: Non-toxic, No Acute Distress - Head Exam Head Exam: ATRAUMATIC, NORMOCEPHALIC - ENT Exam ENT Exam: Mucous Membranes Moist - Respiratory Exam Respiratory Exam: Ventilated - Cardiovascular Exam Cardiovascular Exam: REGULAR RHYTHM - GI/Abdominal Exam GI & Abdominal Exam: Hernia (Ventral - recurrent and umbilical), Normal Bowel Sounds, Soft. absent: Distended, Firm, Guarding, Rebound, Rigid, Tenderness - Extremities Exam Extremities exam: Positive for: normal capillary refill, pedal pulses present - Back Exam Back exam: absent: CVA tenderness (L), CVA tenderness (R) - Psychiatric Exam Psychiatric exam: Normal Affect, Normal Mood - Skin Skin Exam: Dry, Intact, Normal Color, Warm Assessment and Plan - Assessment and Plan (Free Text) Assessment: 58F with new onset seizures and a vnetral hernia No signs of obstruction at this time, per nursing staff pt had multiple BM today Pt Lactate elevated recommend hydrate and seizure control No surgical managment at this time KUB in AM to re-evaluate OGT to suction Monitor Outputs D/W Dr. Silvestre <Magdaleno Silvestre B - Last Filed: 12/20/18 13:01> Objective - Vital Signs/Intake and Output Vital Signs (last 24 hours): Temp Pulse Resp BP Pulse Ox 97 F L 110 H 20 108/39 L 100 12/20/18 12:00 12/20/18 12:00 12/20/18 12:00 12/20/18 12:00 12/20/18 12:00 Intake and Output: 12/20/18 12/20/18 06:59 18:59 Intake Total 1517 556 Output Total 7 1000 Balance 1510 -444 - Medications Medications: Current Medications Acetaminophen (Tylenol 650mg/20.3ml Solution Ud) 650 mg PO Q6 PRN PRN Reason: Temperature Last Admin: 12/19/18 04:22 Dose: 650 mg Dextrose (Dextrose 50% Inj) 0 ml IV STAT PRN; Protocol PRN Reason: Hypoglycemia Protocol Dextrose (Glutose 15) 0 gm PO ONCE PRN; Protocol PRN Reason: Hypoglycemia Protocol Fosphenytoin Sodium (Cerebyx) 100 mg IV Q8 [facility] Last Admin: 12/20/18 09:16 Dose: 100 mg Glucagon (Glucagen Diagnostic Kit) 0 mg IM STAT PRN; Protocol PRN Reason: Hypoglycemia Protocol Hydrocortisone Sodium Succinate (Solu-Cortef) 100 mg IV Q12 [facility] Last Admin: 12/20/18 09:20 Dose: 100 mg Piperacillin Sod/Tazobactam (Sod 2.25 gm/ Sodium Chloride) 100 mls @ 100 mls/hr IVPB Q12H [facility]; Protocol Last Admin: 12/20/18 04:49 Dose: 100 mls/hr Levetiracetam 1,500 mg/ Sodium (Chloride) 115 mls @ 215 mls/hr IVPB Q12H [facility] Last Admin: 12/20/18 01:27 Dose: 215 mls/hr Vasopressin 100 units/ Sodium (Chloride) 105 mls @ 1.89 mls/hr IV .Q24H [facility]; Protocol Last Admin: 12/20/18 01:35 Dose: 0.03 units/min, 1.89 mls/hr Lacosamide 200 mg/ Sodium (Chloride) 120 mls @ 120 mls/hr IVPB Q12@0900,2100 [facility] Last Admin: 12/20/18 10:11 Dose: 120 mls/hr Sodium Bicarbonate 80 meq/ (Dextrose/Sodium Chloride) 1,080 mls @ 50 mls/hr IV .[id number] [facility] Stop: 12/21/18 10:03 Norepinephrine Bitartrate 16 (mg/ Dextrose) 266 mls @ 29.93 mls/hr IV .[id number] ONE Stop: 12/20/18 20:11 Last Admin: 12/20/18 12:28 Dose: 29.93 mls/hr Insulin Human Lispro (Humalog) 0 units SC Q6H [facility]; Protocol Last Admin: 12/20/18 12:30 Dose: Not Given Lactulose (Generlac) 200 gm [place] Q4H [facility] Last Admin: 12/20/18 10:12 Dose: 200 gm Pantoprazole Sodium (Protonix Inj) 40 mg IVP DAILY [facility] Last Admin: 12/20/18 09:20 Dose: 40 mg Rifaximin (Xifaxan) 550 mg NG BID [facility]; Protocol Last Admin: 12/20/18 09:21 Dose: 550 mg - Labs Labs: 12/20/18 05:00 12/20/18 05:00 PT 26.5 Seconds (9.8-13.1) H D 12/18/18 09:00 INR 2.3 12/18/18 09:00 APTT 32.7 Seconds (25.6-37.1) 12/18/18 09:00 Attending/Attestation - Attestation I have fully participated in the care of the patient.: Yes I have reviewed all pertinent clinical information, including history, physical exam and plan: Yes Notes (Text): Pt with recurrent reducible incisional hernia with Cirrhosis Improving clinically No surgical intervention required at present f.u as out pt c.w current mx Plan d.w pt in detail
[2018-12-16] MEDS ORDERED: Valproate 1,500 MG in Sodium Chloride 0.9% 100 ML IVPB ONE (20:59)
[2018-12-16] MEDS ORDERED: PROPOFOL ONE (21:12)
--- NOTE | 2018-12-16 21:19 | CP.PCM.PCO ---
Physician Communication Note - Physician Communication Note Physician Communication Note: patient is now in status epilepticus. On versed, received.
[2018-12-16] MEDS: Propofol 10 mg/ml 1,000 MG/100 ML VIAL IV SCH (21:30)
[2018-12-16] MEDS ORDERED: Succinylcholine 200 mg/10 ml Inj IV ONE ×2 (21:40→21:44)
--- NOTE | 2018-12-16 21:53 | CP.CCUPN ---
CCU Subjective - Physician Review Subjective (Free Text): 12/16/18 21:49 Sedated on vent Critical Care Time Spent (in minutes): 106 CCU Objective - Vital Signs / Intake & Output Vital Signs (Last 4 hours): Vital Signs Pulse Resp BP Pulse Ox 12/16/18 18:00 106 H 19 122/57 L 99 Intake and Output (Last 8hrs): Intake & Output 12/16/18 12/16/18 12/16/18 06:59 14:59 22:59 Intake Total 114 210 310 Output Total 1100 600 Balance -986 210 -290 Weight 205 lb 1.6 oz Intake: IV 14 10 110 Intake, Piggyback 100 100 200 Free Water Flush 100 Output: Urine 1100 600 Urethral (Whitehead) 1100 600 Other: # Bowel Movements 1 - Physical Exam Narrative Physical Exam (Free Text): 12/16/18 21:49 NC/AT, pupils reactive to light b/l No cervical LAD Lungs clear b/l S1/S2, RRR, pulses weak but symmetric b/l Abdomen mildly distended, ventral harnia, no BS, no organomegaly Normal external female genitalia with whitehead in place No joint deformity 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 Head: Negative for: Tenderness, Contusion Pupils: Negative for: Non-Reactive, Pinpoint Extroacular Muscles: Negative for: Gaze Palsy Conjunctiva: Negative for: Injected Neck: Positive for: Trachea Midline Respiratory/Chest: Negative for: Clear to Auscultation, Good Air Exchange, Respiratory Distress, Accessory Muscle Use, Wheezes, Rales Cardiovascular: Negative for: Murmurs, Irregular Rhythm Abdomen: Negative for: Normal Bowel Sounds Neurological: Negative for: GCS=15, Norm Deep Tendon Reflexes Psychiatric: Negative for: Alert, Oriented x 3, Anxious, Agitated - Medications Active Medications: Active Medications Generic Name Dose Route Start Last Admin Trade Name Freq PRN Reason Stop Dose Admin Piperacillin Sod/Tazobactam 100 mls @ 100 mls/hr 12/15/18 16:30 12/16/18 15:50 Sod 2.25 gm/ Sodium Chloride IVPB 100 mls/hr Q12H JOCELIN Administration Protocol Dexmedetomidine HCl 400 mcg/ 100 mls @ 4.65 mls/hr 12/16/18 14:40 12/16/18 19:45 Sodium Chloride IV 12/17/18 12:10 0.4 mcg/kg/hr .[id number] ONE 9.3 mls/hr Titration Protocol 0.2 MCG/KG/HR Sodium Bicarbonate 80 meq/ 1,080 mls @ 100 mls/hr 12/16/18 15:30 12/16/18 16:04 Dextrose/Sodium Chloride IV 12/18/18 15:31 100 mls/hr .[id number] JOCELIN Administration Levetiracetam 500 mg/ Sodium 105 mls @ 210 mls/hr 12/17/18 06:00 Chloride IVPB Q12@0600,1800 JOCELIN Midazolam HCl 50 mg/ Dextrose 100 mls @ 4 mls/hr 12/16/18 20:11 IV 12/17/18 20:10 .Q24H ONE Protocol 2 MG/HR Valproate Sodium 1,500 mg/ 115 mls @ 100 mls/hr 12/16/18 20:59 Sodium Chloride IVPB 12/16/18 22:07 ONCE ONE Lacosamide 200 mg/ Sodium 120 mls @ 120 mls/hr 12/17/18 09:00 Chloride IVPB BID [facility] Norepinephrine Bitartrate 4 mg 254 mls @ 9.53 mls/hr 12/16/18 22:00 / Dextrose IV .Q24H [facility] Protocol 2.5 MCG/MIN Insulin Human Lispro 0 units 12/15/18 22:45 12/16/18 17:53 Humalog SC 4 units Q6H [facility] Administration Protocol Labetalol HCl 20 mg 12/16/18 14:09 12/16/18 14:36 Trandate IVP 20 mg Q3 PRN Administration Systolic Blood Pressure Lactulose 30 gm 12/16/18 16:00 12/16/18 17:27 Enulose PO 30 gm Q6 [facility] Administration Lorazepam 4 mg 12/16/18 20:12 Ativan IVP Q4 PRN Seizure activity Pantoprazole Sodium 40 mg 12/16/18 09:00 12/16/18 08:25 Protonix Inj IVP 40 mg DAILY [facility] Administration Rifaximin 550 mg 12/16/18 17:00 Xifaxan NG BID [facility] Protocol - Patient Studies Lab Studies: Microbiology Studies 12/15/18 15:30 Blood Culture - Preliminary Blood NO GROWTH AFTER 24 HOURS 12/15/18 16:53 Urine Culture - Final Urine,Catheterized No Growth (<1,000 CFU/ML) Lab Studies 12/16/18 12/16/18 12/16/18 Range/Units 18:06 18:06 17:37 WBC 11.2 H (4.8-10.8) K/uL RBC 2.58 L (3.80-5.20) Mil/uL Hgb 8.3 L (12.0-16.0) g/dL Hct 25.5 L (34.0-47.0) % MCV 99.0 (81.0-99.0) fl MCH 32.3 H (27.0-31.0) pg MCHC 32.6 L (33.0-37.0) g/dL RDW 15.6 H (11.5-14.5) % Plt Count 137 (130-400) K/uL MPV (7.2-11.7) fl Neut % (Auto) (50.0-75.0) % Lymph % (Auto) (20.0-40.0) % [place] % (Auto) (0.0-10.0) % Eos % (Auto) (0.0-4.0) % Baso % (Auto) (0.0-2.0) % Neut # (Auto) (1.8-7.0) K/uL Lymph # (Auto) (1.0-4.3) K/uL [place] # (Auto) (0.0-0.8) K/uL Eos # (Auto) (0.0-0.7) K/uL Baso # (Auto) (0.0-0.2) K/uL PT (9.8-13.1) Seconds INR pCO2 (35-45) mm/Hg pO2 (80-100) mm/Hg HCO3 (21-28) mmol/L ABG pH (7.35-7.45) ABG Total CO2 (22-28) mmol/L ABG O2 Saturation (95-98) % ABG O2 Content (15-23) ML/dL ABG Base Excess (-2.0-3.0) mmol/L ABG Hemoglobin (11.7-17.4) g/dL ABG Carboxyhemoglobin (0.5-1.5) % POC ABG HHb (Measured) (0.0-5.0) % ABG Methemoglobin (0.0-3.0) % ABG O2 Capacity (16-24) mL/dL Uriel Test A-a O2 Difference mm/Hg Hgb O2 Saturation (95.0-98.0) % Vent Mode Mechanical Rate FiO2 % Tidal Volume PEEP Crit Value Called To Crit Value Called By Crit Value Read Back Blood Gas Notified Time Sodium (132-148) mmol/l Potassium (3.6-5.0) MMOL/L Chloride (98-107) mmol/L Carbon Dioxide (22-30) mmol/L Anion Gap (10-20) BUN (7-17) mg/dl Creatinine (0.7-1.2) mg/dl Est GFR ( Amer) Est GFR (Non-Af Amer) POC Glucose (mg/dL) (65-110) mg/dL Random Glucose (65-105) mg/dL Serum Osmolality 343 H (272-300) mosm/kg Lactic Acid (0.7-2.1) mmol/L Calcium (8.4-10.2) mg/dL Total Bilirubin (0.2-1.3) mg/dl AST (14-36) U/L ALT (9-52) U/L Alkaline Phosphatase (38-126) U/L Ammonia (9-33) umol/L Total Creatine Kinase (30-135) U/L Troponin I (0.00-0.120) ng/mL Total Protein (6.3-8.2) G/DL Albumin (3.5-5.0) g/dL Globulin (2.2-3.9) gm/dL Albumin/Globulin Ratio (1.0-2.1) Lipase (23-300) U/L Urine Osmolality 394 (300-1000) mosm/kg Ur Random Sodium 9 meq/L Ur Random Potassium 21.9 mmol/L 12/16/18 12/16/18 12/16/18 Range/Units 17:37 17:37 17:35 WBC (4.8-10.8) K/uL RBC (3.80-5.20) Mil/uL Hgb (12.0-16.0) g/dL Hct (34.0-47.0) % MCV (81.0-99.0) fl MCH (27.0-31.0) pg MCHC (33.0-37.0) g/dL RDW (11.5-14.5) % Plt Count (130-400) K/uL MPV (7.2-11.7) fl Neut % (Auto) (50.0-75.0) % Lymph % (Auto) (20.0-40.0) % [place] % (Auto) (0.0-10.0) % Eos % (Auto) (0.0-4.0) % Baso % (Auto) (0.0-2.0) % Neut # (Auto) (1.8-7.0) K/uL Lymph # (Auto) (1.0-4.3) K/uL [place] # (Auto) (0.0-0.8) K/uL Eos # (Auto) (0.0-0.7) K/uL Baso # (Auto) (0.0-0.2) K/uL PT 19.3 H D (9.8-13.1) Seconds INR 1.7 pCO2 (35-45) mm/Hg pO2 (80-100) mm/Hg HCO3 (21-28) mmol/L ABG pH (7.35-7.45) ABG Total CO2 (22-28) mmol/L ABG O2 Saturation (95-98) % ABG O2 Content (15-23) ML/dL ABG Base Excess (-2.0-3.0) mmol/L ABG Hemoglobin (11.7-17.4) g/dL ABG Carboxyhemoglobin (0.5-1.5) % POC ABG HHb (Measured) (0.0-5.0) % ABG Methemoglobin (0.0-3.0) % ABG O2 Capacity (16-24) mL/dL Uriel Test A-a O2 Difference mm/Hg Hgb O2 Saturation (95.0-98.0) % Vent Mode Mechanical Rate FiO2 % Tidal Volume PEEP Crit Value Called To Crit Value Called By Crit Value Read Back Blood Gas Notified Time Sodium 145 (132-148) mmol/l Potassium 6.0 H (3.6-5.0) MMOL/L Chloride 113 H (98-107) mmol/L Carbon Dioxide 18 L (22-30) mmol/L Anion Gap 20 (10-20) BUN 62 H (7-17) mg/dl Creatinine 3.1 H (0.7-1.2) mg/dl Est GFR ( Amer) 19 Est GFR (Non-Af Amer) 15 POC Glucose (mg/dL) (65-110) mg/dL Random Glucose 323 H (65-105) mg/dL Serum Osmolality (272-300) mosm/kg Lactic Acid 6.6 H* (0.7-2.1) mmol/L Calcium 9.2 (8.4-10.2) mg/dL Total Bilirubin (0.2-1.3) mg/dl AST (14-36) U/L ALT (9-52) U/L Alkaline Phosphatase (38-126) U/L Ammonia (9-33) umol/L Total Creatine Kinase 115 (30-135) U/L Troponin I 0.1730 H* (0.00-0.120) ng/mL Total Protein (6.3-8.2) G/DL Albumin (3.5-5.0) g/dL Globulin (2.2-3.9) gm/dL Albumin/Globulin Ratio (1.0-2.1) Lipase 107 (23-300) U/L Urine Osmolality (300-1000) mosm/kg Ur Random Sodium meq/L Ur Random Potassium mmol/L 12/16/18 12/16/18 12/16/18 Range/Units 14:02 05:31 05:05 WBC (4.8-10.8) K/uL RBC (3.80-5.20) Mil/uL Hgb (12.0-16.0) g/dL Hct (34.0-47.0) % MCV (81.0-99.0) fl MCH (27.0-31.0) pg MCHC (33.0-37.0) g/dL RDW (11.5-14.5) % Plt Count (130-400) K/uL MPV (7.2-11.7) fl Neut % (Auto) (50.0-75.0) % Lymph % (Auto) (20.0-40.0) % [place] % (Auto) (0.0-10.0) % Eos % (Auto) (0.0-4.0) % Baso % (Auto) (0.0-2.0) % Neut # (Auto) (1.8-7.0) K/uL Lymph # (Auto) (1.0-4.3) K/uL [place] # (Auto) (0.0-0.8) K/uL Eos # (Auto) (0.0-0.7) K/uL Baso # (Auto) (0.0-0.2) K/uL PT (9.8-13.1) Seconds INR pCO2 (35-45) mm/Hg pO2 (80-100) mm/Hg HCO3 (21-28) mmol/L ABG pH (7.35-7.45) ABG Total CO2 (22-28) mmol/L ABG O2 Saturation (95-98) % ABG O2 Content (15-23) ML/dL ABG Base Excess (-2.0-3.0) mmol/L ABG Hemoglobin (11.7-17.4) g/dL ABG Carboxyhemoglobin (0.5-1.5) % POC ABG HHb (Measured) (0.0-5.0) % ABG Methemoglobin (0.0-3.0) % ABG O2 Capacity (16-24) mL/dL Uriel Test A-a O2 Difference mm/Hg Hgb O2 Saturation (95.0-98.0) % Vent Mode Mechanical Rate FiO2 % Tidal Volume PEEP Crit Value Called To Crit Value Called By Crit Value Read Back Blood Gas Notified Time Sodium 143 (132-148) mmol/l Potassium 5.5 H (3.6-5.0) MMOL/L Chloride 109 H (98-107) mmol/L Carbon Dioxide 15 L (22-30) mmol/L Anion Gap 25 H (10-20) BUN 64 H (7-17) mg/dl Creatinine 2.8 H (0.7-1.2) mg/dl Est GFR ( Amer) 21 Est GFR (Non-Af Amer) 17 POC Glucose (mg/dL) 267 H (65-110) mg/dL Random Glucose 275 H (65-105) mg/dL Serum Osmolality (272-300) mosm/kg Lactic Acid 6.7 H* (0.7-2.1) mmol/L Calcium 9.4 (8.4-10.2) mg/dL Total Bilirubin 4.5 H (0.2-1.3) mg/dl AST 49 H (14-36) U/L ALT 26 (9-52) U/L Alkaline Phosphatase 168 H (38-126) U/L Ammonia (9-33) umol/L Total Creatine Kinase (30-135) U/L Troponin I (0.00-0.120) ng/mL Total Protein 7.2 (6.3-8.2) G/DL Albumin 2.9 L (3.5-5.0) g/dL Globulin 4.2 H (2.2-3.9) gm/dL Albumin/Globulin Ratio 0.7 L (1.0-2.1) Lipase (23-300) U/L Urine Osmolality (300-1000) mosm/kg Ur Random Sodium meq/L Ur Random Potassium mmol/L 12/16/18 12/16/18 12/16/18 Range/Units 05:05 05:05 04:08 WBC 9.9 (4.8-10.8) K/uL RBC 2.60 L (3.80-5.20) Mil/uL Hgb 8.5 L (12.0-16.0) g/dL Hct 25.4 L (34.0-47.0) % MCV 97.7 (81.0-99.0) fl MCH 32.7 H (27.0-31.0) pg MCHC 33.5 (33.0-37.0) g/dL RDW 15.1 H (11.5-14.5) % Plt Count 100 L D (130-400) K/uL MPV 8.8 (7.2-11.7) fl Neut % (Auto) 82.4 H (50.0-75.0) % Lymph % (Auto) 7.2 L (20.0-40.0) % [place] % (Auto) 9.8 (0.0-10.0) % Eos % (Auto) 0.2 (0.0-4.0) % Baso % (Auto) 0.4 (0.0-2.0) % Neut # (Auto) 8.2 H (1.8-7.0) K/uL Lymph # (Auto) 0.7 L (1.0-4.3) K/uL [place] # (Auto) 1.0 H (0.0-0.8) K/uL Eos # (Auto) 0.0 (0.0-0.7) K/uL Baso # (Auto) 0.0 (0.0-0.2) K/uL PT (9.8-13.1) Seconds INR pCO2 36 (35-45) mm/Hg pO2 199 H (80-100) mm/Hg HCO3 18.7 L (21-28) mmol/L ABG pH 7.30 L (7.35-7.45) ABG Total CO2 18.8 L (22-28) mmol/L ABG O2 Saturation 101.0 H (95-98) % ABG O2 Content 12.2 L (15-23) ML/dL ABG Base Excess -8.0 L (-2.0-3.0) mmol/L ABG Hemoglobin 8.5 L (11.7-17.4) g/dL ABG Carboxyhemoglobin 1.7 H (0.5-1.5) % POC ABG HHb (Measured) -1.0 L (0.0-5.0) % ABG Methemoglobin 1.0 (0.0-3.0) % ABG O2 Capacity 12.1 L (16-24) mL/dL Uriel Test Yes A-a O2 Difference 41.0 mm/Hg Hgb O2 Saturation 98.3 H (95.0-98.0) % Vent Mode A/c pc Mechanical Rate 12 FiO2 40.0 % Tidal Volume 400 PEEP 5 Crit Value Called To Lety velez Crit Value Called By 15 Crit Value Read Back Y Blood Gas Notified Time 1720 Sodium (132-148) mmol/l Potassium (3.6-5.0) MMOL/L Chloride (98-107) mmol/L Carbon Dioxide (22-30) mmol/L Anion Gap (10-20) BUN (7-17) mg/dl Creatinine (0.7-1.2) mg/dl Est GFR ( Amer) Est GFR (Non-Af Amer) POC Glucose (mg/dL) (65-110) mg/dL Random Glucose (65-105) mg/dL Serum Osmolality (272-300) mosm/kg Lactic Acid (0.7-2.1) mmol/L Calcium (8.4-10.2) mg/dL Total Bilirubin (0.2-1.3) mg/dl AST (14-36) U/L ALT (9-52) U/L Alkaline Phosphatase (38-126) U/L Ammonia 245 H* D (9-33) umol/L Total Creatine Kinase (30-135) U/L Troponin I (0.00-0.120) ng/mL Total Protein (6.3-8.2) G/DL Albumin (3.5-5.0) g/dL Globulin (2.2-3.9) gm/dL Albumin/Globulin Ratio (1.0-2.1) Lipase (23-300) U/L Urine Osmolality (300-1000) mosm/kg Ur Random Sodium meq/L Ur Random Potassium mmol/L 12/15/18 12/15/18 Range/Units 22:30 21:12 WBC (4.8-10.8) K/uL RBC (3.80-5.20) Mil/uL Hgb (12.0-16.0) g/dL Hct (34.0-47.0) % MCV (81.0-99.0) fl MCH (27.0-31.0) pg MCHC (33.0-37.0) g/dL RDW (11.5-14.5) % Plt Count (130-400) K/uL MPV (7.2-11.7) fl Neut % (Auto) (50.0-75.0) % Lymph % (Auto) (20.0-40.0) % [place] % (Auto) (0.0-10.0) % Eos % (Auto) (0.0-4.0) % Baso % (Auto) (0.0-2.0) % Neut # (Auto) (1.8-7.0) K/uL Lymph # (Auto) (1.0-4.3) K/uL [place] # (Auto) (0.0-0.8) K/uL Eos # (Auto) (0.0-0.7) K/uL Baso # (Auto) (0.0-0.2) K/uL PT (9.8-13.1) Seconds INR pCO2 (35-45) mm/Hg pO2 (80-100) mm/Hg HCO3 (21-28) mmol/L ABG pH (7.35-7.45) ABG Total CO2 (22-28) mmol/L ABG O2 Saturation (95-98) % ABG O2 Content (15-23) ML/dL ABG Base Excess (-2.0-3.0) mmol/L ABG Hemoglobin (11.7-17.4) g/dL ABG Carboxyhemoglobin (0.5-1.5) % POC ABG HHb (Measured) (0.0-5.0) % ABG Methemoglobin (0.0-3.0) % ABG O2 Capacity (16-24) mL/dL Uriel Test A-a O2 Difference mm/Hg Hgb O2 Saturation (95.0-98.0) % Vent Mode Mechanical Rate FiO2 % Tidal Volume PEEP Crit Value Called To Crit Value Called By Crit Value Read Back Blood Gas Notified Time Sodium 142 (132-148) mmol/l Potassium 6.0 H (3.6-5.0) MMOL/L Chloride 108 H (98-107) mmol/L Carbon Dioxide 14 L (22-30) mmol/L Anion Gap 26 H (10-20) BUN 62 H (7-17) mg/dl Creatinine 2.6 H (0.7-1.2) mg/dl Est GFR ( Amer) 23 Est GFR (Non-Af Amer) 19 POC Glucose (mg/dL) 249 H (65-110) mg/dL Random Glucose 245 H (65-105) mg/dL Serum Osmolality (272-300) mosm/kg Lactic Acid (0.7-2.1) mmol/L Calcium 9.4 (8.4-10.2) mg/dL Total Bilirubin (0.2-1.3) mg/dl AST (14-36) U/L ALT (9-52) U/L Alkaline Phosphatase (38-126) U/L Ammonia (9-33) umol/L Total Creatine Kinase (30-135) U/L Troponin I (0.00-0.120) ng/mL Total Protein (6.3-8.2) G/DL Albumin (3.5-5.0) g/dL Globulin (2.2-3.9) gm/dL Albumin/Globulin Ratio (1.0-2.1) Lipase (23-300) U/L Urine Osmolality (300-1000) mosm/kg Ur Random Sodium meq/L Ur Random Potassium mmol/L Laboratory Results - last 24 hr 12/15/18 12/15/18 12/16/18 21:12 22:30 04:08 WBC RBC Hgb Hct MCV MCH MCHC RDW Plt Count MPV Neut % (Auto) Lymph % (Auto) [place] % (Auto) Eos % (Auto) Baso % (Auto) Neut # (Auto) Lymph # (Auto) [place] # (Auto) Eos # (Auto) Baso # (Auto) PT INR pCO2 36 pO2 199 H HCO3 18.7 L ABG pH 7.30 L ABG Total CO2 18.8 L ABG O2 Saturation 101.0 H ABG O2 Content 12.2 L ABG Base Excess -8.0 L ABG Hemoglobin 8.5 L ABG Carboxyhemoglobin 1.7 H POC ABG HHb (Measured) -1.0 L ABG Methemoglobin 1.0 ABG O2 Capacity 12.1 L Uriel Test Yes A-a O2 Difference 41.0 Hgb O2 Saturation 98.3 H Vent Mode A/c pc Mechanical Rate 12 FiO2 40.0 Tidal Volume 400 PEEP 5 Crit Value Called To Lety velez Crit Value Called By 15 Crit Value Read Back Y Blood Gas Notified Time 1720 Sodium 142 Potassium 6.0 H Chloride 108 H Carbon Dioxide 14 L Anion Gap 26 H BUN 62 H Creatinine 2.6 H Est GFR ( Amer) 23 Est GFR (Non-Af Amer) 19 POC Glucose (mg/dL) 249 H Random Glucose 245 H Serum Osmolality Lactic Acid Calcium 9.4 Total Bilirubin AST ALT Alkaline Phosphatase Ammonia Total Creatine Kinase Troponin I Total Protein Albumin Globulin Albumin/Globulin Ratio Lipase Urine Osmolality Ur Random Sodium Ur Random Potassium 12/16/18 12/16/18 12/16/18 05:05 05:05 05:05 WBC 9.9 RBC 2.60 L Hgb 8.5 L Hct 25.4 L MCV 97.7 MCH 32.7 H MCHC 33.5 RDW 15.1 H Plt Count 100 L D MPV 8.8 Neut % (Auto) 82.4 H Lymph % (Auto) 7.2 L [place] % (Auto) 9.8 Eos % (Auto) 0.2 Baso % (Auto) 0.4 Neut # (Auto) 8.2 H Lymph # (Auto) 0.7 L [place] # (Auto) 1.0 H Eos # (Auto) 0.0 Baso # (Auto) 0.0 PT INR pCO2 pO2 HCO3 ABG pH ABG Total CO2 ABG O2 Saturation ABG O2 Content ABG Base Excess ABG Hemoglobin ABG Carboxyhemoglobin POC ABG HHb (Measured) ABG Methemoglobin ABG O2 Capacity Uriel Test A-a O2 Difference Hgb O2 Saturation Vent Mode Mechanical Rate FiO2 Tidal Volume PEEP Crit Value Called To Crit Value Called By Crit Value Read Back Blood Gas Notified Time Sodium 143 Potassium 5.5 H Chloride 109 H Carbon Dioxide 15 L Anion Gap 25 H BUN 64 H Creatinine 2.8 H Est GFR ( Amer) 21 Est GFR (Non-Af Amer) 17 POC Glucose (mg/dL) Random Glucose 275 H Serum Osmolality Lactic Acid Calcium 9.4 Total Bilirubin 4.5 H AST 49 H ALT 26 Alkaline Phosphatase 168 H Ammonia 245 H* D Total Creatine Kinase Troponin I Total Protein 7.2 Albumin 2.9 L Globulin 4.2 H Albumin/Globulin Ratio 0.7 L Lipase Urine Osmolality Ur Random Sodium Ur Random Potassium 12/16/18 12/16/18 12/16/18 05:31 14:02 17:35 WBC RBC Hgb Hct MCV MCH MCHC RDW Plt Count MPV Neut % (Auto) Lymph % (Auto) [place] % (Auto) Eos % (Auto) Baso % (Auto) Neut # (Auto) Lymph # (Auto) [place] # (Auto) Eos # (Auto) Baso # (Auto) PT INR pCO2 pO2 HCO3 ABG pH ABG Total CO2 ABG O2 Saturation ABG O2 Content ABG Base Excess ABG Hemoglobin ABG Carboxyhemoglobin POC ABG HHb (Measured) ABG Methemoglobin ABG O2 Capacity Uriel Test A-a O2 Difference Hgb O2 Saturation Vent Mode Mechanical Rate FiO2 Tidal Volume PEEP Crit Value Called To Crit Value Called By Crit Value Read Back Blood Gas Notified Time Sodium Potassium Chloride Carbon Dioxide Anion Gap BUN Creatinine Est GFR ( Amer) Est GFR (Non-Af Amer) POC Glucose (mg/dL) 267 H Random Glucose Serum Osmolality Lactic Acid 6.7 H* 6.6 H* Calcium Total Bilirubin AST ALT Alkaline Phosphatase Ammonia Total Creatine Kinase Troponin I Total Protein Albumin Globulin Albumin/Globulin Ratio Lipase Urine Osmolality Ur Random Sodium Ur Random Potassium 12/16/18 12/16/18 12/16/18 17:37 17:37 17:37 WBC 11.2 H RBC 2.58 L Hgb 8.3 L Hct 25.5 L MCV 99.0 MCH 32.3 H MCHC 32.6 L RDW 15.6 H Plt Count 137 MPV Neut % (Auto) Lymph % (Auto) [place] % (Auto) Eos % (Auto) Baso % (Auto) Neut # (Auto) Lymph # (Auto) [place] # (Auto) Eos # (Auto) Baso # (Auto) PT 19.3 H D INR 1.7 pCO2 pO2 HCO3 ABG pH ABG Total CO2 ABG O2 Saturation ABG O2 Content ABG Base Excess ABG Hemoglobin ABG Carboxyhemoglobin POC ABG HHb (Measured) ABG Methemoglobin ABG O2 Capacity Uriel Test A-a O2 Difference Hgb O2 Saturation Vent Mode Mechanical Rate FiO2 Tidal Volume PEEP Crit Value Called To Crit Value Called By Crit Value Read Back Blood Gas Notified Time Sodium 145 Potassium 6.0 H Chloride 113 H Carbon Dioxide 18 L Anion Gap 20 BUN 62 H Creatinine 3.1 H Est GFR ( Amer) 19 Est GFR (Non-Af Amer) 15 POC Glucose (mg/dL) Random Glucose 323 H Serum Osmolality Lactic Acid Calcium 9.2 Total Bilirubin AST ALT Alkaline Phosphatase Ammonia Total Creatine Kinase 115 Troponin I 0.1730 H* Total Protein Albumin Globulin Albumin/Globulin Ratio Lipase 107 Urine Osmolality Ur Random Sodium Ur Random Potassium 12/16/18 12/16/18 18:06 18:06 WBC RBC Hgb Hct MCV MCH MCHC RDW Plt Count MPV Neut % (Auto) Lymph % (Auto) [place] % (Auto) Eos % (Auto) Baso % (Auto) Neut # (Auto) Lymph # (Auto) [place] # (Auto) Eos # (Auto) Baso # (Auto) PT INR pCO2 pO2 HCO3 ABG pH ABG Total CO2 ABG O2 Saturation ABG O2 Content ABG Base Excess ABG Hemoglobin ABG Carboxyhemoglobin POC ABG HHb (Measured) ABG Methemoglobin ABG O2 Capacity Uriel Test A-a O2 Difference Hgb O2 Saturation Vent Mode Mechanical Rate FiO2 Tidal Volume PEEP Crit Value Called To Crit Value Called By Crit Value Read Back Blood Gas Notified Time Sodium Potassium Chloride Carbon Dioxide Anion Gap BUN Creatinine Est GFR ( Amer) Est GFR (Non-Af Amer) POC Glucose (mg/dL) Random Glucose Serum Osmolality 343 H Lactic Acid Calcium Total Bilirubin AST ALT Alkaline Phosphatase Ammonia Total Creatine Kinase Troponin I Total Protein Albumin Globulin Albumin/Globulin Ratio Lipase Urine Osmolality 394 Ur Random Sodium 9 Ur Random Potassium 21.9 Radiology Impressions: Radiology Impressions Abdomen/Pelvis CT 12/15/18 16:00 IMPRESSION: Probable mechanical small-bowel obstruction resulting from an infraumbilical ventral hernia of a loop of small bowel. There is a transition in caliber at this point. There is ascites. There is evidence of patent cirrhosis. Mild splenomegaly. Atrophic right kidney. Cholelithiasis. The preliminary findings for this examination were reported by [facility] Radiology at 7:14 p.m. on 12/15/2018. There is discordance of this report with the preliminary findings. Note of the obstructing ventral hernia containing small bowel was not described in the preliminary report of this examination. Chest X-Ray 12/15/18 20:00 IMPRESSION: ETT and NGT as above. Minor bibasilar atelectasis. Chest X-Ray 12/15/18 21:28 IMPRESSION: Nasogastric tube is in appropriate position. Chest X-Ray 12/16/18 06:00 IMPRESSION: No infiltrate. ET tube unchanged in position. Nasogastric tube noted. Positioning cannot be evaluated on this examination Chest X-Ray 12/16/18 14:46 IMPRESSION: ETT as above. In situ NGT the tip of which is poorly delineated on this exam due to underpenetration however the tip appears to lie below EG junction Bibasilar atelectasis as above. Persistent elevation right hemidiaphragm Fingerstick Blood Sugar Results: 319 Review of Systems - Review of Systems Systems not reviewed;Unavailable: Intubated Critical Care Progress Note - Nutrition Nutrition: Nutrition Category Date Time Status NPO Diet [DIET] Diets 12/15/18 Dinner Active Assessment/Plan - Assessment and Plan (Free Text) Assessment: 58 yo female with Hep C/cirrhosis, HTN, DM-II and CKD p/w AMS being treated for hepatic encephalopathy, acute on CKD and questionable SBO. Was called to assess pt as she was having generalized seizure and desaturating in 70s not responding to Precedex drip and Ativan IV pushes. Switched her to Versed drip and contacted neurology who recommended to give her Vimpat and Depakote. Continued seizing despite these measures and I added Propofol drip to her regimen. Neurology recommended EEG which showed continued seizure activity. Was given Succynilcholine and temporarily stopped seizuing; however, again stated having seizures in about 30 min at which point after discussing with neurology decision was made to start her on Rocuronium drip. Neurology also recommended to increase her dose of Keppra to 1500 mg BID. Following these measures finally stopped seizing; however, BP dropped and patient was started on Levophed. Aneuric despite receiving IVF bolus. ABG with worsening of acidosis. Increased TV and RR and PH improved to 7.2. Overall prognosis grim. I spent total of 106 min of critical care time trying to stabilize this critically unstable patient excluding time spent for any procedures.
[2018-12-16 21:59] LABS: ABG ALLEN TEST YES; ARTERIAL BLOOD GAS HCO3 17.4 mmol/L (21-28); ARTERIAL BLOOD GAS O2 SAT 98.5 % (95-98); ARTERIAL BLOOD GAS PCO2 55 mm/Hg (35-45); ARTERIAL BLOOD GAS PH 7.14 (7.35-7.45); ARTERIAL BLOOD GAS PO2 128 mm/Hg (80-100); ARTERIAL BLOOD GAS TCO2 20.4 mmol/L (22-28)
[2018-12-16] MEDS ORDERED: Rocuronium 10 mg/ml (5 ml) IV ONE (23:33)
[2018-12-17] MEDS ORDERED: Sodium Chloride 0.9% 500 ML IV ONE (00:05)
[2018-12-17] MEDS: levETIRAcetam 1,500 MG in Sodium Chloride 0.9% 100 ML IVPB SCH ×2 (00:09→12:43)
[2018-12-17] MEDS: Sodium Chloride 0.9% 1,000 ML IV SCH ×2 (00:57→10:26)
--- NOTE | 2018-12-17 01:04 | PCM.VEEG ---
Video EEG - Interpretation Description of the study: This video EEG is acquired using the 10/20 electrode system, with electrodes referenced to A1 A2 and P1 P2 respectively. Juan Carlos detection system was used and all detections were reviewed and interpreted. EEG Finding during wakefulness: THere were no normal waking rhythms, but rather alsmost continuous 2-3 irregular, symmetric spikes that were continuous and evolving into seizures initially, and then become a more rhythmic 1 hz activity with no clinical correlate. These appear to be PLEDS. THere was no normal sleep or awake rhythms noted. - Impression Impression: This is an abnormal Video EEG that is indicative of status epilepticus with PLEDS and evolving seizures. Clinical correlation is required. Geremias Moscoso MD DPN Epilepsy and Neurology
--- NOTE | 2018-12-17 01:08 | CON ---
DATE: 12/16/2018 REFERRING DOCTOR: Dr. Willams. REASON FOR CONSULTATION: Encephalopathy, respiratory distress. HISTORY OF PRESENT ILLNESS: This is a 58-year-old female who was just here in the hospital, has a history of cirrhosis, hypertension, diabetes, CKD. Says she had had a hernia reduced here at bedside a couple of days ago. The patient went home and had pain and now comes in with exacerbated respiratory distress. PAST MEDICAL HISTORY: As above. PAST SURGICAL HISTORY: As above. MEDICATIONS: Have been reviewed. REVIEW OF SYSTEMS: All other systems have been reviewed and negative symptom of pain. PHYSICAL EXAMINATION: VITAL SIGNS: Here in the hospital are grossly unremarkable. GENERAL: A pleasant elderly-appearing female, lying in bed comfortably, in no apparent distress. HEENT: Head is normocephalic and atraumatic. Eyes, pupils are equally reactive to light bilaterally. No conjunctival pallor or icterus. NECK: Supple with normal range of motion. No lymphadenopathy appreciated. LUNGS: Coarse breath sounds bilaterally. HEART: S1, S2. Regular rate and rhythm. ABDOMEN: Soft. Nontender. Bowel sounds present. Abdominal ventral hernia. No rebound. No guarding. RECTAL: Deferred. EXTREMITIES: Pulses present bilaterally. SKIN: Warm, dry, and intact. NEUROLOGIC: A and O x1, responds to pain. LABORATORY DATA: Labs and radiology have been reviewed. WBC is 9.9, hemoglobin 8.5, hematocrit 25.4, platelet count of 100. INR 1.2. CAT scan done and pending results. LFTs are elevated. ASSESSMENT AND PLAN: This is a 58-year-old female with decompensated cirrhosis and possible sepsis, unclear etiology. Blood cultures are pending. Recommend paracentesis for diagnostic purposes. Possible . Surgical consult appreciated. Prognosis guarded. Lactulose and Xifaxan. Thank you for the consult. Mannie Holcomb MD/ PhD cc: Krishan Willams MD
[2018-12-17 01:17] LABS: ABG ALLEN TEST YES; ARTERIAL BLOOD GAS HCO3 16.5 mmol/L (21-28); ARTERIAL BLOOD GAS O2 SAT 98.9 % (95-98); ARTERIAL BLOOD GAS PCO2 50 mm/Hg (35-45); ARTERIAL BLOOD GAS PH 7.16 (7.35-7.45); ARTERIAL BLOOD GAS PO2 143 mm/Hg (80-100); ARTERIAL BLOOD GAS TCO2 19.3 mmol/L (22-28)
[2018-12-17] MEDS: Sodium Bicarbonate 8.4% 80 MEQ in Dextrose 5%/0.45% NS 1,000 ML IV SCH ×2 (03:09→14:00)
[2018-12-17] MEDS: Propofol 10 mg/ml 1,000 MG/100 ML VIAL IV SCH ×4 (03:19→22:16)
--- NOTE | 2018-12-17 03:40 | CON ---
DATE: 12/16/2018 NEUROLOGY CONSULTATION HISTORY OF PRESENT ILLNESS: Ms. Betty Varma is 58-year-old woman with past medical history of hypertension, diabetes type 2, CKD, chronic hepatitis C, chronic ascites, cholelithiasis, abdominal hernia and hepatic cirrhosis who presented to the emergency room for evaluation of altered mental status. Family states that the patient was in the usual state of health until the last night when she suddenly became weak, dizzy, unable to sleep, but she was coherent. Overnight, she became more altered and was very sleepy in the morning. The patient was admitted to the hospital day before yesterday and discharged. She was admitted for pancreatitis and ascites and was awake and responsive when she was seen. Neurology consult was called several minutes ago. CAT scan done that it shows no stroke and no hemorrhage. The patient has been started on IV antibiotics, IV vancomycin and IV Rocephin. The patient was earlier today unresponsive to painful stimuli, treated and was intubated. She is on sedation as well. There are no corneals. There are no Doll's. There is no gag reflex. She does not respond to any pain but it was noted that she is on sedation. LABORATORY DATA: As follows. White count 9, hemoglobin 8.5, hematocrit 25.4, and platelets 100. Sodium 148, potassium 5.5, chloride 109, BUN and creatinine 64 and 2.8. Ammonia 245 which was severely elevated. AST and ALT 49 and 26. Toxicology was negative. CAT scan of the head was done on 12/15/2018 and shows the following. Limited by motion artifact. There is no stroke. There is no hemorrhage. There is bifrontal atrophy noted. She is on the following medications: Insulin, labetalol, lactulose, pantoprazole, rifaximin, sodium bicarbonate. IMPRESSION: This is a 58-year-old woman with what appears to be hepatic encephalopathy who may have also had an occult stroke and most likely in status epilepticus. PLAN: 1. MRI of the brain without contrast. 2. Video EEG after MRI of the brain is done for 24 hours. 3. Please load with Keppra 1000 mg now and 500 mg twice a day. Thank you for this interesting consultation. Our team will follow. Geremias Hendricks MD cc: Samm Hansen DO MTDLety
[2018-12-17 04:29] LABS: ABG ALLEN TEST YES; ARTERIAL BLOOD GAS HCO3 16.5 mmol/L (21-28); ARTERIAL BLOOD GAS O2 SAT 99.2 % (95-98); ARTERIAL BLOOD GAS PCO2 43 mm/Hg (35-45); ARTERIAL BLOOD GAS PO2 143 mm/Hg (80-100); ARTERIAL BLOOD GAS TCO2 18.1 mmol/L (22-28)
[2018-12-17 05:24] LABS: BASO % 0.2 % (0.0-2.0); EOS % 0.2 % (0.0-4.0); HEMOGLOBIN 7.6 g/dL (12.0-16.0); LYMPH # 1.4 K/uL (1.0-4.3); LYMPH % 10.5 % (20.0-40.0); MEAN CORPUSCULAR HEMOGLOBIN 32.4 pg (27.0-31.0); MEAN CORPUSCULAR HGB CONC 31.9 g/dL (33.0-37.0); MEAN PLATELET VOLUME 8.6 fl (7.2-11.7); MONO # 2.5 K/uL (0.0-0.8); MONO % 18.6 % (0.0-10.0); NEUT # 9.4 K/uL (1.8-7.0); NEUT % 70.5 % (50.0-75.0); NRBC % 0.1 % (0.0-0.0); RBC 2.33 Mil/uL (3.80-5.20); RED CELL DISTRIBUTION WIDTH 16.8 % (11.5-14.5); WHITE BLOOD COUNT 13.4 K/uL (4.8-10.8)
[2018-12-17 05:26] LABS: INR 1.9; PROTHROMBIN TIME 21.5 Seconds (9.8-13.1)
[2018-12-17 05:28] LABS: PARTIAL THROMBOPLASTIN TIME 30.6 Seconds (25.6-37.1)
[2018-12-17 05:30] LABS: ALB/GLOB RATIO 0.6 (1.0-2.1); ALBUMIN 2.4 g/dL (3.5-5.0)
[2018-12-17 05:54] LABS: MEAN CELL VOLUME 101.5 fl (81.0-99.0)
[2018-12-17] MEDS ORDERED: levETIRAcetam 500 MG in Sodium Chloride 0.9% 100 ML IVPB SCH (06:00)
[2018-12-17] MEDS: Midazolam 50 mg/10 ml 50 MG in Dextrose 5% In Water 90 ML IV ONE ×2 (06:04→19:11)
[2018-12-17] MEDS: Lactulose 10 gm/15 ml Syrup PO SCH ×4 (06:09→22:19)
[2018-12-17] MEDS: Insulin Lispro (humaLOG) 100 Units/ml Inj SC SCH ×4 (06:09→22:58)
--- NOTE | 2018-12-17 06:54 | CP.PCM.CON ---
<Luis Mcgee - Last Filed: 12/17/18 06:54> History of Present Illness - History of Present Illness History of Present Illness: General Surgery Consult Note for Dr. Silvestre Reason for consult: Suspected SBO This is a 58F with PMH of Hepatitis C from blood transfusion, HTN, DM, CKD, Live r cirrhosis present with recurrent ventral hernia. Patient reports that she this ventral hernia repaired [address] Silvestre. Patient was in the ED 2 days ago with a ventral hernia that was reduced at bedside she reported at the time that she has been to the ED 3 times in the week for abdominal pain. She has been having abdominal pain intermittently since October when she was diagnosed with ascites. She had a paracentesis at that time. She follows with Hepatology clinic at [facility]. Since reduction of her hernia she did not report any pain however she became confused and lethargic. In the hospital she had onset of seizures and was intubated and admitted to the ICU. PMH: HTN, DM, CKD, Liver cirrhosis PSH: laparoscopic ventral hernia repair with mesh, multiple paracentesis ALL: NKDA Meds: Sprinoloactone 100mg, propanolol 10mg, furosemide 40mg , novolin 70/30 Social: Denies tobacco/EtOH/illicit drug use. Objective - Vital Signs/Intake and Output Vital Signs (last 24 hours): Temp Pulse Resp BP Pulse Ox 99.7 F H 106 H 19 122/57 L 99 12/16/18 16:00 12/16/18 18:00 12/16/18 18:00 12/16/18 18:00 12/16/18 18:00 Intake and Output: 12/16/18 12/17/18 18:59 06:59 Intake Total 514 6 Output Total 600 Balance -86 6 - Medications Medications: Current Medications Piperacillin Sod/Tazobactam (Sod 2.25 gm/ Sodium Chloride) 100 mls @ 100 mls/hr IVPB Q12H [facility]; Protocol Last Admin: 12/16/18 15:50 Dose: 100 mls/hr Dexmedetomidine HCl 400 mcg/ (Sodium Chloride) 100 mls @ 4.65 mls/hr IV .Q21H3 1M ONE; Protocol Stop: 12/17/18 12:10 Last Titration: 12/16/18 19:45 Dose: 0.4 mcg/kg/hr, 9.3 mls/hr Sodium Bicarbonate 80 meq/ (Dextrose/Sodium Chloride) 1,080 mls @ 100 mls/hr IV .[id number] [facility] Stop: 12/18/18 15:31 Last Admin: 12/16/18 16:04 Dose: 100 mls/hr Levetiracetam 500 mg/ Sodium (Chloride) 105 mls @ 210 mls/hr IVPB Q12@0600,1800 [facility] Midazolam HCl 50 mg/ Dextrose 100 mls @ 4 mls/hr IV .Q24H [facility]; Protocol Stop: 12/17/18 20:10 Lacosamide 200 mg/ Sodium (Chloride) 120 mls @ 120 mls/hr IVPB STAT STA Stop: 12/16/18 21:32 Insulin Human Lispro (Humalog) 0 units SC Q6H [facility]; Protocol Last Admin: 12/16/18 17:53 Dose: 4 units Labetalol HCl (Trandate) 20 mg IVP Q3 PRN PRN Reason: Systolic Blood Pressure Last Admin: 12/16/18 14:36 Dose: 20 mg Lactulose (Enulose) 30 gm PO Q6 [facility] Last Admin: 12/16/18 17:27 Dose: 30 gm Lorazepam (Ativan) 4 mg IVP Q4 PRN PRN Reason: Seizure activity Pantoprazole Sodium (Protonix Inj) 40 mg IVP DAILY [facility] Last Admin: 12/16/18 08:25 Dose: 40 mg Rifaximin (Xifaxan) 550 mg NG BID [facility]; Protocol - Labs Labs: 12/16/18 17:37 12/16/18 17:37 PT 19.3 Seconds (9.8-13.1) H D 12/16/18 17:37 INR 1.7 12/16/18 17:37 APTT 32.6 Seconds (25.6-37.1) 12/15/18 11:25 - Constitutional Appears: Non-toxic, No Acute Distress - Head Exam Head Exam: ATRAUMATIC, NORMOCEPHALIC - ENT Exam ENT Exam: Mucous Membranes Moist - Respiratory Exam Respiratory Exam: Ventilated - Cardiovascular Exam Cardiovascular Exam: REGULAR RHYTHM - GI/Abdominal Exam GI & Abdominal Exam: Hernia (Ventral - recurrent and umbilical), Normal Bowel Sounds, Soft. absent: Distended, Firm, Guarding, Rebound, Rigid, Tenderness - Extremities Exam Extremities exam: Positive for: normal capillary refill, pedal pulses present - Back Exam Back exam: absent: CVA tenderness (L), CVA tenderness (R) - Psychiatric Exam Psychiatric exam: Normal Affect, Normal Mood - Skin Skin Exam: Dry, Intact, Normal Color, Warm Assessment and Plan - Assessment and Plan (Free Text) Assessment: 58F with new onset seizures and a vnetral hernia No signs of obstruction at this time, per nursing staff pt had multiple BM today Pt Lactate elevated recommend hydrate and seizure control No surgical managment at this time KUB in AM to re-evaluate OGT to suction Monitor Outputs D/W Dr. Silvestre Past Patient History - Infectious Disease Hx of Infectious Diseases: None - Tetanus Immunizations Tetanus Immunization: Unknown - Past Medical History & Family History Past Medical History?: Yes - Past Social History Smoking Status: Never Smoked - CARDIAC Hx Cardiac Disorders: Yes Hx Hypercholesterolemia: Yes Hx Hypertension: Yes - PULMONARY Hx Respiratory Disorders: Yes Hx Pneumonia: Yes - NEUROLOGICAL Hx Neurological Disorder: No - HEENT Hx HEENT Problems: No - RENAL Hx Chronic Kidney Disease: No - ENDOCRINE/METABOLIC Hx Endocrine Disorders: Yes Hx Diabetes Mellitus Type 2: Yes - HEMATOLOGICAL/ONCOLOGICAL Hx Blood Disorders: Yes Hx Anemia: Yes Hx Human Immunodeficiency Virus (HIV): No - INTEGUMENTARY Hx Dermatological Problems: No - MUSCULOSKELETAL/RHEUMATOLOGICAL Hx Musculoskeletal Disorders: No Hx Falls: No - GASTROINTESTINAL Hx Gastrointestinal Disorders: Yes Hx Gastritis: Yes - GENITOURINARY/GYNECOLOGICAL Hx Genitourinary Disorders: No - PSYCHIATRIC Hx Psychophysiologic Disorder: No Hx Anxiety: No Hx Bipolar Disorder: No Hx Depression: No Hx Paranoia: No Hx Post Traumatic Stress Disorder: No Hx Schizophrenia: No Hx Substance Use: No - SURGICAL HISTORY Hx Surgeries: Yes Hx Appendectomy: Yes - ANESTHESIA Hx Anesthesia: Yes Hx Anesthesia Reactions: No Hx Malignant Hyperthermia: No Meds Allergies/Adverse Reactions: Allergies Allergy/AdvReac Type Severity Reaction Status Date / Time No Known Allergies Allergy Verified 12/10/18 10:10 - Medications Medications: Current Medications Piperacillin Sod/Tazobactam (Sod 2.25 gm/ Sodium Chloride) 100 mls @ 100 mls/hr IVPB Q12H [facility]; Protocol Last Admin: 12/17/18 03:50 Dose: 100 mls/hr Sodium Bicarbonate 80 meq/ (Dextrose/Sodium Chloride) 1,080 mls @ 100 mls/hr IV .[id number] [facility] Stop: 12/18/18 15:31 Last Admin: 12/17/18 03:09 Dose: 100 mls/hr Midazolam HCl 50 mg/ Dextrose 100 mls @ 4 mls/hr IV .Q24H [facility]; Protocol Stop: 12/17/18 20:10 Last Titration: 12/17/18 06:15 Dose: 10 mg/hr, 20 mls/hr Lacosamide 200 mg/ Sodium (Chloride) 120 mls @ 120 mls/hr IVPB BID [facility] Norepinephrine Bitartrate 4 mg (/ Dextrose) 254 mls @ 9.53 mls/hr IV .Q24H [facility]; Protocol Last Titration: 12/17/18 02:20 Dose: 10 mcg/min, 38.1 mls/hr Levetiracetam 1,500 mg/ Sodium (Chloride) 115 mls @ 215 mls/hr IVPB Q12H [facility] Last Admin: 12/17/18 00:09 Dose: 215 mls/hr Sodium Chloride (Sodium Chloride 0.9%) 1,000 mls @ 100 mls/hr IV .Q10H [facility] Stop: 12/18/18 00:06 Last Admin: 12/17/18 00:57 Dose: 100 mls/hr Propofol (Diprivan) 1,000 mg in 100 mls @ 2.791 mls/hr IV .Q24H [facility]; Protocol Stop: 12/18/18 02:00 Last Titration: 12/17/18 06:15 Dose: 50 mcg/kg/min, 27.91 mls/hr Insulin Human Lispro (Humalog) 0 units SC Q6H [facility]; Protocol Last Admin: 12/17/18 06:09 Dose: 3 units Labetalol HCl (Trandate) 20 mg IVP Q3 PRN PRN Reason: Systolic Blood Pressure Last Admin: 12/16/18 14:36 Dose: 20 mg Lactulose (Enulose) 30 gm PO Q6 [facility] Last Admin: 12/17/18 06:09 Dose: 30 gm Lorazepam (Ativan) 4 mg IVP Q4 PRN PRN Reason: Seizure activity Pantoprazole Sodium (Protonix Inj) 40 mg IVP DAILY [facility] Last Admin: 12/16/18 08:25 Dose: 40 mg Rifaximin (Xifaxan) 550 mg NG BID [facility]; Protocol Last Admin: 12/16/18 23:38 Dose: Not Given Results - Vital Signs Recent Vital Signs: Last Vital Signs Temp 100.2 F H 12/17/18 00:00 Pulse 114 H 12/17/18 02:00 Resp 16 12/17/18 02:00 BP 108/53 L 12/17/18 02:00 Pulse Ox 100 12/17/18 02:00 - Labs Result Diagrams: 12/17/18 05:15 12/17/18 05:15 Labs: Laboratory Results - last 24 hr 12/16/18 12/16/18 12/16/18 04:08 11:11 14:02 WBC RBC Hgb Hct MCV MCH MCHC RDW Plt Count MPV Neut % (Auto) Lymph % (Auto) [place] % (Auto) Eos % (Auto) Baso % (Auto) Neut # (Auto) Lymph # (Auto) [place] # (Auto) Eos # (Auto) Baso # (Auto) PT INR APTT pCO2 36 pO2 199 H HCO3 18.7 L ABG pH 7.30 L ABG Total CO2 18.8 L ABG O2 Saturation 101.0 H ABG Base Excess -8.0 L ABG Hemoglobin 8.5 L ABG Carboxyhemoglobin 1.7 H POC ABG HHb (Measured) -1.0 L ABG O2 Capacity 12.1 L Uriel Test ABG Potassium A-a O2 Difference 41.0 Hgb O2 Saturation 98.3 H Glucose Lactate Vent Mode A/c pc Mechanical Rate FiO2 40.0 Tidal Volume PEEP Crit Value Called To Lety velez Crit Value Called By 15 Crit Value Read Back Blood Gas Notified Time 1720 Sodium Potassium Chloride Carbon Dioxide Anion Gap BUN Creatinine Est GFR ( Amer) Est GFR (Non-Af Amer) POC Glucose (mg/dL) 278 H Random Glucose Serum Osmolality Lactic Acid 6.7 H* Calcium Phosphorus Magnesium Total Bilirubin AST ALT Alkaline Phosphatase Total Creatine Kinase Troponin I Total Protein Albumin Globulin Albumin/Globulin Ratio Amylase Lipase Arterial Blood Potassium Urine Osmolality Ur Random Sodium Ur Random Potassium 12/16/18 12/16/18 12/16/18 17:35 17:37 17:37 WBC RBC Hgb Hct MCV MCH MCHC RDW Plt Count MPV Neut % (Auto) Lymph % (Auto) [place] % (Auto) Eos % (Auto) Baso % (Auto) Neut # (Auto) Lymph # (Auto) [place] # (Auto) Eos # (Auto) Baso # (Auto) PT 19.3 H D INR 1.7 APTT pCO2 pO2 HCO3 ABG pH ABG Total CO2 ABG O2 Saturation ABG Base Excess ABG Hemoglobin ABG Carboxyhemoglobin POC ABG HHb (Measured) ABG O2 Capacity Uriel Test ABG Potassium A-a O2 Difference Hgb O2 Saturation Glucose Lactate Vent Mode Mechanical Rate FiO2 Tidal Volume PEEP Crit Value Called To Crit Value Called By Crit Value Read Back Blood Gas Notified Time Sodium 145 Potassium 6.0 H Chloride 113 H Carbon Dioxide 18 L Anion Gap 20 BUN 62 H Creatinine 3.1 H Est GFR ( Amer) 19 Est GFR (Non-Af Amer) 15 POC Glucose (mg/dL) Random Glucose 323 H Serum Osmolality Lactic Acid 6.6 H* Calcium 9.2 Phosphorus Magnesium Total Bilirubin AST ALT Alkaline Phosphatase Total Creatine Kinase 115 Troponin I 0.1730 H* Total Protein Albumin Globulin Albumin/Globulin Ratio Amylase Lipase 107 Arterial Blood Potassium Urine Osmolality Ur Random Sodium Ur Random Potassium 12/16/18 12/16/18 12/16/18 17:37 17:50 18:06 WBC 11.2 H RBC 2.58 L Hgb 8.3 L Hct 25.5 L MCV 99.0 MCH 32.3 H MCHC 32.6 L RDW 15.6 H Plt Count 137 MPV Neut % (Auto) Lymph % (Auto) [place] % (Auto) Eos % (Auto) Baso % (Auto) Neut # (Auto) Lymph # (Auto) [place] # (Auto) Eos # (Auto) Baso # (Auto) PT INR APTT pCO2 pO2 HCO3 ABG pH ABG Total CO2 ABG O2 Saturation ABG Base Excess ABG Hemoglobin ABG Carboxyhemoglobin POC ABG HHb (Measured) ABG O2 Capacity Uriel Test ABG Potassium A-a O2 Difference Hgb O2 Saturation Glucose Lactate Vent Mode Mechanical Rate FiO2 Tidal Volume PEEP Crit Value Called To Crit Value Called By Crit Value Read Back Blood Gas Notified Time Sodium Potassium Chloride Carbon Dioxide Anion Gap BUN Creatinine Est GFR ( Amer) Est GFR (Non-Af Amer) POC Glucose (mg/dL) 319 H Random Glucose Serum Osmolality 343 H Lactic Acid Calcium Phosphorus Magnesium Total Bilirubin AST ALT Alkaline Phosphatase Total Creatine Kinase Troponin I Total Protein Albumin Globulin Albumin/Globulin Ratio Amylase Lipase Arterial Blood Potassium Urine Osmolality Ur Random Sodium Ur Random Potassium 12/16/18 12/16/18 12/16/18 18:06 20:59 21:52 WBC RBC Hgb Hct MCV MCH MCHC RDW Plt Count MPV Neut % (Auto) Lymph % (Auto) [place] % (Auto) Eos % (Auto) Baso % (Auto) Neut # (Auto) Lymph # (Auto) [place] # (Auto) Eos # (Auto) Baso # (Auto) PT INR APTT pCO2 55 H pO2 128 H HCO3 17.4 L ABG pH 7.14 L* ABG Total CO2 20.4 L ABG O2 Saturation 98.5 H ABG Base Excess -9.7 L ABG Hemoglobin ABG Carboxyhemoglobin POC ABG HHb (Measured) ABG O2 Capacity Uriel Test Yes ABG Potassium 6.2 H* A-a O2 Difference 88.0 Hgb O2 Saturation Glucose 234 H Lactate 6.6 H* Vent Mode Mechanical Rate 12 FiO2 40.0 Tidal Volume 400 PEEP 5 Crit Value Called To Javier granado Crit Value Called By 15 Crit Value Read Back Y Blood Gas Notified Time 2159 Sodium 144.0 Potassium Chloride 114.0 H Carbon Dioxide Anion Gap BUN Creatinine Est GFR ( Amer) Est GFR (Non-Af Amer) POC Glucose (mg/dL) 271 H Random Glucose Serum Osmolality Lactic Acid Calcium Phosphorus Magnesium Total Bilirubin AST ALT Alkaline Phosphatase Total Creatine Kinase Troponin I Total Protein Albumin Globulin Albumin/Globulin Ratio Amylase Lipase Arterial Blood Potassium 6.2 H* Urine Osmolality 394 Ur Random Sodium 9 Ur Random Potassium 21.9 12/16/18 12/17/18 12/17/18 22:27 01:10 04:24 WBC RBC Hgb Hct MCV MCH MCHC RDW Plt Count MPV Neut % (Auto) Lymph % (Auto) [place] % (Auto) Eos % (Auto) Baso % (Auto) Neut # (Auto) Lymph # (Auto) [place] # (Auto) Eos # (Auto) Baso # (Auto) PT INR APTT pCO2 50 H 43 pO2 143 H 143 H HCO3 16.5 L 16.5 L ABG pH 7.16 L* 7.20 L ABG Total CO2 19.3 L 18.1 L ABG O2 Saturation 98.9 H 99.2 H ABG Base Excess -10.9 L -10.9 L ABG Hemoglobin ABG Carboxyhemoglobin POC ABG HHb (Measured) ABG O2 Capacity Uriel Test Yes Yes ABG Potassium 6.1 H 6.0 H A-a O2 Difference 222.0 88.0 Hgb O2 Saturation Glucose 250 H 268 H Lactate 6.6 H* 6.4 H* Vent Mode A/c A/c Mechanical Rate 20 16 FiO2 60.0 40.0 Tidal Volume 450 450 PEEP 5 5 Crit Value Called To Aba cartagena rn Crit Value Called By Tisha hansen rt Tisha hansen rt Crit Value Read Back Y Y Blood Gas Notified Time 117 428 Sodium 142.0 142.0 Potassium Chloride 113.0 H 113.0 H Carbon Dioxide Anion Gap BUN Creatinine Est GFR ( Amer) Est GFR (Non-Af Amer) POC Glucose (mg/dL) 259 H Random Glucose Serum Osmolality Lactic Acid Calcium Phosphorus Magnesium Total Bilirubin AST ALT Alkaline Phosphatase Total Creatine Kinase Troponin I Total Protein Albumin Globulin Albumin/Globulin Ratio Amylase Lipase Arterial Blood Potassium 6.1 H 6.0 H Urine Osmolality Ur Random Sodium Ur Random Potassium 12/17/18 12/17/18 12/17/18 04:34 05:15 05:15 WBC 13.4 H RBC 2.33 L Hgb 7.6 L Hct 23.7 L MCV 101.5 H D MCH 32.4 H MCHC 31.9 L RDW 16.8 H Plt Count 163 MPV 8.6 Neut % (Auto) 70.5 Lymph % (Auto) 10.5 L [place] % (Auto) 18.6 H Eos % (Auto) 0.2 Baso % (Auto) 0.2 Neut # (Auto) 9.4 H Lymph # (Auto) 1.4 [place] # (Auto) 2.5 H Eos # (Auto) 0.0 Baso # (Auto) 0.0 PT INR APTT pCO2 pO2 HCO3 ABG pH ABG Total CO2 ABG O2 Saturation ABG Base Excess ABG Hemoglobin ABG Carboxyhemoglobin POC ABG HHb (Measured) ABG O2 Capacity Uriel Test ABG Potassium A-a O2 Difference Hgb O2 Saturation Glucose Lactate Vent Mode Mechanical Rate FiO2 Tidal Volume PEEP Crit Value Called To Crit Value Called By Crit Value Read Back Blood Gas Notified Time Sodium 147 Potassium 6.0 H Chloride 115 H Carbon Dioxide 16 L Anion Gap 22 H BUN 64 H Creatinine 3.6 H Est GFR ( Amer) 16 Est GFR (Non-Af Amer) 13 POC Glucose (mg/dL) 292 H Random Glucose 285 H Serum Osmolality Lactic Acid Calcium 8.0 L Phosphorus 7.1 H Magnesium 1.7 Total Bilirubin 3.8 H AST 63 H D ALT 37 Alkaline Phosphatase 115 Total Creatine Kinase Troponin I Total Protein 6.4 Albumin 2.4 L Globulin 4.1 H Albumin/Globulin Ratio 0.6 L Amylase 376 H D Lipase 107 Arterial Blood Potassium Urine Osmolality Ur Random Sodium Ur Random Potassium 12/17/18 12/17/18 05:15 05:15 WBC RBC Hgb Hct MCV MCH MCHC RDW Plt Count MPV Neut % (Auto) Lymph % (Auto) [place] % (Auto) Eos % (Auto) Baso % (Auto) Neut # (Auto) Lymph # (Auto) [place] # (Auto) Eos # (Auto) Baso # (Auto) PT 21.5 H INR 1.9 APTT 30.6 pCO2 pO2 HCO3 ABG pH ABG Total CO2 ABG O2 Saturation ABG Base Excess ABG Hemoglobin ABG Carboxyhemoglobin POC ABG HHb (Measured) ABG O2 Capacity Uriel Test ABG Potassium A-a O2 Difference Hgb O2 Saturation Glucose Lactate Vent Mode Mechanical Rate FiO2 Tidal Volume PEEP Crit Value Called To Crit Value Called By Crit Value Read Back Blood Gas Notified Time Sodium Potassium Chloride Carbon Dioxide Anion Gap BUN Creatinine Est GFR ( Amer) Est GFR (Non-Af Amer) POC Glucose (mg/dL) Random Glucose Serum Osmolality Lactic Acid 6.8 H* Calcium Phosphorus Magnesium Total Bilirubin AST ALT Alkaline Phosphatase Total Creatine Kinase Troponin I Total Protein Albumin Globulin Albumin/Globulin Ratio Amylase Lipase Arterial Blood Potassium Urine Osmolality Ur Random Sodium Ur Random Potassium <Magdaleno Silvestre - Last Filed: 12/20/18 13:03> Meds - Medications Medications: Current Medications Acetaminophen (Tylenol 650mg/20.3ml Solution Ud) 650 mg PO Q6 PRN PRN Reason: Temperature Last Admin: 12/19/18 04:22 Dose: 650 mg Dextrose (Dextrose 50% Inj) 0 ml IV STAT PRN; Protocol PRN Reason: Hypoglycemia Protocol Dextrose (Glutose 15) 0 gm PO ONCE PRN; Protocol PRN Reason: Hypoglycemia Protocol Fosphenytoin Sodium (Cerebyx) 100 mg IV Q8 [facility] Last Admin: 12/20/18 09:16 Dose: 100 mg Glucagon (Glucagen Diagnostic Kit) 0 mg IM STAT PRN; Protocol PRN Reason: Hypoglycemia Protocol Hydrocortisone Sodium Succinate (Solu-Cortef) 100 mg IV Q12 [facility] Last Admin: 12/20/18 09:20 Dose: 100 mg Piperacillin Sod/Tazobactam (Sod 2.25 gm/ Sodium Chloride) 100 mls @ 100 mls/hr IVPB Q12H [facility]; Protocol Last Admin: 12/20/18 04:49 Dose: 100 mls/hr Levetiracetam 1,500 mg/ Sodium (Chloride) 115 mls @ 215 mls/hr IVPB Q12H [facility] Last Admin: 12/20/18 01:27 Dose: 215 mls/hr Vasopressin 100 units/ Sodium (Chloride) 105 mls @ 1.89 mls/hr IV .Q24H [facility]; Protocol Last Admin: 12/20/18 01:35 Dose: 0.03 units/min, 1.89 mls/hr Lacosamide 200 mg/ Sodium (Chloride) 120 mls @ 120 mls/hr IVPB Q12@0900,2100 [facility] Last Admin: 12/20/18 10:11 Dose: 120 mls/hr Sodium Bicarbonate 80 meq/ (Dextrose/Sodium Chloride) 1,080 mls @ 50 mls/hr IV .[id number] [facility] Stop: 12/21/18 10:03 Norepinephrine Bitartrate 16 (mg/ Dextrose) 266 mls @ 29.93 mls/hr IV .[id number] [facility] Stop: 12/20/18 20:11 Last Admin: 12/20/18 12:28 Dose: 29.93 mls/hr Insulin Human Lispro (Humalog) 0 units SC Q6H [facility]; Protocol Last Admin: 12/20/18 12:30 Dose: Not Given Lactulose (Generlac) 200 gm [place] Q4H [facility] Last Admin: 12/20/18 10:12 Dose: 200 gm Pantoprazole Sodium (Protonix Inj) 40 mg IVP DAILY [facility] Last Admin: 12/20/18 09:20 Dose: 40 mg Rifaximin (Xifaxan) 550 mg NG BID [facility]; Protocol Last Admin: 12/20/18 09:21 Dose: 550 mg Results - Vital Signs Recent Vital Signs: Last Vital Signs Temp 97 F L 12/20/18 12:00 Pulse 110 H 12/20/18 12:00 Resp 20 12/20/18 12:00 BP 108/39 L 12/20/18 12:00 Pulse Ox 100 12/20/18 12:00 - Labs Result Diagrams: 12/20/18 05:00 12/20/18 05:00 Labs: Laboratory Results - last 24 hr 12/18/18 12/19/18 12/19/18 22:58 01:03 03:00 WBC RBC Hgb Hct MCV MCH MCHC RDW Plt Count pCO2 pO2 HCO3 ABG pH ABG Total CO2 ABG O2 Saturation ABG O2 Content ABG Base Excess ABG Hemoglobin ABG Carboxyhemoglobin POC ABG HHb (Measured) ABG Methemoglobin ABG O2 Capacity Uriel Test A-a O2 Difference Hgb O2 Saturation Vent Mode Mechanical Rate FiO2 Tidal Volume PEEP Crit Value Called To Crit Value Called By Crit Value Read Back Blood Gas Notified Time Sodium Potassium Chloride Carbon Dioxide Anion Gap BUN Creatinine Est GFR ( Amer) Est GFR (Non-Af Amer) POC Glucose (mg/dL) 225 H 297 H 270 H Random Glucose Calcium Phosphorus Magnesium Total Bilirubin AST ALT Alkaline Phosphatase Ammonia Total Protein Albumin Globulin Albumin/Globulin Ratio 12/19/18 12/19/18 12/19/18 04:58 08:08 10:29 WBC RBC Hgb Hct MCV MCH MCHC RDW Plt Count pCO2 pO2 HCO3 ABG pH ABG Total CO2 ABG O2 Saturation ABG O2 Content ABG Base Excess ABG Hemoglobin ABG Carboxyhemoglobin POC ABG HHb (Measured) ABG Methemoglobin ABG O2 Capacity Uriel Test A-a O2 Difference Hgb O2 Saturation Vent Mode Mechanical Rate FiO2 Tidal Volume PEEP Crit Value Called To Crit Value Called By Crit Value Read Back Blood Gas Notified Time Sodium Potassium Chloride Carbon Dioxide Anion Gap BUN Creatinine Est GFR ( Amer) Est GFR (Non-Af Amer) POC Glucose (mg/dL) 239 H 198 H 189 H Random Glucose Calcium Phosphorus Magnesium Total Bilirubin AST ALT Alkaline Phosphatase Ammonia Total Protein Albumin Globulin Albumin/Globulin Ratio 12/19/18 12/19/18 12/19/18 12:25 14:23 16:01 WBC RBC Hgb Hct MCV MCH MCHC RDW Plt Count pCO2 pO2 HCO3 ABG pH ABG Total CO2 ABG O2 Saturation ABG O2 Content ABG Base Excess ABG Hemoglobin ABG Carboxyhemoglobin POC ABG HHb (Measured) ABG Methemoglobin ABG O2 Capacity Uriel Test A-a O2 Difference Hgb O2 Saturation Vent Mode Mechanical Rate FiO2 Tidal Volume PEEP Crit Value Called To Crit Value Called By Crit Value Read Back Blood Gas Notified Time Sodium Potassium Chloride Carbon Dioxide Anion Gap BUN Creatinine Est GFR ( Amer) Est GFR (Non-Af Amer) POC Glucose (mg/dL) 172 H 176 H 142 H Random Glucose Calcium Phosphorus Magnesium Total Bilirubin AST ALT Alkaline Phosphatase Ammonia Total Protein Albumin Globulin Albumin/Globulin Ratio 12/19/18 12/19/18 12/19/18 18:08 20:33 21:54 WBC RBC Hgb Hct MCV MCH MCHC RDW Plt Count pCO2 pO2 HCO3 ABG pH ABG Total CO2 ABG O2 Saturation ABG O2 Content ABG Base Excess ABG Hemoglobin ABG Carboxyhemoglobin POC ABG HHb (Measured) ABG Methemoglobin ABG O2 Capacity Uriel Test A-a O2 Difference Hgb O2 Saturation Vent Mode Mechanical Rate FiO2 Tidal Volume PEEP Crit Value Called To Crit Value Called By Crit Value Read Back Blood Gas Notified Time Sodium Potassium Chloride Carbon Dioxide Anion Gap BUN Creatinine Est GFR ( Amer) Est GFR (Non-Af Amer) POC Glucose (mg/dL) 131 H 112 H 106 Random Glucose Calcium Phosphorus Magnesium Total Bilirubin AST ALT Alkaline Phosphatase Ammonia Total Protein Albumin Globulin Albumin/Globulin Ratio 12/20/18 12/20/18 12/20/18 00:14 03:52 04:27 WBC RBC Hgb Hct MCV MCH MCHC RDW Plt Count pCO2 35 pO2 77 L HCO3 6.2 L* ABG pH 6.92 L* ABG Total CO2 8.3 L ABG O2 Saturation 95.5 ABG O2 Content 11.1 L ABG Base Excess -23.9 L ABG Hemoglobin 8.5 L ABG Carboxyhemoglobin 2.0 H POC ABG HHb (Measured) 4.3 ABG Methemoglobin 1.6 ABG O2 Capacity 11.6 L Uriel Test Yes A-a O2 Difference 307.0 Hgb O2 Saturation 92.1 L Vent Mode A/c Mechanical Rate 16 FiO2 60.0 Tidal Volume 450 PEEP 0 Crit Value Called To Javier russell Crit Value Called By 292 Crit Value Read Back Y Blood Gas Notified Time 409 Sodium Potassium Chloride Carbon Dioxide Anion Gap BUN Creatinine Est GFR ( Amer) Est GFR (Non-Af Amer) POC Glucose (mg/dL) 90 64 L Random Glucose Calcium Phosphorus Magnesium Total Bilirubin AST ALT Alkaline Phosphatase Ammonia Total Protein Albumin Globulin Albumin/Globulin Ratio 12/20/18 12/20/18 12/20/18 05:00 05:00 05:00 WBC 24.5 H RBC 2.26 L Hgb 7.3 L Hct 24.3 L MCV 107.2 H D MCH 32.2 H MCHC 30.1 L RDW 21.3 H Plt Count 26 L* D pCO2 pO2 HCO3 ABG pH ABG Total CO2 ABG O2 Saturation ABG O2 Content ABG Base Excess ABG Hemoglobin ABG Carboxyhemoglobin POC ABG HHb (Measured) ABG Methemoglobin ABG O2 Capacity Uriel Test A-a O2 Difference Hgb O2 Saturation Vent Mode Mechanical Rate FiO2 Tidal Volume PEEP Crit Value Called To Crit Value Called By Crit Value Read Back Blood Gas Notified Time Sodium 141 Potassium 6.0 H Chloride 105 Carbon Dioxide 9 L* D Anion Gap 33 H BUN 51 H Creatinine 5.0 H Est GFR ( Amer) 11 Est GFR (Non-Af Amer) 9 POC Glucose (mg/dL) Random Glucose 121 H Calcium 7.1 L Phosphorus 10.4 H Magnesium 1.8 Total Bilirubin 6.5 H AST 2101 H ALT 503 H D Alkaline Phosphatase 88 Ammonia 1390 H* D Total Protein 4.3 L Albumin 1.7 L Globulin 2.6 Albumin/Globulin Ratio 0.6 L 12/20/18 07:48 WBC RBC Hgb Hct MCV MCH MCHC RDW Plt Count pCO2 pO2 HCO3 ABG pH ABG Total CO2 ABG O2 Saturation ABG O2 Content ABG Base Excess ABG Hemoglobin ABG Carboxyhemoglobin POC ABG HHb (Measured) ABG Methemoglobin ABG O2 Capacity Uriel Test A-a O2 Difference Hgb O2 Saturation Vent Mode Mechanical Rate FiO2 Tidal Volume PEEP Crit Value Called To Crit Value Called By Crit Value Read Back Blood Gas Notified Time Sodium Potassium Chloride Carbon Dioxide Anion Gap BUN Creatinine Est GFR ( Amer) Est GFR (Non-Af Amer) POC Glucose (mg/dL) 185 H Random Glucose Calcium Phosphorus Magnesium Total Bilirubin AST ALT Alkaline Phosphatase Ammonia Total Protein Albumin Globulin Albumin/Globulin Ratio Attending/Attestation - Attestation I have personally seen and examined this patient.: Yes I have fully participated in the care of the patient.: Yes I have reviewed all pertinent clinical information: Yes Notes (Text): Pt was seen and examined at bedside Agree with above note and assessment 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
--- NOTE | 2018-12-17 06:59 | CP.PCM.PN ---
<Hakeem Keyes - Last Filed: 12/17/18 12:54> Subjective - Date & Time of Evaluation Date of Evaluation: 12/17/18 Time of Evaluation: 07:00 - Subjective Subjective: Patient seen and examined at bedside. Patient still comatose, on vent. She had several episode of seizure yesterday and today during the night. Neurology consulted and placed on keppra loading dose and ativan prn seizure. Patient also was seen by surgery, and does not recommend surgery at this moment due to no incarcerated hernia. Central and arterial line were placed on the femoral area on the RIGHT. Objective - Vital Signs/Intake and Output Vital Signs (last 24 hours): Temp Pulse Resp BP Pulse Ox 98.1 F 109 H 16 114/42 L 100 12/17/18 04:00 12/17/18 06:00 12/17/18 06:00 12/17/18 06:00 12/17/18 06:00 Intake and Output: 12/16/18 12/17/18 18:59 06:59 Intake Total 514 3000 Output Total 600 350 Balance -86 2650 - Medications Medications: Current Medications Piperacillin Sod/Tazobactam (Sod 2.25 gm/ Sodium Chloride) 100 mls @ 100 mls/hr IVPB Q12H [facility]; Protocol Last Admin: 12/17/18 03:50 Dose: 100 mls/hr Sodium Bicarbonate 80 meq/ (Dextrose/Sodium Chloride) 1,080 mls @ 100 mls/hr IV .[id number] [facility] Stop: 12/18/18 15:31 Last Admin: 12/17/18 03:09 Dose: 100 mls/hr Midazolam HCl 50 mg/ Dextrose 100 mls @ 4 mls/hr IV .Q24H ONE; Protocol Stop: 12/17/18 20:10 Last Titration: 12/17/18 06:15 Dose: 10 mg/hr, 20 mls/hr Lacosamide 200 mg/ Sodium (Chloride) 120 mls @ 120 mls/hr IVPB BID [facility] Norepinephrine Bitartrate 4 mg (/ Dextrose) 254 mls @ 9.53 mls/hr IV .Q24H [facility]; Protocol Last Titration: 12/17/18 02:20 Dose: 10 mcg/min, 38.1 mls/hr Levetiracetam 1,500 mg/ Sodium (Chloride) 115 mls @ 215 mls/hr IVPB Q12H [facility] Last Admin: 12/17/18 00:09 Dose: 215 mls/hr Sodium Chloride (Sodium Chloride 0.9%) 1,000 mls @ 100 mls/hr IV .Q10H [facility] Stop: 12/18/18 00:06 Last Admin: 12/17/18 00:57 Dose: 100 mls/hr Propofol (Diprivan) 1,000 mg in 100 mls @ 2.791 mls/hr IV .Q24H [facility]; Protocol Stop: 12/18/18 02:00 Last Titration: 12/17/18 06:15 Dose: 50 mcg/kg/min, 27.91 mls/hr Insulin Human Lispro (Humalog) 0 units SC Q6H [facility]; Protocol Last Admin: 12/17/18 06:09 Dose: 3 units Labetalol HCl (Trandate) 20 mg IVP Q3 PRN PRN Reason: Systolic Blood Pressure Last Admin: 12/16/18 14:36 Dose: 20 mg Lactulose (Enulose) 30 gm PO Q6 [facility] Last Admin: 12/17/18 06:09 Dose: 30 gm Lorazepam (Ativan) 4 mg IVP Q4 PRN PRN Reason: Seizure activity Pantoprazole Sodium (Protonix Inj) 40 mg IVP DAILY [facility] Last Admin: 12/16/18 08:25 Dose: 40 mg Rifaximin (Xifaxan) 550 mg NG BID [facility]; Protocol Last Admin: 12/16/18 23:38 Dose: Not Given - Labs Labs: 12/17/18 05:15 12/17/18 05:15 PT 21.5 Seconds (9.8-13.1) H 12/17/18 05:15 INR 1.9 12/17/18 05:15 APTT 30.6 Seconds (25.6-37.1) 12/17/18 05:15 - Constitutional Appears: Other (comatose ) - Head Exam Head Exam: ATRAUMATIC, NORMAL INSPECTION, NORMOCEPHALIC - Eye Exam Eye Exam: Scleral icterus Additional comments: clear liquid dripping possible due to fluid retain - ENT Exam ENT Exam: Mucous Membranes Moist, Normal Exam - Neck Exam Neck Exam: Full ROM, Normal Inspection - Respiratory Exam Respiratory Exam: Rhonchi - Cardiovascular Exam Cardiovascular Exam: REGULAR RHYTHM, +S1, +S2 - GI/Abdominal Exam GI & Abdominal Exam: Soft Additional comments: Hernia noted on umbilicus and epigastrium. Body wet to touch. 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 Admitted to ICU for further evaluation and treatment of Hepatic Encephalopathy. Plan Comatose/AMS due hepatic encephalopathy Patient still comatose No mental status changes HX of cirrhosis due to hep C MELD 40 point 71.3% 3 month mortality S/P lactulose 200mg in ER Patient Currently intubated Ammonia 300->245->742 Start lactulose 30mg as per GI F/U BMp acute on chronic renal failure Chronic worsening Bun/Cr 61/2.6 -> 64/2.8-> 64/3.6 IV hydration Continue monitoring Nephro consulted, recommend dialysis Will insert cath for dialysis, consent for dialysis taken by son New onset of Seizures Neurology on case Patient recieved Keppra loading dose Ativan 4mg prn Continue Keppra 750 Q12h GI Bleed Nurse report coffee ground emesis Continue on Rocephin for SBP prophylaxis Continue IV Protonix NPO Type and screen 2 units GI consulted F/U recommendation Lactulose 30mg Lactic acid 6.8 Surgery on board, does not recommend Surgery Sepsis with unknown source of infection Hx of paracentesis Tackycardia, Sudden AMS Urine culture negative F/U blood culture F/u Sputum culture Continue Zosyn day 2 Continue Rifaximin day 2 HyperKalemia Improving Potassium 6.6->5.5 S/P insulin, albuterol EKG no T weak peak S/p Calcium gluconate 4.6 once F/U BMP DM2 Chronic Sliding scale Hypoglycemia protocol HTN Chronic BP 157/94 Hold medication due to condition Monitor for blood pressure DVT prophylaxis SCD no heparin for now CODE FULL <Sarah Voss - Last Filed: 12/17/18 15:33> Objective - Vital Signs/Intake and Output Vital Signs (last 24 hours): Temp Pulse Resp BP Pulse Ox 96.6 F L 105 H 20 117/59 L 100 12/17/18 12:00 12/17/18 12:00 12/17/18 12:00 12/17/18 12:00 12/17/18 12:00 Intake and Output: 12/17/18 12/17/18 06:59 18:59 Intake Total 3050 1262.5 Output Total 350 50 Balance 2700 1212.5 - Medications Medications: Current Medications Fosphenytoin Sodium (Cerebyx) 100 mg IV Q8 [facility] Last Admin: 12/17/18 10:30 Dose: 100 mg Piperacillin Sod/Tazobactam (Sod 2.25 gm/ Sodium Chloride) 100 mls @ 100 mls/hr IVPB Q12H [facility]; Protocol Last Admin: 12/17/18 03:50 Dose: 100 mls/hr Sodium Bicarbonate 80 meq/ (Dextrose/Sodium Chloride) 1,080 mls @ 100 mls/hr IV .[id number] [facility] Stop: 12/18/18 15:31 Last Admin: 12/17/18 03:09 Dose: 100 mls/hr Midazolam HCl 50 mg/ Dextrose 100 mls @ 4 mls/hr IV .Q24H [facility]; Protocol Stop: 12/17/18 20:10 Last Titration: 12/17/18 12:48 Dose: 10 mg/hr, 20 mls/hr Lacosamide 200 mg/ Sodium (Chloride) 120 mls @ 120 mls/hr IVPB BID [facility] Last Admin: 12/17/18 09:39 Dose: 120 mls/hr Norepinephrine Bitartrate 4 mg (/ Dextrose) 254 mls @ 9.53 mls/hr IV .Q24H [facility]; Protocol Last Titration: 12/17/18 12:13 Dose: 15 mcg/min, 57.15 mls/hr Levetiracetam 1,500 mg/ Sodium (Chloride) 115 mls @ 215 mls/hr IVPB Q12H [facility] Last Admin: 12/17/18 12:43 Dose: 215 mls/hr Propofol (Diprivan) 1,000 mg in 100 mls @ 2.791 mls/hr IV .Q24H [facility]; Protocol Stop: 12/18/18 02:00 Last Titration: 12/17/18 14:45 Dose: 50 mcg/kg/min, 27.91 mls/hr Valproate Sodium 750 mg/ (Sodium Chloride) 107.5 mls @ 107.5 mls/hr IVPB Q12 [facility] Last Admin: 12/17/18 13:00 Dose: 107.5 mls/hr Norepinephrine Bitartrate 8 mg (/ Dextrose) 258 mls @ 33.86 mls/hr IV .Q7H38M [facility]; Protocol Stop: 12/17/18 21:36 Last Admin: 12/17/18 15:18 Dose: 17.5 mcg/min, 33.86 mls/hr Phenobarbital 1,000 mg/ Sodium (Chloride) 115.3846 mls @ 230.769 mls/hr IV ONCE ONE Stop: 12/17/18 15:29 Insulin Human Lispro (Humalog) 0 units SC Q6H [facility]; Protocol Last Admin: 12/17/18 11:59 Dose: 5 units Labetalol HCl (Trandate) 20 mg IVP Q3 PRN PRN Reason: Systolic Blood Pressure Last Admin: 12/16/18 14:36 Dose: 20 mg Lactulose (Enulose) 30 gm PO Q6 [facility] Last Admin: 12/17/18 09:56 Dose: 30 gm Lorazepam (Ativan) 4 mg IVP Q4 PRN PRN Reason: Seizure activity Pantoprazole Sodium (Protonix Inj) 40 mg IVP DAILY [facility] Last Admin: 12/17/18 09:40 Dose: 40 mg Rifaximin (Xifaxan) 550 mg NG BID [facility]; Protocol Last Admin: 12/17/18 09:38 Dose: 550 mg - Labs Labs: 12/17/18 05:15 12/17/18 05:15 PT 21.5 Seconds (9.8-13.1) H 12/17/18 05:15 INR 1.9 12/17/18 05:15 APTT 30.6 Seconds (25.6-37.1) 12/17/18 05:15 Attending/Attestation - Attestation I have personally seen and examined this patient.: Yes I have fully participated in the care of the patient.: Yes I have reviewed all pertinent clinical information, including history, physical exam and plan: Yes Notes (Text): AMS prob due to Hepatic Encephalopathy/ Toxic Metabolic Encephalopathy Status Epilepticus Acute Respiratory Failure due Encephalopathy Mechanical SBO due Loop of Bowel in Ventral Hernia ODIN on CKD Stage III Cirrhosis sec to Hepatitis C with coagulopathy Hyperkalemia Lactic Acidosis DM type II with Hyperglycemia -Pt is intubated on Vent in ICU - remains unresponsive, Lactic acid elevated, hypotensive of pressors ( Levophe d) -cont IV Zosyn - On Keppra, Depakote, Vimpat , Phenobarbital, Cerebryx for seizures and also on Versed and Propofol - Neuro , Surgery, Nephrology , Pulmonary consulted - Plan for emergent Hemodialysis, IR consulted for placement of HD catheter - K level persistently elevated despite Calcium Gluc, IV Insulin, Bicarb With the help of a [employer] Discussed with cullen Major test results and treatment plan
[2018-12-17] MEDS ORDERED: Albuterol 0.083% Inhal Sol (2.5 mg/3 mL) UD INH ONE (07:11)
[2018-12-17] MEDS ORDERED: Insulin Regular 100 units/ml SC STA (07:13)
[2018-12-17] MEDS ORDERED: Sodium Bicarbonate (8.4%) 50 Meq Syringe IVP ONE (07:13)
[2018-12-17] MEDS ORDERED: Dextrose 50% SYRINGE Inj (50 ml) IVP ONE (07:14)
[2018-12-17] MEDS ORDERED: Calcium Gluconate 4.65 mEq/10 ml Inj IV ONE (07:33)
[2018-12-17] MEDS ORDERED: Lacosamide 200mg/20ml 200 MG in Sodium Chloride 0.9% 100 ML IVPB STA (08:11)
[2018-12-17] MEDS ORDERED: levETIRAcetam 1,500 MG in Sodium Chloride 0.9% 100 ML IVPB STA (08:12)
[2018-12-17] MEDS ORDERED: Albuterol 0.083% Inhal Sol (2.5 mg/3 mL) UD ONE (08:20)
--- NOTE | 2018-12-17 08:52 | CP.PCM.PN ---
Objective - Vital Signs/Intake and Output Vital Signs (last 24 hours): Temp Pulse Resp BP Pulse Ox 97.9 F 111 H 16 119/54 L 100 12/17/18 08:00 12/17/18 08:23 12/17/18 08:00 12/17/18 08:00 12/17/18 08:00 Intake and Output: 12/17/18 12/17/18 06:59 18:59 Intake Total 3050 Output Total 350 Balance 2700 - Medications Medications: Current Medications Piperacillin Sod/Tazobactam (Sod 2.25 gm/ Sodium Chloride) 100 mls @ 100 mls/hr IVPB Q12H [facility]; Protocol Last Admin: 12/17/18 03:50 Dose: 100 mls/hr Sodium Bicarbonate 80 meq/ (Dextrose/Sodium Chloride) 1,080 mls @ 100 mls/hr IV .[id number] [facility] Stop: 12/18/18 15:31 Last Admin: 12/17/18 03:09 Dose: 100 mls/hr Midazolam HCl 50 mg/ Dextrose 100 mls @ 4 mls/hr IV .Q24H [facility]; Protocol Stop: 12/17/18 20:10 Last Titration: 12/17/18 06:15 Dose: 10 mg/hr, 20 mls/hr Lacosamide 200 mg/ Sodium (Chloride) 120 mls @ 120 mls/hr IVPB BID [facility] Norepinephrine Bitartrate 4 mg (/ Dextrose) 254 mls @ 9.53 mls/hr IV .Q24H [facility]; Protocol Last Titration: 12/17/18 05:00 Dose: 17.5 mcg/min, 66.68 mls/hr Levetiracetam 1,500 mg/ Sodium (Chloride) 115 mls @ 215 mls/hr IVPB Q12H [facility] Last Admin: 12/17/18 00:09 Dose: 215 mls/hr Sodium Chloride (Sodium Chloride 0.9%) 1,000 mls @ 100 mls/hr IV .Q10H [facility] Stop: 12/18/18 00:06 Last Admin: 12/17/18 00:57 Dose: 100 mls/hr Propofol (Diprivan) 1,000 mg in 100 mls @ 2.791 mls/hr IV .Q24H [facility]; Protocol Stop: 12/18/18 02:00 Last Titration: 12/17/18 06:15 Dose: 50 mcg/kg/min, 27.91 mls/hr Insulin Human Lispro (Humalog) 0 units SC Q6H [facility]; Protocol Last Admin: 12/17/18 06:09 Dose: 3 units Labetalol HCl (Trandate) 20 mg IVP Q3 PRN PRN Reason: Systolic Blood Pressure Last Admin: 12/16/18 14:36 Dose: 20 mg Lactulose (Enulose) 30 gm PO Q6 [facility] Last Admin: 12/17/18 06:09 Dose: 30 gm Lorazepam (Ativan) 4 mg IVP Q4 PRN PRN Reason: Seizure activity Pantoprazole Sodium (Protonix Inj) 40 mg IVP DAILY [facility] Last Admin: 12/16/18 08:25 Dose: 40 mg Rifaximin (Xifaxan) 550 mg NG BID [facility]; Protocol Last Admin: 12/16/18 23:38 Dose: Not Given - Labs Labs: 12/17/18 05:15 12/17/18 05:15 PT 21.5 Seconds (9.8-13.1) H 12/17/18 05:15 INR 1.9 12/17/18 05:15 APTT 30.6 Seconds (25.6-37.1) 12/17/18 05:15
[2018-12-17] MEDS: Lacosamide 200mg/20ml 200 MG in Sodium Chloride 0.9% 100 ML IVPB SCH ×2 (09:39→16:45)
[2018-12-17] MEDS: Fosphenytoin 100 mg/2 ml Inj IV SCH ×2 (10:30→16:46)
--- NOTE | 2018-12-17 11:03 | CP.PCM.CON ---
History of Present Illness - History of Present Illness History of Present Illness: 58 y/o female with Hx/o Liver cirrhosis secondary to Hep C as a result of blood transfusion, DM 11,HTN , ventral hernia was brought to ER in a comatose state Reportedly was alert & communicative earlier in the day. Per family Pt suddenly became disoriented. In ER ammonia level was > 300. Pt was intubated for airway protection. Pt was discharged from the hospital on 12/14/18 after work up for abdominal pain & found to have ventral hernia below the umbilicus. Was to be followed as out patient. Renal consult is requested because of progressive rise in Creat, hyperkalemia & poor urine output. Pt was also in status epillepticus & required several meds to control the seizure. Review of Systems - Review of Systems Systems not reviewed;Unavailable: Unstable Vital Signs, Intubated Past Patient History - Infectious Disease Hx of Infectious Diseases: None - Tetanus Immunizations Tetanus Immunization: Unknown - Past Medical History & Family History Past Medical History?: Yes - Past Social History Smoking Status: Never Smoked - CARDIAC Hx Cardiac Disorders: Yes Hx Hypercholesterolemia: Yes Hx Hypertension: Yes - PULMONARY Hx Respiratory Disorders: Yes Hx Pneumonia: Yes - NEUROLOGICAL Hx Neurological Disorder: No - HEENT Hx HEENT Problems: No - RENAL Hx Chronic Kidney Disease: No - ENDOCRINE/METABOLIC Hx Endocrine Disorders: Yes Hx Diabetes Mellitus Type 2: Yes - HEMATOLOGICAL/ONCOLOGICAL Hx Blood Disorders: Yes Hx Anemia: Yes Hx Human Immunodeficiency Virus (HIV): No - INTEGUMENTARY Hx Dermatological Problems: No - MUSCULOSKELETAL/RHEUMATOLOGICAL Hx Musculoskeletal Disorders: No Hx Falls: No - GASTROINTESTINAL Hx Gastrointestinal Disorders: Yes Hx Gastritis: Yes - GENITOURINARY/GYNECOLOGICAL Hx Genitourinary Disorders: No - PSYCHIATRIC Hx Psychophysiologic Disorder: No Hx Anxiety: No Hx Bipolar Disorder: No Hx Depression: No Hx Paranoia: No Hx Post Traumatic Stress Disorder: No Hx Schizophrenia: No Hx Substance Use: No - SURGICAL HISTORY Hx Surgeries: Yes Hx Appendectomy: Yes - ANESTHESIA Hx Anesthesia: Yes Hx Anesthesia Reactions: No Hx Malignant Hyperthermia: No Meds Allergies/Adverse Reactions: Allergies Allergy/AdvReac Type Severity Reaction Status Date / Time No Known Allergies Allergy Verified 12/10/18 10:10 - Medications Medications: Current Medications Fosphenytoin Sodium (Cerebyx) 100 mg IV Q8 [facility] Piperacillin Sod/Tazobactam (Sod 2.25 gm/ Sodium Chloride) 100 mls @ 100 mls/hr IVPB Q12H [facility]; Protocol Last Admin: 12/17/18 03:50 Dose: 100 mls/hr Sodium Bicarbonate 80 meq/ (Dextrose/Sodium Chloride) 1,080 mls @ 100 mls/hr IV .[id number] [facility] Stop: 12/18/18 15:31 Last Admin: 12/17/18 03:09 Dose: 100 mls/hr Midazolam HCl 50 mg/ Dextrose 100 mls @ 4 mls/hr IV .Q24H ONE; Protocol Stop: 12/17/18 20:10 Last Titration: 12/17/18 06:15 Dose: 10 mg/hr, 20 mls/hr Lacosamide 200 mg/ Sodium (Chloride) 120 mls @ 120 mls/hr IVPB BID [facility] Last Admin: 12/17/18 09:39 Dose: 120 mls/hr Norepinephrine Bitartrate 4 mg (/ Dextrose) 254 mls @ 9.53 mls/hr IV .Q24H [facility]; Protocol Last Titration: 12/17/18 09:30 Dose: 17.5 mcg/min, 66.68 mls/hr Levetiracetam 1,500 mg/ Sodium (Chloride) 115 mls @ 215 mls/hr IVPB Q12H [facility] Last Admin: 12/17/18 00:09 Dose: 215 mls/hr Sodium Chloride (Sodium Chloride 0.9%) 1,000 mls @ 100 mls/hr IV .Q10H [facility] Stop: 12/18/18 00:06 Last Admin: 12/17/18 10:26 Dose: 100 mls/hr Propofol (Diprivan) 1,000 mg in 100 mls @ 2.791 mls/hr IV .Q24H [facility]; Protocol Stop: 12/18/18 02:00 Last Admin: 12/17/18 09:47 Dose: 50 mcg/kg/min, 27.91 mls/hr Insulin Human Lispro (Humalog) 0 units SC Q6H [facility]; Protocol Last Admin: 12/17/18 06:09 Dose: 3 units Labetalol HCl (Trandate) 20 mg IVP Q3 PRN PRN Reason: Systolic Blood Pressure Last Admin: 12/16/18 14:36 Dose: 20 mg Lactulose (Enulose) 30 gm PO Q6 [facility] Last Admin: 12/17/18 09:56 Dose: 30 gm Lorazepam (Ativan) 4 mg IVP Q4 PRN PRN Reason: Seizure activity Pantoprazole Sodium (Protonix Inj) 40 mg IVP DAILY [facility] Last Admin: 12/17/18 09:40 Dose: 40 mg Rifaximin (Xifaxan) 550 mg NG BID [facility]; Protocol Last Admin: 12/17/18 09:38 Dose: 550 mg Physical Exam - Constitutional Additional comments: Unresposive, Intubated. - Head Exam Head Exam: ATRAUMATIC, NORMOCEPHALIC - Eye Exam Eye Exam: Conjunctival injection - ENT Exam ENT Exam: Mucous Membranes Moist - Neck Exam Additional comments: Unable to examine properly - Respiratory Exam Additional comments: Intubated & sedated. Lungs clear anteriorly. - Cardiovascular Exam Cardiovascular Exam: REGULAR RHYTHM Additional comments: No rub - GI/Abdominal Exam Additional comments: Large ascitis. Abdominal wall edema with weeping from the skin. - Extremities Exam Additional comments: Edema of both upper extremities No cyanosis. - Neurological Exam Additional comments: Not performed . On propofol drip Results - Vital Signs Recent Vital Signs: Last Vital Signs Temp 97.8 F 12/17/18 10:00 Pulse 102 H 12/17/18 10:00 Resp 25 H 12/17/18 10:00 BP 107/53 L 12/17/18 10:00 Pulse Ox 100 12/17/18 10:00 - Labs Result Diagrams: 12/17/18 05:15 12/17/18 05:15 Labs: Laboratory Results - last 24 hr 12/16/18 12/16/18 12/16/18 04:08 11:11 14:02 WBC RBC Hgb Hct MCV MCH MCHC RDW Plt Count MPV Neut % (Auto) Lymph % (Auto) Clarke % (Auto) Eos % (Auto) Baso % (Auto) Neut # (Auto) Lymph # (Auto) Clarke # (Auto) Eos # (Auto) Baso # (Auto) PT INR APTT pCO2 36 pO2 199 H HCO3 18.7 L ABG pH 7.30 L ABG Total CO2 18.8 L ABG O2 Saturation 101.0 H ABG Base Excess -8.0 L ABG Hemoglobin 8.5 L ABG Carboxyhemoglobin 1.7 H POC ABG HHb (Measured) -1.0 L ABG O2 Capacity 12.1 L Uriel Test ABG Potassium A-a O2 Difference 41.0 Hgb O2 Saturation 98.3 H Glucose Lactate Vent Mode A/c pc Mechanical Rate FiO2 40.0 Tidal Volume PEEP Crit Value Called To Lety velez Crit Value Called By 15 Crit Value Read Back Blood Gas Notified Time 1720 Sodium Potassium Chloride Carbon Dioxide Anion Gap BUN Creatinine Est GFR ( Amer) Est GFR (Non-Af Amer) POC Glucose (mg/dL) 278 H Random Glucose Serum Osmolality Lactic Acid 6.7 H* Calcium Phosphorus Magnesium Total Bilirubin AST ALT Alkaline Phosphatase Ammonia Total Creatine Kinase Troponin I Total Protein Albumin Globulin Albumin/Globulin Ratio Amylase Lipase Arterial Blood Potassium Urine Osmolality Ur Random Sodium Ur Random Potassium 12/16/18 12/16/18 12/16/18 17:35 17:37 17:37 WBC RBC Hgb Hct MCV MCH MCHC RDW Plt Count MPV Neut % (Auto) Lymph % (Auto) Clarke % (Auto) Eos % (Auto) Baso % (Auto) Neut # (Auto) Lymph # (Auto) Clarke # (Auto) Eos # (Auto) Baso # (Auto) PT 19.3 H D INR 1.7 APTT pCO2 pO2 HCO3 ABG pH ABG Total CO2 ABG O2 Saturation ABG Base Excess ABG Hemoglobin ABG Carboxyhemoglobin POC ABG HHb (Measured) ABG O2 Capacity Uriel Test ABG Potassium A-a O2 Difference Hgb O2 Saturation Glucose Lactate Vent Mode Mechanical Rate FiO2 Tidal Volume PEEP Crit Value Called To Crit Value Called By Crit Value Read Back Blood Gas Notified Time Sodium 145 Potassium 6.0 H Chloride 113 H Carbon Dioxide 18 L Anion Gap 20 BUN 62 H Creatinine 3.1 H Est GFR ( Amer) 19 Est GFR (Non-Af Amer) 15 POC Glucose (mg/dL) Random Glucose 323 H Serum Osmolality Lactic Acid 6.6 H* Calcium 9.2 Phosphorus Magnesium Total Bilirubin AST ALT Alkaline Phosphatase Ammonia Total Creatine Kinase 115 Troponin I 0.1730 H* Total Protein Albumin Globulin Albumin/Globulin Ratio Amylase Lipase 107 Arterial Blood Potassium Urine Osmolality Ur Random Sodium Ur Random Potassium 12/16/18 12/16/18 12/16/18 17:37 17:50 18:06 WBC 11.2 H RBC 2.58 L Hgb 8.3 L Hct 25.5 L MCV 99.0 MCH 32.3 H MCHC 32.6 L RDW 15.6 H Plt Count 137 MPV Neut % (Auto) Lymph % (Auto) Clarke % (Auto) Eos % (Auto) Baso % (Auto) Neut # (Auto) Lymph # (Auto) Clarke # (Auto) Eos # (Auto) Baso # (Auto) PT INR APTT pCO2 pO2 HCO3 ABG pH ABG Total CO2 ABG O2 Saturation ABG Base Excess ABG Hemoglobin ABG Carboxyhemoglobin POC ABG HHb (Measured) ABG O2 Capacity Uriel Test ABG Potassium A-a O2 Difference Hgb O2 Saturation Glucose Lactate Vent Mode Mechanical Rate FiO2 Tidal Volume PEEP Crit Value Called To Crit Value Called By Crit Value Read Back Blood Gas Notified Time Sodium Potassium Chloride Carbon Dioxide Anion Gap BUN Creatinine Est GFR ( Amer) Est GFR (Non-Af Amer) POC Glucose (mg/dL) 319 H Random Glucose Serum Osmolality 343 H Lactic Acid Calcium Phosphorus Magnesium Total Bilirubin AST ALT Alkaline Phosphatase Ammonia Total Creatine Kinase Troponin I Total Protein Albumin Globulin Albumin/Globulin Ratio Amylase Lipase Arterial Blood Potassium Urine Osmolality Ur Random Sodium Ur Random Potassium 12/16/18 12/16/18 12/16/18 18:06 20:59 21:52 WBC RBC Hgb Hct MCV MCH MCHC RDW Plt Count MPV Neut % (Auto) Lymph % (Auto) Clarke % (Auto) Eos % (Auto) Baso % (Auto) Neut # (Auto) Lymph # (Auto) Clarke # (Auto) Eos # (Auto) Baso # (Auto) PT INR APTT pCO2 55 H pO2 128 H HCO3 17.4 L ABG pH 7.14 L* ABG Total CO2 20.4 L ABG O2 Saturation 98.5 H ABG Base Excess -9.7 L ABG Hemoglobin ABG Carboxyhemoglobin POC ABG HHb (Measured) ABG O2 Capacity Uriel Test Yes ABG Potassium 6.2 H* A-a O2 Difference 88.0 Hgb O2 Saturation Glucose 234 H Lactate 6.6 H* Vent Mode Mechanical Rate 12 FiO2 40.0 Tidal Volume 400 PEEP 5 Crit Value Called To Javier granado Crit Value Called By 15 Crit Value Read Back Y Blood Gas Notified Time 2159 Sodium 144.0 Potassium Chloride 114.0 H Carbon Dioxide Anion Gap BUN Creatinine Est GFR ( Amer) Est GFR (Non-Af Amer) POC Glucose (mg/dL) 271 H Random Glucose Serum Osmolality Lactic Acid Calcium Phosphorus Magnesium Total Bilirubin AST ALT Alkaline Phosphatase Ammonia Total Creatine Kinase Troponin I Total Protein Albumin Globulin Albumin/Globulin Ratio Amylase Lipase Arterial Blood Potassium 6.2 H* Urine Osmolality 394 Ur Random Sodium 9 Ur Random Potassium 21.9 12/16/18 12/17/18 12/17/18 22:27 01:10 04:24 WBC RBC Hgb Hct MCV MCH MCHC RDW Plt Count MPV Neut % (Auto) Lymph % (Auto) Clarke % (Auto) Eos % (Auto) Baso % (Auto) Neut # (Auto) Lymph # (Auto) Clarke # (Auto) Eos # (Auto) Baso # (Auto) PT INR APTT pCO2 50 H 43 pO2 143 H 143 H HCO3 16.5 L 16.5 L ABG pH 7.16 L* 7.20 L ABG Total CO2 19.3 L 18.1 L ABG O2 Saturation 98.9 H 99.2 H ABG Base Excess -10.9 L -10.9 L ABG Hemoglobin ABG Carboxyhemoglobin POC ABG HHb (Measured) ABG O2 Capacity Uriel Test Yes Yes ABG Potassium 6.1 H 6.0 H A-a O2 Difference 222.0 88.0 Hgb O2 Saturation Glucose 250 H 268 H Lactate 6.6 H* 6.4 H* Vent Mode A/c A/c Mechanical Rate 20 16 FiO2 60.0 40.0 Tidal Volume 450 450 PEEP 5 5 Crit Value Called To Aba cartagena rn Crit Value Called By Tisha hansen rt Tisha hansen rt Crit Value Read Back Y Y Blood Gas Notified Time 117 428 Sodium 142.0 142.0 Potassium Chloride 113.0 H 113.0 H Carbon Dioxide Anion Gap BUN Creatinine Est GFR ( Amer) Est GFR (Non-Af Amer) POC Glucose (mg/dL) 259 H Random Glucose Serum Osmolality Lactic Acid Calcium Phosphorus Magnesium Total Bilirubin AST ALT Alkaline Phosphatase Ammonia Total Creatine Kinase Troponin I Total Protein Albumin Globulin Albumin/Globulin Ratio Amylase Lipase Arterial Blood Potassium 6.1 H 6.0 H Urine Osmolality Ur Random Sodium Ur Random Potassium 12/17/18 12/17/18 12/17/18 04:34 05:15 05:15 WBC 13.4 H RBC 2.33 L Hgb 7.6 L Hct 23.7 L MCV 101.5 H D MCH 32.4 H MCHC 31.9 L RDW 16.8 H Plt Count 163 MPV 8.6 Neut % (Auto) 70.5 Lymph % (Auto) 10.5 L Clarke % (Auto) 18.6 H Eos % (Auto) 0.2 Baso % (Auto) 0.2 Neut # (Auto) 9.4 H Lymph # (Auto) 1.4 Clarke # (Auto) 2.5 H Eos # (Auto) 0.0 Baso # (Auto) 0.0 PT INR APTT pCO2 pO2 HCO3 ABG pH ABG Total CO2 ABG O2 Saturation ABG Base Excess ABG Hemoglobin ABG Carboxyhemoglobin POC ABG HHb (Measured) ABG O2 Capacity Uriel Test ABG Potassium A-a O2 Difference Hgb O2 Saturation Glucose Lactate Vent Mode Mechanical Rate FiO2 Tidal Volume PEEP Crit Value Called To Crit Value Called By Crit Value Read Back Blood Gas Notified Time Sodium 147 Potassium 6.0 H Chloride 115 H Carbon Dioxide 16 L Anion Gap 22 H BUN 64 H Creatinine 3.6 H Est GFR ( Amer) 16 Est GFR (Non-Af Amer) 13 POC Glucose (mg/dL) 292 H Random Glucose 285 H Serum Osmolality Lactic Acid Calcium 8.0 L Phosphorus 7.1 H Magnesium 1.7 Total Bilirubin 3.8 H AST 63 H D ALT 37 Alkaline Phosphatase 115 Ammonia Total Creatine Kinase Troponin I Total Protein 6.4 Albumin 2.4 L Globulin 4.1 H Albumin/Globulin Ratio 0.6 L Amylase 376 H D Lipase 107 Arterial Blood Potassium Urine Osmolality Ur Random Sodium Ur Random Potassium 12/17/18 12/17/18 12/17/18 05:15 05:15 05:15 WBC RBC Hgb Hct MCV MCH MCHC RDW Plt Count MPV Neut % (Auto) Lymph % (Auto) Clarke % (Auto) Eos % (Auto) Baso % (Auto) Neut # (Auto) Lymph # (Auto) Clarke # (Auto) Eos # (Auto) Baso # (Auto) PT 21.5 H INR 1.9 APTT 30.6 pCO2 pO2 HCO3 ABG pH ABG Total CO2 ABG O2 Saturation ABG Base Excess ABG Hemoglobin ABG Carboxyhemoglobin POC ABG HHb (Measured) ABG O2 Capacity Uriel Test ABG Potassium A-a O2 Difference Hgb O2 Saturation Glucose Lactate Vent Mode Mechanical Rate FiO2 Tidal Volume PEEP Crit Value Called To Crit Value Called By Crit Value Read Back Blood Gas Notified Time Sodium Potassium Chloride Carbon Dioxide Anion Gap BUN Creatinine Est GFR ( Amer) Est GFR (Non-Af Amer) POC Glucose (mg/dL) Random Glucose Serum Osmolality Lactic Acid 6.8 H* Calcium Phosphorus Magnesium Total Bilirubin AST ALT Alkaline Phosphatase Ammonia 742 H* D Total Creatine Kinase Troponin I Total Protein Albumin Globulin Albumin/Globulin Ratio Amylase Lipase Arterial Blood Potassium Urine Osmolality Ur Random Sodium Ur Random Potassium Assessment & Plan - Assessment and Plan (Free Text) Assessment: Acute anuric renal failure with underlying chronic renal insufficiency. Volume overload & hyperkalemia which is unresponsive to treatment. Hepatic encephalopathy Liver cirrhosis (Hep C) Seizures Plan: Pt needs dialysis ROSI. Pts condition was discussed with her son Wally Huerta. Need for dialysis its to Pts son risks & benefits explained Mr Huerta consented to dialysis Dialysis orders are written Awaiting placement of dialysis catheter.
--- NOTE | 2018-12-17 11:31 | CP.PCM.PN ---
<Kandi Saba - Last Filed: 12/17/18 16:16> Subjective - Date & Time of Evaluation Date of Evaluation: 12/17/18 Time of Evaluation: 11:31 - Subjective Subjective: Neuro Follow-Up Note: Mrs. Ashley Varma was evaluated this morning in the ICU. She is currently intubated, on sedation; on Versed and Propofol. She is on multiple AE's for status epilepticus. Pt does not respond to sternal rub, does not follow commands. ROS unobtainable from the pt 2/2 her current status. Objective - Vital Signs/Intake and Output Vital Signs (last 24 hours): Temp Pulse Resp BP Pulse Ox 97.8 F 102 H 25 H 107/53 L 100 12/17/18 10:00 12/17/18 10:00 12/17/18 10:00 12/17/18 10:00 12/17/18 10:00 Intake and Output: 12/17/18 12/17/18 06:59 18:59 Intake Total 3050 1197.5 Output Total 350 50 Balance 2700 1147.5 - Medications Medications: Current Medications Fosphenytoin Sodium (Cerebyx) 100 mg IV Q8 [facility] Piperacillin Sod/Tazobactam (Sod 2.25 gm/ Sodium Chloride) 100 mls @ 100 mls/hr IVPB Q12H [facility]; Protocol Last Admin: 12/17/18 03:50 Dose: 100 mls/hr Sodium Bicarbonate 80 meq/ (Dextrose/Sodium Chloride) 1,080 mls @ 100 mls/hr IV .[id number] [facility] Stop: 12/18/18 15:31 Last Admin: 12/17/18 03:09 Dose: 100 mls/hr Midazolam HCl 50 mg/ Dextrose 100 mls @ 4 mls/hr IV .Q24H ONE; Protocol Stop: 12/17/18 20:10 Last Titration: 12/17/18 06:15 Dose: 10 mg/hr, 20 mls/hr Lacosamide 200 mg/ Sodium (Chloride) 120 mls @ 120 mls/hr IVPB BID [facility] Last Admin: 12/17/18 09:39 Dose: 120 mls/hr Norepinephrine Bitartrate 4 mg (/ Dextrose) 254 mls @ 9.53 mls/hr IV .Q24H [facility]; Protocol Last Titration: 12/17/18 09:30 Dose: 17.5 mcg/min, 66.68 mls/hr Levetiracetam 1,500 mg/ Sodium (Chloride) 115 mls @ 215 mls/hr IVPB Q12H [facility] Last Admin: 12/17/18 00:09 Dose: 215 mls/hr Sodium Chloride (Sodium Chloride 0.9%) 1,000 mls @ 100 mls/hr IV .Q10H [facility] Stop: 12/18/18 00:06 Last Admin: 12/17/18 10:26 Dose: 100 mls/hr Propofol (Diprivan) 1,000 mg in 100 mls @ 2.791 mls/hr IV .Q24H [facility]; Protocol Stop: 12/18/18 02:00 Last Admin: 12/17/18 09:47 Dose: 50 mcg/kg/min, 27.91 mls/hr Insulin Human Lispro (Humalog) 0 units SC Q6H [facility]; Protocol Last Admin: 12/17/18 06:09 Dose: 3 units Labetalol HCl (Trandate) 20 mg IVP Q3 PRN PRN Reason: Systolic Blood Pressure Last Admin: 12/16/18 14:36 Dose: 20 mg Lactulose (Enulose) 30 gm PO Q6 [facility] Last Admin: 12/17/18 09:56 Dose: 30 gm Lorazepam (Ativan) 4 mg IVP Q4 PRN PRN Reason: Seizure activity Pantoprazole Sodium (Protonix Inj) 40 mg IVP DAILY [facility] Last Admin: 12/17/18 09:40 Dose: 40 mg Rifaximin (Xifaxan) 550 mg NG BID [facility]; Protocol Last Admin: 12/17/18 09:38 Dose: 550 mg - Labs Labs: 12/17/18 05:15 12/17/18 05:15 PT 21.5 Seconds (9.8-13.1) H 12/17/18 05:15 INR 1.9 12/17/18 05:15 APTT 30.6 Seconds (25.6-37.1) 12/17/18 05:15 - Constitutional Appears: Other (intubated, on sedation) - Head Exam Head Exam: NORMOCEPHALIC - Eye Exam Eye Exam: Scleral icterus. absent: EOMI, Normal appearance, PERRL Pupil Exam: Fixed. absent: NORMAL ACCOMODATION, PERRL Additional comments: Pupils fixed at 6mm b/l No corneals No dolls eyes - ENT Exam ENT Exam: Mucous Membranes Moist Additional comments: intubated - Neck Exam Neck Exam: Normal Inspection - Respiratory Exam Respiratory Exam: absent: NORMAL BREATHING PATTERN (intubated) - Cardiovascular Exam Cardiovascular Exam: Tachycardia - GI/Abdominal Exam GI & Abdominal Exam: Distended (ascites) - Exam Additional comments: whitehead cath - Extremities Exam Extremities Exam: absent: Full ROM Additional comments: Please note, pt is on versed and Propofol, however there is no movement to extremities during sternal rub. No purposeful or non-purposeful movements appreciated during exam BUE have some tone No tremors; no abnormal myoclonic movements noted - Neurological Exam Neurological Exam: Altered Additional comments: Pt is intubated. Pt is on Versed and Propofol, however there is no movement to extremities during sternal rub. Pupils fixed at 6mm b/l No corneals No dolls eyes No purposeful or non-purposeful movements appreciated during exam BUE have some tone No tremors; no abnormal myoclonic movements noted - Psychiatric Exam Additional comments: intubated, sedated Assessment and Plan - Assessment and Plan (Free Text) Assessment: A/P: Mrs. Ashley Varma is a 58 y/o female who was admitted for AMS and vomiting. She was found to have hepatic encephalopathy and was in status epilepticus as noted on the VEEG. She is currently on multiple AE's as well as sedation. She has no tremors or abnormal myoclonic movements at this time. Imaging reviewed: -EEG (12/15/18): This is an abnormal Video EEG that is indicative of status epilepticus with PLEDS and evolving seizures. Clinical correlation is required. -CT Head (12/15/18): Examination limited by patient motion and streak artifact. Generalized atrophy. Nonspecific white matter changes. -MRI Brain without contrast to r/o acute stroke once pt is stable. -If MRI cannot be done, may repeat non-contrast CT Head tomorrow to re-eval for any acute intracranial changes or stroke. -Continue VEEG for full 48 hours---can be d/c'd on 12/18/18, at 2100. -Continue AE's as ordered---Keppra 1,500 mg IV Q12; Vimpat 200 mg IV BID, and Cerebyx 100 mg IV Q8. -Continue seizure monitoring and precautions. -Continue ICU management. -Notify neuro team of any acute changes in pt's condition or is seizures are noted. Kandi Saba, CHRISTIAN, [employer] Discussed with Dr. Hendricks <Geremias Hendricks - Last Filed: 12/17/18 18:01> Objective - Vital Signs/Intake and Output Vital Signs (last 24 hours): Temp Pulse Resp BP Pulse Ox 97.2 F L 103 H 16 115/55 L 100 12/17/18 17:00 12/17/18 17:00 12/17/18 17:00 12/17/18 17:00 12/17/18 17:00 Intake and Output: 12/17/18 12/17/18 06:59 18:59 Intake Total 3050 2625.0 Output Total 350 100 Balance 2700 2525.0 - Medications Medications: Current Medications Fosphenytoin Sodium (Cerebyx) 100 mg IV Q8 [facility] Last Admin: 12/17/18 16:46 Dose: 100 mg Piperacillin Sod/Tazobactam (Sod 2.25 gm/ Sodium Chloride) 100 mls @ 100 mls/hr IVPB Q12H [facility]; Protocol Last Admin: 12/17/18 16:44 Dose: 100 mls/hr Sodium Bicarbonate 80 meq/ (Dextrose/Sodium Chloride) 1,080 mls @ 100 mls/hr IV .[id number] [facility] Stop: 12/18/18 15:31 Last Admin: 12/17/18 14:00 Dose: 100 mls/hr Midazolam HCl 50 mg/ Dextrose 100 mls @ 4 mls/hr IV .Q24H ONE; Protocol Stop: 12/17/18 20:10 Last Titration: 12/17/18 12:48 Dose: 10 mg/hr, 20 mls/hr Lacosamide 200 mg/ Sodium (Chloride) 120 mls @ 120 mls/hr IVPB BID [facility] Last Admin: 12/17/18 16:45 Dose: 120 mls/hr Levetiracetam 1,500 mg/ Sodium (Chloride) 115 mls @ 215 mls/hr IVPB Q12H [facility] Last Admin: 12/17/18 12:43 Dose: 215 mls/hr Propofol (Diprivan) 1,000 mg in 100 mls @ 2.791 mls/hr IV .Q24H [facility]; Protocol Stop: 12/18/18 02:00 Last Titration: 12/17/18 14:45 Dose: 50 mcg/kg/min, 27.91 mls/hr Valproate Sodium 750 mg/ (Sodium Chloride) 107.5 mls @ 107.5 mls/hr IVPB Q12 [facility] Last Admin: 12/17/18 13:00 Dose: 107.5 mls/hr Norepinephrine Bitartrate 8 mg (/ Dextrose) 258 mls @ 33.86 mls/hr IV .Q7H38M [facility]; Protocol Stop: 12/17/18 21:36 Last Admin: 12/17/18 15:18 Dose: 17.5 mcg/min, 33.86 mls/hr Insulin Human Lispro (Humalog) 0 units SC Q6H [facility]; Protocol Last Admin: 12/17/18 17:01 Dose: 5 units Labetalol HCl (Trandate) 20 mg IVP Q3 PRN PRN Reason: Systolic Blood Pressure Last Admin: 12/16/18 14:36 Dose: 20 mg Lactulose (Enulose) 30 gm PO Q6 [facility] Last Admin: 12/17/18 15:36 Dose: 30 gm Lorazepam (Ativan) 4 mg IVP Q4 PRN PRN Reason: Seizure activity Pantoprazole Sodium (Protonix Inj) 40 mg IVP DAILY [facility] Last Admin: 12/17/18 09:40 Dose: 40 mg Rifaximin (Xifaxan) 550 mg NG BID [facility]; Protocol Last Admin: 12/17/18 16:49 Dose: 550 mg - Labs Labs: 12/17/18 05:15 12/17/18 05:15 PT 21.5 Seconds (9.8-13.1) H 12/17/18 05:15 INR 1.9 12/17/18 05:15 APTT 30.6 Seconds (25.6-37.1) 12/17/18 05:15 Assessment and Plan - Assessment and Plan (Free Text) Assessment: Attending addenedum: EEG shows now triphasic waves and no seizures this am, and most recently, is flatter with no seizures, on propofol COntinue all meds Discussed wtih Dr. Hansen. Dr. Hendricks
--- NOTE | 2018-12-17 12:05 | PCM.VEEG ---
Video EEG - Impression Impression: This is an abnormal 24 hour Video EEG. Initially, the patient was in status epilepticus, and around 5 am, she started to improve and now has continous triphasic waves, with some spindle activity and is no longer in status epilepticus. Clinical correlation is required. There are no longer PLEDS or Spikes noted in the last [address] Geremias Moscoso MD DPN [facility] Director Epilepsy
[2018-12-17] MEDS ORDERED: Valproate 750 MG in Sodium Chloride 0.9% 100 ML IVPB SCH (12:30)
--- NOTE | 2018-12-17 12:39 | CP.CCUPN ---
CCU Subjective - Physician Review Subjective (Free Text): Events overnight reviewed with Night coverage Oxygen System Tester: patient required NMB to control status epilepticus, with breakthrough seizures unresponsive on Versed and Propofol drips in addition to extra AED coverage with increasing doses of Keppra, Vimpat, Depakote. Discussed the Neuro, added Cerebryx this AM due to persistent facial twitching involving left corner of mouth, and bilateral hands. Now, sedated as expected, breathing 16 over 16 on AC mode, later increasing to 20/min, SPO2 at 100% on 40% oxygen. Oliguric overnight, on IVFs at 100ml/hr. Vasopressor support started with Levophed at 17.5mcg dose overnight. No BMs overnight. No high FEVER spikes last 24hrs. Tmax 100.2F, SBPs 110s, HR 100s sinus. Fluid balance 2.6 L last 24H. ROS: No other pertinent negs or positives on 10+ system review obtainable due to sedated status. PMSFH: All other Nursing and physician documentation reviewed to date; no new pertinent info noted relevant to current medical problems. EXAM- HEENT: no icterus, no gaze preference, pupils equal bilat but non-reactive ( under NMB), not pinpoint, no nystagmus NECK: no JVD visible, supple, carotids equal upstroke bilat/no bruit CHEST: decreased BS at the bases, no wheezes audible HEART: regular, distant, S1S2, no rubs ABD: soft, + distension, no focal tenderness, no tympany, no guarding, no organomegaly, BS hypoactive. Epigastric hernia reducible. EXT: trace LE edema, no mottling; no calf tenderness or palpable cords, distal pulses intact and symmetrical, no cyanosis, bilat Venodynes on. NEURO: sedated, flaccid limbs x 4, no abnormal posturing. SKIN: no rashes, warm and dry, healed dark pigmented skin lesions maybe representing previous excoriations. No pustular lesions, nor active oozing of secretions, nor any discharge. LABS: WBC= 13.4 HGB= 7.6 PLTs= 163K Na= 147 K= 6.0 CL= 115 HCO3= 16 BUN/Cr= 64/3.6 BS= 285 Lactate = 6.8 Ammonia= 742 ABG= 7.20/43/14 CXR: (my interp) ETT position OK above marciano, bilat breanna-hilar interstitial changes, R worse than L. IMPRESSION / MAJOR PROBLEMS NOW: 1. S/p Status epilepticus 2. Acute resp Insuff 2 toxic/metabolic encephalopathy. 3. Hepatic encephalopathy 4. Azotemia, r/o Dehydration / ATN, versus HRS / Acute on CKD II, with severe hyperkalemia,r/o Rhabdomyolysis 5. Chronic Hep C 6. Uncontrolled DM II PLAN: 1. AEDs now include Depakote, Cerebryx, Keppra, Vimpat. Video EEG in progress, needs repeat CT Brain imaging. 2. Lactulose / Rifaximin. 3. Empiric abx coverage. 4. Serial Lactate levels. 5. Gen Surg f/u regarding SBO; r/o ischemic bowel disease. 6. IVFs / volume expansion 7. K diversion with neb albuterol, D50W, IV insulin, Bicarbonate. But may need acute [employer] with HD. 8. No MV weans feasible today. 9. Watch HGB levels, no active bleeding noted. Coags elevated. 10. Clinical events discussed with patients two sons. CCU Objective - Vital Signs / Intake & Output Vital Signs (Last 4 hours): Vital Signs Temp Pulse Resp BP Pulse Ox 12/17/18 12:00 96.6 F L 105 H 20 117/59 L 100 12/17/18 10:00 97.8 F 102 H 25 H 107/53 L 100 Intake and Output (Last 8hrs): Intake & Output 12/16/18 12/17/18 12/17/18 22:59 06:59 14:59 Intake Total 594 2760 1212.5 Output Total 600 350 50 Balance -6 2410 1162.5 Weight 210 lb Intake: IV 194 1810 912.5 Intake, Piggyback 400 950 300 Output: Urine 600 120 50 Urethral (Snell) 600 120 50 Other 230 Other: # Bowel Movements 0 - Physical Exam Head: Negative for: Tenderness, Contusion Pupils: Negative for: Non-Reactive, Pinpoint Extroacular Muscles: Negative for: Gaze Palsy Conjunctiva: Negative for: Injected Ears: Positive for: Normal Mouth: Positive for: Moist Mucous Membranes Pharnyx: Positive for: Normal Neck: Positive for: Trachea Midline Respiratory/Chest: Negative for: Clear to Auscultation, Good Air Exchange, Respiratory Distress, Accessory Muscle Use, Wheezes, Rales Cardiovascular: Negative for: Murmurs, Irregular Rhythm Abdomen: Negative for: Normal Bowel Sounds Neurological: Negative for: GCS=15, Norm Deep Tendon Reflexes Psychiatric: Negative for: Alert, Oriented x 3, Anxious, Agitated - Medications Active Medications: Active Medications Generic Name Dose Route Start Last Admin Trade Name Freq PRN Reason Stop Dose Admin Fosphenytoin Sodium 100 mg 12/17/18 09:00 12/17/18 10:30 Cerebyx IV 100 mg Q8 JOCELIN Administration Piperacillin Sod/Tazobactam 100 mls @ 100 mls/hr 12/15/18 16:30 12/17/18 03:50 Sod 2.25 gm/ Sodium Chloride IVPB 100 mls/hr Q12H JOCELIN Administration Protocol Sodium Bicarbonate 80 meq/ 1,080 mls @ 100 mls/hr 12/16/18 15:30 12/17/18 03:09 Dextrose/Sodium Chloride IV 12/18/18 15:31 100 mls/hr .[id number] JOCELIN Administration Midazolam HCl 50 mg/ Dextrose 100 mls @ 4 mls/hr 12/16/18 20:11 12/17/18 06:15 IV 12/17/18 20:10 10 mg/hr .Q24H ONE 20 mls/hr Titration Protocol 2 MG/HR Lacosamide 200 mg/ Sodium 120 mls @ 120 mls/hr 12/17/18 09:00 12/17/18 09:39 Chloride IVPB 120 mls/hr BID JOCELIN Administration Norepinephrine Bitartrate 4 mg 254 mls @ 9.53 mls/hr 12/16/18 22:00 12/17/18 12:13 / Dextrose IV 15 mcg/min .Q24H JOCELIN 57.15 mls/hr Titration Protocol 2.5 MCG/MIN Levetiracetam 1,500 mg/ Sodium 115 mls @ 215 mls/hr 12/17/18 00:00 12/17/18 00:09 Chloride IVPB 215 mls/hr Q12H JOCELIN Administration Propofol 1,000 mg in 100 mls @ 2.791 mls/hr 12/16/18 21:30 12/17/18 09:47 Diprivan IV 12/18/18 02:00 50 mcg/kg/min .Q24H JOCELIN 27.91 mls/hr Administration Protocol 5 MCG/KG/MIN Valproate Sodium 750 mg/ 107.5 mls @ 172 mls/hr 12/17/18 12:30 Sodium Chloride IVPB Q12 JOCELIN 20 MG/MIN Insulin Human Lispro 0 units 12/15/18 22:45 12/17/18 11:59 Humalog SC 5 units Q6H JOCELIN Administration Protocol Labetalol HCl 20 mg 12/16/18 14:09 12/16/18 14:36 Trandate IVP 20 mg Q3 PRN Administration Systolic Blood Pressure Lactulose 30 gm 12/16/18 16:00 12/17/18 09:56 Enulose PO 30 gm Q6 JOCELIN Administration Lorazepam 4 mg 12/16/18 20:12 Ativan IVP Q4 PRN Seizure activity Pantoprazole Sodium 40 mg 12/16/18 09:00 12/17/18 09:40 Protonix Inj IVP 40 mg DAILY JOCELIN Administration Rifaximin 550 mg 12/16/18 17:00 12/17/18 09:38 Xifaxan NG 550 mg BID JOCELIN Administration Protocol - Patient Studies Lab Studies: Microbiology Studies 12/15/18 22:30 MRSA Culture (Admit) - Final Naris MRSA NOT DETECTED 12/15/18 17:45 Blood Culture - Preliminary Blood NO GROWTH AFTER 24 HOURS 12/15/18 13:40 Gram Stain - Final Trachasp 12/15/18 15:30 Blood Culture - Preliminary Blood NO GROWTH AFTER 24 HOURS 12/15/18 16:53 Urine Culture - Final Urine,Catheterized No Growth (<1,000 CFU/ML) Lab Studies 12/17/18 12/17/18 12/17/18 Range/Units 11:25 05:15 05:15 WBC (4.8-10.8) K/uL RBC (3.80-5.20) Mil/uL Hgb (12.0-16.0) g/dL Hct (34.0-47.0) % MCV (81.0-99.0) fl MCH (27.0-31.0) pg MCHC (33.0-37.0) g/dL RDW (11.5-14.5) % Plt Count (130-400) K/uL MPV (7.2-11.7) fl Neut % (Auto) (50.0-75.0) % Lymph % (Auto) (20.0-40.0) % [place] % (Auto) (0.0-10.0) % Eos % (Auto) (0.0-4.0) % Baso % (Auto) (0.0-2.0) % Neut # (Auto) (1.8-7.0) K/uL Lymph # (Auto) (1.0-4.3) K/uL [place] # (Auto) (0.0-0.8) K/uL Eos # (Auto) (0.0-0.7) K/uL Baso # (Auto) (0.0-0.2) K/uL PT 21.5 H (9.8-13.1) Seconds INR 1.9 APTT 30.6 (25.6-37.1) Seconds pCO2 (35-45) mm/Hg pO2 (80-100) mm/Hg HCO3 (21-28) mmol/L ABG pH (7.35-7.45) ABG Total CO2 (22-28) mmol/L ABG O2 Saturation (95-98) % ABG Base Excess (-2.0-3.0) mmol/L ABG Hemoglobin (11.7-17.4) g/dL ABG Carboxyhemoglobin (0.5-1.5) % POC ABG HHb (Measured) (0.0-5.0) % ABG O2 Capacity (16-24) mL/dL Uriel Test ABG Potassium (3.6-5.2) mmol/L A-a O2 Difference mm/Hg Hgb O2 Saturation (95.0-98.0) % Glucose (65-105) mg/dL Lactate (0.7-2.1) mmol/L Vent Mode Mechanical Rate FiO2 % Tidal Volume PEEP Crit Value Called To Crit Value Called By Crit Value Read Back Blood Gas Notified Time Sodium (132-148) mmol/l Potassium (3.6-5.0) MMOL/L Chloride (98-107) mmol/L Carbon Dioxide (22-30) mmol/L Anion Gap (10-20) BUN (7-17) mg/dl Creatinine (0.7-1.2) mg/dl Est GFR ( Amer) Est GFR (Non-Af Amer) POC Glucose (mg/dL) 357 H (65-110) mg/dL Random Glucose (65-105) mg/dL Serum Osmolality (272-300) mosm/kg Lactic Acid 6.8 H* (0.7-2.1) mmol/L Calcium (8.4-10.2) mg/dL Phosphorus (2.5-4.5) mg/dl Magnesium (1.6-2.3) MG/DL Total Bilirubin (0.2-1.3) mg/dl AST (14-36) U/L ALT (9-52) U/L Alkaline Phosphatase (38-126) U/L Ammonia (9-33) umol/L Total Creatine Kinase (30-135) U/L Troponin I (0.00-0.120) ng/mL Total Protein (6.3-8.2) G/DL Albumin (3.5-5.0) g/dL Globulin (2.2-3.9) gm/dL Albumin/Globulin Ratio (1.0-2.1) Amylase (30-110) U/L Lipase (23-300) U/L Arterial Blood Potassium (3.6-5.2) mmol/L Urine Osmolality (300-1000) mosm/kg Ur Random Sodium meq/L Ur Random Potassium mmol/L 12/17/18 12/17/18 12/17/18 Range/Units 05:15 05:15 05:15 WBC 13.4 H (4.8-10.8) K/uL RBC 2.33 L (3.80-5.20) Mil/uL Hgb 7.6 L (12.0-16.0) g/dL Hct 23.7 L (34.0-47.0) % MCV 101.5 H D (81.0-99.0) fl MCH 32.4 H (27.0-31.0) pg MCHC 31.9 L (33.0-37.0) g/dL RDW 16.8 H (11.5-14.5) % Plt Count 163 (130-400) K/uL MPV 8.6 (7.2-11.7) fl Neut % (Auto) 70.5 (50.0-75.0) % Lymph % (Auto) 10.5 L (20.0-40.0) % [place] % (Auto) 18.6 H (0.0-10.0) % Eos % (Auto) 0.2 (0.0-4.0) % Baso % (Auto) 0.2 (0.0-2.0) % Neut # (Auto) 9.4 H (1.8-7.0) K/uL Lymph # (Auto) 1.4 (1.0-4.3) K/uL [place] # (Auto) 2.5 H (0.0-0.8) K/uL Eos # (Auto) 0.0 (0.0-0.7) K/uL Baso # (Auto) 0.0 (0.0-0.2) K/uL PT (9.8-13.1) Seconds INR APTT (25.6-37.1) Seconds pCO2 (35-45) mm/Hg pO2 (80-100) mm/Hg HCO3 (21-28) mmol/L ABG pH (7.35-7.45) ABG Total CO2 (22-28) mmol/L ABG O2 Saturation (95-98) % ABG Base Excess (-2.0-3.0) mmol/L ABG Hemoglobin (11.7-17.4) g/dL ABG Carboxyhemoglobin (0.5-1.5) % POC ABG HHb (Measured) (0.0-5.0) % ABG O2 Capacity (16-24) mL/dL Uriel Test ABG Potassium (3.6-5.2) mmol/L A-a O2 Difference mm/Hg Hgb O2 Saturation (95.0-98.0) % Glucose (65-105) mg/dL Lactate (0.7-2.1) mmol/L Vent Mode Mechanical Rate FiO2 % Tidal Volume PEEP Crit Value Called To Crit Value Called By Crit Value Read Back Blood Gas Notified Time Sodium 147 (132-148) mmol/l Potassium 6.0 H (3.6-5.0) MMOL/L Chloride 115 H (98-107) mmol/L Carbon Dioxide 16 L (22-30) mmol/L Anion Gap 22 H (10-20) BUN 64 H (7-17) mg/dl Creatinine 3.6 H (0.7-1.2) mg/dl Est GFR ( Amer) 16 Est GFR (Non-Af Amer) 13 POC Glucose (mg/dL) (65-110) mg/dL Random Glucose 285 H (65-105) mg/dL Serum Osmolality (272-300) mosm/kg Lactic Acid (0.7-2.1) mmol/L Calcium 8.0 L (8.4-10.2) mg/dL Phosphorus 7.1 H (2.5-4.5) mg/dl Magnesium 1.7 (1.6-2.3) MG/DL Total Bilirubin 3.8 H (0.2-1.3) mg/dl AST 63 H D (14-36) U/L ALT 37 (9-52) U/L Alkaline Phosphatase 115 (38-126) U/L Ammonia 742 H* D (9-33) umol/L Total Creatine Kinase (30-135) U/L Troponin I (0.00-0.120) ng/mL Total Protein 6.4 (6.3-8.2) G/DL Albumin 2.4 L (3.5-5.0) g/dL Globulin 4.1 H (2.2-3.9) gm/dL Albumin/Globulin Ratio 0.6 L (1.0-2.1) Amylase 376 H D (30-110) U/L Lipase 107 (23-300) U/L Arterial Blood Potassium (3.6-5.2) mmol/L Urine Osmolality (300-1000) mosm/kg Ur Random Sodium meq/L Ur Random Potassium mmol/L 12/17/18 12/17/18 12/17/18 Range/Units 04:34 04:24 01:10 WBC (4.8-10.8) K/uL RBC (3.80-5.20) Mil/uL Hgb (12.0-16.0) g/dL Hct (34.0-47.0) % MCV (81.0-99.0) fl MCH (27.0-31.0) pg MCHC (33.0-37.0) g/dL RDW (11.5-14.5) % Plt Count (130-400) K/uL MPV (7.2-11.7) fl Neut % (Auto) (50.0-75.0) % Lymph % (Auto) (20.0-40.0) % [place] % (Auto) (0.0-10.0) % Eos % (Auto) (0.0-4.0) % Baso % (Auto) (0.0-2.0) % Neut # (Auto) (1.8-7.0) K/uL Lymph # (Auto) (1.0-4.3) K/uL [place] # (Auto) (0.0-0.8) K/uL Eos # (Auto) (0.0-0.7) K/uL Baso # (Auto) (0.0-0.2) K/uL PT (9.8-13.1) Seconds INR APTT (25.6-37.1) Seconds pCO2 43 50 H (35-45) mm/Hg pO2 143 H 143 H (80-100) mm/Hg HCO3 16.5 L 16.5 L (21-28) mmol/L ABG pH 7.20 L 7.16 L* (7.35-7.45) ABG Total CO2 18.1 L 19.3 L (22-28) mmol/L ABG O2 Saturation 99.2 H 98.9 H (95-98) % ABG Base Excess -10.9 L -10.9 L (-2.0-3.0) mmol/L ABG Hemoglobin (11.7-17.4) g/dL ABG Carboxyhemoglobin (0.5-1.5) % POC ABG HHb (Measured) (0.0-5.0) % ABG O2 Capacity (16-24) mL/dL Uriel Test Yes Yes ABG Potassium 6.0 H 6.1 H (3.6-5.2) mmol/L A-a O2 Difference 88.0 222.0 mm/Hg Hgb O2 Saturation (95.0-98.0) % Glucose 268 H 250 H (65-105) mg/dL Lactate 6.4 H* 6.6 H* (0.7-2.1) mmol/L Vent Mode A/c A/c Mechanical Rate 16 20 FiO2 40.0 60.0 % Tidal Volume 450 450 PEEP 5 5 Crit Value Called To Aleja burton rn Crit Value Called By Tisha hansen rt Tisha hansen rt Crit Value Read Back Y Y Blood Gas Notified Time 428 117 Sodium 142.0 142.0 (132-148) mmol/l Potassium (3.6-5.0) MMOL/L Chloride 113.0 H 113.0 H (98-107) mmol/L Carbon Dioxide (22-30) mmol/L Anion Gap (10-20) BUN (7-17) mg/dl Creatinine (0.7-1.2) mg/dl Est GFR ( Amer) Est GFR (Non-Af Amer) POC Glucose (mg/dL) 292 H (65-110) mg/dL Random Glucose (65-105) mg/dL Serum Osmolality (272-300) mosm/kg Lactic Acid (0.7-2.1) mmol/L Calcium (8.4-10.2) mg/dL Phosphorus (2.5-4.5) mg/dl Magnesium (1.6-2.3) MG/DL Total Bilirubin (0.2-1.3) mg/dl AST (14-36) U/L ALT (9-52) U/L Alkaline Phosphatase (38-126) U/L Ammonia (9-33) umol/L Total Creatine Kinase (30-135) U/L Troponin I (0.00-0.120) ng/mL Total Protein (6.3-8.2) G/DL Albumin (3.5-5.0) g/dL Globulin (2.2-3.9) gm/dL Albumin/Globulin Ratio (1.0-2.1) Amylase (30-110) U/L Lipase (23-300) U/L Arterial Blood Potassium 6.0 H 6.1 H (3.6-5.2) mmol/L Urine Osmolality (300-1000) mosm/kg Ur Random Sodium meq/L Ur Random Potassium mmol/L 12/16/18 12/16/18 12/16/18 Range/Units 22:27 21:52 20:59 WBC (4.8-10.8) K/uL RBC (3.80-5.20) Mil/uL Hgb (12.0-16.0) g/dL Hct (34.0-47.0) % MCV (81.0-99.0) fl MCH (27.0-31.0) pg MCHC (33.0-37.0) g/dL RDW (11.5-14.5) % Plt Count (130-400) K/uL MPV (7.2-11.7) fl Neut % (Auto) (50.0-75.0) % Lymph % (Auto) (20.0-40.0) % [place] % (Auto) (0.0-10.0) % Eos % (Auto) (0.0-4.0) % Baso % (Auto) (0.0-2.0) % Neut # (Auto) (1.8-7.0) K/uL Lymph # (Auto) (1.0-4.3) K/uL [place] # (Auto) (0.0-0.8) K/uL Eos # (Auto) (0.0-0.7) K/uL Baso # (Auto) (0.0-0.2) K/uL PT (9.8-13.1) Seconds INR APTT (25.6-37.1) Seconds pCO2 55 H (35-45) mm/Hg pO2 128 H (80-100) mm/Hg HCO3 17.4 L (21-28) mmol/L ABG pH 7.14 L* (7.35-7.45) ABG Total CO2 20.4 L (22-28) mmol/L ABG O2 Saturation 98.5 H (95-98) % ABG Base Excess -9.7 L (-2.0-3.0) mmol/L ABG Hemoglobin (11.7-17.4) g/dL ABG Carboxyhemoglobin (0.5-1.5) % POC ABG HHb (Measured) (0.0-5.0) % ABG O2 Capacity (16-24) mL/dL Uriel Test Yes ABG Potassium 6.2 H* (3.6-5.2) mmol/L A-a O2 Difference 88.0 mm/Hg Hgb O2 Saturation (95.0-98.0) % Glucose 234 H (65-105) mg/dL Lactate 6.6 H* (0.7-2.1) mmol/L Vent Mode Mechanical Rate 12 FiO2 40.0 % Tidal Volume 400 PEEP 5 Crit Value Called To Javier granado Crit Value Called By 15 Crit Value Read Back Y Blood Gas Notified Time 2158 Sodium 144.0 (132-148) mmol/l Potassium (3.6-5.0) MMOL/L Chloride 114.0 H (98-107) mmol/L Carbon Dioxide (22-30) mmol/L Anion Gap (10-20) BUN (7-17) mg/dl Creatinine (0.7-1.2) mg/dl Est GFR ( Amer) Est GFR (Non-Af Amer) POC Glucose (mg/dL) 259 H 271 H (65-110) mg/dL Random Glucose (65-105) mg/dL Serum Osmolality (272-300) mosm/kg Lactic Acid (0.7-2.1) mmol/L Calcium (8.4-10.2) mg/dL Phosphorus (2.5-4.5) mg/dl Magnesium (1.6-2.3) MG/DL Total Bilirubin (0.2-1.3) mg/dl AST (14-36) U/L ALT (9-52) U/L Alkaline Phosphatase (38-126) U/L Ammonia (9-33) umol/L Total Creatine Kinase (30-135) U/L Troponin I (0.00-0.120) ng/mL Total Protein (6.3-8.2) G/DL Albumin (3.5-5.0) g/dL Globulin (2.2-3.9) gm/dL Albumin/Globulin Ratio (1.0-2.1) Amylase (30-110) U/L Lipase (23-300) U/L Arterial Blood Potassium 6.2 H* (3.6-5.2) mmol/L Urine Osmolality (300-1000) mosm/kg Ur Random Sodium meq/L Ur Random Potassium mmol/L 12/16/18 12/16/18 12/16/18 Range/Units 18:06 18:06 17:50 WBC (4.8-10.8) K/uL RBC (3.80-5.20) Mil/uL Hgb (12.0-16.0) g/dL Hct (34.0-47.0) % MCV (81.0-99.0) fl MCH (27.0-31.0) pg MCHC (33.0-37.0) g/dL RDW (11.5-14.5) % Plt Count (130-400) K/uL MPV (7.2-11.7) fl Neut % (Auto) (50.0-75.0) % Lymph % (Auto) (20.0-40.0) % [place] % (Auto) (0.0-10.0) % Eos % (Auto) (0.0-4.0) % Baso % (Auto) (0.0-2.0) % Neut # (Auto) (1.8-7.0) K/uL Lymph # (Auto) (1.0-4.3) K/uL [place] # (Auto) (0.0-0.8) K/uL Eos # (Auto) (0.0-0.7) K/uL Baso # (Auto) (0.0-0.2) K/uL PT (9.8-13.1) Seconds INR APTT (25.6-37.1) Seconds pCO2 (35-45) mm/Hg pO2 (80-100) mm/Hg HCO3 (21-28) mmol/L ABG pH (7.35-7.45) ABG Total CO2 (22-28) mmol/L ABG O2 Saturation (95-98) % ABG Base Excess (-2.0-3.0) mmol/L ABG Hemoglobin (11.7-17.4) g/dL ABG Carboxyhemoglobin (0.5-1.5) % POC ABG HHb (Measured) (0.0-5.0) % ABG O2 Capacity (16-24) mL/dL Uriel Test ABG Potassium (3.6-5.2) mmol/L A-a O2 Difference mm/Hg Hgb O2 Saturation (95.0-98.0) % Glucose (65-105) mg/dL Lactate (0.7-2.1) mmol/L Vent Mode Mechanical Rate FiO2 % Tidal Volume PEEP Crit Value Called To Crit Value Called By Crit Value Read Back Blood Gas Notified Time Sodium (132-148) mmol/l Potassium (3.6-5.0) MMOL/L Chloride (98-107) mmol/L Carbon Dioxide (22-30) mmol/L Anion Gap (10-20) BUN (7-17) mg/dl Creatinine (0.7-1.2) mg/dl Est GFR ( Amer) Est GFR (Non-Af Amer) POC Glucose (mg/dL) 319 H (65-110) mg/dL Random Glucose (65-105) mg/dL Serum Osmolality 343 H (272-300) mosm/kg Lactic Acid (0.7-2.1) mmol/L Calcium (8.4-10.2) mg/dL Phosphorus (2.5-4.5) mg/dl Magnesium (1.6-2.3) MG/DL Total Bilirubin (0.2-1.3) mg/dl AST (14-36) U/L ALT (9-52) U/L Alkaline Phosphatase (38-126) U/L Ammonia (9-33) umol/L Total Creatine Kinase (30-135) U/L Troponin I (0.00-0.120) ng/mL Total Protein (6.3-8.2) G/DL Albumin (3.5-5.0) g/dL Globulin (2.2-3.9) gm/dL Albumin/Globulin Ratio (1.0-2.1) Amylase (30-110) U/L Lipase (23-300) U/L Arterial Blood Potassium (3.6-5.2) mmol/L Urine Osmolality 394 (300-1000) mosm/kg Ur Random Sodium 9 meq/L Ur Random Potassium 21.9 mmol/L 12/16/18 12/16/18 12/16/18 Range/Units 17:37 17:37 17:37 WBC 11.2 H (4.8-10.8) K/uL RBC 2.58 L (3.80-5.20) Mil/uL Hgb 8.3 L (12.0-16.0) g/dL Hct 25.5 L (34.0-47.0) % MCV 99.0 (81.0-99.0) fl MCH 32.3 H (27.0-31.0) pg MCHC 32.6 L (33.0-37.0) g/dL RDW 15.6 H (11.5-14.5) % Plt Count 137 (130-400) K/uL MPV (7.2-11.7) fl Neut % (Auto) (50.0-75.0) % Lymph % (Auto) (20.0-40.0) % [place] % (Auto) (0.0-10.0) % Eos % (Auto) (0.0-4.0) % Baso % (Auto) (0.0-2.0) % Neut # (Auto) (1.8-7.0) K/uL Lymph # (Auto) (1.0-4.3) K/uL [place] # (Auto) (0.0-0.8) K/uL Eos # (Auto) (0.0-0.7) K/uL Baso # (Auto) (0.0-0.2) K/uL PT 19.3 H D (9.8-13.1) Seconds INR 1.7 APTT (25.6-37.1) Seconds pCO2 (35-45) mm/Hg pO2 (80-100) mm/Hg HCO3 (21-28) mmol/L ABG pH (7.35-7.45) ABG Total CO2 (22-28) mmol/L ABG O2 Saturation (95-98) % ABG Base Excess (-2.0-3.0) mmol/L ABG Hemoglobin (11.7-17.4) g/dL ABG Carboxyhemoglobin (0.5-1.5) % POC ABG HHb (Measured) (0.0-5.0) % ABG O2 Capacity (16-24) mL/dL Uriel Test ABG Potassium (3.6-5.2) mmol/L A-a O2 Difference mm/Hg Hgb O2 Saturation (95.0-98.0) % Glucose (65-105) mg/dL Lactate (0.7-2.1) mmol/L Vent Mode Mechanical Rate FiO2 % Tidal Volume PEEP Crit Value Called To Crit Value Called By Crit Value Read Back Blood Gas Notified Time Sodium 145 (132-148) mmol/l Potassium 6.0 H (3.6-5.0) MMOL/L Chloride 113 H (98-107) mmol/L Carbon Dioxide 18 L (22-30) mmol/L Anion Gap 20 (10-20) BUN 62 H (7-17) mg/dl Creatinine 3.1 H (0.7-1.2) mg/dl Est GFR ( Amer) 19 Est GFR (Non-Af Amer) 15 POC Glucose (mg/dL) (65-110) mg/dL Random Glucose 323 H (65-105) mg/dL Serum Osmolality (272-300) mosm/kg Lactic Acid (0.7-2.1) mmol/L Calcium 9.2 (8.4-10.2) mg/dL Phosphorus (2.5-4.5) mg/dl Magnesium (1.6-2.3) MG/DL Total Bilirubin (0.2-1.3) mg/dl AST (14-36) U/L ALT (9-52) U/L Alkaline Phosphatase (38-126) U/L Ammonia (9-33) umol/L Total Creatine Kinase 115 (30-135) U/L Troponin I 0.1730 H* (0.00-0.120) ng/mL Total Protein (6.3-8.2) G/DL Albumin (3.5-5.0) g/dL Globulin (2.2-3.9) gm/dL Albumin/Globulin Ratio (1.0-2.1) Amylase (30-110) U/L Lipase 107 (23-300) U/L Arterial Blood Potassium (3.6-5.2) mmol/L Urine Osmolality (300-1000) mosm/kg Ur Random Sodium meq/L Ur Random Potassium mmol/L 12/16/18 12/16/18 12/16/18 Range/Units 17:35 14:02 11:11 WBC (4.8-10.8) K/uL RBC (3.80-5.20) Mil/uL Hgb (12.0-16.0) g/dL Hct (34.0-47.0) % MCV (81.0-99.0) fl MCH (27.0-31.0) pg MCHC (33.0-37.0) g/dL RDW (11.5-14.5) % Plt Count (130-400) K/uL MPV (7.2-11.7) fl Neut % (Auto) (50.0-75.0) % Lymph % (Auto) (20.0-40.0) % [place] % (Auto) (0.0-10.0) % Eos % (Auto) (0.0-4.0) % Baso % (Auto) (0.0-2.0) % Neut # (Auto) (1.8-7.0) K/uL Lymph # (Auto) (1.0-4.3) K/uL [place] # (Auto) (0.0-0.8) K/uL Eos # (Auto) (0.0-0.7) K/uL Baso # (Auto) (0.0-0.2) K/uL PT (9.8-13.1) Seconds INR APTT (25.6-37.1) Seconds pCO2 (35-45) mm/Hg pO2 (80-100) mm/Hg HCO3 (21-28) mmol/L ABG pH (7.35-7.45) ABG Total CO2 (22-28) mmol/L ABG O2 Saturation (95-98) % ABG Base Excess (-2.0-3.0) mmol/L ABG Hemoglobin (11.7-17.4) g/dL ABG Carboxyhemoglobin (0.5-1.5) % POC ABG HHb (Measured) (0.0-5.0) % ABG O2 Capacity (16-24) mL/dL Uriel Test ABG Potassium (3.6-5.2) mmol/L A-a O2 Difference mm/Hg Hgb O2 Saturation (95.0-98.0) % Glucose (65-105) mg/dL Lactate (0.7-2.1) mmol/L Vent Mode Mechanical Rate FiO2 % Tidal Volume PEEP Crit Value Called To Crit Value Called By Crit Value Read Back Blood Gas Notified Time Sodium (132-148) mmol/l Potassium (3.6-5.0) MMOL/L Chloride (98-107) mmol/L Carbon Dioxide (22-30) mmol/L Anion Gap (10-20) BUN (7-17) mg/dl Creatinine (0.7-1.2) mg/dl Est GFR ( Amer) Est GFR (Non-Af Amer) POC Glucose (mg/dL) 278 H (65-110) mg/dL Random Glucose (65-105) mg/dL Serum Osmolality (272-300) mosm/kg Lactic Acid 6.6 H* 6.7 H* (0.7-2.1) mmol/L Calcium (8.4-10.2) mg/dL Phosphorus (2.5-4.5) mg/dl Magnesium (1.6-2.3) MG/DL Total Bilirubin (0.2-1.3) mg/dl AST (14-36) U/L ALT (9-52) U/L Alkaline Phosphatase (38-126) U/L Ammonia (9-33) umol/L Total Creatine Kinase (30-135) U/L Troponin I (0.00-0.120) ng/mL Total Protein (6.3-8.2) G/DL Albumin (3.5-5.0) g/dL Globulin (2.2-3.9) gm/dL Albumin/Globulin Ratio (1.0-2.1) Amylase (30-110) U/L Lipase (23-300) U/L Arterial Blood Potassium (3.6-5.2) mmol/L Urine Osmolality (300-1000) mosm/kg Ur Random Sodium meq/L Ur Random Potassium mmol/L 12/16/18 Range/Units 04:08 WBC (4.8-10.8) K/uL RBC (3.80-5.20) Mil/uL Hgb (12.0-16.0) g/dL Hct (34.0-47.0) % MCV (81.0-99.0) fl MCH (27.0-31.0) pg MCHC (33.0-37.0) g/dL RDW (11.5-14.5) % Plt Count (130-400) K/uL MPV (7.2-11.7) fl Neut % (Auto) (50.0-75.0) % Lymph % (Auto) (20.0-40.0) % [place] % (Auto) (0.0-10.0) % Eos % (Auto) (0.0-4.0) % Baso % (Auto) (0.0-2.0) % Neut # (Auto) (1.8-7.0) K/uL Lymph # (Auto) (1.0-4.3) K/uL [place] # (Auto) (0.0-0.8) K/uL Eos # (Auto) (0.0-0.7) K/uL Baso # (Auto) (0.0-0.2) K/uL PT (9.8-13.1) Seconds INR APTT (25.6-37.1) Seconds pCO2 36 (35-45) mm/Hg pO2 199 H (80-100) mm/Hg HCO3 18.7 L (21-28) mmol/L ABG pH 7.30 L (7.35-7.45) ABG Total CO2 18.8 L (22-28) mmol/L ABG O2 Saturation 101.0 H (95-98) % ABG Base Excess -8.0 L (-2.0-3.0) mmol/L ABG Hemoglobin 8.5 L (11.7-17.4) g/dL ABG Carboxyhemoglobin 1.7 H (0.5-1.5) % POC ABG HHb (Measured) -1.0 L (0.0-5.0) % ABG O2 Capacity 12.1 L (16-24) mL/dL Uriel Test ABG Potassium (3.6-5.2) mmol/L A-a O2 Difference 41.0 mm/Hg Hgb O2 Saturation 98.3 H (95.0-98.0) % Glucose (65-105) mg/dL Lactate (0.7-2.1) mmol/L Vent Mode A/c pc Mechanical Rate FiO2 40.0 % Tidal Volume PEEP Crit Value Called To Lety velez Crit Value Called By 15 Crit Value Read Back Blood Gas Notified Time 1720 Sodium (132-148) mmol/l Potassium (3.6-5.0) MMOL/L Chloride (98-107) mmol/L Carbon Dioxide (22-30) mmol/L Anion Gap (10-20) BUN (7-17) mg/dl Creatinine (0.7-1.2) mg/dl Est GFR ( Amer) Est GFR (Non-Af Amer) POC Glucose (mg/dL) (65-110) mg/dL Random Glucose (65-105) mg/dL Serum Osmolality (272-300) mosm/kg Lactic Acid (0.7-2.1) mmol/L Calcium (8.4-10.2) mg/dL Phosphorus (2.5-4.5) mg/dl Magnesium (1.6-2.3) MG/DL Total Bilirubin (0.2-1.3) mg/dl AST (14-36) U/L ALT (9-52) U/L Alkaline Phosphatase (38-126) U/L Ammonia (9-33) umol/L Total Creatine Kinase (30-135) U/L Troponin I (0.00-0.120) ng/mL Total Protein (6.3-8.2) G/DL Albumin (3.5-5.0) g/dL Globulin (2.2-3.9) gm/dL Albumin/Globulin Ratio (1.0-2.1) Amylase (30-110) U/L Lipase (23-300) U/L Arterial Blood Potassium (3.6-5.2) mmol/L Urine Osmolality (300-1000) mosm/kg Ur Random Sodium meq/L Ur Random Potassium mmol/L Laboratory Results - last 24 hr 12/16/18 12/16/18 12/16/18 04:08 11:11 14:02 WBC RBC Hgb Hct MCV MCH MCHC RDW Plt Count MPV Neut % (Auto) Lymph % (Auto) [place] % (Auto) Eos % (Auto) Baso % (Auto) Neut # (Auto) Lymph # (Auto) [place] # (Auto) Eos # (Auto) Baso # (Auto) PT INR APTT pCO2 36 pO2 199 H HCO3 18.7 L ABG pH 7.30 L ABG Total CO2 18.8 L ABG O2 Saturation 101.0 H ABG Base Excess -8.0 L ABG Hemoglobin 8.5 L ABG Carboxyhemoglobin 1.7 H POC ABG HHb (Measured) -1.0 L ABG O2 Capacity 12.1 L Uriel Test ABG Potassium A-a O2 Difference 41.0 Hgb O2 Saturation 98.3 H Glucose Lactate Vent Mode A/c pc Mechanical Rate FiO2 40.0 Tidal Volume PEEP Crit Value Called To Lety velez Crit Value Called By 15 Crit Value Read Back Blood Gas Notified Time 1720 Sodium Potassium Chloride Carbon Dioxide Anion Gap BUN Creatinine Est GFR ( Amer) Est GFR (Non-Af Amer) POC Glucose (mg/dL) 278 H Random Glucose Serum Osmolality Lactic Acid 6.7 H* Calcium Phosphorus Magnesium Total Bilirubin AST ALT Alkaline Phosphatase Ammonia Total Creatine Kinase Troponin I Total Protein Albumin Globulin Albumin/Globulin Ratio Amylase Lipase Arterial Blood Potassium Urine Osmolality Ur Random Sodium Ur Random Potassium 12/16/18 12/16/18 12/16/18 17:35 17:37 17:37 WBC RBC Hgb Hct MCV MCH MCHC RDW Plt Count MPV Neut % (Auto) Lymph % (Auto) [place] % (Auto) Eos % (Auto) Baso % (Auto) Neut # (Auto) Lymph # (Auto) [place] # (Auto) Eos # (Auto) Baso # (Auto) PT 19.3 H D INR 1.7 APTT pCO2 pO2 HCO3 ABG pH ABG Total CO2 ABG O2 Saturation ABG Base Excess ABG Hemoglobin ABG Carboxyhemoglobin POC ABG HHb (Measured) ABG O2 Capacity Uriel Test ABG Potassium A-a O2 Difference Hgb O2 Saturation Glucose Lactate Vent Mode Mechanical Rate FiO2 Tidal Volume PEEP Crit Value Called To Crit Value Called By Crit Value Read Back Blood Gas Notified Time Sodium 145 Potassium 6.0 H Chloride 113 H Carbon Dioxide 18 L Anion Gap 20 BUN 62 H Creatinine 3.1 H Est GFR ( Amer) 19 Est GFR (Non-Af Amer) 15 POC Glucose (mg/dL) Random Glucose 323 H Serum Osmolality Lactic Acid 6.6 H* Calcium 9.2 Phosphorus Magnesium Total Bilirubin AST ALT Alkaline Phosphatase Ammonia Total Creatine Kinase 115 Troponin I 0.1730 H* Total Protein Albumin Globulin Albumin/Globulin Ratio Amylase Lipase 107 Arterial Blood Potassium Urine Osmolality Ur Random Sodium Ur Random Potassium 12/16/18 12/16/18 12/16/18 17:37 17:50 18:06 WBC 11.2 H RBC 2.58 L Hgb 8.3 L Hct 25.5 L MCV 99.0 MCH 32.3 H MCHC 32.6 L RDW 15.6 H Plt Count 137 MPV Neut % (Auto) Lymph % (Auto) [place] % (Auto) Eos % (Auto) Baso % (Auto) Neut # (Auto) Lymph # (Auto) [place] # (Auto) Eos # (Auto) Baso # (Auto) PT INR APTT pCO2 pO2 HCO3 ABG pH ABG Total CO2 ABG O2 Saturation ABG Base Excess ABG Hemoglobin ABG Carboxyhemoglobin POC ABG HHb (Measured) ABG O2 Capacity Uriel Test ABG Potassium A-a O2 Difference Hgb O2 Saturation Glucose Lactate Vent Mode Mechanical Rate FiO2 Tidal Volume PEEP Crit Value Called To Crit Value Called By Crit Value Read Back Blood Gas Notified Time Sodium Potassium Chloride Carbon Dioxide Anion Gap BUN Creatinine Est GFR ( Amer) Est GFR (Non-Af Amer) POC Glucose (mg/dL) 319 H Random Glucose Serum Osmolality 343 H Lactic Acid Calcium Phosphorus Magnesium Total Bilirubin AST ALT Alkaline Phosphatase Ammonia Total Creatine Kinase Troponin I Total Protein Albumin Globulin Albumin/Globulin Ratio Amylase Lipase Arterial Blood Potassium Urine Osmolality Ur Random Sodium Ur Random Potassium 12/16/18 12/16/18 12/16/18 18:06 20:59 21:52 WBC RBC Hgb Hct MCV MCH MCHC RDW Plt Count MPV Neut % (Auto) Lymph % (Auto) [place] % (Auto) Eos % (Auto) Baso % (Auto) Neut # (Auto) Lymph # (Auto) [place] # (Auto) Eos # (Auto) Baso # (Auto) PT INR APTT pCO2 55 H pO2 128 H HCO3 17.4 L ABG pH 7.14 L* ABG Total CO2 20.4 L ABG O2 Saturation 98.5 H ABG Base Excess -9.7 L ABG Hemoglobin ABG Carboxyhemoglobin POC ABG HHb (Measured) ABG O2 Capacity Uriel Test Yes ABG Potassium 6.2 H* A-a O2 Difference 88.0 Hgb O2 Saturation Glucose 234 H Lactate 6.6 H* Vent Mode Mechanical Rate 12 FiO2 40.0 Tidal Volume 400 PEEP 5 Crit Value Called To Javier granado Crit Value Called By 15 Crit Value Read Back Y Blood Gas Notified Time 9 Sodium 144.0 Potassium Chloride 114.0 H Carbon Dioxide Anion Gap BUN Creatinine Est GFR ( Amer) Est GFR (Non-Af Amer) POC Glucose (mg/dL) 271 H Random Glucose Serum Osmolality Lactic Acid Calcium Phosphorus Magnesium Total Bilirubin AST ALT Alkaline Phosphatase Ammonia Total Creatine Kinase Troponin I Total Protein Albumin Globulin Albumin/Globulin Ratio Amylase Lipase Arterial Blood Potassium 6.2 H* Urine Osmolality 394 Ur Random Sodium 9 Ur Random Potassium 21.9 12/16/18 12/17/18 12/17/18 22:27 01:10 04:24 WBC RBC Hgb Hct MCV MCH MCHC RDW Plt Count MPV Neut % (Auto) Lymph % (Auto) [place] % (Auto) Eos % (Auto) Baso % (Auto) Neut # (Auto) Lymph # (Auto) [place] # (Auto) Eos # (Auto) Baso # (Auto) PT INR APTT pCO2 50 H 43 pO2 143 H 143 H HCO3 16.5 L 16.5 L ABG pH 7.16 L* 7.20 L ABG Total CO2 19.3 L 18.1 L ABG O2 Saturation 98.9 H 99.2 H ABG Base Excess -10.9 L -10.9 L ABG Hemoglobin ABG Carboxyhemoglobin POC ABG HHb (Measured) ABG O2 Capacity Uriel Test Yes Yes ABG Potassium 6.1 H 6.0 H A-a O2 Difference 222.0 88.0 Hgb O2 Saturation Glucose 250 H 268 H Lactate 6.6 H* 6.4 H* Vent Mode A/c A/c Mechanical Rate 20 16 FiO2 60.0 40.0 Tidal Volume 450 450 PEEP 5 5 Crit Value Called To Aba cartagena rn Crit Value Called By Tisha hansen rt Tisha hansen rt Crit Value Read Back Y Y Blood Gas Notified Time 117 428 Sodium 142.0 142.0 Potassium Chloride 113.0 H 113.0 H Carbon Dioxide Anion Gap BUN Creatinine Est GFR ( Amer) Est GFR (Non-Af Amer) POC Glucose (mg/dL) 259 H Random Glucose Serum Osmolality Lactic Acid Calcium Phosphorus Magnesium Total Bilirubin AST ALT Alkaline Phosphatase Ammonia Total Creatine Kinase Troponin I Total Protein Albumin Globulin Albumin/Globulin Ratio Amylase Lipase Arterial Blood Potassium 6.1 H 6.0 H Urine Osmolality Ur Random Sodium Ur Random Potassium 12/17/18 12/17/18 12/17/18 04:34 05:15 05:15 WBC 13.4 H RBC 2.33 L Hgb 7.6 L Hct 23.7 L MCV 101.5 H D MCH 32.4 H MCHC 31.9 L RDW 16.8 H Plt Count 163 MPV 8.6 Neut % (Auto) 70.5 Lymph % (Auto) 10.5 L [place] % (Auto) 18.6 H Eos % (Auto) 0.2 Baso % (Auto) 0.2 Neut # (Auto) 9.4 H Lymph # (Auto) 1.4 [place] # (Auto) 2.5 H Eos # (Auto) 0.0 Baso # (Auto) 0.0 PT INR APTT pCO2 pO2 HCO3 ABG pH ABG Total CO2 ABG O2 Saturation ABG Base Excess ABG Hemoglobin ABG Carboxyhemoglobin POC ABG HHb (Measured) ABG O2 Capacity Uriel Test ABG Potassium A-a O2 Difference Hgb O2 Saturation Glucose Lactate Vent Mode Mechanical Rate FiO2 Tidal Volume PEEP Crit Value Called To Crit Value Called By Crit Value Read Back Blood Gas Notified Time Sodium 147 Potassium 6.0 H Chloride 115 H Carbon Dioxide 16 L Anion Gap 22 H BUN 64 H Creatinine 3.6 H Est GFR ( Amer) 16 Est GFR (Non-Af Amer) 13 POC Glucose (mg/dL) 292 H Random Glucose 285 H Serum Osmolality Lactic Acid Calcium 8.0 L Phosphorus 7.1 H Magnesium 1.7 Total Bilirubin 3.8 H AST 63 H D ALT 37 Alkaline Phosphatase 115 Ammonia Total Creatine Kinase Troponin I Total Protein 6.4 Albumin 2.4 L Globulin 4.1 H Albumin/Globulin Ratio 0.6 L Amylase 376 H D Lipase 107 Arterial Blood Potassium Urine Osmolality Ur Random Sodium Ur Random Potassium 12/17/18 12/17/18 12/17/18 05:15 05:15 05:15 WBC RBC Hgb Hct MCV MCH MCHC RDW Plt Count MPV Neut % (Auto) Lymph % (Auto) [place] % (Auto) Eos % (Auto) Baso % (Auto) Neut # (Auto) Lymph # (Auto) [place] # (Auto) Eos # (Auto) Baso # (Auto) PT 21.5 H INR 1.9 APTT 30.6 pCO2 pO2 HCO3 ABG pH ABG Total CO2 ABG O2 Saturation ABG Base Excess ABG Hemoglobin ABG Carboxyhemoglobin POC ABG HHb (Measured) ABG O2 Capacity Uriel Test ABG Potassium A-a O2 Difference Hgb O2 Saturation Glucose Lactate Vent Mode Mechanical Rate FiO2 Tidal Volume PEEP Crit Value Called To Crit Value Called By Crit Value Read Back Blood Gas Notified Time Sodium Potassium Chloride Carbon Dioxide Anion Gap BUN Creatinine Est GFR ( Amer) Est GFR (Non-Af Amer) POC Glucose (mg/dL) Random Glucose Serum Osmolality Lactic Acid 6.8 H* Calcium Phosphorus Magnesium Total Bilirubin AST ALT Alkaline Phosphatase Ammonia 742 H* D Total Creatine Kinase Troponin I Total Protein Albumin Globulin Albumin/Globulin Ratio Amylase Lipase Arterial Blood Potassium Urine Osmolality Ur Random Sodium Ur Random Potassium 12/17/18 11:25 WBC RBC Hgb Hct MCV MCH MCHC RDW Plt Count MPV Neut % (Auto) Lymph % (Auto) [place] % (Auto) Eos % (Auto) Baso % (Auto) Neut # (Auto) Lymph # (Auto) [place] # (Auto) Eos # (Auto) Baso # (Auto) PT INR APTT pCO2 pO2 HCO3 ABG pH ABG Total CO2 ABG O2 Saturation ABG Base Excess ABG Hemoglobin ABG Carboxyhemoglobin POC ABG HHb (Measured) ABG O2 Capacity Uriel Test ABG Potassium A-a O2 Difference Hgb O2 Saturation Glucose Lactate Vent Mode Mechanical Rate FiO2 Tidal Volume PEEP Crit Value Called To Crit Value Called By Crit Value Read Back Blood Gas Notified Time Sodium Potassium Chloride Carbon Dioxide Anion Gap BUN Creatinine Est GFR ( Amer) Est GFR (Non-Af Amer) POC Glucose (mg/dL) 357 H Random Glucose Serum Osmolality Lactic Acid Calcium Phosphorus Magnesium Total Bilirubin AST ALT Alkaline Phosphatase Ammonia Total Creatine Kinase Troponin I Total Protein Albumin Globulin Albumin/Globulin Ratio Amylase Lipase Arterial Blood Potassium Urine Osmolality Ur Random Sodium Ur Random Potassium Radiology Impressions: Radiology Impressions Abdomen/Pelvis CT 12/15/18 16:00 IMPRESSION: Probable mechanical small-bowel obstruction resulting from an infraumbilical ventral hernia of a loop of small bowel. There is a transition in caliber at this point. There is ascites. There is evidence of patent cirrhosis. Mild splenomegaly. Atrophic right kidney. Cholelithiasis. The preliminary findings for this examination were reported by [facility] Radiology at 7:14 p.m. on 12/15/2018. There is discordance of this report with the preliminary findings. Note of the obstructing ventral hernia containing small bowel was not described in the preliminary report of this examination. Chest X-Ray 12/15/18 20:00 IMPRESSION: ETT and NGT as above. Minor bibasilar atelectasis. Chest X-Ray 12/15/18 21:28 IMPRESSION: Nasogastric tube is in appropriate position. Chest X-Ray 12/16/18 06:00 IMPRESSION: No infiltrate. ET tube unchanged in position. Nasogastric tube noted. Positioning cannot be evaluated on this examination Chest X-Ray 12/16/18 14:46 IMPRESSION: ETT as above. In situ NGT the tip of which is poorly delineated on this exam due to underpenetration however the tip appears to lie below EG junction Bibasilar atelectasis as above. Persistent elevation right hemidiaphragm Fingerstick Blood Sugar Results: 357 Critical Care Progress Note - Nutrition Nutrition: Nutrition Category Date Time Status NPO Diet [DIET] Diets 12/15/18 Dinner Active
[2018-12-17] MEDS: Valproate 750 MG in Sodium Chloride 0.9% 100 ML IVPB SCH ×2 (13:00→21:30)
--- NOTE | 2018-12-17 13:08 | RAD ---
Date of service: 12/17/2018 HISTORY: Intubated. COMPARISON: Multiple serial examinations preceding the most recent study: December 16, 2018. 15:02. FINDINGS: LUNGS: No active pulmonary disease. Low lung volumes accentuate pulmonary markings bilaterally. PLEURA: No significant pleural effusion identified, no pneumothorax apparent. CARDIOVASCULAR: No atherosclerotic calcification present Normal. OSSEOUS STRUCTURES: No significant abnormalities. VISUALIZED UPPER ABDOMEN: Normal. OTHER FINDINGS: Stable, satisfactory position ventilatory, nasogastric apparatus. No change compared to the prior study. IMPRESSION: No active pulmonary disease. Stable position of support apparatus. Overall no interval change.
--- NOTE | 2018-12-17 13:12 | RAD ---
Date of service: 12/17/2018 HISTORY: hernia, distension COMPARISON: 12/15/2018. CT abdomen and pelvis. Summary of findings on the comparison examination: Probable mechanical small-bowel obstruction resulting from infraumbilical ventral hernia of a loop of small bowel. FINDINGS: BOWEL: Dilated small bowel remains. Contrast is visible in distal loops of small bowel beyond the obstruction. Similar degree of distention identified on prior CT scan. Nasogastric tube identified coiled in the stomach which is decompressed. BONES: Normal. OTHER FINDINGS: Venous access catheter tip inserted via right femoral approach in the right common iliac vein. IMPRESSION: Persistent/mechanical obstruction small bowel.
--- NOTE | 2018-12-17 14:05 | CT ---
Date of service: 12/17/2018 PROCEDURE: CT HEAD WITHOUT CONTRAST. HISTORY: New Onset Seizure disorder COMPARISON: None available. TECHNIQUE: Axial computed tomography images were obtained through the head/brain without intravenous contrast. Radiation dose: Total exam DLP = 882.07 mGy-cm. This CT exam was performed using one or more of the following dose reduction techniques: Automated exposure control, adjustment of the mA and/or kV according to patient size, and/or use of iterative reconstruction technique. FINDINGS: HEMORRHAGE: No intracranial hemorrhage. BRAIN: No mass effect or edema. No atrophy or chronic microvascular ischemic changes. VENTRICLES: Unremarkable. No hydrocephalus. CALVARIUM: Unremarkable. PARANASAL SINUSES: Unremarkable as visualized. No significant inflammatory changes. MASTOID AIR CELLS: Unremarkable as visualized. No inflammatory changes. OTHER FINDINGS: None. IMPRESSION: Limited by motion artifact. No acute hemorrhage.
[2018-12-17] MEDS ORDERED: PHENobarbital 130 mg/ml Inj Syringe IV ONE (14:25)
[2018-12-17] MEDS ORDERED: PHENobarbital 1,000 MG in Sodium Chloride 0.9% 100 ML IV ONE (15:00)
[2018-12-17] MEDS ORDERED: PHENOBARBITAL IM ONE (15:00)
[2018-12-17] MEDS ORDERED: SODIUM CHLORIDE 0.9% IM ONE (15:00)
[2018-12-17] MEDS ORDERED: Mannitol 12.5 gm/50 ml Inj IV ONE (15:04)
--- NOTE | 2018-12-17 15:39 | CP.PCM.PN ---
Objective - Vital Signs/Intake and Output Vital Signs (last 24 hours): Temp Pulse Resp BP Pulse Ox 95.5 F L 101 H 16 104/50 L 100 12/17/18 15:00 12/17/18 15:00 12/17/18 15:00 12/17/18 15:00 12/17/18 12:00 Intake and Output: 12/17/18 12/17/18 06:59 18:59 Intake Total 3050 1262.5 Output Total 350 50 Balance 2700 1212.5 - Medications Medications: Current Medications Fosphenytoin Sodium (Cerebyx) 100 mg IV Q8 JOCELIN Last Admin: 12/17/18 10:30 Dose: 100 mg Piperacillin Sod/Tazobactam (Sod 2.25 gm/ Sodium Chloride) 100 mls @ 100 mls/hr IVPB Q12H [facility]; Protocol Last Admin: 12/17/18 03:50 Dose: 100 mls/hr Sodium Bicarbonate 80 meq/ (Dextrose/Sodium Chloride) 1,080 mls @ 100 mls/hr IV .[id number] JOCELIN Stop: 12/18/18 15:31 Last Admin: 12/17/18 14:00 Dose: 100 mls/hr Midazolam HCl 50 mg/ Dextrose 100 mls @ 4 mls/hr IV .Q24H [facility]; Protocol Stop: 12/17/18 20:10 Last Titration: 12/17/18 12:48 Dose: 10 mg/hr, 20 mls/hr Lacosamide 200 mg/ Sodium (Chloride) 120 mls @ 120 mls/hr IVPB BID JOCELIN Last Admin: 12/17/18 09:39 Dose: 120 mls/hr Levetiracetam 1,500 mg/ Sodium (Chloride) 115 mls @ 215 mls/hr IVPB Q12H JOCELIN Last Admin: 12/17/18 12:43 Dose: 215 mls/hr Propofol (Diprivan) 1,000 mg in 100 mls @ 2.791 mls/hr IV .Q24H JOCELIN; Protocol Stop: 12/18/18 02:00 Last Titration: 12/17/18 14:45 Dose: 50 mcg/kg/min, 27.91 mls/hr Valproate Sodium 750 mg/ (Sodium Chloride) 107.5 mls @ 107.5 mls/hr IVPB Q12 S Last Admin: 12/17/18 13:00 Dose: 107.5 mls/hr Norepinephrine Bitartrate 8 mg (/ Dextrose) 258 mls @ 33.86 mls/hr IV .Q7H38M [facility]; Protocol Stop: 12/17/18 21:36 Last Admin: 12/17/18 15:18 Dose: 17.5 mcg/min, 33.86 mls/hr Insulin Human Lispro (Humalog) 0 units SC Q6H [facility]; Protocol Last Admin: 12/17/18 11:59 Dose: 5 units Labetalol HCl (Trandate) 20 mg IVP Q3 PRN PRN Reason: Systolic Blood Pressure Last Admin: 12/16/18 14:36 Dose: 20 mg Lactulose (Enulose) 30 gm PO Q6 JOCELIN Last Admin: 12/17/18 15:36 Dose: 30 gm Lorazepam (Ativan) 4 mg IVP Q4 PRN PRN Reason: Seizure activity Pantoprazole Sodium (Protonix Inj) 40 mg IVP DAILY [facility] Last Admin: 12/17/18 09:40 Dose: 40 mg Rifaximin (Xifaxan) 550 mg NG BID [facility]; Protocol Last Admin: 12/17/18 09:38 Dose: 550 mg - Labs Labs: 12/17/18 05:15 12/17/18 05:15 PT 21.5 Seconds (9.8-13.1) H 12/17/18 05:15 INR 1.9 12/17/18 05:15 APTT 30.6 Seconds (25.6-37.1) 12/17/18 05:15
--- NOTE | 2018-12-17 15:52 | PCM.PROC ---
Procedures Attestation:: I certify that I have explained the specified Operation(s) or Procedure(s), risks, benefits and reasonable alternatives to the Patient and/or other person responsible. The opportunity was given to ask questions and all questions answered - Central Line Placement Right Internal Jugular Hemodialysis Access Aseptic technique was employed throughout the procedure: Hand Hygiene done prior to procedure, Full sterile barriers (mask, hair cover, sterile gown, sterile gl oves), Full body sterile drape, Chloraprep Antiseptic: 30 second prep for IJ or SC sites CVP Time Out Performed: Yes Pt. Placed on Pulse Ox Monitor: Yes Central Line Prep: Chlorhexidine-Alcohol Combination Local Anesthesia Used: Lidocaine 1% Amount of Anesthesia Used (mls): 5 Ultrasound Used for Placement: No Central Line Lumen Inserted: triple Central Line Length: 16 cm Post Procedure: Sutured in Place, Good Blood Return, All Ports Aspirated, Flushed, Capped, Sterile Dressing Applied Secured by: Securement device Post procedure dressing: Clear vapor permeable, Chlorhexidine disc (Biopatch) Post Procedure X-Ray: Yes Patient Tolerated Procedure: Well Immediate Complications: None Additional Comments: INR = 1.9
--- NOTE | 2018-12-17 17:33 | CP.PCM.CON ---
History of Present Illness - History of Present Illness History of Present Illness: Pulmonary consult for a 58 y/o F, with Hx of CKD, DM II, HTM, Hepatic C Liver Cirrhosis, abdominal hernia reducible, Pt was brought to [facility] on 12/15/18 due to AMS on DOA as per family, with no improvement, after evaluation, found with Hepatic Encephalopathy, comatose, unresponsive. Pt was admitted to ICU and was intubated on mechanical ventilation with PRVC AC set rate 12, FIO2 50%. Worsening symptoms: Generalized [facility] Seizure activity lasting 2-3 minutes yesterday ( Pt with no Hx of Seizure). SBO on CT, also, on night [employer], family reported, Pt had nausea/vomiting. Aggravated factor: Non verbal. CXR: No infiltrate, venous congestion bibasilar atelectasis, small effusions Review of Systems - Review of Systems Systems not reviewed;Unavailable: Acuity of Condition, Altered Mental Status, Intubated Past Patient History - Infectious Disease Hx of Infectious Diseases: None - Tetanus Immunizations Tetanus Immunization: Unknown - Past Medical History & Family History Past Medical History?: Yes Pertinent Family History: Unknown - Past Social History Smoking Status: Never Smoked Alcohol: None Drugs: Denies Home Situation {Lives}: With Family - CARDIAC Hx Cardiac Disorders: Yes Hx Hypercholesterolemia: Yes Hx Hypertension: Yes - PULMONARY Hx Respiratory Disorders: Yes Hx Pneumonia: Yes - NEUROLOGICAL Hx Neurological Disorder: No - HEENT Hx HEENT Problems: No - RENAL Hx Chronic Kidney Disease: No - ENDOCRINE/METABOLIC Hx Endocrine Disorders: Yes Hx Diabetes Mellitus Type 2: Yes - HEMATOLOGICAL/ONCOLOGICAL Hx Blood Disorders: Yes Hx Anemia: Yes Hx Human Immunodeficiency Virus (HIV): No - INTEGUMENTARY Hx Dermatological Problems: No - MUSCULOSKELETAL/RHEUMATOLOGICAL Hx Musculoskeletal Disorders: No Hx Falls: No - GASTROINTESTINAL Hx Gastrointestinal Disorders: Yes Hx Gastritis: Yes - GENITOURINARY/GYNECOLOGICAL Hx Genitourinary Disorders: No - PSYCHIATRIC Hx Psychophysiologic Disorder: No Hx Anxiety: No Hx Bipolar Disorder: No Hx Depression: No Hx Paranoia: No Hx Post Traumatic Stress Disorder: No Hx Schizophrenia: No Hx Substance Use: No - SURGICAL HISTORY Hx Surgeries: Yes Hx Appendectomy: Yes - ANESTHESIA Hx Anesthesia: Yes Hx Anesthesia Reactions: No Hx Malignant Hyperthermia: No Meds Allergies/Adverse Reactions: Allergies Allergy/AdvReac Type Severity Reaction Status Date / Time No Known Allergies Allergy Verified 12/10/18 10:10 - Medications Medications: Current Medications Fosphenytoin Sodium (Cerebyx) 100 mg IV Q8 [facility] Last Admin: 12/17/18 16:46 Dose: 100 mg Piperacillin Sod/Tazobactam (Sod 2.25 gm/ Sodium Chloride) 100 mls @ 100 mls/hr IVPB Q12H [facility]; Protocol Last Admin: 12/17/18 16:44 Dose: 100 mls/hr Sodium Bicarbonate 80 meq/ (Dextrose/Sodium Chloride) 1,080 mls @ 100 mls/hr IV .[id number] [facility] Stop: 12/18/18 15:31 Last Admin: 12/17/18 14:00 Dose: 100 mls/hr Midazolam HCl 50 mg/ Dextrose 100 mls @ 4 mls/hr IV .Q24H [facility]; Protocol Stop: 12/17/18 20:10 Last Titration: 12/17/18 12:48 Dose: 10 mg/hr, 20 mls/hr Lacosamide 200 mg/ Sodium (Chloride) 120 mls @ 120 mls/hr IVPB BID [facility] Last Admin: 12/17/18 16:45 Dose: 120 mls/hr Levetiracetam 1,500 mg/ Sodium (Chloride) 115 mls @ 215 mls/hr IVPB Q12H [facility] Last Admin: 12/17/18 12:43 Dose: 215 mls/hr Propofol (Diprivan) 1,000 mg in 100 mls @ 2.791 mls/hr IV .Q24H [facility]; Protocol Stop: 12/18/18 02:00 Last Titration: 12/17/18 14:45 Dose: 50 mcg/kg/min, 27.91 mls/hr Valproate Sodium 750 mg/ (Sodium Chloride) 107.5 mls @ 107.5 mls/hr IVPB Q12 [facility] Last Admin: 12/17/18 13:00 Dose: 107.5 mls/hr Norepinephrine Bitartrate 8 mg (/ Dextrose) 258 mls @ 33.86 mls/hr IV .Q7H38M [facility]; Protocol Stop: 12/17/18 21:36 Last Admin: 12/17/18 15:18 Dose: 17.5 mcg/min, 33.86 mls/hr Insulin Human Lispro (Humalog) 0 units SC Q6H [facility]; Protocol Last Admin: 12/17/18 17:01 Dose: 5 units Labetalol HCl (Trandate) 20 mg IVP Q3 PRN PRN Reason: Systolic Blood Pressure Last Admin: 12/16/18 14:36 Dose: 20 mg Lactulose (Enulose) 30 gm PO Q6 [facility] Last Admin: 12/17/18 15:36 Dose: 30 gm Lorazepam (Ativan) 4 mg IVP Q4 PRN PRN Reason: Seizure activity Pantoprazole Sodium (Protonix Inj) 40 mg IVP DAILY [facility] Last Admin: 12/17/18 09:40 Dose: 40 mg Rifaximin (Xifaxan) 550 mg NG BID [facility]; Protocol Last Admin: 12/17/18 16:49 Dose: 550 mg Physical Exam - Constitutional Appears: Chronically Ill - Head Exam Head Exam: NORMAL INSPECTION - Eye Exam Additional comments: Pupils fixed and dilated - ENT Exam Additional comments: Intubated, OGT - Neck Exam Neck exam: Positive for: Normal Inspection - Respiratory Exam Respiratory Exam: Decreased Breath Sounds (b/l), Rhonchi (b/l) - Cardiovascular Exam Cardiovascular Exam: Tachycardia - GI/Abdominal Exam GI & Abdominal Exam: Hypoactive Bowel Sounds, Soft - Extremities Exam Additional comments: Edema BLE - Back Exam Back exam: NORMAL INSPECTION - Neurological Exam Additional comments: Intubated, sedated, non responsive - Skin Skin Exam: Warm Results - Vital Signs Recent Vital Signs: Last Vital Signs Temp 97.2 F L 12/17/18 17:00 Pulse 103 H 12/17/18 17:00 Resp 16 12/17/18 17:00 BP 115/55 L 12/17/18 17:00 Pulse Ox 100 12/17/18 17:00 reviewed J.P. - Labs Result Diagrams: 12/18/18 05:45 12/18/18 05:45 Labs: Laboratory Results - last 24 hr 12/16/18 12/16/18 12/16/18 11:11 17:35 17:37 WBC RBC Hgb Hct MCV MCH MCHC RDW Plt Count MPV Neut % (Auto) Lymph % (Auto) [place] % (Auto) Eos % (Auto) Baso % (Auto) Neut # (Auto) Lymph # (Auto) [place] # (Auto) Eos # (Auto) Baso # (Auto) PT 19.3 H D INR 1.7 APTT pCO2 pO2 HCO3 ABG pH ABG Total CO2 ABG O2 Saturation ABG Base Excess Uriel Test ABG Potassium A-a O2 Difference Glucose Lactate Vent Mode Mechanical Rate FiO2 Tidal Volume PEEP Crit Value Called To Crit Value Called By Crit Value Read Back Blood Gas Notified Time Sodium Potassium Chloride Carbon Dioxide Anion Gap BUN Creatinine Est GFR ( Amer) Est GFR (Non-Af Amer) POC Glucose (mg/dL) 278 H Random Glucose Serum Osmolality Lactic Acid 6.6 H* Calcium Phosphorus Magnesium Total Bilirubin AST ALT Alkaline Phosphatase Ammonia Total Creatine Kinase Troponin I Total Protein Albumin Globulin Albumin/Globulin Ratio Amylase Lipase Procalcitonin Arterial Blood Potassium Urine Osmolality Ur Random Sodium Ur Random Potassium 12/16/18 12/16/18 12/16/18 17:37 17:37 17:50 WBC 11.2 H RBC 2.58 L Hgb 8.3 L Hct 25.5 L MCV 99.0 MCH 32.3 H MCHC 32.6 L RDW 15.6 H Plt Count 137 MPV Neut % (Auto) Lymph % (Auto) [place] % (Auto) Eos % (Auto) Baso % (Auto) Neut # (Auto) Lymph # (Auto) [place] # (Auto) Eos # (Auto) Baso # (Auto) PT INR APTT pCO2 pO2 HCO3 ABG pH ABG Total CO2 ABG O2 Saturation ABG Base Excess Uriel Test ABG Potassium A-a O2 Difference Glucose Lactate Vent Mode Mechanical Rate FiO2 Tidal Volume PEEP Crit Value Called To Crit Value Called By Crit Value Read Back Blood Gas Notified Time Sodium 145 Potassium 6.0 H Chloride 113 H Carbon Dioxide 18 L Anion Gap 20 BUN 62 H Creatinine 3.1 H Est GFR ( Amer) 19 Est GFR (Non-Af Amer) 15 POC Glucose (mg/dL) 319 H Random Glucose 323 H Serum Osmolality Lactic Acid Calcium 9.2 Phosphorus Magnesium Total Bilirubin AST ALT Alkaline Phosphatase Ammonia Total Creatine Kinase 115 Troponin I 0.1730 H* Total Protein Albumin Globulin Albumin/Globulin Ratio Amylase Lipase 107 Procalcitonin Arterial Blood Potassium Urine Osmolality Ur Random Sodium Ur Random Potassium 12/16/18 12/16/18 12/16/18 18:06 18:06 20:59 WBC RBC Hgb Hct MCV MCH MCHC RDW Plt Count MPV Neut % (Auto) Lymph % (Auto) [place] % (Auto) Eos % (Auto) Baso % (Auto) Neut # (Auto) Lymph # (Auto) [place] # (Auto) Eos # (Auto) Baso # (Auto) PT INR APTT pCO2 pO2 HCO3 ABG pH ABG Total CO2 ABG O2 Saturation ABG Base Excess Uriel Test ABG Potassium A-a O2 Difference Glucose Lactate Vent Mode Mechanical Rate FiO2 Tidal Volume PEEP Crit Value Called To Crit Value Called By Crit Value Read Back Blood Gas Notified Time Sodium Potassium Chloride Carbon Dioxide Anion Gap BUN Creatinine Est GFR ( Amer) Est GFR (Non-Af Amer) POC Glucose (mg/dL) 271 H Random Glucose Serum Osmolality 343 H Lactic Acid Calcium Phosphorus Magnesium Total Bilirubin AST ALT Alkaline Phosphatase Ammonia Total Creatine Kinase Troponin I Total Protein Albumin Globulin Albumin/Globulin Ratio Amylase Lipase Procalcitonin Arterial Blood Potassium Urine Osmolality 394 Ur Random Sodium 9 Ur Random Potassium 21.9 12/16/18 12/16/18 12/17/18 21:52 22:27 01:10 WBC RBC Hgb Hct MCV MCH MCHC RDW Plt Count MPV Neut % (Auto) Lymph % (Auto) [place] % (Auto) Eos % (Auto) Baso % (Auto) Neut # (Auto) Lymph # (Auto) [place] # (Auto) Eos # (Auto) Baso # (Auto) PT INR APTT pCO2 55 H 50 H pO2 128 H 143 H HCO3 17.4 L 16.5 L ABG pH 7.14 L* 7.16 L* ABG Total CO2 20.4 L 19.3 L ABG O2 Saturation 98.5 H 98.9 H ABG Base Excess -9.7 L -10.9 L Uriel Test Yes Yes ABG Potassium 6.2 H* 6.1 H A-a O2 Difference 88.0 222.0 Glucose 234 H 250 H Lactate 6.6 H* 6.6 H* Vent Mode A/c Mechanical Rate 12 20 FiO2 40.0 60.0 Tidal Volume 400 450 PEEP 5 5 Crit Value Called To Javier burton rn Crit Value Called By Kwesi hansen rt Crit Value Read Back Y Y Blood Gas Notified Time 2158 117 Sodium 144.0 142.0 Potassium Chloride 114.0 H 113.0 H Carbon Dioxide Anion Gap BUN Creatinine Est GFR ( Amer) Est GFR (Non-Af Amer) POC Glucose (mg/dL) 259 H Random Glucose Serum Osmolality Lactic Acid Calcium Phosphorus Magnesium Total Bilirubin AST ALT Alkaline Phosphatase Ammonia Total Creatine Kinase Troponin I Total Protein Albumin Globulin Albumin/Globulin Ratio Amylase Lipase Procalcitonin Arterial Blood Potassium 6.2 H* 6.1 H Urine Osmolality Ur Random Sodium Ur Random Potassium 12/17/18 12/17/18 12/17/18 04:24 04:34 05:15 WBC 13.4 H RBC 2.33 L Hgb 7.6 L Hct 23.7 L MCV 101.5 H D MCH 32.4 H MCHC 31.9 L RDW 16.8 H Plt Count 163 MPV 8.6 Neut % (Auto) 70.5 Lymph % (Auto) 10.5 L [place] % (Auto) 18.6 H Eos % (Auto) 0.2 Baso % (Auto) 0.2 Neut # (Auto) 9.4 H Lymph # (Auto) 1.4 [place] # (Auto) 2.5 H Eos # (Auto) 0.0 Baso # (Auto) 0.0 PT INR APTT pCO2 43 pO2 143 H HCO3 16.5 L ABG pH 7.20 L ABG Total CO2 18.1 L ABG O2 Saturation 99.2 H ABG Base Excess -10.9 L Uriel Test Yes ABG Potassium 6.0 H A-a O2 Difference 88.0 Glucose 268 H Lactate 6.4 H* Vent Mode A/c Mechanical Rate 16 FiO2 40.0 Tidal Volume 450 PEEP 5 Crit Value Called To Aleja cartagena rn Crit Value Called By Tisha hansen rt Crit Value Read Back Y Blood Gas Notified Time 428 Sodium 142.0 Potassium Chloride 113.0 H Carbon Dioxide Anion Gap BUN Creatinine Est GFR ( Amer) Est GFR (Non-Af Amer) POC Glucose (mg/dL) 292 H Random Glucose Serum Osmolality Lactic Acid Calcium Phosphorus Magnesium Total Bilirubin AST ALT Alkaline Phosphatase Ammonia Total Creatine Kinase Troponin I Total Protein Albumin Globulin Albumin/Globulin Ratio Amylase Lipase Procalcitonin Arterial Blood Potassium 6.0 H Urine Osmolality Ur Random Sodium Ur Random Potassium 12/17/18 12/17/18 12/17/18 05:15 05:15 05:15 WBC RBC Hgb Hct MCV MCH MCHC RDW Plt Count MPV Neut % (Auto) Lymph % (Auto) [place] % (Auto) Eos % (Auto) Baso % (Auto) Neut # (Auto) Lymph # (Auto) [place] # (Auto) Eos # (Auto) Baso # (Auto) PT INR APTT pCO2 pO2 HCO3 ABG pH ABG Total CO2 ABG O2 Saturation ABG Base Excess Uriel Test ABG Potassium A-a O2 Difference Glucose Lactate Vent Mode Mechanical Rate FiO2 Tidal Volume PEEP Crit Value Called To Crit Value Called By Crit Value Read Back Blood Gas Notified Time Sodium 147 Potassium 6.0 H Chloride 115 H Carbon Dioxide 16 L Anion Gap 22 H BUN 64 H Creatinine 3.6 H Est GFR ( Amer) 16 Est GFR (Non-Af Amer) 13 POC Glucose (mg/dL) Random Glucose 285 H Serum Osmolality Lactic Acid 6.8 H* Calcium 8.0 L Phosphorus 7.1 H Magnesium 1.7 Total Bilirubin 3.8 H AST 63 H D ALT 37 Alkaline Phosphatase 115 Ammonia 742 H* D Total Creatine Kinase Troponin I Total Protein 6.4 Albumin 2.4 L Globulin 4.1 H Albumin/Globulin Ratio 0.6 L Amylase 376 H D Lipase 107 Procalcitonin Arterial Blood Potassium Urine Osmolality Ur Random Sodium Ur Random Potassium 12/17/18 12/17/18 12/17/18 05:15 05:15 11:25 WBC RBC Hgb Hct MCV MCH MCHC RDW Plt Count MPV Neut % (Auto) Lymph % (Auto) [place] % (Auto) Eos % (Auto) Baso % (Auto) Neut # (Auto) Lymph # (Auto) [place] # (Auto) Eos # (Auto) Baso # (Auto) PT 21.5 H INR 1.9 APTT 30.6 pCO2 pO2 HCO3 ABG pH ABG Total CO2 ABG O2 Saturation ABG Base Excess Uriel Test ABG Potassium A-a O2 Difference Glucose Lactate Vent Mode Mechanical Rate FiO2 Tidal Volume PEEP Crit Value Called To Crit Value Called By Crit Value Read Back Blood Gas Notified Time Sodium Potassium Chloride Carbon Dioxide Anion Gap BUN Creatinine Est GFR ( Amer) Est GFR (Non-Af Amer) POC Glucose (mg/dL) 357 H Random Glucose Serum Osmolality Lactic Acid Calcium Phosphorus Magnesium Total Bilirubin AST ALT Alkaline Phosphatase Ammonia Total Creatine Kinase Troponin I Total Protein Albumin Globulin Albumin/Globulin Ratio Amylase Lipase Procalcitonin 3.77 H Arterial Blood Potassium Urine Osmolality Ur Random Sodium Ur Random Potassium 12/17/18 12/17/18 15:10 16:54 WBC RBC Hgb Hct MCV MCH MCHC RDW Plt Count MPV Neut % (Auto) Lymph % (Auto) [place] % (Auto) Eos % (Auto) Baso % (Auto) Neut # (Auto) Lymph # (Auto) [place] # (Auto) Eos # (Auto) Baso # (Auto) PT INR APTT pCO2 pO2 HCO3 ABG pH ABG Total CO2 ABG O2 Saturation ABG Base Excess Uriel Test ABG Potassium A-a O2 Difference Glucose Lactate Vent Mode Mechanical Rate FiO2 Tidal Volume PEEP Crit Value Called To Crit Value Called By Crit Value Read Back Blood Gas Notified Time Sodium Potassium Chloride Carbon Dioxide Anion Gap BUN Creatinine Est GFR ( Amer) Est GFR (Non-Af Amer) POC Glucose (mg/dL) 381 H Random Glucose Serum Osmolality 348 H Lactic Acid Calcium Phosphorus Magnesium Total Bilirubin AST ALT Alkaline Phosphatase Ammonia Total Creatine Kinase Troponin I Total Protein Albumin Globulin Albumin/Globulin Ratio Amylase Lipase Procalcitonin Arterial Blood Potassium Urine Osmolality Ur Random Sodium Ur Random Potassium reviewed J.P. - EKG Data EKG comments: reviewed J.P. - Imaging and Cardiology Chest x-ray Status: Report reviewed by me (EdelPLana) CT scan - head Status: Report reviewed by me (EdelPLana) Abdominal x-ray Status: Report reviewed by me (Macario) Assessment & Plan (1) Acute respiratory failure Status: Acute Priority: High (2) Hepatic encephalopathy Status: Acute Priority: High - Assessment and Plan (Free Text) Plan: Continue ventilatory support, Pt on Diprivan, attempt of weaning. - Date & Time Date: 12/17/18 Time: 10:15
[2018-12-17 21:00] LABS: HEPATITIS B SURFACE AG Negative (NEGATIVE)
[2018-12-17 21:05] LABS: HEPATITIS B CORE AB NEGATIVE (NEGATIVE)
[2018-12-17 21:31] LABS: HEPATITIS C ANTIBODY REACTIVE (NEGATIVE)
[2018-12-18] MEDS: levETIRAcetam 1,500 MG in Sodium Chloride 0.9% 100 ML IVPB SCH ×2 (00:36→13:06)
[2018-12-18] MEDS ORDERED: Midazolam 50 mg/10 ml 50 MG in Dextrose 5% In Water 90 ML IV ONE (00:37)
[2018-12-18] MEDS: Fosphenytoin 100 mg/2 ml Inj IV SCH ×3 (00:38→17:15)
[2018-12-18] MEDS ORDERED: Propofol 10 mg/ml 1,000 MG/100 ML VIAL IV SCH (03:00)
[2018-12-18] MEDS: Sodium Bicarbonate 8.4% 80 MEQ in Dextrose 5%/0.45% NS 1,000 ML IV SCH ×2 (04:45→08:12)
[2018-12-18] MEDS: Lactulose 10 gm/15 ml Syrup PO SCH ×5 (04:45→21:08)
[2018-12-18] MEDS: Insulin Lispro (humaLOG) 100 Units/ml Inj SC SCH ×4 (05:00→22:22)
[2018-12-18 05:06] LABS: ABG ALLEN TEST YES; ARTERIAL BLOOD GAS HCO3 18.4 mmol/L (21-28); ARTERIAL BLOOD GAS HEMOGLOBIN 7.4 g/dL (11.7-17.4); ARTERIAL BLOOD GAS O2 CAPACITY 10.2 mL/dL (16-24); ARTERIAL BLOOD GAS O2 CONTENT 10.3 ML/dL (15-23); ARTERIAL BLOOD GAS O2 SAT 100.5 % (95-98); ARTERIAL BLOOD GAS PCO2 34 mm/Hg (35-45); ARTERIAL BLOOD GAS PH 7.31 (7.35-7.45); ARTERIAL BLOOD GAS PO2 89 mm/Hg (80-100); ARTERIAL BLOOD GAS TCO2 18.1 mmol/L (22-28)
[2018-12-18 06:10] LABS: ALB/GLOB RATIO 0.7 (1.0-2.1); ALBUMIN 2.4 g/dL (3.5-5.0)
[2018-12-18 06:26] LABS: BASO % 0.3 % (0.0-2.0); EOS # 0.1 K/uL (0.0-0.7); EOS % 1.3 % (0.0-4.0); HEMOGLOBIN 7.7 g/dL (12.0-16.0); LYMPH # 1.6 K/uL (1.0-4.3); LYMPH % 14.9 % (20.0-40.0); MEAN CELL VOLUME 101.2 fl (81.0-99.0); MEAN CORPUSCULAR HEMOGLOBIN 32.8 pg (27.0-31.0); MEAN CORPUSCULAR HGB CONC 32.4 g/dL (33.0-37.0); MEAN PLATELET VOLUME 8.6 fl (7.2-11.7); MONO # 0.5 K/uL (0.0-0.8); MONO % 4.3 % (0.0-10.0); NEUT # 8.7 K/uL (1.8-7.0); NEUT % 79.2 % (50.0-75.0); NRBC % 1.7 % (0.0-0.0); RBC 2.36 Mil/uL (3.80-5.20); RED CELL DISTRIBUTION WIDTH 16.7 % (11.5-14.5)
--- NOTE | 2018-12-18 06:40 | CP.CCUPN ---
CCU Subjective - Physician Review Subjective (Free Text): Still very sedated, no longer under neuromuscular blockade. breathing 16 on AC 16, TV 450ml and remains on 40% oxygen, oliguric overnight and tolerated first HD last evening with 650 ml removed, on IVFs at 100ml/hr. Vasopressor support, with Levophed, reduction in dose tolerated yesterday, but requirememts increased overnight up to 25 mcg dose. No BMs overnight. No high FEVER spikes last 24hrs, nut re;atively hypothermic with temps 96-97F. SBPs 100s, HR 100s sinus. Fluid balance 4.0 L last 24H. ROS: No other pertinent negs or positives on 10+ system review obtainable due to sedated status. PMSFH: All other Nursing and physician documentation reviewed to date; no new pertinent info noted relevant to current medical problems. EXAM- HEENT: no icterus, no gaze preference, pupils equal bilat but non-reactive ( under NMB), not pinpoint, no nystagmus NECK: no JVD visible, supple, carotids equal upstroke bilat/no bruit CHEST: decreased BS at the bases, no wheezes audible HEART: regular, distant, S1S2, no rubs ABD: soft, + distension, no focal tenderness, no tympany, no guarding, no organomegaly, BS hypoactive. Epigastric hernia reducible. EXT: trace LE edema, no mottling; no calf tenderness or palpable cords, distal pulses intact and symmetrical, no cyanosis, bilat Venodynes on. NEURO: sedated, flaccid limbs x 4, no abnormal posturing. SKIN: no rashes, warm and dry, healed dark pigmented skin lesions maybe representing previous excoriations. No pustular lesions, nor active oozing of secretions, nor any discharge. LABS: WBC= 11.0 HGB= 7.7 PLTs= 127K Na= 139 K= 4.0 CL= 104 HCO3= 18 BUN/Cr= 53/3.5 BS= 395 Lactate = pending Ammonia= 407 ABG= pending CXR: (my interp) pending IMPRESSION / MAJOR PROBLEMS NOW: 1. S/p Status epilepticus, possible NCSE 2. Acute resp Insuff 2 metabolic encephalopathy, r/o urea cycle disorder versus Hepatic encephalopathy 3. Azotemia, r/o Dehydration / ATN, versus HRS / Acute on CKD II, with severe hyperkalemia,r/o Rhabdomyolysis 4. SBO 5. Chronic Hep C 6. Uncontrolled DM II PLAN: 1. AEDs now include Depakote, Cerebryx, Keppra, Vimpat. Video EEG in progress till 11AM, repeat CT Brain imaging showed new cerebral edema (disagree with official Rad interpretation), discussed with Michaelle and given one dose of mannitol yesterday. Serum Osmo already elevated. 2. Lactulose / Rifaximin. But on HD now, and if high flows can be maintained, Ammonia should clear via this route. Lactulose and rifaximin via enteral route has not had any appreciable effect. 3. Empiric abx coverage. Serial PCT levels. 4. Serial Lactate levels. 5. Gen Surg f/u regarding SBO; r/o ischemic bowel disease. 6. Watch for excessive 7. K levels markedly improved after HD. 8. No MV weans feasible today. Will start to decrease / discontinue anxiolytics / AEDs as tolerated- discussed with Neurology. 9. Watch HGB levels, no active bleeding noted. Coags elevated. 10. May need insulin drip to help manage hyperglycemia. Would also help with ammonia clearance. 11. Would work up for an occult urea cycle disorder ( urine/ serum amino acids, urine orotic acid, ornithine transcarbamylase level, citrulline, acylcarnitine levels to start). Unclear etiology for massive elevation in serum ammonia levels, despite unremarkable LFTs. GI eval. Limit protein intake, may need to be on TPN for the interim. 12. Clinical events discussed with patients two sons.
--- NOTE | 2018-12-18 06:48 | CP.PCM.PN ---
Subjective - Date & Time of Evaluation Date of Evaluation: 12/18/18 Time of Evaluation: 08:00 - Subjective Subjective: Patient seen and examined at bedside today. No acute event overnight, patient still comatose, unresponsive, intubated. Pupil fixed, mydriatic. Blood pressure running in low side. Central line noted on femur with arterial line, both ceballos nt, and no erythema noted. Ventilator 16 rate, 0.45 volume, 1.21 insp time,5 PEEP, 1.0 Flow trig, 40 FiO2 Objective - Vital Signs/Intake and Output Vital Signs (last 24 hours): Temp Pulse Resp BP Pulse Ox 97 F L 99 H 16 98/51 L 100 12/18/18 06:00 12/18/18 06:00 12/18/18 06:00 12/18/18 06:00 12/18/18 06:00 Intake and Output: 12/17/18 12/18/18 18:59 06:59 Intake Total 2765.0 2138 Output Total 890 Balance 1875.0 2138 - Medications Medications: Current Medications Fosphenytoin Sodium (Cerebyx) 100 mg IV Q8 [facility] Last Admin: 12/18/18 00:38 Dose: 100 mg Piperacillin Sod/Tazobactam (Sod 2.25 gm/ Sodium Chloride) 100 mls @ 100 mls/hr IVPB Q12H [facility]; Protocol Last Admin: 12/18/18 04:45 Dose: 100 mls/hr Sodium Bicarbonate 80 meq/ (Dextrose/Sodium Chloride) 1,080 mls @ 100 mls/hr IV .[id number] [facility] Stop: 12/18/18 15:31 Last Admin: 12/18/18 04:45 Dose: 100 mls/hr Lacosamide 200 mg/ Sodium (Chloride) 120 mls @ 120 mls/hr IVPB BID [facility] Last Admin: 12/17/18 16:45 Dose: 120 mls/hr Levetiracetam 1,500 mg/ Sodium (Chloride) 115 mls @ 215 mls/hr IVPB Q12H [facility] Last Admin: 12/18/18 00:36 Dose: 215 mls/hr Valproate Sodium 750 mg/ (Sodium Chloride) 107.5 mls @ 107.5 mls/hr IVPB Q12 [facility] Last Admin: 12/17/18 21:30 Dose: 107.5 mls/hr Norepinephrine Bitartrate 8 mg (/ Dextrose) 258 mls @ 19.35 mls/hr IV .[id number] [facility]; Protocol Stop: 12/18/18 11:14 Last Admin: 12/18/18 05:30 Dose: 25 mcg/min, 48.38 mls/hr Midazolam HCl 50 mg/ Dextrose 100 mls @ 4 mls/hr IV .Q24H [facility]; Protocol Stop: 12/19/18 00:36 Last Admin: 12/18/18 01:00 Dose: 2 mg/hr, 4 mls/hr Propofol (Diprivan) 1,000 mg in 100 mls @ 17.146 mls/hr IV .Q5H50M [facility]; Protocol Stop: 12/19/18 02:59 Last Titration: 12/18/18 06:00 Dose: 25 mcg/kg/min, 14.288 mls/hr Insulin Human Lispro (Humalog) 0 units SC Q6H [facility]; Protocol Last Admin: 12/18/18 05:00 Dose: 5 units Labetalol HCl (Trandate) 20 mg IVP Q3 PRN PRN Reason: Systolic Blood Pressure Last Admin: 12/16/18 14:36 Dose: 20 mg Lactulose (Enulose) 30 gm PO Q6 [facility] Last Admin: 12/18/18 04:45 Dose: 30 gm Lorazepam (Ativan) 4 mg IVP Q4 PRN PRN Reason: Seizure activity Pantoprazole Sodium (Protonix Inj) 40 mg IVP DAILY [facility] Last Admin: 12/17/18 09:40 Dose: 40 mg Rifaximin (Xifaxan) 550 mg NG BID [facility]; Protocol Last Admin: 12/17/18 16:49 Dose: 550 mg - Labs Labs: 12/18/18 05:45 12/18/18 05:45 PT 21.5 Seconds (9.8-13.1) H 12/17/18 05:15 INR 1.9 12/17/18 05:15 APTT 30.6 Seconds (25.6-37.1) 12/17/18 05:15 - Constitutional Appears: Other (Comatose) - Head Exam Head Exam: ATRAUMATIC - Eye Exam Pupil Exam: Fixed, Mydriatic - ENT Exam ENT Exam: Mucous Membranes Moist - Respiratory Exam Respiratory Exam: Clear to Ausculation Bilateral, NORMAL BREATHING PATTERN - Cardiovascular Exam Cardiovascular Exam: REGULAR RHYTHM, +S1, +S2 - GI/Abdominal Exam GI & Abdominal Exam: Soft, Normal Bowel Sounds Additional comments: Umbilical hernia noted along with epigastric hernia, Epigastric easly reducible Assessment and Plan - Assessment and Plan (Free Text) Assessment: 58 yo female with PMH Of HTN, DM, CKD, abdominal hernia, 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 Admitted to ICU for further evaluation and treatment of Hepatic Encephalopathy. Patient currently comatose, intubated Neuro, and surgery are in the case As per ICU, Possible URea cycle disorder, due to sudden deterioration, will order urine/serum amino acids, urine orotic acide, ornithine transcarbamylase, citrulline, acylcarnitine level. possible TPN placement Plan Comatose/AMS due hepatic encephalopathy Patient still comatose No mental status changes HX of cirrhosis due to hep C MELD 40 point 71.3% 3 month mortality Patient Currently intubated Ammonia 300->245->742-> 407 Continue lactulose 30mg as per GI F/U BMP Acute Respiratory Failure due Encephalopathy Intubated on ventilator ICU Monitor vitals Monitor ammonia Anemia H/H 7.7/23.9 Type and screen Consent for blood transfusion Will transfuse 2 unit acute on chronic renal failure Chronic worsening Bun/Cr 64/3.6-> 53/3.5 IV hydration Continue monitoring S/P dialysis Continue monitoring Follow up Nephro Status Epilepticus Neurology on case Patient received Keppra loading dose Ativan 4mg prn Versed and Propofol Keppra Depakote Vimpat Phenobarbital Cerebryx GI Bleed Nurse report coffee ground emesis Continue on Rocephin for SBP prophylaxis Continue IV Protonix NPO Type and screen 2 units GI consulted F/U recommendation Lactulose 30mg Lactic acid 6.8 Surgery on board, does not recommend Surgery Sepsis with unknown source of infection Hx of paracentesis WBC 11.0 Tackycardia, Sudden AMS Urine culture negative F/U blood culture Sputum culture + staph auros Continue Zosyn day 3 Continue Rifaximin day 3 HyperKalemia Improving Potassium 6.6->5.5->4.0 S/P insulin, albuterol EKG no T weak peak S/p Calcium gluconate 4.6 once F/U BMP DM2 Chronic uncontrolled Sliding scale Hypoglycemia protocol Hypotensive low blood pressure despide pressor Continue monitoring HTN Hold medication due to condition Monitor for blood pressure DVT prophylaxis SCD no heparin for now CODE FULL
[2018-12-18] MEDS ORDERED: Dextrose 50% SYRINGE Inj (50 ml) IV PRN (07:41)
[2018-12-18] MEDS ORDERED: Glucagon Recombinant 1 mg Inj IM PRN (07:41)
[2018-12-18] MEDS: Lacosamide 200mg/20ml 200 MG in Sodium Chloride 0.9% 100 ML IVPB SCH ×2 (08:10→21:00)
[2018-12-18] MEDS: Valproate 750 MG in Sodium Chloride 0.9% 100 ML IVPB SCH (08:17)
[2018-12-18] MEDS: Phenylephrine 60 MG in Sodium Chloride 0.9% 250 ML IV SCH ×3 (08:37→22:24)
--- NOTE | 2018-12-18 08:52 | CP.PCM.PN ---
<Jaime Slade - Last Filed: 12/18/18 12:43> Subjective - Date & Time of Evaluation Date of Evaluation: 12/18/18 Time of Evaluation: 08:00 - Subjective Subjective: General Surgery Note for Dr. Silvestre Patient seen and examined at bedside. Patient remains intubated and ventilated. Patient was started on dialysis yesterday. Ammonia and WBC decreasing. Patient remains on pressors. She is also receiving multiple medications for seizure activity. Objective - Vital Signs/Intake and Output Vital Signs (last 24 hours): Temp Pulse Resp BP Pulse Ox 97.0 F L 101 H 16 84/37 L 96 12/18/18 08:00 12/18/18 08:00 12/18/18 08:00 12/18/18 08:00 12/18/18 08:00 Intake and Output: 12/18/18 12/18/18 06:59 18:59 Intake Total 2161 242 Balance 2161 242 - Medications Medications: Current Medications Dextrose (Dextrose 50% Inj) 0 ml IV STAT PRN; Protocol PRN Reason: Hypoglycemia Protocol Dextrose (Glutose 15) 0 gm PO ONCE PRN; Protocol PRN Reason: Hypoglycemia Protocol Fosphenytoin Sodium (Cerebyx) 100 mg IV Q8 [facility] Last Admin: 12/18/18 08:30 Dose: 100 mg Glucagon (Glucagen Diagnostic Kit) 0 mg IM STAT PRN; Protocol PRN Reason: Hypoglycemia Protocol Piperacillin Sod/Tazobactam (Sod 2.25 gm/ Sodium Chloride) 100 mls @ 100 mls/hr IVPB Q12H [facility]; Protocol Last Admin: 12/18/18 04:45 Dose: 100 mls/hr Lacosamide 200 mg/ Sodium (Chloride) 120 mls @ 120 mls/hr IVPB BID [facility] Last Admin: 12/18/18 08:10 Dose: 120 mls/hr Levetiracetam 1,500 mg/ Sodium (Chloride) 115 mls @ 215 mls/hr IVPB Q12H [facility] Last Admin: 12/18/18 00:36 Dose: 215 mls/hr Valproate Sodium 750 mg/ (Sodium Chloride) 107.5 mls @ 107.5 mls/hr IVPB Q12 [facility] Last Admin: 12/18/18 08:17 Dose: 107.5 mls/hr Norepinephrine Bitartrate 8 mg (/ Dextrose) 258 mls @ 19.35 mls/hr IV .[id number] ONE; Protocol Stop: 12/18/18 11:14 Last Admin: 12/18/18 08:25 Dose: 30 mcg/min, 58.05 mls/hr Insulin Human Regular 100 (units/ Sodium Chloride) 101 mls @ 3.03 mls/hr IV .Q24H [facility]; Protocol Sodium Bicarbonate 80 meq/ (Dextrose/Sodium Chloride) 1,080 mls @ 50 mls/hr IV .[id number] [facility] Stop: 12/20/18 07:45 Last Admin: 12/18/18 08:12 Dose: 50 mls/hr Phenylephrine HCl 60 mg/ (Sodium Chloride) 256 mls @ 5.12 mls/hr IV .Q24H [facility]; Protocol Stop: 12/19/18 08:10 Last Admin: 12/18/18 08:37 Dose: 20 mcg/min, 5.12 mls/hr Insulin Human Lispro (Humalog) 0 units SC Q6H [facility]; Protocol Last Admin: 12/18/18 05:00 Dose: 5 units Lactulose (Enulose) 30 gm PO Q6 [facility] Last Admin: 12/18/18 04:45 Dose: 30 gm Pantoprazole Sodium (Protonix Inj) 40 mg IVP DAILY [facility] Last Admin: 12/18/18 08:31 Dose: 40 mg Rifaximin (Xifaxan) 550 mg NG BID [facility]; Protocol Last Admin: 12/18/18 08:32 Dose: 550 mg - Labs Labs: 12/18/18 05:45 12/18/18 05:45 PT 21.5 Seconds (9.8-13.1) H 12/17/18 05:15 INR 1.9 12/17/18 05:15 APTT 30.6 Seconds (25.6-37.1) 12/17/18 05:15 - Constitutional Appears: Chronically Ill - Head Exam Head Exam: ATRAUMATIC, NORMOCEPHALIC - Eye Exam Eye Exam: Normal appearance - ENT Exam ENT Exam: Mucous Membranes Dry Additional comments: OGT in place ETT in place - Respiratory Exam Additional comments: ventilated - Cardiovascular Exam Cardiovascular Exam: Tachycardia - GI/Abdominal Exam GI & Abdominal Exam: Distended (mildly), Soft, Hernia (reducible ventral hernia, umbilical hernia), Hypoactive Bowel Sounds Additional comments: shifting dullness dullness to percussion fluid wave present - Extremities Exam Extremities Exam: Normal Capillary Refill - Neurological Exam Neurological Exam: Altered - Psychiatric Exam Psychiatric exam: Flat Affect - Skin Skin Exam: Dry, Intact, Warm Assessment and Plan - Assessment and Plan (Free Text) Assessment: 58F with PMH that includes hep C, liver cirrhosis, ascites who presents with new onset seizures and a ventral/umbilical hernia Plan: OGT to suction Strict I's & O's Monitor for BMs Serial abd exams No surgical intervention at this time Management as per ICU Will continue to follow Discussed with Dr. Konrad Slade PGY2 <Magdaleno Silvestre - Last Filed: 12/20/18 13:06> Objective - Vital Signs/Intake and Output Vital Signs (last 24 hours): Temp Pulse Resp BP Pulse Ox 97 F L 110 H 20 108/39 L 100 12/20/18 12:00 12/20/18 12:00 12/20/18 12:00 12/20/18 12:00 12/20/18 12:00 Intake and Output: 12/20/18 12/20/18 06:59 18:59 Intake Total 1517 556 Output Total 7 1000 Balance 1510 -444 - Medications Medications: Current Medications Acetaminophen (Tylenol 650mg/20.3ml Solution Ud) 650 mg PO Q6 PRN PRN Reason: Temperature Last Admin: 12/19/18 04:22 Dose: 650 mg Dextrose (Dextrose 50% Inj) 0 ml IV STAT PRN; Protocol PRN Reason: Hypoglycemia Protocol Dextrose (Glutose 15) 0 gm PO ONCE PRN; Protocol PRN Reason: Hypoglycemia Protocol Fosphenytoin Sodium (Cerebyx) 100 mg IV Q8 [facility] Last Admin: 12/20/18 09:16 Dose: 100 mg Glucagon (Glucagen Diagnostic Kit) 0 mg IM STAT PRN; Protocol PRN Reason: Hypoglycemia Protocol Hydrocortisone Sodium Succinate (Solu-Cortef) 100 mg IV Q12 [facility] Last Admin: 12/20/18 09:20 Dose: 100 mg Piperacillin Sod/Tazobactam (Sod 2.25 gm/ Sodium Chloride) 100 mls @ 100 mls/hr IVPB Q12H [facility]; Protocol Last Admin: 12/20/18 04:49 Dose: 100 mls/hr Levetiracetam 1,500 mg/ Sodium (Chloride) 115 mls @ 215 mls/hr IVPB Q12H [facility] Last Admin: 12/20/18 01:27 Dose: 215 mls/hr Vasopressin 100 units/ Sodium (Chloride) 105 mls @ 1.89 mls/hr IV .Q24H [facility]; Protocol Last Admin: 12/20/18 01:35 Dose: 0.03 units/min, 1.89 mls/hr Lacosamide 200 mg/ Sodium (Chloride) 120 mls @ 120 mls/hr IVPB Q12@0900,2100 [facility] Last Admin: 12/20/18 10:11 Dose: 120 mls/hr Sodium Bicarbonate 80 meq/ (Dextrose/Sodium Chloride) 1,080 mls @ 50 mls/hr IV .[id number] [facility] Stop: 12/21/18 10:03 Norepinephrine Bitartrate 16 (mg/ Dextrose) 266 mls @ 29.93 mls/hr IV .[id number] ONE Stop: 12/20/18 20:11 Last Admin: 12/20/18 12:28 Dose: 29.93 mls/hr Insulin Human Lispro (Humalog) 0 units SC Q6H [facility]; Protocol Last Admin: 12/20/18 12:30 Dose: Not Given Lactulose (Generlac) [address] Q4H [facility] Last Admin: 12/20/18 10:12 Dose: 200 gm Pantoprazole Sodium (Protonix Inj) 40 mg IVP DAILY [facility] Last Admin: 12/20/18 09:20 Dose: 40 mg Rifaximin (Xifaxan) 550 mg NG BID [facility]; Protocol Last Admin: 12/20/18 09:21 Dose: 550 mg - Labs Labs: 12/20/18 05:00 12/20/18 05:00 PT 26.5 Seconds (9.8-13.1) H D 12/18/18 09:00 INR 2.3 12/18/18 09:00 APTT 32.7 Seconds (25.6-37.1) 12/18/18 09:00 Attending/Attestation - Attestation I have fully participated in the care of the patient.: Yes I have reviewed all pertinent clinical information, including history, physical exam and plan: Yes Notes (Text): Pt remain intubated and sedated GI tract can be use for oral medication No surgical intervention required c.w current mx Plan d.w primary team in detail
--- NOTE | 2018-12-18 09:26 | RAD ---
Date of service: 12/18/2018 HISTORY: intubated COMPARISON: Comparison chest 12/17/2018 at 16 FINDINGS: In situ ETT, tip of which lies approximately 3.2 cm above marciano. In situ NGT, the tip of which lies well below EG junction. In situ right IJ central venous access catheter with tip SVC/RA junction LUNGS: Mild pulmonary venous congestive changes with bilateral lower lobe alveolar-type infiltrates and bilateral effusions. PLEURA: No significant pleural effusion identified, no pneumothorax apparent. CARDIOVASCULAR: No aortic atherosclerotic calcification present. Heart size unchanged OSSEOUS STRUCTURES: No significant abnormalities. VISUALIZED UPPER ABDOMEN: Normal. OTHER FINDINGS: None. IMPRESSION: Support lines and tubes as above. Mild pulmonary venous congestive changes with bilateral lower lobe alveolar-type infiltrates and bilateral effusions.
--- NOTE | 2018-12-18 09:30 | RAD ---
Date of service: 12/17/2018 HISTORY: HD catheter placement [id number] COMPARISON: Comparison chest 12/17/2018 at 0504 hr. FINDINGS: In situ ETT, tip of which lies approximately 2.25 cm above marciano. In situ NGT is present tip of which lies within the stomach. Interval placement right IJ central venous access catheter. LUNGS: The central pulmonary vasculature appears less congested compared the prior study. Appears to be some mild right basilar atelectasis and small bilateral effusions PLEURA: As above. No pneumothorax apparent. CARDIOVASCULAR: Cardiomegaly. No significant aortic atherosclerotic calcification present. Normal cardiac size. No pulmonary vascular congestion. OSSEOUS STRUCTURES: No significant abnormalities. VISUALIZED UPPER ABDOMEN: Normal. OTHER FINDINGS: None. IMPRESSION: NGT support lines and tubes as above. Slightly improved central pulmonary venous congestion. Appears to be some mild right basilar atelectasis and small bilateral effusions
[2018-12-18 10:52] LABS: INR 2.3; PROTHROMBIN TIME 26.5 Seconds (9.8-13.1)
[2018-12-18 10:55] LABS: PARTIAL THROMBOPLASTIN TIME 32.7 Seconds (25.6-37.1)
[2018-12-18] MEDS ORDERED: Hydrocortisone- 100 MG in Sodium Chloride 0.9% 100 ML IV SCH (12:00)
[2018-12-18] MEDS ORDERED: Sodium Chloride 0.9% 1,000 ML IV SCH (12:15)
--- NOTE | 2018-12-18 12:50 | CP.PCM.PN ---
Subjective - Date & Time of Evaluation Date of Evaluation: 12/18/18 Time of Evaluation: 11:40 - Subjective Subjective: Neuro Follow-Up Note: Mrs. Ashley Varma was evaluated this morning in the ICU. She remains intubated; currently off sedation (Versed and Propofol d/c'd this morning). She is currently on vasopressors for SBP between 50's-70's. She remains on multiple AE's. Today, pt does not respond to sternal rub, does not follow commands. ROS unobtainable from the pt 2/2 her current status. Objective - Vital Signs/Intake and Output Vital Signs (last 24 hours): Temp Pulse Resp BP Pulse Ox 97 F L 94 H 16 86/37 L 99 12/18/18 12:28 12/18/18 12:28 12/18/18 12:28 12/18/18 12:28 12/18/18 12:00 Intake and Output: 12/18/18 12/18/18 06:59 18:59 Intake Total 2161 500 Balance 2161 500 - Medications Medications: Current Medications Dextrose (Dextrose 50% Inj) 0 ml IV STAT PRN; Protocol PRN Reason: Hypoglycemia Protocol Dextrose (Glutose 15) 0 gm PO ONCE PRN; Protocol PRN Reason: Hypoglycemia Protocol Fosphenytoin Sodium (Cerebyx) 100 mg IV Q8 [facility] Last Admin: 12/18/18 08:30 Dose: 100 mg Glucagon (Glucagen Diagnostic Kit) 0 mg IM STAT PRN; Protocol PRN Reason: Hypoglycemia Protocol Hydrocortisone Sodium Succinate (Solu-Cortef) 100 mg IV Q12 [facility] Last Admin: 12/18/18 12:00 Dose: 100 mg Piperacillin Sod/Tazobactam (Sod 2.25 gm/ Sodium Chloride) 100 mls @ 100 mls/hr IVPB Q12H [facility]; Protocol Last Admin: 12/18/18 04:45 Dose: 100 mls/hr Lacosamide 200 mg/ Sodium (Chloride) 120 mls @ 120 mls/hr IVPB BID [facility] Last Admin: 12/18/18 08:10 Dose: 120 mls/hr Levetiracetam 1,500 mg/ Sodium (Chloride) 115 mls @ 215 mls/hr IVPB Q12H [facility] Last Admin: 12/18/18 00:36 Dose: 215 mls/hr Valproate Sodium 750 mg/ (Sodium Chloride) 107.5 mls @ 107.5 mls/hr IVPB Q12 [facility] Last Admin: 12/18/18 08:17 Dose: 107.5 mls/hr Insulin Human Regular 100 (units/ Sodium Chloride) 101 mls @ 3.03 mls/hr IV .Q24H [facility]; Protocol Last Titration: 12/18/18 11:00 Dose: 6 units/hr, 6.06 mls/hr Sodium Bicarbonate 80 meq/ (Dextrose/Sodium Chloride) 1,080 mls @ 50 mls/hr IV .[id number] [facility] Stop: 12/20/18 07:45 Last Admin: 12/18/18 08:12 Dose: 50 mls/hr Phenylephrine HCl 60 mg/ (Sodium Chloride) 256 mls @ 5.12 mls/hr IV .Q24H [facility]; Protocol Stop: 12/19/18 08:10 Last Titration: 12/18/18 10:20 Dose: 100 mcg/min, 25.6 mls/hr Norepinephrine Bitartrate 16 (mg/ Dextrose) 266 mls @ 14.96 mls/hr IV .[id number] [facility]; Protocol Stop: 12/19/18 05:03 Last Admin: 12/18/18 11:54 Dose: 15 mcg/min, 14.96 mls/hr Vasopressin 100 units/ Sodium (Chloride) 105 mls @ 1.89 mls/hr IV .Q24H [facility]; Protocol Sodium Chloride (Sodium Chloride 0.9%) 1,000 mls @ 1,000 mls/hr IV .Q1H [facility] Stop: 12/18/18 13:14 Last Admin: 12/18/18 12:00 Dose: 1,000 mls/hr Insulin Human Lispro (Humalog) 0 units SC Q6H [facility]; Protocol Last Admin: 12/18/18 10:09 Dose: Not Given Lactulose (Enulose) 30 gm PO Q6 [facility] Last Admin: 12/18/18 10:05 Dose: Not Given Pantoprazole Sodium (Protonix Inj) 40 mg IVP DAILY [facility] Last Admin: 12/18/18 08:31 Dose: 40 mg Rifaximin (Xifaxan) 550 mg NG BID [facility]; Protocol Last Admin: 12/18/18 08:32 Dose: 550 mg - Labs Labs: 12/18/18 05:45 12/18/18 05:45 PT 26.5 Seconds (9.8-13.1) H D 12/18/18 09:00 INR 2.3 12/18/18 09:00 APTT 32.7 Seconds (25.6-37.1) 12/18/18 09:00 - Constitutional Appears: Other (intubated, off sedation; no response to sternal rub) - Head Exam Head Exam: ATRAUMATIC, NORMAL INSPECTION, NORMOCEPHALIC - Eye Exam Eye Exam: Scleral icterus. absent: EOMI, Normal appearance, PERRL Pupil Exam: Fixed. absent: NORMAL ACCOMODATION, PERRL Additional comments: Pupils remain fixed at 7 mm b/l today No corneals No dolls eyes - ENT Exam ENT Exam: Mucous Membranes Moist Additional comments: intubated - Neck Exam Neck Exam: Normal Inspection - Respiratory Exam Respiratory Exam: absent: NORMAL BREATHING PATTERN (intubated) - Cardiovascular Exam Cardiovascular Exam: REGULAR RHYTHM Additional comments: hypotensive--sbp between 50's-70's - Extremities Exam Additional comments: No movement to extremities during sternal rub. No purposeful or non-purposeful movements appreciated during exam Decreased tone today bue compared to yesterday No tremors; no abnormal myoclonic movements noted - Neurological Exam Neurological Exam: Altered Additional comments: Pt is intubated; off sedation today. No movement to extremities during sternal rub. Pupils fixed at 7 mm b/l No corneals No dolls eyes No gag No purposeful or non-purposeful movements appreciated during exam Decreased tone today bue No tremors; no abnormal myoclonic movements noted Assessment and Plan - Assessment and Plan (Free Text) Assessment: A/P: Mrs. Ashley Varma is a 58 y/o female who was admitted for AMS and vomiting. She was found to have hepatic encephalopathy and was in status epilepticus as noted on the VEEG. She is currently on multiple AE's. Sedation (Versed and Propofol were d/c'd this morning). She has no tremors or abnormal myoclonic movements at this time. Imaging reviewed: -EEG (12/17/18): This is an abnormal 24 hour Video EEG. Initially, the patient was in status epilepticus, and around 5 am, she started to improve and now has continous triphasic waves, with some spindle activity and is no longer in status epilepticus. Clinical correlation is required. There are no longer PLEDS or Spikes noted in the last 8 hours. -EEG (12/15/18): This is an abnormal Video EEG that is indicative of status epilepticus with PLEDS and evolving seizures. Clinical correlation is required. -CT Head (12/15/18): Examination limited by patient motion and streak artifact. Generalized atrophy. Nonspecific white matter changes. -MRI Brain without contrast to r/o acute stroke once pt is stable. -Repeat non-contrast CT Head ordered to re-eval poss cerebral edema (initial head ct shows poor imaging) or other acute intracranial changes. Pt also rec'd 1 dose on Mannitol yesterday for poss cerebral edema. Can be done once pt is stable (she is hypotensive now). -Continue VEEG for full 48 hours---can be d/c'd on 12/18/18, at 2100. -Continue AE's as ordered---Keppra 1,500 mg IV Q12; Vimpat 200 mg IV BID, Valproate 750 mg IV Q12, and Cerebyx 100 mg IV Q8. -Continue seizure monitoring and precautions. -Continue ICU management. -Discussed with ICU team. -Notify neuro team of any acute changes in pt's condition or if seizures witnessed. Kandi Saba, DNP, [employer] EX[employer] Discussed with Dr. Hendricks
--- NOTE | 2018-12-18 14:07 | CP.PCM.PN ---
Subjective - Date & Time of Evaluation Date of Evaluation: 12/18/18 Time of Evaluation: 01:30 - Subjective Subjective: Remains unresposive, intubated & on ventilator support. Pt received dialysis yesterday with removal of about 600 cc of fluid. Today pts BP dropped & Pt receives 1000 cc of NS & currently on 3 pressors. Pt had also received 2 units PRBCs. Remains anuric. Objective - Vital Signs/Intake and Output Vital Signs (last 24 hours): Temp Pulse Resp BP Pulse Ox 97.0 F L 95 H 16 93/36 L 99 12/18/18 12:50 12/18/18 12:50 12/18/18 12:50 12/18/18 12:50 12/18/18 12:00 Intake and Output: 12/18/18 12/18/18 06:59 18:59 Intake Total 2161 701 Balance 2161 701 - Medications Medications: Current Medications Dextrose (Dextrose 50% Inj) 0 ml IV STAT PRN; Protocol PRN Reason: Hypoglycemia Protocol Dextrose (Glutose 15) 0 gm PO ONCE PRN; Protocol PRN Reason: Hypoglycemia Protocol Fosphenytoin Sodium (Cerebyx) 100 mg IV Q8 [facility] Last Admin: 12/18/18 08:30 Dose: 100 mg Glucagon (Glucagen Diagnostic Kit) 0 mg IM STAT PRN; Protocol PRN Reason: Hypoglycemia Protocol Hydrocortisone Sodium Succinate (Solu-Cortef) 100 mg IV Q12 [facility] Last Admin: 12/18/18 12:00 Dose: 100 mg Piperacillin Sod/Tazobactam (Sod 2.25 gm/ Sodium Chloride) 100 mls @ 100 mls/hr IVPB Q12H [facility]; Protocol Last Admin: 12/18/18 04:45 Dose: 100 mls/hr Lacosamide 200 mg/ Sodium (Chloride) 120 mls @ 120 mls/hr IVPB BID [facility] Last Admin: 12/18/18 08:10 Dose: 120 mls/hr Levetiracetam 1,500 mg/ Sodium (Chloride) 115 mls @ 215 mls/hr IVPB Q12H [facility] Last Admin: 12/18/18 13:06 Dose: 215 mls/hr Insulin Human Regular 100 (units/ Sodium Chloride) 101 mls @ 3.03 mls/hr IV .Q24H [facility]; Protocol Last Titration: 12/18/18 13:03 Dose: 5 units/hr, 5.05 mls/hr Sodium Bicarbonate 80 meq/ (Dextrose/Sodium Chloride) 1,080 mls @ 50 mls/hr IV .[id number] [facility] Stop: 12/20/18 07:45 Last Admin: 12/18/18 08:12 Dose: 50 mls/hr Phenylephrine HCl 60 mg/ (Sodium Chloride) 256 mls @ 5.12 mls/hr IV .Q24H [facility]; Protocol Stop: 12/19/18 08:10 Last Titration: 12/18/18 10:20 Dose: 100 mcg/min, 25.6 mls/hr Norepinephrine Bitartrate 16 (mg/ Dextrose) 266 mls @ 14.96 mls/hr IV .[id number] [facility]; Protocol Stop: 12/19/18 05:03 Last Admin: 12/18/18 11:54 Dose: 15 mcg/min, 14.96 mls/hr Vasopressin 100 units/ Sodium (Chloride) 105 mls @ 1.89 mls/hr IV .Q24H [facility]; Protocol Last Admin: 12/18/18 12:47 Dose: 0.03 units/min, 1.89 mls/hr Insulin Human Lispro (Humalog) 0 units SC Q6H [facility]; Protocol Last Admin: 12/18/18 10:09 Dose: Not Given Lactulose (Enulose) 30 gm PO Q6 [facility] Last Admin: 12/18/18 10:05 Dose: Not Given Pantoprazole Sodium (Protonix Inj) 40 mg IVP DAILY [facility] Last Admin: 12/18/18 08:31 Dose: 40 mg Rifaximin (Xifaxan) 550 mg NG BID [facility]; Protocol Last Admin: 12/18/18 08:32 Dose: 550 mg - Labs Labs: 12/18/18 05:45 12/18/18 05:45 PT 26.5 Seconds (9.8-13.1) H D 12/18/18 09:00 INR 2.3 12/18/18 09:00 APTT 32.7 Seconds (25.6-37.1) 12/18/18 09:00 - Head Exam Head Exam: ATRAUMATIC, NORMOCEPHALIC - ENT Exam ENT Exam: Mucous Membranes Moist - Respiratory Exam Additional comments: Lungs are clear anteriorly - Cardiovascular Exam Cardiovascular Exam: REGULAR RHYTHM - Extremities Exam Additional comments: Extrem appear edematous - Neurological Exam Additional comments: Appears comatose No myoclonus noted Assessment and Plan - Assessment and Plan (Free Text) Assessment: Acute anuric renal failure possibly HRS Volume overload Plan was to do second dialysis today. However at this time Pt is not clinically stable & dialysis can not be performed. Will follow Pt closely & when stable will try dialysis again. Consider Lasix drip. Hepatic encephalopathy Status epilepticus Plan: Consider lasix drip. Monitor closely/ Re evaluate for dialysis tomorrow.
--- NOTE | 2018-12-18 14:38 | CP.PCM.PN ---
Subjective - Date & Time of Evaluation Date of Evaluation: 12/18/18 Time of Evaluation: 11:30 - Subjective Subjective: F/U Respiratory failure. Pt is comatose. Objective - Vital Signs/Intake and Output Vital Signs (last 24 hours): Temp Pulse Resp BP Pulse Ox 97.0 F L 99 H 16 95/39 L 97 12/18/18 14:00 12/18/18 14:00 12/18/18 14:00 12/18/18 14:00 12/18/18 14:00 Intake and Output: 12/18/18 12/18/18 06:59 18:59 Intake Total 2161 2451 Balance 2161 2451 - Medications Medications: Current Medications Dextrose (Dextrose 50% Inj) 0 ml IV STAT PRN; Protocol PRN Reason: Hypoglycemia Protocol Dextrose (Glutose 15) 0 gm PO ONCE PRN; Protocol PRN Reason: Hypoglycemia Protocol Fosphenytoin Sodium (Cerebyx) 100 mg IV Q8 [facility] Last Admin: 12/18/18 08:30 Dose: 100 mg Glucagon (Glucagen Diagnostic Kit) 0 mg IM STAT PRN; Protocol PRN Reason: Hypoglycemia Protocol Hydrocortisone Sodium Succinate (Solu-Cortef) 100 mg IV Q12 [facility] Last Admin: 12/18/18 12:00 Dose: 100 mg Piperacillin Sod/Tazobactam (Sod 2.25 gm/ Sodium Chloride) 100 mls @ 100 mls/hr IVPB Q12H [facility]; Protocol Last Admin: 12/18/18 04:45 Dose: 100 mls/hr Lacosamide 200 mg/ Sodium (Chloride) 120 mls @ 120 mls/hr IVPB BID [facility] Last Admin: 12/18/18 08:10 Dose: 120 mls/hr Levetiracetam 1,500 mg/ Sodium (Chloride) 115 mls @ 215 mls/hr IVPB Q12H [facility] Last Admin: 12/18/18 13:06 Dose: 215 mls/hr Insulin Human Regular 100 (units/ Sodium Chloride) 101 mls @ 3.03 mls/hr IV .Q24H [facility]; Protocol Last Titration: 12/18/18 13:03 Dose: 5 units/hr, 5.05 mls/hr Sodium Bicarbonate 80 meq/ (Dextrose/Sodium Chloride) 1,080 mls @ 50 mls/hr IV .[id number] [facility] Stop: 12/20/18 07:45 Last Admin: 12/18/18 08:12 Dose: 50 mls/hr Phenylephrine HCl 60 mg/ (Sodium Chloride) 256 mls @ 5.12 mls/hr IV .Q24H [facility]; Protocol Stop: 12/19/18 08:10 Last Titration: 12/18/18 10:20 Dose: 100 mcg/min, 25.6 mls/hr Norepinephrine Bitartrate 16 (mg/ Dextrose) 266 mls @ 14.96 mls/hr IV .[id number] [facility]; Protocol Stop: 12/19/18 05:03 Last Admin: 12/18/18 11:54 Dose: 15 mcg/min, 14.96 mls/hr Vasopressin 100 units/ Sodium (Chloride) 105 mls @ 1.89 mls/hr IV .Q24H [facility]; Protocol Last Admin: 12/18/18 12:47 Dose: 0.03 units/min, 1.89 mls/hr Insulin Human Lispro (Humalog) 0 units SC Q6H [facility]; Protocol Last Admin: 12/18/18 10:09 Dose: Not Given Lactulose (Enulose) 30 gm PO Q6 [facility] Last Admin: 12/18/18 10:05 Dose: Not Given Pantoprazole Sodium (Protonix Inj) 40 mg IVP DAILY [facility] Last Admin: 12/18/18 08:31 Dose: 40 mg Rifaximin (Xifaxan) 550 mg NG BID [facility]; Protocol Last Admin: 12/18/18 08:32 Dose: 550 mg - Labs Labs: 12/18/18 05:45 12/18/18 05:45 PT 26.5 Seconds (9.8-13.1) H D 12/18/18 09:00 INR 2.3 12/18/18 09:00 APTT 32.7 Seconds (25.6-37.1) 12/18/18 09:00 - Constitutional Appears: Chronically Ill - Head Exam Head Exam: NORMAL INSPECTION - Eye Exam Additional comments: Pupils non reactive - ENT Exam Additional comments: Intubated, OGT - Neck Exam Neck Exam: Normal Inspection - Respiratory Exam Respiratory Exam: Decreased Breath Sounds (b/l), Rhonchi (scattered) - Cardiovascular Exam Cardiovascular Exam: Tachycardia - GI/Abdominal Exam GI & Abdominal Exam: Soft, Hypoactive Bowel Sounds - Extremities Exam Additional comments: Edema BLE - Back Exam Back Exam: NORMAL INSPECTION - Neurological Exam Additional comments: Intubated, sedated, comatose. - Skin Skin Exam: Warm Assessment and Plan (1) Acute respiratory failure Status: Acute (2) Hepatic encephalopathy Status: Acute - Assessment and Plan (Free Text) Plan: Pt on Vasopressor Drops, on PRVC AC FIO2 40%, prognosis very poor, continue current Tx.
--- NOTE | 2018-12-18 15:35 | CT ---
Date of service: 12/17/2018 PROCEDURE: CT Abdomen and Pelvis without intravenous contrast HISTORY: r/o Mechanical SBO / Ileus COMPARISON: 12/15/2018. CT abdomen and pelvis. Summary of findings on the comparison examination: Probable mechanical small-bowel obstruction resulting from an infraumbilical ventral hernia of a loop of small bowel. TECHNIQUE: Unenhanced. Neither IV nor oral contrast administered Radiation dose: Total exam DLP = 1148.52 mGy-cm. This CT exam was performed using one or more of the following dose reduction techniques: Automated exposure control, adjustment of the mA and/or kV according to patient size, and/or use of iterative reconstruction technique. FINDINGS: LOWER THORAX: Stable lower lobe infiltrates, atelectasis. LIVER: Cirrhotic appearing liver, stable. GALLBLADDER AND BILE DUCTS: Cholelithiasis without CT evidence of acute cholecystitis. PANCREAS: Unremarkable. No gross lesion or ductal dilatation. SPLEEN: Stable splenomegaly. ADRENALS: Unremarkable. No mass. KIDNEYS AND URETERS: Atrophic right kidney. Left kidney: Unremarkable. No hydronephrosis. No solid mass. VASCULATURE: Unremarkable. No aortic aneurysm. No atherosclerotic calcification or mural plaque present. BOWEL: Umbilical hernia containing dilated loops of contrast filled small bowel. Progressive dilatation of these loops of small bowel in the interim. Distended stomach despite the presence of a nasogastric tube coiled in the stomach. APPENDIX: Unremarkable. Normal appendix. PERITONEUM: Stable intra-abdominal and pelvic ascites. LYMPH NODES: Unremarkable. No enlarged lymph nodes. BLADDER: Unremarkable. REPRODUCTIVE: Unremarkable. BONES: No acute fracture. OTHER FINDINGS: Stable subcutaneous edema and anasarca. Above the sub umbilical hernia containing bowel, there is an additional periumbilical hernia containing fat and ascitic fluid. IMPRESSION: Worsening small bowel obstruction. Remaining findings unchanged and described in greater detail above.
[2018-12-18] MEDS ORDERED: Sodium Chloride 0.9% 500 ML IV ONE (21:53)
[2018-12-18] MEDS ORDERED: Insulin Detemir 100 Units/ml Inj SC SCH (22:00)
[2018-12-18 22:22] LABS: ABG ALLEN TEST YES; ARTERIAL BLOOD GAS HCO3 18.7 mmol/L (21-28); ARTERIAL BLOOD GAS HEMOGLOBIN 9.6 g/dL (11.7-17.4); ARTERIAL BLOOD GAS O2 CAPACITY 12.8 mL/dL (16-24); ARTERIAL BLOOD GAS O2 CONTENT 12.5 ML/dL (15-23); ARTERIAL BLOOD GAS O2 SAT 97.7 % (95-98); ARTERIAL BLOOD GAS PCO2 43 mm/Hg (35-45); ARTERIAL BLOOD GAS PH 7.25 (7.35-7.45); ARTERIAL BLOOD GAS PO2 69 mm/Hg (80-100); ARTERIAL BLOOD GAS TCO2 20.2 mmol/L (22-28)
[2018-12-18] MEDS ORDERED: Sodium Bicarbonate 7.5% (0.9 MEQ/ML) 50ML INJ IV ONE (22:30)
[2018-12-19] MEDS: Fosphenytoin 100 mg/2 ml Inj IV SCH ×3 (00:46→16:04)
[2018-12-19] MEDS ORDERED: Acetaminophen 650mg/20.3ml solution UD PO PRN (01:42)
[2018-12-19] MEDS: Lactulose 10 gm/15 ml Syrup PO SCH ×4 (03:01→15:48)
[2018-12-19] MEDS: Phenylephrine 60 MG in Sodium Chloride 0.9% 250 ML IV SCH ×4 (03:53→22:38)
[2018-12-19] MEDS: Insulin Lispro (humaLOG) 100 Units/ml Inj SC SCH ×4 (04:08→22:35)
[2018-12-19 04:29] LABS: ABG ALLEN TEST YES; ARTERIAL BLOOD GAS HCO3 14.4 mmol/L (21-28); ARTERIAL BLOOD GAS HEMOGLOBIN 7.4 g/dL (11.7-17.4); ARTERIAL BLOOD GAS O2 CAPACITY 10.1 mL/dL (16-24); ARTERIAL BLOOD GAS O2 CONTENT 9.7 ML/dL (15-23); ARTERIAL BLOOD GAS O2 SAT 96.5 % (95-98); ARTERIAL BLOOD GAS PCO2 31 mm/Hg (35-45); ARTERIAL BLOOD GAS PH 7.23 (7.35-7.45); ARTERIAL BLOOD GAS PO2 68 mm/Hg (80-100)
[2018-12-19] MEDS ORDERED: Sodium Bicarbonate 7.5% (0.9 MEQ/ML) 50ML INJ IV ONE (04:47)
[2018-12-19] MEDS: Sodium Bicarbonate 8.4% 80 MEQ in Dextrose 5%/0.45% NS 1,000 ML IV SCH ×2 (04:55→15:49)
[2018-12-19 06:16] LABS: HEMOGLOBIN 9.1 g/dL (12.0-16.0); MEAN CELL VOLUME 96.7 fl (81.0-99.0); MEAN CORPUSCULAR HEMOGLOBIN 31.5 pg (27.0-31.0); MEAN CORPUSCULAR HGB CONC 32.6 g/dL (33.0-37.0); PLATELET COUNT 48 K/uL (130-400); RBC 2.87 Mil/uL (3.80-5.20); RED CELL DISTRIBUTION WIDTH 17.6 % (11.5-14.5); WHITE BLOOD COUNT 22.7 K/uL (4.8-10.8)
[2018-12-19] MEDS ORDERED: Sodium Chloride 0.9% 500 ML IV ONE (06:41)
[2018-12-19 06:48] LABS: ALB/GLOB RATIO 0.6 (1.0-2.1); ALBUMIN 2.1 g/dL (3.5-5.0); CALCIUM 7.9 mg/dL (8.4-10.2)
--- NOTE | 2018-12-19 06:53 | CP.PCM.PN ---
Subjective - Date & Time of Evaluation Date of Evaluation: 12/19/18 Time of Evaluation: 06:52 - Subjective Subjective: Patient was seen and evaluated bedside today. Intubated on MV PRVC A/C mode 16/450/5/40% Sedated on Propofol drip, unresponsive with fixed dilated pupils. VEEG monitoring finished this am BP on the lower side ( 88/35 )on Vasopresine and Phenylephrine drip. WBC 22.7, Hgb 9.1 s/p 2 units PRBC, plt 217 Febrile through the night. Worsening renal function BUN/cr 58/4.0 Objective - Vital Signs/Intake and Output Vital Signs (last 24 hours): Temp Pulse Resp BP Pulse Ox 101.1 F H 108 H 16 84/31 L 90 L 12/19/18 06:00 12/19/18 06:00 12/19/18 06:00 12/19/18 06:00 12/19/18 06:00 Intake and Output: 12/18/18 12/19/18 18:59 06:59 Intake Total 4507 3656.6 Output Total 50 70 Balance 4457 3586.6 - Medications Medications: Current Medications Acetaminophen (Tylenol 650mg/20.3ml Solution Ud) 650 mg PO Q6 PRN PRN Reason: Temperature Last Admin: 12/19/18 04:22 Dose: 650 mg Dextrose (Dextrose 50% Inj) 0 ml IV STAT PRN; Protocol PRN Reason: Hypoglycemia Protocol Dextrose (Glutose 15) 0 gm PO ONCE PRN; Protocol PRN Reason: Hypoglycemia Protocol Fosphenytoin Sodium (Cerebyx) 100 mg IV Q8 [facility] Last Admin: 12/19/18 00:46 Dose: 100 mg Glucagon (Glucagen Diagnostic Kit) 0 mg IM STAT PRN; Protocol PRN Reason: Hypoglycemia Protocol Hydrocortisone Sodium Succinate (Solu-Cortef) 100 mg IV Q12 [facility] Last Admin: 12/18/18 20:57 Dose: 100 mg Piperacillin Sod/Tazobactam (Sod 2.25 gm/ Sodium Chloride) 100 mls @ 100 mls/hr IVPB Q12H [facility]; Protocol Last Admin: 12/19/18 03:53 Dose: 100 mls/hr Levetiracetam 1,500 mg/ Sodium (Chloride) 115 mls @ 215 mls/hr IVPB Q12H [facility] Last Admin: 12/19/18 00:00 Dose: 215 mls/hr Insulin Human Regular 100 (units/ Sodium Chloride) 101 mls @ 3.03 mls/hr IV .Q24H [facility]; Protocol Last Titration: 12/19/18 05:00 Dose: 3 units/hr, 3.03 mls/hr Sodium Bicarbonate 80 meq/ (Dextrose/Sodium Chloride) 1,080 mls @ 50 mls/hr IV .[id number] [facility] Stop: 12/20/18 07:45 Last Admin: 12/19/18 04:55 Dose: 50 mls/hr Phenylephrine HCl 60 mg/ (Sodium Chloride) 256 mls @ 5.12 mls/hr IV .Q24H [facility]; Protocol Stop: 12/19/18 08:10 Last Admin: 12/19/18 03:53 Dose: 180 mcg/min, 46.08 mls/hr Vasopressin 100 units/ Sodium (Chloride) 105 mls @ 1.89 mls/hr IV .Q24H [facility]; Protocol Last Admin: 12/18/18 12:47 Dose: 0.03 units/min, 1.89 mls/hr Lacosamide 200 mg/ Sodium (Chloride) 120 mls @ 120 mls/hr IVPB Q12@0900,2100 [facility] Last Admin: 12/18/18 21:00 Dose: 120 mls/hr Sodium Chloride (Sodium Chloride 0.9%) 500 mls @ 500 mls/hr IV .Q1H ONE Stop: 12/19/18 07:40 Norepinephrine Bitartrate 16 (mg/ Dextrose) 266 mls @ 49.88 mls/hr IV .Q5H20M ONE; Protocol Stop: 12/19/18 12:01 Insulin Human Lispro (Humalog) 0 units SC Q6H [facility]; Protocol Last Admin: 12/19/18 04:08 Dose: Not Given Lactulose (Enulose) 30 gm PO Q6 [facility] Last Admin: 12/19/18 03:01 Dose: Not Given Pantoprazole Sodium (Protonix Inj) 40 mg IVP DAILY [facility] Last Admin: 12/18/18 08:31 Dose: 40 mg Rifaximin (Xifaxan) 550 mg NG BID [facility]; Protocol Last Admin: 12/18/18 17:17 Dose: 550 mg - Labs Labs: 12/19/18 04:30 12/19/18 04:30 PT 26.5 Seconds (9.8-13.1) H D 12/18/18 09:00 INR 2.3 12/18/18 09:00 APTT 32.7 Seconds (25.6-37.1) 12/18/18 09:00 - Constitutional Appears: Other (Sedated, intubated on mechanical ventilation, unresponsible to painful stimuli) - Eye Exam Eye Exam: Scleral icterus Pupil Exam: Fixed, Mydriatic - Respiratory Exam Respiratory Exam: Clear to Ausculation Bilateral - Cardiovascular Exam Cardiovascular Exam: Tachycardia, REGULAR RHYTHM, +S1, +S2 - GI/Abdominal Exam GI & Abdominal Exam: Soft, Normal Bowel Sounds Additional comments: Umbilical hernia noted along with epigastric hernia, Epigastric easly reducible - Extremities Exam Extremities Exam: absent: Pedal Edema - Psychiatric Exam Additional comments: Sedated, pupils fixed, mydriatric, unresponsive to sternal rub - Skin Skin Exam: Dry, Warm Assessment and Plan - Assessment and Plan (Free Text) Assessment: 58 yo female with PMH Of HTN, DM, CKD, abdominal hernia, 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 Admitted to ICU for further evaluation and treatment of Hepatic Encephalopathy. As per ICU, Possible URea cycle disorder, due to sudden deterioration, will order urine/serum amino acids, urine orotic acide, ornithine transcarbamylase, citrulline, acylcarnitine level. Plan Coma/AMS due hepatic encephalopathy No mental status changes HX of cirrhosis due to hep C MELD 40 point 71.3% 3 month mortality Ammonia 300->245->742-> 407>461 Continue lactulose 30mg as per GI F/U BMP Acute Respiratory Failure due Encephalopathy Intubated, on mechanical ventilation Monitor vitals Monitor ammonia Anemia H/H 9.1/27.8 s/p 2 unit PRBC monitor cbc acute on chronic renal failure Chronic, worsening Bun/Cr 53/3.5> 58/4.0 IV hydration on dialysis Follow up Nephro Status Epilepticus Neurology on board, f/u recs c/w Keppra, Ativan and Cerebryx d/c Versed and Propofol s/p VEEG GI Bleed NPO Continue on Rocephin for SBP prophylaxis Continue IV Protonix GI consulted F/U recommendation Lactulose 30mg Surgery on board, does not recommend Surgery Sepsis with unknown source of infection Hx of paracentesis WBC 22.7 Tackycardia, fever Urine culture negative F/U blood culture Sputum culture + staph auros Continue Zosyn day 3 Continue Rifaximin day 3 HyperKalemia resolved, K 4.3 S/P insulin, albuterol S/p Calcium gluconate 4.6 once F/U BMP DM2 Chronic uncontrolled Sliding scale Hypoglycemia protocol HTN Hold medication due hypotension Monitor for blood pressure DVT prophylaxis SCD no heparin for now CODE FULL Case discussed with Dr Mani Latham PGY 2
--- NOTE | 2018-12-19 08:24 | PCM.VEEG ---
Video EEG - Procedure Start Date: 12/18/18 Start Time: 08:25 End Date: 12/19/18 End Time: 07:30 Technical Summary: DATA ACQUISITION: This was a multichannel inpatient video-EEG, a minimum of 22 channels were uti lized, performed in accordance with recommendations specified by the [place] [employer] (Bere Friedman et al. ACNS Guideline 1: Minimum Technical Requirements for Performing Clinical Electroencephalography. Journal of Clinical Neurophysiology 2016;33:303-7). The 10-20 electrode placement system was utilized in accordance with guidelines detailed by the International Federation of Clinical Neurophysiology (Marlena Breaux et al. The Ten-Twenty Electrode System of the International Federation. Recommendations for the Practice of Clinical Neurophysiology: Guidelines of the International Federation of Clinical Physiology 1999; EEG Suppl. 52.). DATA REVIEW / SPIKE DETECTION / DIGITAL ANALYSIS: The entire EEG was scanned and reviewed. Synchronized audio and video recording were reviewed at the time of each alarm and whenever an abnormality or suspicious activity was noted. The entire recording was analyzed utilizing an automated digital spike and seizure analysis program and all automatic spike and seizure detections were manually reviewed. A compressed spectral array was displayed and reviewed alongside the raw EEG tracings. In addition, further analysis of the EEG was performed when abnormalities were identified, including montage changes, dipole source localization, and frequency band identification. This study was attended 24 hours per day. - Interpretation Description of the study: Inidcation; status epilepticus EEG Finding during wakefulness: On the this day there was not discernible awake EEG background, the EEG showed diffuse marked bilateral attenuation with frequencies in the 4 to 5 Hz with superimposed fast beta activity. When she was stimulated there was no reactivity. EEG Finding during sleep: Normal sleep architecture was not seen Interictal non-epileptiform abnormalities: None Interictal epileptiform abnormalities: None Ictal epileptiform abnormalities: None - Impression Impression: This is an abnormal video EEG, monitoring study, due to the presence of: 1- Severe background slowing/attenuation . No seizures Not in status epilepticus INTERPRETATION: The above mentioned findings are in keeping with moderate to severe non specific diffuse disturbance of cortical activity. This is in keeping with a diffuse gerber matter dysfunction. The findings do not suggest a specific etiology.
[2018-12-19 08:43] LABS: BANDS 5 % (0-2); LYMPHOCYTE 5 % (20-50); MONOCYTE 9 % (0-10); NEUTROPHIL 81 % (42-75); NUCLEATED RED BLOOD CELL 2 % (0-0); PLATELET ESTIMATE DECREASED (NORMAL); TOTAL CELLS COUNTED 100
[2018-12-19 08:44] LABS: ANISOCYTOSIS SLIGHT; HYPOCHROMIC SLIGHT; OVALOCYTES SLIGHT; TEARDROP CELLS SLIGHT
[2018-12-19 08:47] LABS: TOXIC GRANULATION PRESENT
[2018-12-19] MEDS: Lacosamide 200mg/20ml 200 MG in Sodium Chloride 0.9% 100 ML IVPB SCH ×2 (10:08→20:41)
--- NOTE | 2018-12-19 10:31 | RAD ---
Date of service: 12/19/2018 HISTORY: Pt intubated COMPARISON: Comparison chest dated 12/18/2018 TECHNIQUE: 1 view obtained. FINDINGS: In situ ETT, tip of which lies approximately 3 cm above marciano. Right IJ dialysis catheter with tips in the SVC/RA junction. In situ NGT in good position LUNGS: Mild pulmonary venous congestion with bilateral lower lobe alveolar-type infiltrates and bilateral effusions PLEURA: As above. No pneumothorax apparent. CARDIOVASCULAR: Cardiomegaly. No aortic atherosclerotic calcification visible. Mild pulmonary venous congestive changes OSSEOUS STRUCTURES: No significant abnormalities. VISUALIZED UPPER ABDOMEN: Normal. OTHER FINDINGS: None. IMPRESSION: Support lines and tubes as above. Mild pulmonary venous congestion with bilateral lower lobe alveolar-type infiltrates and bilateral effusions
--- NOTE | 2018-12-19 11:13 | CP.PCM.PN ---
Subjective - Date & Time of Evaluation Date of Evaluation: 12/19/18 Time of Evaluation: 10:45 - Subjective Subjective: Pt remains unresponsive. On ventilator support & requiring 3 pressors. BP 90/40. No urine output. Objective - Vital Signs/Intake and Output Vital Signs (last 24 hours): Temp Pulse Resp BP Pulse Ox 100.4 F H 106 H 16 92/40 L 92 L 12/19/18 08:00 12/19/18 10:00 12/19/18 10:00 12/19/18 10:00 12/19/18 10:00 Intake and Output: 12/19/18 12/19/18 06:59 18:59 Intake Total 3656.6 556 Output Total 70 2 Balance 3586.6 554 - Medications Medications: Current Medications Acetaminophen (Tylenol 650mg/20.3ml Solution Ud) 650 mg PO Q6 PRN PRN Reason: Temperature Last Admin: 12/19/18 04:22 Dose: 650 mg Dextrose (Dextrose 50% Inj) 0 ml IV STAT PRN; Protocol PRN Reason: Hypoglycemia Protocol Dextrose (Glutose 15) 0 gm PO ONCE PRN; Protocol PRN Reason: Hypoglycemia Protocol Fosphenytoin Sodium (Cerebyx) 100 mg IV Q8 [facility] Last Admin: 12/19/18 10:51 Dose: 100 mg Glucagon (Glucagen Diagnostic Kit) 0 mg IM STAT PRN; Protocol PRN Reason: Hypoglycemia Protocol Hydrocortisone Sodium Succinate (Solu-Cortef) 100 mg IV Q12 [facility] Last Admin: 12/19/18 08:22 Dose: 100 mg Piperacillin Sod/Tazobactam (Sod 2.25 gm/ Sodium Chloride) 100 mls @ 100 mls/hr IVPB Q12H [facility]; Protocol Last Admin: 12/19/18 03:53 Dose: 100 mls/hr Levetiracetam 1,500 mg/ Sodium (Chloride) 115 mls @ 215 mls/hr IVPB Q12H [facility] Last Admin: 12/19/18 00:00 Dose: 215 mls/hr Insulin Human Regular 100 (units/ Sodium Chloride) 101 mls @ 3.03 mls/hr IV .Q24H [facility]; Protocol Last Titration: 12/19/18 10:48 Dose: 2 units/hr, 2.02 mls/hr Sodium Bicarbonate 80 meq/ (Dextrose/Sodium Chloride) 1,080 mls @ 50 mls/hr IV .[id number] [facility] Stop: 12/20/18 07:45 Last Admin: 12/19/18 04:55 Dose: 50 mls/hr Vasopressin 100 units/ Sodium (Chloride) 105 mls @ 1.89 mls/hr IV .Q24H [facility]; Protocol Last Admin: 12/18/18 12:47 Dose: 0.03 units/min, 1.89 mls/hr Lacosamide 200 mg/ Sodium (Chloride) 120 mls @ 120 mls/hr IVPB Q12@0900,2100 [facility] Last Admin: 12/19/18 10:08 Dose: 120 mls/hr Norepinephrine Bitartrate 16 (mg/ Dextrose) 266 mls @ 49.88 mls/hr IV .Q5H20M ONE; Protocol Stop: 12/19/18 12:01 Last Admin: 12/19/18 07:52 Dose: 30 mcg/min, 29.93 mls/hr Phenylephrine HCl 60 mg/ (Sodium Chloride) 256 mls @ 46.08 mls/hr IV .Q5H34M [facility]; Protocol Stop: 12/20/18 11:09 Insulin Human Lispro (Humalog) 0 units SC Q6H [facility]; Protocol Last Admin: 12/19/18 10:53 Dose: Not Given Lactulose (Enulose) 30 gm PO Q6 [facility] Last Admin: 12/19/18 10:10 Dose: 30 gm Pantoprazole Sodium (Protonix Inj) 40 mg IVP DAILY [facility] Last Admin: 12/19/18 08:27 Dose: 40 mg Rifaximin (Xifaxan) 550 mg NG BID [facility]; Protocol Last Admin: 12/19/18 08:22 Dose: 550 mg - Labs Labs: 12/19/18 04:30 12/19/18 04:30 PT 26.5 Seconds (9.8-13.1) H D 12/18/18 09:00 INR 2.3 12/18/18 09:00 APTT 32.7 Seconds (25.6-37.1) 12/18/18 09:00 - Head Exam Head Exam: NORMAL INSPECTION - Eye Exam Additional comments: No icterus - Neck Exam Additional comments: Neck supple - Respiratory Exam Additional comments: Lungs clear anteriorly. - Cardiovascular Exam Cardiovascular Exam: REGULAR RHYTHM Additional comments: Tachycardia @106/min. 111/V1 sm @apex. - Rectal Exam Additional comments: Soft Ascitis - Extremities Exam Additional comments: Extrem edematous Assessment and Plan - Assessment and Plan (Free Text) Assessment: Acute kidney Injury/ hepatorenal/sepsis. Clinically unstable for dialysis. Hypotension despite 3 pressors Seizures controlled with 3 anticonvulsants. Comatose state. 24 hr EEG in progress. Hepatic encephalopathy Sepsis/septic shock WBCs increased to 22,000 Plan: Dialysis can not be done at this time because of hypotension. If later in the day BP improves please let us know . Dialysis can be arranged Awaiting results of EEG
--- NOTE | 2018-12-19 14:24 | CP.PCM.PN ---
Subjective - Date & Time of Evaluation Date of Evaluation: 12/19/18 Time of Evaluation: 11:00 - Subjective Subjective: F/U Respiratory Failure Pt comatose, intubated Objective - Vital Signs/Intake and Output Vital Signs (last 24 hours): Temp Pulse Resp BP Pulse Ox 100.2 F H 104 H 16 101/42 L 94 L 12/19/18 13:00 12/19/18 14:00 12/19/18 14:00 12/19/18 14:00 12/19/18 14:00 Intake and Output: 12/19/18 12/19/18 06:59 18:59 Intake Total 3656.6 1196 Output Total 70 2 Balance 3586.6 1194 - Medications Medications: Current Medications Acetaminophen (Tylenol 650mg/20.3ml Solution Ud) 650 mg PO Q6 PRN PRN Reason: Temperature Last Admin: 12/19/18 04:22 Dose: 650 mg Dextrose (Dextrose 50% Inj) 0 ml IV STAT PRN; Protocol PRN Reason: Hypoglycemia Protocol Dextrose (Glutose 15) 0 gm PO ONCE PRN; Protocol PRN Reason: Hypoglycemia Protocol Fosphenytoin Sodium (Cerebyx) 100 mg IV Q8 [facility] Last Admin: 12/19/18 10:51 Dose: 100 mg Glucagon (Glucagen Diagnostic Kit) 0 mg IM STAT PRN; Protocol PRN Reason: Hypoglycemia Protocol Hydrocortisone Sodium Succinate (Solu-Cortef) 100 mg IV Q12 [facility] Last Admin: 12/19/18 08:22 Dose: 100 mg Piperacillin Sod/Tazobactam (Sod 2.25 gm/ Sodium Chloride) 100 mls @ 100 mls/hr IVPB Q12H [facility]; Protocol Last Admin: 12/19/18 03:53 Dose: 100 mls/hr Levetiracetam 1,500 mg/ Sodium (Chloride) 115 mls @ 215 mls/hr IVPB Q12H [facility] Last Admin: 12/19/18 00:00 Dose: 215 mls/hr Insulin Human Regular 100 (units/ Sodium Chloride) 101 mls @ 3.03 mls/hr IV .Q24H [facility]; Protocol Last Titration: 12/19/18 10:48 Dose: 2 units/hr, 2.02 mls/hr Sodium Bicarbonate 80 meq/ (Dextrose/Sodium Chloride) 1,080 mls @ 50 mls/hr IV .[id number] [facility] Stop: 12/20/18 07:45 Last Admin: 12/19/18 04:55 Dose: 50 mls/hr Vasopressin 100 units/ Sodium (Chloride) 105 mls @ 1.89 mls/hr IV .Q24H [facility]; Protocol Last Admin: 12/18/18 12:47 Dose: 0.03 units/min, 1.89 mls/hr Lacosamide 200 mg/ Sodium (Chloride) 120 mls @ 120 mls/hr IVPB Q12@0900,2100 [facility] Last Admin: 12/19/18 10:08 Dose: 120 mls/hr Phenylephrine HCl 60 mg/ (Sodium Chloride) 256 mls @ 46.08 mls/hr IV .Q5H34M [facility]; Protocol Stop: 12/20/18 11:09 Last Admin: 12/19/18 11:53 Dose: 180 mcg/min, 46.08 mls/hr Insulin Human Lispro (Humalog) 0 units SC Q6H [facility]; Protocol Last Admin: 12/19/18 10:53 Dose: Not Given Lactulose (Enulose) 30 gm PO Q6 [facility] Last Admin: 12/19/18 10:10 Dose: 30 gm Pantoprazole Sodium (Protonix Inj) 40 mg IVP DAILY [facility] Last Admin: 12/19/18 08:27 Dose: 40 mg Rifaximin (Xifaxan) 550 mg NG BID [facility]; Protocol Last Admin: 12/19/18 08:22 Dose: 550 mg - Labs Labs: 12/19/18 04:30 12/19/18 04:30 PT 26.5 Seconds (9.8-13.1) H D 12/18/18 09:00 INR 2.3 12/18/18 09:00 APTT 32.7 Seconds (25.6-37.1) 12/18/18 09:00 - Constitutional Appears: Chronically Ill - Head Exam Head Exam: NORMAL INSPECTION - Eye Exam Additional comments: Pupils sluggish reaction. - ENT Exam Additional comments: Intubated. OGT - Neck Exam Neck Exam: Normal Inspection - Respiratory Exam Respiratory Exam: Decreased Breath Sounds (b/l), Rhonchi - Cardiovascular Exam Cardiovascular Exam: Tachycardia - GI/Abdominal Exam GI & Abdominal Exam: Soft - Extremities Exam Additional comments: Edema BLE, feet cool to touch. - Back Exam Back Exam: NORMAL INSPECTION - Neurological Exam Additional comments: Intubated, sedated, comatose. - Skin Skin Exam: Warm Assessment and Plan (1) Acute respiratory failure Status: Acute (2) Hepatic encephalopathy Status: Acute - Assessment and Plan (Free Text) Plan: Continue ventilatory support, on PRVC/AC FIO2 60%, Vasopressors at maximum dose. Poor prognosis.
[2018-12-19] MEDS: levETIRAcetam 1,500 MG in Sodium Chloride 0.9% 100 ML IVPB SCH ×2 (14:40)
--- NOTE | 2018-12-19 15:57 | PN ---
DATE: 12/19/2018 LOCATION: The patient in ICU, bed 426. TIME SPENT: 45 minutes. SUBJECTIVE: The patient is seen and evaluated at the bedside. Past medical, surgical, family, and social history reviewed and discussed with the patient's family. A 58-year-old female with medical history significant for hypertension, diabetes mellitus type 2, chronic kidney disease, abdominal hernia, liver cirrhosis due to hepatitis C through blood transfusion. Morbidly obese. Admitted through emergency room on 12/14/2018, complaining of altered mental status/comatose since the day prior to the admission. The patient was recently admitted to the hospital with abdominal pain, abdominal distention, nausea, vomiting and noted to have umbilical hernia, was reproducible, scheduled for hernia repair as outpatient. Clinical course noted, remained unresponsive, noted to have persistent seizure activity, loaded with multiple antiseizure medications. Repeat showed no further status epilepticus, remains comatose on the ventilator. No sedation. No response to verbal or painful stimuli. Vent setting: AC/PRVC rate 16, tidal volume 450, FiO2 of 40%, PEEP of 5, observed rate 16, observed tidal volume 430, minute ventilation 6.9 liters, peak airway pressure 25, and end-tidal CO2 of 37. PHYSICAL EXAMINATION: VITAL SIGNS: Temperature 101.1, heart rate 106 regular, blood pressure 92/40, mean arterial pressure 57, on multiple pressors, and oxygen saturation 92%. Intake 8163, output of 120, positive balance 8043.6, weight 237 pounds. Status post hemodialysis two days ago. HEAD, EYES, EARS, NOSE AND THROAT: Pupils 4-5 mm, midline, nonreactive. Sclerae muddy. NECK: Short. Endotracheal tube in place. No secretion noted. CHEST: Bilateral breath sounds diminished in intensity. Clear to auscultation anteriorly and laterally. HEART: Rhythm regular. S1 and S2 rapid. No audible murmur. ABDOMEN: Bowel sounds present, diminished. Umbilical ventral hernia present. Abdomen distended. EXTREMITIES: 1+ edema. DP palpable. No palpable cord. SKIN: With skin excoriation. NEUROLOGIC: No response to verbal or painful stimuli. Does not respond to deep suctioning. Pupils midline, nonreactive. No corneal reflex. No conjunctival reflex. LABORATORY DATA: WBC 22.7, hemoglobin 9.1, hematocrit 27.8, and platelet count of 48. PT 26.5, INR 2.3, and PTT 32.7. ABG; pH 7.25, pCO2 of 43, pO2 of 69, saturation 92.3% on AC 16, 450, 40%, PEEP of 5, FiO2 increased to 60%. SMA-7: Sodium 142, potassium 4.3, chloride 105, CO2 of 22, anion gap 19, BUN 58, creatinine 4, random glucose 185, calcium 7.9, total bilirubin 7.5, AST 137, ALT 77, and alkaline phosphatase 103. Ammonia 461, total protein 5.4, and albumin 2.1. Urine osmolality 394, random potassium 21.9. Urine sodium 9. Toxicology; acetaminophen less than 10, salicylates less than 1. Serology, hepatitis B surface antigen negative, hepatitis B surface antibody less than 5, hepatitis B core IgM negative, and hepatitis C antibody reactive. Microbiology: Sputum culture positive for Staph aureus. Blood culture, no growth noted. Urine culture, no growth. Nasal smear MRSA negative. Head CT done on 12/16/2018; no acute hemorrhage, no inflammatory change, unremarkable as visualized. No significant abnormality of the paranasal sinuses. Chest x-ray, endotracheal tube in place, no pneumothorax, bilateral pulmonary vascular congestion. CURRENT MEDICATIONS: Include Tylenol 650 every 6 hours p.r.n., Celebrex 100 mg IV every 8 hours, hydrocortisone 100 mg IV every 12 hours, Humalog Accu-Chek, insulin drip 100 units in 100 mL at 3 units per hour per protocol, Lacosamide 200 mg IV every 12 hours, lactulose 30 g p.o. every 6 hours, Keppra 1500 mg twice daily, norepinephrine at 50 mcg per minute, Protonix 40 IV daily, phenylephrine 60 mg in 256 at 180 mcg per minute, Zosyn 2.25 g IV every 12 hours, Xifaxan 550 mg twice daily, sodium bicarbonate at 50 mL per hour, and vasopressin 100 units in 105 mL at 0.03 units per minute. IMPRESSION AND PLAN: 1. Neurologic: Comatose, pupils fixed and dilated. No gag reflex. Toxic metabolic: Possible septic encephalopathy, hepatic failure, history of liver cirrhosis from hepatitis C and associated ascites. 2. Pulmonary: Hypoxic respiratory failure, bilateral pulmonary vascular congestion, hemodialysis on hold secondary to hypotension and unable to accomplish dialysis. Sputum culture positive for Staphylococcus aureus, on vancomycin, on hold now. 3. Cardiac: Sinus tachycardia secondary to ongoing systemic inflammatory response syndrome/infection. 4. Hypotension, multiple pressors dependent. 5. Gastrointestinal: History of hepatitis C infection related liver cirrhosis, ascites. Awaiting to be seen by Liver Transplant at the [facility], noted to have reproducible ventral hernia, status post repair in the past. CT abdomen showed possible adynamic ileus, currently on rifaximin and lactulose, limited diarrhea interfering with use of lactulose. We will attempt retention enema. 6. Renal: Acute on chronic renal failure, status post hemodialysis once, unable to accomplish the next dialysis due to hypotension. Hyperkalemia resolved, on bicarbonate drip for profound metabolic acidosis. Discussed with renal consult. 7. Hematology: Leukocytosis secondary to ongoing inflammation/infection. Hemoglobin and hematocrit stable. Thrombocytopenia, chronic, associated with liver cirrhosis. Coagulopathy secondary to liver cirrhosis. 8. Endocrinology: History of diabetes mellitus type 2, on insulin coverage. Maintain blood sugar less than 180. 9. Deep vein thrombosis prophylaxis: The patient with auto-coagulopathy. Keep head of bed at 30 degrees. Ven[address] boots in place. Continue Snell for adequate urine output measurement. Ming Meredith MD
[2018-12-19] MEDS ORDERED: Lactulose 10 gm/15 ml (Rectal Use) PR SCH (22:00)
[2018-12-20] MEDS: Fosphenytoin 100 mg/2 ml Inj IV SCH ×3 (01:03→16:28)
[2018-12-20] MEDS: levETIRAcetam 1,500 MG in Sodium Chloride 0.9% 100 ML IVPB SCH ×2 (01:27→13:52)
[2018-12-20] MEDS: Lactulose 10 gm/15 ml (Rectal Use) PR SCH ×5 (01:53→17:50)
[2018-12-20] MEDS ORDERED: Dextrose 50% SYRINGE Inj (50 ml) ONE (04:30)
[2018-12-20] MEDS ORDERED: Sodium Bicarbonate (8.4%) 50 Meq Syringe IVP ONE ×6 (04:37→16:09)
[2018-12-20] MEDS ORDERED: Dextrose 50% SYRINGE Inj (50 ml) IVP ONE ×3 (04:39→17:53)
[2018-12-20] MEDS: Phenylephrine 60 MG in Sodium Chloride 0.9% 250 ML IV SCH ×2 (04:45→11:24)
[2018-12-20] MEDS: Insulin Lispro (humaLOG) 100 Units/ml Inj SC SCH ×3 (04:48→17:49)
[2018-12-20 05:30] LABS: HEMOGLOBIN 7.3 g/dL (12.0-16.0); MEAN CELL VOLUME 107.2 fl (81.0-99.0); MEAN CORPUSCULAR HEMOGLOBIN 32.2 pg (27.0-31.0); MEAN CORPUSCULAR HGB CONC 30.1 g/dL (33.0-37.0); RBC 2.26 Mil/uL (3.80-5.20); RED CELL DISTRIBUTION WIDTH 21.3 % (11.5-14.5); WHITE BLOOD COUNT 24.5 K/uL (4.8-10.8)
[2018-12-20 05:38] LABS: ALB/GLOB RATIO 0.6 (1.0-2.1); ALBUMIN 1.7 g/dL (3.5-5.0); CALCIUM 7.1 mg/dL (8.4-10.2)
[2018-12-20] MEDS ORDERED: Albumin Human 25% (12.5 gm/50 ml) IV ONE (05:50)
[2018-12-20] MEDS ORDERED: Insulin Regular 100 units/ml IVP STA (05:55)
[2018-12-20] MEDS ORDERED: Sodium Bicarbonate (8.4%) 50 Meq Syringe IV ONE (06:25)
--- NOTE | 2018-12-20 07:38 | CP.PCM.PN ---
Subjective - Date & Time of Evaluation Date of Evaluation: 12/20/18 Time of Evaluation: 07:00 - Subjective Subjective: Patient seen and examined at bedside. Patient is currently intubated Intubated on PRVC 16, 0peep 20, FIO2 100%, Sedated on Propofol drip, unresponsive with fixed dilated pupils. BP 99/32 with HR 99/32 on Vasopresine and Phenylephrine drip. Insulin and bicarb drip WBC 24.5, Hgb 9.1 s/p 2 units PRBC, plt 26 Afebrile Worsening renal function BUN/cr 51/5.0 AST ALT 2101/503 Ammonia 1390 Objective - Vital Signs/Intake and Output Vital Signs (last 24 hours): Temp Pulse Resp BP Pulse Ox 97.7 F 86 16 86/38 L 100 12/20/18 05:00 12/20/18 05:00 12/20/18 05:00 12/20/18 05:00 12/20/18 05:00 Intake and Output: 12/20/18 12/20/18 06:59 18:59 Intake Total 1517 Output Total 7 Balance 1510 - Medications Medications: Current Medications Acetaminophen (Tylenol 650mg/20.3ml Solution Ud) 650 mg PO Q6 PRN PRN Reason: Temperature Last Admin: 12/19/18 04:22 Dose: 650 mg Dextrose (Dextrose 50% Inj) 0 ml IV STAT PRN; Protocol PRN Reason: Hypoglycemia Protocol Dextrose (Glutose 15) 0 gm PO ONCE PRN; Protocol PRN Reason: Hypoglycemia Protocol Fosphenytoin Sodium (Cerebyx) 100 mg IV Q8 JOCELIN Last Admin: 12/20/18 01:03 Dose: 100 mg Glucagon (Glucagen Diagnostic Kit) 0 mg IM STAT PRN; Protocol PRN Reason: Hypoglycemia Protocol Hydrocortisone Sodium Succinate (Solu-Cortef) 100 mg IV Q12 JOCELIN Last Admin: 12/19/18 20:38 Dose: 100 mg Piperacillin Sod/Tazobactam (Sod 2.25 gm/ Sodium Chloride) 100 mls @ 100 mls/hr IVPB Q12H JOCELIN; Protocol Last Admin: 12/20/18 04:49 Dose: 100 mls/hr Levetiracetam 1,500 mg/ Sodium (Chloride) 115 mls @ 215 mls/hr IVPB Q12H JOCELIN Last Admin: 12/20/18 01:27 Dose: 215 mls/hr Sodium Bicarbonate 80 meq/ (Dextrose/Sodium Chloride) 1,080 mls @ 50 mls/hr IV .[id number] JOCELIN Stop: 12/20/18 07:45 Last Admin: 12/19/18 15:49 Dose: 50 mls/hr Vasopressin 100 units/ Sodium (Chloride) 105 mls @ 1.89 mls/hr IV .Q24H JOCELIN; Protocol Last Admin: 12/20/18 01:35 Dose: 0.03 units/min, 1.89 mls/hr Lacosamide 200 mg/ Sodium (Chloride) 120 mls @ 120 mls/hr IVPB Q12@0900,2100 JOCELIN Last Admin: 12/19/18 20:41 Dose: 120 mls/hr Phenylephrine HCl 60 mg/ (Sodium Chloride) 256 mls @ 46.08 mls/hr IV .Q5H34M JOCELIN; Protocol Stop: 12/20/18 11:09 Last Admin: 12/20/18 04:45 Dose: 180 mcg/min, 46.08 mls/hr Vancomycin HCl 500 mg/ Sodium (Chloride) 100 mls @ 100 mls/hr IVPB ONCE ONE; Protocol Stop: 12/20/18 08:22 Insulin Human Lispro (Humalog) 0 units SC Q6H JOCELIN; Protocol Last Admin: 12/20/18 04:48 Dose: Not Given Lactulose (Generlac) 200 gm LA Q4H JOCELIN Last Admin: 12/20/18 06:29 Dose: 200 mg Pantoprazole Sodium (Protonix Inj) 40 mg IVP DAILY [facility] Last Admin: 12/19/18 08:27 Dose: 40 mg Rifaximin (Xifaxan) 550 mg NG BID JOCELIN; Protocol Last Admin: 12/19/18 16:09 Dose: 550 mg - Labs Labs: 12/20/18 05:00 12/20/18 05:00 PT 26.5 Seconds (9.8-13.1) H D 12/18/18 09:00 INR 2.3 12/18/18 09:00 APTT 32.7 Seconds (25.6-37.1) 12/18/18 09:00 - Constitutional Appears: Other (comatose ) - Head Exam Head Exam: ATRAUMATIC, NORMAL INSPECTION, NORMOCEPHALIC - Eye Exam Eye Exam: Scleral icterus Additional comments: dialated, fixed - Respiratory Exam Respiratory Exam: Rhonchi - Cardiovascular Exam Cardiovascular Exam: REGULAR RHYTHM, +S1, +S2 - GI/Abdominal Exam GI & Abdominal Exam: Soft, Normal Bowel Sounds Additional comments: epigastric and umbilical hernia noted, abdomen soft bs+ - Skin Additional comments: jaundice Assessment and Plan - Assessment and Plan (Free Text) Assessment: 58 yo female with PMH Of HTN, DM, CKD, abdominal hernia, 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 Admitted to ICU for further evaluation and treatment of Hepatic Encephalopathy. Patient currently comatose, intubated Neuro, and surgery are in the case Hematology and ID consulted X-ray: R pleural Effusion Patient is in poor prognosis, Patient is intubated, and on 3 vasopressors. worsening labs PLT 26, Ammonia 1390, AST/ALT 2101/503, h/h 7.3/24. CO2 9 PLan Due to worsening lab, DIC need to be r/o Pt/PTT Fibrinogen peripheral smear Hematology consult Comatose/AMS due hepatic encephalopathy Patient still comatose No mental status changes HX of cirrhosis due to hep C MELD 40 point 71.3% 3 month mortality Patient Currently intubated Ammonia 300->245->742-> 407->1390 Continue lactulose 30mg as per GI F/U BMP Acute Respiratory Failure due Encephalopathy Intubated on ventilator ICU Monitor vitals Monitor ammonia F/U BMp Anemia H/H 7.7/23.9->7.3/27.3 S/P 2 unit transfusion DUE to possible DIC, futher transfusion will not help F/U CBC acute on chronic renal failure Chronic worsening Bun/Cr 64/3.6-> 53/3.5->51/5.0 IV hydration Continue monitoring S/P dialysis Continue monitoring Due patient unstable dialysis is not recommended Follow up Nephro Status Epilepticus Neurology on case Patient received Keppra loading dose Ativan 4mg prn Versed and Propofol Keppra Depakote Vimpat Phenobarbital Cerebryx GI Bleed Nurse report coffee ground emesis Continue on Rocephin for SBP prophylaxis Continue IV Protonix NPO Type and screen 2 units GI consulted F/U recommendation Lactulose 30mg Lactic acid 6.8 Surgery on board, does not recommend Surgery Sepsis with unknown source of infection Hx of paracentesis WBC 11.0-> 24.5 Tackycardia, Sudden AMS Urine culture negative F/U blood culture Sputum culture + staph auros Continue Zosyn day 4 Continue Rifaximin day 4 Vancomycin 1 dose due to sputum culture ID consulted, follow up consulted HyperKalemia Potassium 6.6->5.5->4.0 -> 6.0 S/P insulin, albuterol EKG no T weak peak S/p Calcium gluconate 4.6 once Continue insulin drip Bicarb drip F/U BMP DM2 Chronic uncontrolled Sliding scale Hypoglycemia protocol Hypotensive low blood pressure despide pressor Albumin given Continue monitoring HTN Hold medication due to condition Monitor for blood pressure DVT prophylaxis SCD no heparin for now CODE FULL
--- NOTE | 2018-12-20 07:58 | CP.CCUPN ---
CCU Subjective - Physician Review Events Since Last Encounter (Free Text): Patient on ventilator, on PRVC TV 450, RR 20, FIO2 100%, on pressors, no response to verbal stimuli, on bicarbonate drip, events reviewed CCU Objective - Vital Signs / Intake & Output Vital Signs (Last 4 hours): Vital Signs Temp Pulse Resp BP Pulse Ox 12/20/18 07:00 97.4 F L 121 H 20 99/32 L 91 L 12/20/18 06:00 97.7 F 130 H 20 91/39 L 98 12/20/18 05:00 97.7 F 86 16 86/38 L 100 12/20/18 04:00 98.2 F 85 16 115/32 L 100 Intake and Output (Last 8hrs): Intake & Output 12/19/18 12/20/18 12/20/18 22:59 06:59 14:59 Intake Total 1524 961 Output Total 5 2 Balance 1519 959 Intake: IV 1224 661 Intake, Piggyback 300 300 Output: Urine 5 2 Urethral (Snell) 5 2 Other: # Bowel Movements 0 - Physical Exam Head: Positive for: Atraumatic, Normocephalic Pupils: Positive for: PERRL Conjunctiva: Positive for: Normal, Injected Ears: Positive for: Normal Mouth: Positive for: Moist Mucous Membranes Pharnyx: Positive for: Normal Neck: Positive for: Trachea Midline Respiratory/Chest: Positive for: Rhonchi Cardiovascular: Positive for: Normal S1, S2 Abdomen: Positive for: Other (umblical hernia) Upper Extremity: Positive for: Normal Inspection Lower Extremity: Positive for: Normal Inspection Neurological: Positive for: Other (on ventilator, no response to verbal stimuli). Negative for: Norm Deep Tendon Reflexes - Medications Active Medications: Active Medications Generic Name Dose Route Start Last Admin Trade Name Freq PRN Reason Stop Dose Admin Acetaminophen 650 mg 12/19/18 01:42 12/19/18 04:22 Tylenol 650mg/20.3ml Solution Ud PO 650 mg Q6 PRN Administration Temperature Dextrose 0 ml 12/18/18 07:41 Dextrose 50% Inj IV STAT PRN Hypoglycemia Protocol Protocol Dextrose 0 gm 12/18/18 07:41 Glutose 15 PO ONCE PRN Hypoglycemia Protocol Protocol Fosphenytoin Sodium 100 mg 12/17/18 09:00 12/20/18 01:03 Cerebyx IV 100 mg Q8 JOCELIN Administration Glucagon 0 mg 12/18/18 07:41 Glucagen Diagnostic Kit IM STAT PRN Hypoglycemia Protocol Protocol Hydrocortisone Sodium Succinate 100 mg 12/18/18 12:15 12/19/18 20:38 Solu-Cortef IV 100 mg Q12 JOCELIN Administration Piperacillin Sod/Tazobactam 100 mls @ 100 mls/hr 12/15/18 16:30 12/20/18 04:49 Sod 2.25 gm/ Sodium Chloride IVPB 100 mls/hr Q12H JOCELIN Administration Protocol Levetiracetam 1,500 mg/ Sodium 115 mls @ 215 mls/hr 12/17/18 00:00 12/20/18 01:27 Chloride IVPB 215 mls/hr Q12H JOCELIN Administration Vasopressin 100 units/ Sodium 105 mls @ 1.89 mls/hr 12/18/18 12:00 12/20/18 01:35 Chloride IV 0.03 units/min .Q24H JOCELIN 1.89 mls/hr Administration Protocol 0.03 UNITS/MIN Lacosamide 200 mg/ Sodium 120 mls @ 120 mls/hr 12/18/18 21:00 12/19/18 20:41 Chloride IVPB 120 mls/hr Q12@0900,2100 JOCELIN Administration Phenylephrine HCl 60 mg/ 256 mls @ 46.08 mls/hr 12/19/18 11:15 12/20/18 04:45 Sodium Chloride IV 12/20/18 11:09 180 mcg/min .Q5H34M JOCELIN 46.08 mls/hr Administration Protocol 180 MCG/MIN Vancomycin HCl 500 mg/ Sodium 100 mls @ 100 mls/hr 12/20/18 07:23 Chloride IVPB 12/20/18 08:22 ONCE ONE Protocol Insulin Human Lispro 0 units 12/15/18 22:45 12/20/18 04:48 Humalog SC Not Given Q6H JOCELIN Protocol Lactulose 200 gm 12/20/18 02:00 12/20/18 06:29 Generlac MO 200 mg Q4H JOCELIN Administration Pantoprazole Sodium 40 mg 12/16/18 09:00 12/19/18 08:27 Protonix Inj IVP 40 mg DAILY JOCELIN Administration Rifaximin 550 mg 12/16/18 17:00 12/19/18 16:09 Xifaxan NG 550 mg BID JOCELIN Administration Protocol - Patient Studies Lab Studies: Microbiology Studies 12/15/18 15:30 Blood Culture - Preliminary Blood NO GROWTH AFTER 4 DAYS 12/15/18 13:40 Gram Stain - Final Trachasp Sputum Culture - Final Staphylococcus Aureus 12/15/18 17:45 Blood Culture - Preliminary Blood NO GROWTH AFTER 3 DAYS Lab Studies 12/20/18 12/20/18 12/20/18 Range/Units 05:00 05:00 05:00 WBC 24.5 H (4.8-10.8) K/uL RBC 2.26 L (3.80-5.20) Mil/uL Hgb 7.3 L (12.0-16.0) g/dL Hct 24.3 L (34.0-47.0) % MCV 107.2 H D (81.0-99.0) fl MCH 32.2 H (27.0-31.0) pg MCHC 30.1 L (33.0-37.0) g/dL RDW 21.3 H (11.5-14.5) % Plt Count 26 L* D (130-400) K/uL Neutrophils % (Manual) (42-75) % Band Neutrophils % (0-2) % Lymphocytes % (Manual) (20-50) % Monocytes % (Manual) (0-10) % Nucleated RBC % (0-0) % Toxic Granulation Platelet Estimate (NORMAL) Hypochromasia (manual) Anisocytosis (manual) Tear Drop Cells Ovalocytes Sodium 141 (132-148) mmol/l Potassium 6.0 H (3.6-5.0) MMOL/L Chloride 105 (98-107) mmol/L Carbon Dioxide 9 L* D (22-30) mmol/L Anion Gap 33 H (10-20) BUN 51 H (7-17) mg/dl Creatinine 5.0 H (0.7-1.2) mg/dl Est GFR ( Amer) 11 Est GFR (Non-Af Amer) 9 Random Glucose 121 H (65-105) mg/dL Calcium 7.1 L (8.4-10.2) mg/dL Phosphorus 10.4 H (2.5-4.5) mg/dl Magnesium 1.8 (1.6-2.3) MG/DL Total Bilirubin 6.5 H (0.2-1.3) mg/dl AST 2101 H (14-36) U/L ALT 503 H D (9-52) U/L Alkaline Phosphatase 88 (38-126) U/L Ammonia 1390 H* D (9-33) umol/L Total Protein 4.3 L (6.3-8.2) G/DL Albumin 1.7 L (3.5-5.0) g/dL Globulin 2.6 (2.2-3.9) gm/dL Albumin/Globulin Ratio 0.6 L (1.0-2.1) 12/19/18 Range/Units 04:30 WBC (4.8-10.8) K/uL RBC (3.80-5.20) Mil/uL Hgb (12.0-16.0) g/dL Hct (34.0-47.0) % MCV (81.0-99.0) fl MCH (27.0-31.0) pg MCHC (33.0-37.0) g/dL RDW (11.5-14.5) % Plt Count (130-400) K/uL Neutrophils % (Manual) 81 H (42-75) % Band Neutrophils % 5 H (0-2) % Lymphocytes % (Manual) 5 L (20-50) % Monocytes % (Manual) 9 (0-10) % Nucleated RBC % 2 H (0-0) % Toxic Granulation Present Platelet Estimate Decreased L (NORMAL) Hypochromasia (manual) Slight Anisocytosis (manual) Slight Tear Drop Cells Slight Ovalocytes Slight Sodium (132-148) mmol/l Potassium (3.6-5.0) MMOL/L Chloride (98-107) mmol/L Carbon Dioxide (22-30) mmol/L Anion Gap (10-20) BUN (7-17) mg/dl Creatinine (0.7-1.2) mg/dl Est GFR ( Amer) Est GFR (Non-Af Amer) Random Glucose (65-105) mg/dL Calcium (8.4-10.2) mg/dL Phosphorus (2.5-4.5) mg/dl Magnesium (1.6-2.3) MG/DL Total Bilirubin (0.2-1.3) mg/dl AST (14-36) U/L ALT (9-52) U/L Alkaline Phosphatase (38-126) U/L Ammonia (9-33) umol/L Total Protein (6.3-8.2) G/DL Albumin (3.5-5.0) g/dL Globulin (2.2-3.9) gm/dL Albumin/Globulin Ratio (1.0-2.1) Laboratory Results - last 24 hr 12/19/18 12/20/18 12/20/18 04:30 05:00 05:00 WBC 24.5 H RBC 2.26 L Hgb 7.3 L Hct 24.3 L MCV 107.2 H D MCH 32.2 H MCHC 30.1 L RDW 21.3 H Plt Count 26 L* D Neutrophils % (Manual) 81 H Band Neutrophils % 5 H Lymphocytes % (Manual) 5 L Monocytes % (Manual) 9 Nucleated RBC % 2 H Toxic Granulation Present Platelet Estimate Decreased L Hypochromasia (manual) Slight Anisocytosis (manual) Slight Tear Drop Cells Slight Ovalocytes Slight Sodium 141 Potassium 6.0 H Chloride 105 Carbon Dioxide 9 L* D Anion Gap 33 H BUN 51 H Creatinine 5.0 H Est GFR ( Amer) 11 Est GFR (Non-Af Amer) 9 Random Glucose 121 H Calcium 7.1 L Phosphorus 10.4 H Magnesium 1.8 Total Bilirubin 6.5 H AST 2101 H ALT 503 H D Alkaline Phosphatase 88 Ammonia Total Protein 4.3 L Albumin 1.7 L Globulin 2.6 Albumin/Globulin Ratio 0.6 L 12/20/18 05:00 WBC RBC Hgb Hct MCV MCH MCHC RDW Plt Count Neutrophils % (Manual) Band Neutrophils % Lymphocytes % (Manual) Monocytes % (Manual) Nucleated RBC % Toxic Granulation Platelet Estimate Hypochromasia (manual) Anisocytosis (manual) Tear Drop Cells Ovalocytes Sodium Potassium Chloride Carbon Dioxide Anion Gap BUN Creatinine Est GFR ( Amer) Est GFR (Non-Af Amer) Random Glucose Calcium Phosphorus Magnesium Total Bilirubin AST ALT Alkaline Phosphatase Ammonia 1390 H* D Total Protein Albumin Globulin Albumin/Globulin Ratio Radiology Impressions: Radiology Impressions Chest X-Ray 12/19/18 05:00 IMPRESSION: Support lines and tubes as above. Mild pulmonary venous congestion with bilateral lower lobe alveolar-type infiltrates and bilateral effusions Fingerstick Blood Sugar Results: 65 Critical Care Progress Note - Nutrition Nutrition: Nutrition Category Date Time Status NPO Diet [DIET] Diets 12/15/18 Dinner Active Assessment/Plan - Assessment and Plan (Free Text) Assessment: A/P Respiratory failure, liver cirrhosis, renal failure, sepsis, s/p status epilepticus, hepatitis c, DM, umbilical hernia, anemia, thrombocytopenia - Ventilatory support - Continue meds - Pressors as needed - Bicarbonate drip - Consults follow up - Multiorgan failure - Poor prognosis Critical care 40 min
[2018-12-20] MEDS ORDERED: Sodium Bicarbonate (8.4%) 50 Meq Syringe IVP STA ×2 (09:12→09:13)
[2018-12-20] MEDS: Lacosamide 200mg/20ml 200 MG in Sodium Chloride 0.9% 100 ML IVPB SCH (10:11)
[2018-12-20] MEDS ORDERED: DEXTROSE IV SCH (10:15)
[2018-12-20] MEDS ORDERED: SODIUM BICARBONATE IV SCH (10:15)
[2018-12-20] MEDS ORDERED: NS IV SCH (10:15)
--- NOTE | 2018-12-20 11:04 | RAD ---
Date of service: 12/20/2018 HISTORY: intubated COMPARISON: None available. TECHNIQUE: 1 view obtained. FINDINGS: In situ ETT, tip of which lies approximately 2.5 cm above marciano. NGT is present, the tip of which appears to lie right mid abdomen. In situ right IJ central venous access catheter with tip in the SVC/RA junction. LUNGS: Pulmonary venous congestive changes with bilateral of lower lobe infiltrates and bilateral effusions PLEURA: As above. No pneumothorax apparent. CARDIOVASCULAR: No aortic atherosclerotic calcification present. Heart size difficult to assess due to silhouetting though heart appears enlarged. OSSEOUS STRUCTURES: No significant abnormalities. VISUALIZED UPPER ABDOMEN: Normal. OTHER FINDINGS: None. IMPRESSION: Support lines and tubes as above. Pulmonary venous congestive changes with bilateral of lower lobe infiltrates and bilateral effusions
--- NOTE | 2018-12-20 11:22 | CP.PCM.PN ---
Subjective - Date & Time of Evaluation Date of Evaluation: 12/20/18 Time of Evaluation: 10:50 - Subjective Subjective: Events reviewed Pt remains unresponsive. On ventilator support. No urine out put & is edematous. NG tube draining large quantities of dark coffee ground appearing fluid. Objective - Vital Signs/Intake and Output Vital Signs (last 24 hours): Temp Pulse Resp BP Pulse Ox 96.8 F L 124 H 20 99/41 L 100 12/20/18 08:00 12/20/18 10:00 12/20/18 10:00 12/20/18 10:00 12/20/18 10:00 Intake and Output: 12/20/18 12/20/18 06:59 18:59 Intake Total 1517 300 Output Total 7 Balance 1510 300 - Medications Medications: Current Medications Acetaminophen (Tylenol 650mg/20.3ml Solution Ud) 650 mg PO Q6 PRN PRN Reason: Temperature Last Admin: 12/19/18 04:22 Dose: 650 mg Dextrose (Dextrose 50% Inj) 0 ml IV STAT PRN; Protocol PRN Reason: Hypoglycemia Protocol Dextrose (Glutose 15) 0 gm PO ONCE PRN; Protocol PRN Reason: Hypoglycemia Protocol Fosphenytoin Sodium (Cerebyx) 100 mg IV Q8 [facility] Last Admin: 12/20/18 09:16 Dose: 100 mg Glucagon (Glucagen Diagnostic Kit) 0 mg IM STAT PRN; Protocol PRN Reason: Hypoglycemia Protocol Hydrocortisone Sodium Succinate (Solu-Cortef) 100 mg IV Q12 [facility] Last Admin: 12/20/18 09:20 Dose: 100 mg Piperacillin Sod/Tazobactam (Sod 2.25 gm/ Sodium Chloride) 100 mls @ 100 mls/hr IVPB Q12H [facility]; Protocol Last Admin: 12/20/18 04:49 Dose: 100 mls/hr Levetiracetam 1,500 mg/ Sodium (Chloride) 115 mls @ 215 mls/hr IVPB Q12H [facility] Last Admin: 12/20/18 01:27 Dose: 215 mls/hr Vasopressin 100 units/ Sodium (Chloride) 105 mls @ 1.89 mls/hr IV .Q24H [facility]; Protocol Last Admin: 12/20/18 01:35 Dose: 0.03 units/min, 1.89 mls/hr Lacosamide 200 mg/ Sodium (Chloride) 120 mls @ 120 mls/hr IVPB Q12@0900,2100 [facility] [place] Last Admin: 12/20/18 10:11 Dose: 120 mls/hr Sodium Bicarbonate 80 meq/ (Dextrose/Sodium Chloride) 1,080 mls @ 50 mls/hr IV .[id number] [facility] Stop: 12/21/18 10:03 Insulin Human Lispro (Humalog) 0 units SC Q6H [facility]; Protocol Last Admin: 12/20/18 04:48 Dose: Not Given Lactulose (Generlac) 200 gm TX Q4H [facility] [place] Last Admin: 12/20/18 10:12 Dose: 200 gm Pantoprazole Sodium (Protonix Inj) 40 mg IVP DAILY [facility] [place] Last Admin: 12/20/18 09:20 Dose: 40 mg Rifaximin (Xifaxan) 550 mg NG BID [facility] [place]; Protocol Last Admin: 12/20/18 09:21 Dose: 550 mg - Labs Labs: 12/20/18 05:00 12/20/18 05:00 PT 26.5 Seconds (9.8-13.1) H D 12/18/18 09:00 INR 2.3 12/18/18 09:00 APTT 32.7 Seconds (25.6-37.1) 12/18/18 09:00 - Constitutional Appears: Other - Head Exam Head Exam: ATRAUMATIC, NORMOCEPHALIC - Eye Exam Additional comments: Pupils dilated & nonreactive. - ENT Exam ENT Exam: Mucous Membranes Moist - Neck Exam Additional comments: supple - Respiratory Exam Additional comments: Lungs clear anteriorly - Cardiovascular Exam Additional comments: A. fib 110/min - GI/Abdominal Exam Additional comments: Abdomen is soft. - Extremities Exam Additional comments: massively edematous Assessment and Plan - Assessment and Plan (Free Text) Assessment: ODIN/HRS, K+ is high again & is developing volume overload Needs dialysis to correct metabolic abnormalities. However Pt remains hypotensive despite pressors & is unstable for dialysis. Multiorgan failure Severe metabolic acidosis despite bicarb drip. Sepsis & septic shock Encephalopathy. EEG shows moderate to severe cortical dysfunction Plan: Pts condition was previously discussed with Pts sons. They are aware that Pt will not be able to tolerate dialysis.
--- NOTE | 2018-12-20 11:34 | CP.PCM.PN ---
Subjective - Date & Time of Evaluation Date of Evaluation: 12/20/18 Time of Evaluation: 11:00 - Subjective Subjective: Patient is intubated not sedated. ROS: not obtainable due to loc On exam: Severely icteric sclera. Pupils minimally reactive. No dolls eyes, no corneals, no gag. no spontaneous movement. Does not withdraw to painful stimulti. +1 dtr ul and ll bl. Toes silent. No clonus. EEG no longer running. Objective - Vital Signs/Intake and Output Vital Signs (last 24 hours): Temp Pulse Resp BP Pulse Ox 96.8 F L 132 H 20 93/41 L 100 12/20/18 08:00 12/20/18 11:00 12/20/18 11:00 12/20/18 11:00 12/20/18 11:00 Intake and Output: 12/20/18 12/20/18 06:59 18:59 Intake Total 1517 300 Output Total 7 Balance 1510 300 - Medications Medications: Current Medications Acetaminophen (Tylenol 650mg/20.3ml Solution Ud) 650 mg PO Q6 PRN PRN Reason: Temperature Last Admin: 12/19/18 04:22 Dose: 650 mg Dextrose (Dextrose 50% Inj) 0 ml IV STAT PRN; Protocol PRN Reason: Hypoglycemia Protocol Dextrose (Glutose 15) 0 gm PO ONCE PRN; Protocol PRN Reason: Hypoglycemia Protocol Fosphenytoin Sodium (Cerebyx) 100 mg IV Q8 [facility] Last Admin: 12/20/18 09:16 Dose: 100 mg Glucagon (Glucagen Diagnostic Kit) 0 mg IM STAT PRN; Protocol PRN Reason: Hypoglycemia Protocol Hydrocortisone Sodium Succinate (Solu-Cortef) 100 mg IV Q12 [facility] Last Admin: 12/20/18 09:20 Dose: 100 mg Piperacillin Sod/Tazobactam (Sod 2.25 gm/ Sodium Chloride) 100 mls @ 100 mls/hr IVPB Q12H [facility]; Protocol Last Admin: 12/20/18 04:49 Dose: 100 mls/hr Levetiracetam 1,500 mg/ Sodium (Chloride) 115 mls @ 215 mls/hr IVPB Q12H [facility] Last Admin: 12/20/18 01:27 Dose: 215 mls/hr Vasopressin 100 units/ Sodium (Chloride) 105 mls @ 1.89 mls/hr IV .Q24H [facility]; Protocol Last Admin: 12/20/18 01:35 Dose: 0.03 units/min, 1.89 mls/hr Lacosamide 200 mg/ Sodium (Chloride) 120 mls @ 120 mls/hr IVPB Q12@0900,2100 [facility] Last Admin: 12/20/18 10:11 Dose: 120 mls/hr Sodium Bicarbonate 80 meq/ (Dextrose/Sodium Chloride) 1,080 mls @ 50 mls/hr IV .[id number] [facility] Stop: 12/21/18 10:03 Norepinephrine Bitartrate 16 (mg/ Dextrose) 266 mls @ 29.93 mls/hr IV .[id number] ONE Stop: 12/20/18 20:11 Insulin Human Lispro (Humalog) 0 units SC Q6H [facility]; Protocol Last Admin: 12/20/18 04:48 Dose: Not Given Lactulose (Generlac) 200 gm RI Q4H [facility] Last Admin: 12/20/18 10:12 Dose: 200 gm Pantoprazole Sodium (Protonix Inj) 40 mg IVP DAILY [facility] Last Admin: 12/20/18 09:20 Dose: 40 mg Rifaximin (Xifaxan) 550 mg NG BID [facility]; Protocol Last Admin: 12/20/18 09:21 Dose: 550 mg - Labs Labs: 12/20/18 05:00 12/20/18 05:00 PT 26.5 Seconds (9.8-13.1) H D 12/18/18 09:00 INR 2.3 12/18/18 09:00 APTT 32.7 Seconds (25.6-37.1) 12/18/18 09:00 Assessment and Plan - Assessment and Plan (Free Text) Assessment: 58 yr old woman with hyperammonemia, who was in status epilepticus, now with no brainstem reflexes. IT is very likely that she is brain . PLan; 1. Brain protocol would be advisable. 2. EEG in am Our team will follow DR. Hendricks Neurology
--- NOTE | 2018-12-20 11:35 | CP.PCM.PN ---
Subjective - Date & Time of Evaluation Date of Evaluation: 12/19/18 Time of Evaluation: 10:30 - Subjective Subjective: Patient is intubated, sedated and exam is limited secondary to sedations. EEG report noted: diffuse slowing. Appreciate DR. Lanza assistance. ROS: not obtainable due to patients loc ON exam: Severely icteric sclera. Pupils minimally reactive. No dolls eyes, no corneals, no gag. no spontaneous movement. Does not withdraw to painful stimulti. +1 dtr ul and ll bl. Toes silent. No clonus. Objective - Vital Signs/Intake and Output Vital Signs (last 24 hours): Temp Pulse Resp BP Pulse Ox 96.8 F L 132 H 20 93/41 L 100 12/20/18 08:00 12/20/18 11:00 12/20/18 11:00 12/20/18 11:00 12/20/18 11:00 Intake and Output: 12/20/18 12/20/18 06:59 18:59 Intake Total 1517 300 Output Total 7 Balance 1510 300 - Medications Medications: Current Medications Acetaminophen (Tylenol 650mg/20.3ml Solution Ud) 650 mg PO Q6 PRN PRN Reason: Temperature Last Admin: 12/19/18 04:22 Dose: 650 mg Dextrose (Dextrose 50% Inj) 0 ml IV STAT PRN; Protocol PRN Reason: Hypoglycemia Protocol Dextrose (Glutose 15) 0 gm PO ONCE PRN; Protocol PRN Reason: Hypoglycemia Protocol Fosphenytoin Sodium (Cerebyx) 100 mg IV Q8 [facility] Last Admin: 12/20/18 09:16 Dose: 100 mg Glucagon (Glucagen Diagnostic Kit) 0 mg IM STAT PRN; Protocol PRN Reason: Hypoglycemia Protocol Hydrocortisone Sodium Succinate (Solu-Cortef) 100 mg IV Q12 [facility] Last Admin: 12/20/18 09:20 Dose: 100 mg Piperacillin Sod/Tazobactam (Sod 2.25 gm/ Sodium Chloride) 100 mls @ 100 mls/hr IVPB Q12H [facility]; Protocol Last Admin: 12/20/18 04:49 Dose: 100 mls/hr Levetiracetam 1,500 mg/ Sodium (Chloride) 115 mls @ 215 mls/hr IVPB Q12H [facility] Last Admin: 12/20/18 01:27 Dose: 215 mls/hr Vasopressin 100 units/ Sodium (Chloride) 105 mls @ 1.89 mls/hr IV .Q24H [facility]; Protocol Last Admin: 12/20/18 01:35 Dose: 0.03 units/min, 1.89 mls/hr Lacosamide 200 mg/ Sodium (Chloride) 120 mls @ 120 mls/hr IVPB Q12@0900,2100 [facility] Last Admin: 12/20/18 10:11 Dose: 120 mls/hr Sodium Bicarbonate 80 meq/ (Dextrose/Sodium Chloride) 1,080 mls @ 50 mls/hr IV .[id number] [facility] Stop: 12/21/18 10:03 Norepinephrine Bitartrate 16 (mg/ Dextrose) 266 mls @ 29.93 mls/hr IV .[id number] ONE Stop: 12/20/18 20:11 Insulin Human Lispro (Humalog) 0 units SC Q6H [facility]; Protocol Last Admin: 12/20/18 04:48 Dose: Not Given Lactulose (Generlac) [address] Q4H [facility] Last Admin: 12/20/18 10:12 Dose: 200 gm Pantoprazole Sodium (Protonix Inj) 40 mg IVP DAILY [facility] Last Admin: 12/20/18 09:20 Dose: 40 mg Rifaximin (Xifaxan) 550 mg NG BID [facility]; Protocol Last Admin: 12/20/18 09:21 Dose: 550 mg - Labs Labs: 12/20/18 05:00 12/20/18 05:00 PT 26.5 Seconds (9.8-13.1) H D 12/18/18 09:00 INR 2.3 12/18/18 09:00 APTT 32.7 Seconds (25.6-37.1) 12/18/18 09:00 Assessment and Plan - Assessment and Plan (Free Text) Assessment: 58 yr old woman with severe encephalopathy, coma, not in status but with poor prognosis. Plan: 1. Continue medical management of hepatic encephalopathy and seizures. OUr team will follow DR. paredes Neurology
[2018-12-20 11:41] LABS: ABG ALLEN TEST YES; ARTERIAL BLOOD GAS HCO3 6.2 mmol/L (21-28); ARTERIAL BLOOD GAS HEMOGLOBIN 8.5 g/dL (11.7-17.4); ARTERIAL BLOOD GAS O2 CAPACITY 11.6 mL/dL (16-24); ARTERIAL BLOOD GAS O2 CONTENT 11.1 ML/dL (15-23); ARTERIAL BLOOD GAS O2 SAT 95.5 % (95-98); ARTERIAL BLOOD GAS PCO2 35 mm/Hg (35-45); ARTERIAL BLOOD GAS PH 6.92 (7.35-7.45); ARTERIAL BLOOD GAS PO2 77 mm/Hg (80-100); ARTERIAL BLOOD GAS TCO2 8.3 mmol/L (22-28)
--- NOTE | 2018-12-20 13:38 | CP.PCM.CON ---
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 She received a paracentisis, however no ascites was withdrawn and no cultures sent at that time Surgery was consulted regarding a hernia Patient received morphine for pain and was sent home with a script of toradol 10mg. As per family patient was normal after discharge, but complained of not able to sleep, and all sudden she became confused and altered mental status. Medication: Sprinoloactone 100mg, propanolol 10mg, furosemide 40mg , novolin 70/30 PMH: HTN, DM, CKD, hepatic cirrhosis PFH: NOne PSH: 1 abdominal hernia Social: no smoking, ETOH use. Review of Systems - Review of Systems Systems not reviewed;Unavailable: Altered Mental Status, Intubated Past Patient History - Infectious Disease Hx of Infectious Diseases: None - Tetanus Immunizations Tetanus Immunization: Unknown - Past Medical History & Family History Past Medical History?: Yes - Past Social History Smoking Status: Never Smoked Alcohol: None Drugs: Denies Home Situation {Lives}: With Family - CARDIAC Hx Cardiac Disorders: Yes Hx Hypercholesterolemia: Yes Hx Hypertension: Yes - PULMONARY Hx Respiratory Disorders: Yes Hx Pneumonia: Yes - NEUROLOGICAL Hx Neurological Disorder: No - HEENT Hx HEENT Problems: No - RENAL Hx Chronic Kidney Disease: No - ENDOCRINE/METABOLIC Hx Endocrine Disorders: Yes Hx Diabetes Mellitus Type 2: Yes - HEMATOLOGICAL/ONCOLOGICAL Hx Blood Disorders: Yes Hx Anemia: Yes Hx Human Immunodeficiency Virus (HIV): No - INTEGUMENTARY Hx Dermatological Problems: No - MUSCULOSKELETAL/RHEUMATOLOGICAL Hx Musculoskeletal Disorders: No Hx Falls: No - GASTROINTESTINAL Hx Gastrointestinal Disorders: Yes Hx Gastritis: Yes - GENITOURINARY/GYNECOLOGICAL Hx Genitourinary Disorders: No - PSYCHIATRIC Hx Psychophysiologic Disorder: No Hx Anxiety: No Hx Bipolar Disorder: No Hx Depression: No Hx Paranoia: No Hx Post Traumatic Stress Disorder: No Hx Schizophrenia: No Hx Substance Use: No - SURGICAL HISTORY Hx Surgeries: Yes Hx Appendectomy: Yes - ANESTHESIA Hx Anesthesia: Yes Hx Anesthesia Reactions: No Hx Malignant Hyperthermia: No Meds Allergies/Adverse Reactions: Allergies Allergy/AdvReac Type Severity Reaction Status Date / Time No Known Allergies Allergy Verified 12/10/18 10:10 - Medications Medications: Current Medications Acetaminophen (Tylenol 650mg/20.3ml Solution Ud) 650 mg PO Q6 PRN PRN Reason: Temperature Last Admin: 12/19/18 04:22 Dose: 650 mg Dextrose (Dextrose 50% Inj) 0 ml IV STAT PRN; Protocol PRN Reason: Hypoglycemia Protocol Dextrose (Glutose 15) 0 gm PO ONCE PRN; Protocol PRN Reason: Hypoglycemia Protocol Fosphenytoin Sodium (Cerebyx) 100 mg IV Q8 [facility] Last Admin: 12/20/18 09:16 Dose: 100 mg Glucagon (Glucagen Diagnostic Kit) 0 mg IM STAT PRN; Protocol PRN Reason: Hypoglycemia Protocol Hydrocortisone Sodium Succinate (Solu-Cortef) 100 mg IV Q12 [facility] Last Admin: 12/20/18 09:20 Dose: 100 mg Piperacillin Sod/Tazobactam (Sod 2.25 gm/ Sodium Chloride) 100 mls @ 100 mls/hr IVPB Q12H [facility]; Protocol Last Admin: 12/20/18 04:49 Dose: 100 mls/hr Levetiracetam 1,500 mg/ Sodium (Chloride) 115 mls @ 215 mls/hr IVPB Q12H [facility] Last Admin: 12/20/18 01:27 Dose: 215 mls/hr Vasopressin 100 units/ Sodium (Chloride) 105 mls @ 1.89 mls/hr IV .Q24H [facility]; Protocol Last Admin: 12/20/18 01:35 Dose: 0.03 units/min, 1.89 mls/hr Lacosamide 200 mg/ Sodium (Chloride) 120 mls @ 120 mls/hr IVPB Q12@0900,2100 [facility] Last Admin: 12/20/18 10:11 Dose: 120 mls/hr Sodium Bicarbonate 80 meq/ (Dextrose/Sodium Chloride) 1,080 mls @ 50 mls/hr IV .[id number] [facility] Stop: 12/21/18 10:03 Norepinephrine Bitartrate 16 (mg/ Dextrose) 266 mls @ 29.93 mls/hr IV .[id number] ONE Stop: 12/20/18 20:11 Last Admin: 12/20/18 12:28 Dose: 29.93 mls/hr Insulin Human Lispro (Humalog) 0 units SC Q6H [facility]; Protocol Last Admin: 12/20/18 12:30 Dose: Not Given Lactulose (Generlac) 200 gm OR Q4H [facility] Last Admin: 12/20/18 10:12 Dose: 200 gm Pantoprazole Sodium (Protonix Inj) 40 mg IVP DAILY [facility] Last Admin: 12/20/18 09:20 Dose: 40 mg Rifaximin (Xifaxan) 550 mg NG BID [facility]; Protocol Last Admin: 12/20/18 09:21 Dose: 550 mg Physical Exam - Constitutional Appears: Confused - Head Exam Head Exam: NORMOCEPHALIC - Eye Exam Eye Exam: Scleral icterus - ENT Exam ENT Exam: Mucous Membranes Dry - Neck Exam Neck exam: Negative for: Lymphadenopathy - Respiratory Exam Respiratory Exam: Decreased Breath Sounds, Rhonchi - Cardiovascular Exam Cardiovascular Exam: Tachycardia, REGULAR RHYTHM, +S1, +S2 - GI/Abdominal Exam GI & Abdominal Exam: Diminished Bowel Sounds, Distended, Firm, Hypoactive Bowel Sounds. absent: Pulsatile Mass Additional comments: umbilical hernia appears to be reducible - Rectal Exam Rectal Exam: Deferred - Exam Exam: NORMAL INSPECTION - Extremities Exam Extremities exam: Positive for: pedal edema. Negative for: calf tenderness, pedal pulses present - Back Exam Back exam: absent: CVA tenderness (L), CVA tenderness (R) - Neurological Exam Neurological exam: Altered - Psychiatric Exam Psychiatric exam: Depressed - Skin Skin Exam: Dry Results - Vital Signs Recent Vital Signs: Last Vital Signs Temp 97 F L 12/20/18 12:00 Pulse 110 H 12/20/18 12:00 Resp 20 12/20/18 12:00 BP 108/39 L 12/20/18 12:00 Pulse Ox 100 12/20/18 12:00 - Labs Result Diagrams: 12/20/18 05:00 12/20/18 05:00 Labs: Laboratory Results - last 24 hr 12/18/18 12/19/18 12/19/18 22:58 01:03 03:00 WBC RBC Hgb Hct MCV MCH MCHC RDW Plt Count pCO2 pO2 HCO3 ABG pH ABG Total CO2 ABG O2 Saturation ABG O2 Content ABG Base Excess ABG Hemoglobin ABG Carboxyhemoglobin POC ABG HHb (Measured) ABG Methemoglobin ABG O2 Capacity Uriel Test A-a O2 Difference Hgb O2 Saturation Vent Mode Mechanical Rate FiO2 Tidal Volume PEEP Crit Value Called To Crit Value Called By Crit Value Read Back Blood Gas Notified Time Sodium Potassium Chloride Carbon Dioxide Anion Gap BUN Creatinine Est GFR ( Amer) Est GFR (Non-Af Amer) POC Glucose (mg/dL) 225 H 297 H 270 H Random Glucose Calcium Phosphorus Magnesium Total Bilirubin AST ALT Alkaline Phosphatase Ammonia Total Protein Albumin Globulin Albumin/Globulin Ratio 12/19/18 12/19/18 12/19/18 04:58 08:08 10:29 WBC RBC Hgb Hct MCV MCH MCHC RDW Plt Count pCO2 pO2 HCO3 ABG pH ABG Total CO2 ABG O2 Saturation ABG O2 Content ABG Base Excess ABG Hemoglobin ABG Carboxyhemoglobin POC ABG HHb (Measured) ABG Methemoglobin ABG O2 Capacity Uriel Test A-a O2 Difference Hgb O2 Saturation Vent Mode Mechanical Rate FiO2 Tidal Volume PEEP Crit Value Called To Crit Value Called By Crit Value Read Back Blood Gas Notified Time Sodium Potassium Chloride Carbon Dioxide Anion Gap BUN Creatinine Est GFR ( Amer) Est GFR (Non-Af Amer) POC Glucose (mg/dL) 239 H 198 H 189 H Random Glucose Calcium Phosphorus Magnesium Total Bilirubin AST ALT Alkaline Phosphatase Ammonia Total Protein Albumin Globulin Albumin/Globulin Ratio 12/19/18 12/19/18 12/19/18 12:25 14:23 16:01 WBC RBC Hgb Hct MCV MCH MCHC RDW Plt Count pCO2 pO2 HCO3 ABG pH ABG Total CO2 ABG O2 Saturation ABG O2 Content ABG Base Excess ABG Hemoglobin ABG Carboxyhemoglobin POC ABG HHb (Measured) ABG Methemoglobin ABG O2 Capacity Uriel Test A-a O2 Difference Hgb O2 Saturation Vent Mode Mechanical Rate FiO2 Tidal Volume PEEP Crit Value Called To Crit Value Called By Crit Value Read Back Blood Gas Notified Time Sodium Potassium Chloride Carbon Dioxide Anion Gap BUN Creatinine Est GFR ( Amer) Est GFR (Non-Af Amer) POC Glucose (mg/dL) 172 H 176 H 142 H Random Glucose Calcium Phosphorus Magnesium Total Bilirubin AST ALT Alkaline Phosphatase Ammonia Total Protein Albumin Globulin Albumin/Globulin Ratio 12/19/18 12/19/18 12/19/18 18:08 20:33 21:54 WBC RBC Hgb Hct MCV MCH MCHC RDW Plt Count pCO2 pO2 HCO3 ABG pH ABG Total CO2 ABG O2 Saturation ABG O2 Content ABG Base Excess ABG Hemoglobin ABG Carboxyhemoglobin POC ABG HHb (Measured) ABG Methemoglobin ABG O2 Capacity Uriel Test A-a O2 Difference Hgb O2 Saturation Vent Mode Mechanical Rate FiO2 Tidal Volume PEEP Crit Value Called To Crit Value Called By Crit Value Read Back Blood Gas Notified Time Sodium Potassium Chloride Carbon Dioxide Anion Gap BUN Creatinine Est GFR ( Amer) Est GFR (Non-Af Amer) POC Glucose (mg/dL) 131 H 112 H 106 Random Glucose Calcium Phosphorus Magnesium Total Bilirubin AST ALT Alkaline Phosphatase Ammonia Total Protein Albumin Globulin Albumin/Globulin Ratio 12/20/18 12/20/18 12/20/18 00:14 03:52 04:27 WBC RBC Hgb Hct MCV MCH MCHC RDW Plt Count pCO2 35 pO2 77 L HCO3 6.2 L* ABG pH 6.92 L* ABG Total CO2 8.3 L ABG O2 Saturation 95.5 ABG O2 Content 11.1 L ABG Base Excess -23.9 L ABG Hemoglobin 8.5 L ABG Carboxyhemoglobin 2.0 H POC ABG HHb (Measured) 4.3 ABG Methemoglobin 1.6 ABG O2 Capacity 11.6 L Uriel Test Yes A-a O2 Difference 307.0 Hgb O2 Saturation 92.1 L Vent Mode A/c Mechanical Rate 16 FiO2 60.0 Tidal Volume 450 PEEP 0 Crit Value Called To Javier russell Crit Value Called By 292 Crit Value Read Back Y Blood Gas Notified Time 409 Sodium Potassium Chloride Carbon Dioxide Anion Gap BUN Creatinine Est GFR ( Amer) Est GFR (Non-Af Amer) POC Glucose (mg/dL) 90 64 L Random Glucose Calcium Phosphorus Magnesium Total Bilirubin AST ALT Alkaline Phosphatase Ammonia Total Protein Albumin Globulin Albumin/Globulin Ratio 12/20/18 12/20/18 12/20/18 05:00 05:00 05:00 WBC 24.5 H RBC 2.26 L Hgb 7.3 L Hct 24.3 L MCV 107.2 H D MCH 32.2 H MCHC 30.1 L RDW 21.3 H Plt Count 26 L* D pCO2 pO2 HCO3 ABG pH ABG Total CO2 ABG O2 Saturation ABG O2 Content ABG Base Excess ABG Hemoglobin ABG Carboxyhemoglobin POC ABG HHb (Measured) ABG Methemoglobin ABG O2 Capacity Uriel Test A-a O2 Difference Hgb O2 Saturation Vent Mode Mechanical Rate FiO2 Tidal Volume PEEP Crit Value Called To Crit Value Called By Crit Value Read Back Blood Gas Notified Time Sodium 141 Potassium 6.0 H Chloride 105 Carbon Dioxide 9 L* D Anion Gap 33 H BUN 51 H Creatinine 5.0 H Est GFR ( Amer) 11 Est GFR (Non-Af Amer) 9 POC Glucose (mg/dL) Random Glucose 121 H Calcium 7.1 L Phosphorus 10.4 H Magnesium 1.8 Total Bilirubin 6.5 H AST 2101 H ALT 503 H D Alkaline Phosphatase 88 Ammonia 1390 H* D Total Protein 4.3 L Albumin 1.7 L Globulin 2.6 Albumin/Globulin Ratio 0.6 L 12/20/18 07:48 WBC RBC Hgb Hct MCV MCH MCHC RDW Plt Count pCO2 pO2 HCO3 ABG pH ABG Total CO2 ABG O2 Saturation ABG O2 Content ABG Base Excess ABG Hemoglobin ABG Carboxyhemoglobin POC ABG HHb (Measured) ABG Methemoglobin ABG O2 Capacity Uriel Test A-a O2 Difference Hgb O2 Saturation Vent Mode Mechanical Rate FiO2 Tidal Volume PEEP Crit Value Called To Crit Value Called By Crit Value Read Back Blood Gas Notified Time Sodium Potassium Chloride Carbon Dioxide Anion Gap BUN Creatinine Est GFR ( Amer) Est GFR (Non-Af Amer) POC Glucose (mg/dL) 185 H Random Glucose Calcium Phosphorus Magnesium Total Bilirubin AST ALT Alkaline Phosphatase Ammonia Total Protein Albumin Globulin Albumin/Globulin Ratio Assessment & Plan (1) Acute respiratory failure Status: Acute Priority: High (2) GI bleed Status: Acute Priority: High (3) Hepatic encephalopathy Status: Acute Priority: High (4) Hx of hepatitis C Status: Acute Priority: High (5) Hyperkalemia Status: Acute Priority: High (6) Sepsis Status: Acute Priority: High (7) Chronic hepatitis C with cirrhosis Status: Chronic Priority: High (8) ARF (acute renal failure) Status: Acute (9) Altered mental status Status: Acute (10) DM type 2 (diabetes mellitus, type 2) Status: Acute - Assessment and Plan (Free Text) Assessment: 58 yo female was brought to ER on 12/15/18 due to altered mental status 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 Referred for ID eval today 12/20/18 for persistent leukocytosis despite IV antibiotic At this point the patient is comatose on vent secondary to severe metabolic encephalopathy , on 3 pressors and bleeding actively from the NGT and no urine output She has multisystem organ failure Thus far all cultures negative except sputum + for MSSA CXR shows bibasilar infiltrates CT abd showed SBO and ileus with ventral hernia In view of grave clinical codition and limited diagnostic capabilities at this time, IV antibiotic coverage will be broadened to include hospital aquired organisms Poor prognosis from outset
[2018-12-20] MEDS: Sodium Bicarbonate 7.5% (0.9 MEQ/ML) 50ML INJ IV ONE (14:00)
[2018-12-20 14:26] LABS: ABG ALLEN TEST YES; ARTERIAL BLOOD GAS HCO3 7.9 mmol/L (21-28); ARTERIAL BLOOD GAS O2 SAT 99.9 % (95-98); ARTERIAL BLOOD GAS PCO2 32 mm/Hg (35-45); ARTERIAL BLOOD GAS PO2 96 mm/Hg (80-100); ARTERIAL BLOOD GAS TCO2 8.9 mmol/L (22-28)
[2018-12-20] MEDS ORDERED: Sodium Chloride 0.9% 1,000 ML IV SCH (15:00)
[2018-12-20] MEDS ORDERED: Sodium Bicarbonate 7.5% (0.9 MEQ/ML) 50ML INJ IV ONE ×3 (15:43→19:35)
[2018-12-20] MEDS ORDERED: DOPamine 400mg/250ml D5W 400 MG/250 ML BAG IV ONE ×2 (15:45→20:28)
[2018-12-20 16:03] LABS: ABG ALLEN TEST YES; ARTERIAL BLOOD GAS HCO3 4.2 mmol/L (21-28); ARTERIAL BLOOD GAS O2 SAT 98.3 % (95-98); ARTERIAL BLOOD GAS PCO2 25 mm/Hg (35-45); ARTERIAL BLOOD GAS PH 6.92 (7.35-7.45); ARTERIAL BLOOD GAS PO2 113 mm/Hg (80-100); ARTERIAL BLOOD GAS TCO2 5.9 mmol/L (22-28)
[2018-12-20] MEDS ORDERED: Sodium Bicarbonate 8.4% 80 MEQ in Dextrose 5%/0.45% NS 1,000 ML IV SCH (16:15)
[2018-12-20] MEDS ORDERED: metroNIDAZOLE 500mg/100ml NS 100 ML IVPB SCH (17:00)
[2018-12-20] MEDS ORDERED: Meropenem 500 MG in Sodium Chloride 0.9% 100 ML IVPB SCH (17:00)
[2018-12-20] MEDS ORDERED: Phenylephrine 60 MG in Sodium Chloride 0.9% 250 ML IV SCH (17:30)
[2018-12-20 18:33] VITALS: O2SAT 100
--- NOTE | 2018-12-20 20:47 | CP.PCM.PRO ---
Pronouncement of Note - Clinical Findings Physical Exam: No Response Verbal/Painful Stimuli, Absent Peripheral Puls es{Carotid & Femoral}, Absent Heart & Breath Sounds, No Pupillary Light Reflex, No Corneal Reflex, Pupils Fixed & Dilated, Absence of Vital Signs - Pronouncement Time Time of Pronouncement of : 20:11 - Notifications Pronouncement Notifications: Family Notified, Atending Notified Gum Dipper Notified: No - Autopsy Autopsy Requested: No [place] [id number] Additional Comments: The patient was a DNR
[2018-12-20 23:18] VITALS: BP 51/19; PULSE 0; RESP 0; TEMP 93
== END 2018-12-20 22:30 | DRG 710 ==
LOC: H.ER 10:47 → SUPCPDRO 10:47 → H.ERHOLD 15:01 → H.ICU/CCU 18:38
PROC: 0BH17EZ Insertion of Endotracheal Airway into Trachea, Via Natural or Artificial Opening (ICD-10-PCS; principal; 2018-12-15)
PROC: 5A1955Z Respiratory Ventilation, Greater than 96 Consecutive Hours (ICD-10-PCS; 2018-12-15)
PROC: 04HY32Z Insertion of Monitoring Device into Lower Artery, Percutaneous Approach (ICD-10-PCS; 2018-12-16)
PROC: 06HM33Z Insertion of Infusion Device into Right Femoral Vein, Percutaneous Approach (ICD-10-PCS; 2018-12-16)
PROC: 05HM33Z Insertion of Infusion Device into Right Internal Jugular Vein, Percutaneous Approach (ICD-10-PCS; 2018-12-17)
PROC: 5A1D70Z Performance of Urinary Filtration, Intermittent, Less than 6 Hours Per Day (ICD-10-PCS; 2018-12-17)
PROC: 30233N1 Transfusion of Nonautologous Red Blood Cells into Peripheral Vein, Percutaneous Approach (ICD-10-PCS; 2018-12-18)
DX: A41.9 Sepsis, unspecified organism (principal); K72.91 Hepatic failure, unspecified with coma; J96.01 Acute respiratory failure with hypoxia; R65.21 Severe sepsis with septic shock; K76.7 Hepatorenal syndrome; J15.211 Pneumonia due to Methicillin susceptible Staphylococcus aureus; G92 Toxic encephalopathy; N17.9 Acute kidney failure, unspecified; E72.20 Disorder of urea cycle metabolism, unspecified; N18.3 Chronic kidney disease, stage 3 (moderate); D68.4 Acquired coagulation factor deficiency; R18.8 Other ascites; E11.22 Type 2 diabetes mellitus with diabetic chronic kidney disease; E87.70 Fluid overload, unspecified; K74.60 Unspecified cirrhosis of liver; E11.65 Type 2 diabetes mellitus with hyperglycemia; K43.0 Incisional hernia with obstruction, without gangrene; K92.2 Gastrointestinal hemorrhage, unspecified; E87.5 Hyperkalemia; Z79.4 Long term (current) use of insulin; I12.9 Hypertensive chronic kidney disease with stage 1 through stage 4 chronic kidney disease, or unspecified chronic kidney disease; K21.9 Gastro-esophageal reflux disease without esophagitis; K29.50 Unspecified chronic gastritis without bleeding; B18.2 Chronic viral hepatitis C; E78.00 Pure hypercholesterolemia, unspecified; G40.901 Epilepsy, unspecified, not intractable, with status epilepticus; F32.9 Major depressive disorder, single episode, unspecified; E86.1 Hypovolemia; E66.01 Morbid (severe) obesity due to excess calories; Z68.36 Body mass index [BMI] 36.0-36.9, adult; D63.8 Anemia in other chronic diseases classified elsewhere; K80.20 Calculus of gallbladder without cholecystitis without obstruction; D69.59 Other secondary thrombocytopenia; K42.9 Umbilical hernia without obstruction or gangrene; Z66 Do not resuscitate